=== PATIENT | male | born 1970 | race Hispanic/Latino ===

== ENCOUNTER → 2018-01-16 | Day surgery (SDC) | payer MEDICARE ==
[~2018-01-16] VITALS: Ht 170.2 cm; Wt 112.9 kg
[~2018-01-16] MED LIST: AMLODIPINE BESY10 MG PO; ASPIRIN325 MG PO; ATORVASTATIN CA80 MG PO; BENADRYL25 M1 PO; BISCOLAX10 MG RC; CLONIDINE HCL0.3 MG PO; CLONIDINE1 EAC1 TD; COLACE100 MG PO; COREG25 MG PO; DOXAZOSIN MESYLA8 MG PO; FENTANYL CITRATE/PF 100MCG/2 ML INJ ONE; GABAPENTIN300 MG PO; HUMALOG100 UNITS/; HYDRALAZINE HC100 MG PO; LACTULOSE20 GM/30 M PO; LANTUS 3ML100 UNITS/ SQ; LIDOCAINE HCL 2% LOCAL 20 ML VIAL ONE; LISINOPRIL40 MG PO; LORATADINE10 MG PO; MIDAZOLAM HCL 2 MG/2 ML VIAL ONE; NEPHRO-VITE RX1 EACH PO; OMEPRAZOLE40 MG PO; RENVELA800 MG PO; ROBAXIN500 MG PO; SEROQUEL50 MG PO; SODIUM CHLORIDE 0.9% 1000ML 1,000 ML ONE; SODIUM CHLORIDE 0.9% 500ML 500 ML ONE
[2018-01-16 08:15] VITALS: BP 155/78
--- OUTSIDE RECORDS SUMMARY | 2018-01-16 08:53 | XMS REPORT ---
Author Author [facility] Address Unknown Phone Unavailable Care Team Providers Care Alligator Shear Operator Name Role Phone KONRAD HUGHES Unavailable Unavailable Celena Campos Unavailable Unavailable JM CASTRO Unavailable Unavailable Wilman Proctor Unavailable Unavailable Problems This patient has no known problems. Allergies, Adverse Reactions, Alerts This patient has no known allergies or adverse reactions. Medications This patient has no known medications. Results Test Description Test Time Test Comments Text Results Atomic Results Result Comments NON TUNNELED CVC 2017-03-21 10:09:04 21 total fluoroscopic images are submitted for interpretation. BOX CAR CHECKER REQUEST FOR SERVICE 2017-03-21 10:09:04 21 total fluoroscopic images are submitted for interpretation. HEPATITIS B CORE ANTIBODY,TOTAL 2016-12-24 12:53:00 HEPATITIS B CORE AB TOTAL (test vwaz=[id number]) NON-REACTIVE NON-REACTIVE TEST PERFORMED AT:[facility] [address] [address] 160IRAJ GONZALEZ M.D. HEPATITIS B CORE IgM [id number] 12:53:00* Test Item Value Reference Range Comments HEPATITIS B CORE ANTIBODY (IGM) (test dhoa=[id number]) NON-REACTIVE NON- REACTIVE TEST PERFORMED AT:[facility] [address] [address]FIEYXNATHAN GONZALEZ M.D. HEPATITIS C [id number] 14:19:00* Test Item Value Reference Range Comments HCAB (test code=HCAB) REACTIVE NON-REACTIVE HEPATITIS B SURFACE [id number] 13:47:00* Test Item Value Reference Range Comments HBSAG (test code=HBSAG) NON-REACTIVE NON-REACTIVE HEPATITIS B SURFACE [id number] 13:37:00* Test Item Value Reference Range Comments HBSAB (test code=HBSAB) REACTIVE REACTIVE GLUCOMETER GLUCOSE- LAB USE [id number] 13:06:00* Test Item Value Reference Range Comments GLUCOMETER (test code=GMG) 195 mg/dL 70-100 Meter ID: [id number]: 4912 MARGARITO VARELA GLUCOMETER GLUCOSE- LAB USE [id number] 05:27:00* Test Item Value Reference Range Comments GLUCOMETER (test code=GMG) 109 mg/dL 70-100 DAILY MAINTENANCECLEANED METERMeter ID: [id number]: 5366 MICHELLE LIMNOS GLUCOMETER GLUCOSE- LAB USE [id number] 20:13:00* Test Item Value Reference Range Comments GLUCOMETER (test code=GMG) 116 mg/dL 70-100 DAILY MAINTENANCECLEANED METERMeter ID: [id number]: 5366 MICHELLE MARES GLUCOMETER GLUCOSE- LAB USE [id number] 15:41:00* Test Item Value Reference Range Comments GLUCOMETER (test code=GMG) 171 mg/dL 70-100 DAILY MAINTENANCECLEANED METERMeter ID: [id number]: 5193 KULDIP IBARREZ GLUCOMETER GLUCOSE- LAB USE [id number] 11:42:00* Test Item Value Reference Range Comments GLUCOMETER (test code=GMG) 202 mg/dL 70-100 DAILY MAINTENANCECLEANED METERMeter ID: [id number]: 5193 KULDIP IBARREZ GLUCOMETER GLUCOSE- LAB USE [id number] 06:08:00* Test Item Value Reference Range Comments GLUCOMETER (test code=GMG) 108 mg/dL 70-100 DAILY MAINTENANCECLEANED METERMeter ID: [id number]: 4736 SCOTT GAVIRIA GLUCOMETER GLUCOSE- LAB USE [id number] 19:49:00* Test Item Value Reference Range Comments GLUCOMETER (test code=GMG) 177 mg/dL 70-100 DAILY MAINTENANCECLEANED METERMeter ID: [id number]: 5366 MICHELLE MARES GLUCOMETER GLUCOSE- LAB USE [id number] 15:48:00* Test Item Value Reference Range Comments GLUCOMETER (test code=GMG) 179 mg/dL 70-100 DAILY MAINTENANCECLEANED METERMeter ID: [id number]: 5193 KULDIP IBARREZ GLUCOMETER GLUCOSE- LAB USE [id number] 11:53:00* Test Item Value Reference Range Comments GLUCOMETER (test code=GMG) 143 mg/dL 70-100 DAILY MAINTENANCECLEANED METERMeter ID: [id number]: 5193 KULDIP ESCOBEDO GLUCOMETER GLUCOSE- LAB USE [id number] 05:41:00* Test Item Value Reference Range Comments GLUCOMETER (test code=GMG) 119 mg/dL 70-100 Meter ID: [id number]: 4736 SCOTT GAVIRIA GLUCOMETER GLUCOSE- LAB USE [id number] 21:02:00* Test Item Value Reference Range Comments GLUCOMETER (test code=GMG) 122 mg/dL 70-100 Meter ID: [id number]: 4736 SCOTT GAVIRIA GLUCOMETER GLUCOSE- LAB USE [id number] 15:37:00* Test Item Value Reference Range Comments GLUCOMETER (test code=GMG) 178 mg/dL 70-100 DAILY MAINTENANCECLEANED METERMeter ID: [id number]: 5586 ARMANDO ROYALKW GLUCOMETER GLUCOSE- LAB USE [id number] 11:55:00* Test Item Value Reference Range Comments GLUCOMETER (test code=GMG) 174 mg/dL 70-100 DAILY MAINTENANCECLEANED METERMeter ID: [id number]: 5586 ARMANDO ROYALKW GLUCOMETER GLUCOSE- LAB USE [id number] 06:23:00* Test Item Value Reference Range Comments GLUCOMETER (test code=GMG) 143 mg/dL 70-100 CLEANED METERMeter ID: [id number]: 2417 CHELI [facility] METABOLIC [id number] 04:07:00* Test Item Value Reference Range Comments GLUCOSE (test code=06D) 143 mg/dL 75-100 SODIUM (test code=01A) 137 mmol/L 136-145 POTASSIUM (test code=01B) 4.3 mmol/L 3.6-5.1 CHLORIDE (test code=04A) 103 mmol/L 98-107 CO2 (test code=02A) 23 mmol/L 22-32 ANION GAP (test code=ANG) 15.3 mmol/L BUN (test code=05D) 44 mg/dL 7-18 CREATININE (test code=03E) 7.2 mg/dL 0.7-1.3 BUN/CREA R (test code=BCR) 6 12-20 CALCIUM (test code=09D) 7.9 mg/dL 8.3-9.5 BILI TOTAL (test code=11A) 0.2 mg/dL 0.2-1.0 PROTEIN (test code=07D) 7.4 g/dL 6.4-8.2 ALBUMIN (test code=08D) 2.3 g/dL 3.5-4.8 GLOBULIN (test code=GLB) 5.1 g/dL 1.5-3.8 ALB/GLOB (test code=AGRR) 0.5 1.0-2.6 ALK PHOS (test code=35A) 121 IU/L 42-121 AST (test code=30A) 20 IU/L <=42 ALT (test code=31A) 14 IU/L <=78 CBC (INCLUDES AUTOMATED DIFFERENTIAL)2016-12-20 03:54:00* Test Item Value Reference Range Comments WBC (test code=WBC) 6.1 10\\S\\3/uL 4.5-11.0 RBC (test code=RBC) 3.13 10\\S\\6/uL 4.20-5.60 HGB (test code=HBG) 9.1 g/dL 14.0-18.0 HCT (test code=HCT) 29.8 % 35.0-46.0 MCV (test code=MCV) 95.2 fL 80.0-94.0 MCH (test code=MCH) 29.1 pg 27.0-31.0 MCHC (test code=MCHC) 30.5 g/dL 32.0-36.0 RDW (test code=RDW) 14.6 % 11.5-14.5 PLT (test code=PLT) 201 10\\S\\3/uL 130-400 MPV (test code=MPV) 10.8 fL 9.4-12.4 NEUTROP # (test code=NE#) 4.2 10\\S\\3/uL 2.0-8.0 LYMPH # (test code=LY#) 1.1 10\\S\\3/uL 1.2-4.0 MONOCYTE # (test code=MO#) 0.5 10\\S\\3/uL 0.0-1.1 EOSINOPH # (test code=EO#) 0.2 10\\S\\3/uL 0.0-0.7 BASOPHIL # (test code=BA#) 0.0 10\\S\\3/uL 0.0-0.3 IG # (test code=IG#) 0.17 10\\S\\3/uL 0.00-0.06 NRBC # (test code=NRBC#) 0.02 10\\S\\3/uL 0.00-0.01 NEUTROPH % (test code=NE%) 67.5 % 35.0-73.0 LYMPH % (test code=LY%) 17.8 % 20.0-55.0 MONO % (test code=MO%) 8.1 % 2.5-10.0 EOSINOPH % (test code=EO%) 3.3 % 0.0-5.0 BASOPHIL % (test code=BA%) 0.5 % 0.0-2.0 IG % (test code=IG%) 2.8 % 0.0-0.8 NRBC% (test code=NRBC%) 0.3 % 0.0-0.2 MANDIFF (test code=MDIFF) NO NO RBC MORPH (test code=RBCMOR) NORMAL GLUCOMETER GLUCOSE- LAB USE [id number] 20:28:00* Test Item Value Reference Range Comments GLUCOMETER (test code=GMG) 137 mg/dL 70-100 CLEANED METERMeter ID: [id number]: 24[address] CHELI [address] [place] GLUCOMETER GLUCOSE- LAB USE [id number] 15:34:00* Test Item Value Reference Range Comments GLUCOMETER (test code=GMG) 131 mg/dL 70-100 Meter ID: [id number]: 5226 EDA HERNANDEZ GLUCOMETER GLUCOSE- LAB USE [id number] 11:35:00* Test Item Value Reference Range Comments GLUCOMETER (test code=GMG) 165 mg/dL 70-100 Meter ID: [id number]: 5226 EDA HERNANDEZ GLUCOMETER GLUCOSE- LAB USE [id number] 05:56:00* Test Item Value Reference Range Comments GLUCOMETER (test code=GMG) 145 mg/dL 70-100 Meter ID: [id number]: 4333 JASSON LONG GLUCOMETER GLUCOSE- LAB USE [id number] 20:11:00* Test Item Value Reference Range Comments GLUCOMETER (test code=GMG) 173 mg/dL 70-100 Meter ID: [id number]: 4333 JASSON LONG XR C-ARM>1HR W [id number] 15:57:33FluoroscopyLocation Code: [id number] HISTORY: For AV fistulaComments: Fluoroscopy was provided during AV fistula creation. Approximatelyfluoroscopy time was 3 minutes 32 seconds.IMPRESSION: Fluoroscopy services provided. Please see operative report for fulldetails.GLUCOMETER GLUCOSE- LAB USE [id number] 15:50:00* Test Item Value Reference Range Comments GLUCOMETER (test code=GMG) 116 mg/dL 70-100 Meter ID: [id number]: 5226 EDA HERNANDEZ GLUCOMETER GLUCOSE- LAB USE [id number] 09:42:00* Test Item Value Reference Range Comments GLUCOMETER (test code=GMG) 137 mg/dL 70-100 Meter ID: [id number]: 5331 SANIA ASHOFU GLUCOMETER GLUCOSE- LAB USE [id number] 09:42:00* Test Item Value Reference Range Comments GLUCOMETER (test code=GMG) 99 mg/dL 70-100 Meter ID: [id number]: 5331 SANIA ASHOFU GLUCOMETER GLUCOSE- LAB USE [id number] 09:42:00* Test Item Value Reference Range Comments GLUCOMETER (test code=GMG) 122 mg/dL 70-100 CLEANED METERDAILY MAINTENANCEMeter ID: [id number]: 5301 RANDY SWANNSTEPHANIUKWU CBC WITH MANUAL [id number] 06:09:00* Test Item Value Reference Range Comments WBC (test code=WBC) 8.8 10\\S\\3/uL 4.5-11.0 RBC (test code=RBC) 2.85 10\\S\\6/uL 4.20-5.60 HGB (test code=HBG) 8.4 g/dL 14.0-18.0 HCT (test code=HCT) 25.9 % 35.0-46.0 MCV (test code=MCV) 90.9 fL 80.0-94.0 MCH (test code=MCH) 29.5 pg 27.0-31.0 MCHC (test code=MCHC) 32.4 g/dL 32.0-36.0 RDW (test code=RDW) 14.9 % 11.5-14.5 PLT (test code=PLT) 195 10\\S\\3/uL 130-400 MPV (test code=MPV) 10.3 fL 9.4-12.4 NEUTROP # (test code=NE#) 6.6 10\\S\\3/uL 2.0-8.0 LYMPH # (test code=LY#) 1.2 10\\S\\3/uL 1.2-4.0 MONOCYTE # (test code=MO#) 0.7 10\\S\\3/uL 0.0-1.1 EOSINOPH # (test code=EO#) 0.2 10\\S\\3/uL 0.0-0.7 BASOPHIL # (test code=BA#) 0.0 10\\S\\3/uL 0.0-0.3 IG # (test code=IG#) 0.09 10\\S\\3/uL 0.00-0.06 NRBC # (test code=NRBC#) 0.00 10\\S\\3/uL 0.00-0.01 NEUTROPH % (test code=NE%) 75.2 % 35.0-73.0 LYMPH % (test code=LY%) 13.3 % 20.0-55.0 MONO % (test code=MO%) 8.3 % 2.5-10.0 EOSINOPH % (test code=EO%) 1.9 % 0.0-5.0 BASOPHIL % (test code=BA%) 0.3 % 0.0-2.0 IG % (test code=IG%) 1.0 % 0.0-0.8 NRBC% (test code=NRBC%) 0.0 % 0.0-0.2 MAN DIFF (test code=HMDIFF) MANUAL DIFFERENTIAL SEG (test code=SEG) 78 % 42-75 BAND (test code=BAND) 0 % 0-8 LYMPH (test code=LYMPH) 13 % 20-51 MONO (test code=MONO) 6 % 3-11 EOS (test code=EOS) 3 % <=10 BASO (test code=BASO) 0 % 0-2 RBC MORPH (test code=RBCMORN) NORMAL NORMAL PLT EST (test code=PLTEST) ADEQUATE ADEQUATE PLT MORPH (test code=PLTMOR) NORMAL (1.5-3 um) NORMAL BASIC METABOLIC [id number] 05:52:00* Test Item Value Reference Range Comments GLUCOSE (test code=06D) 106 mg/dL 75-100 SODIUM (test code=01A) 136 mmol/L 136-145 POTASSIUM (test code=01B) 4.7 mmol/L 3.6-5.1 CHLORIDE (test code=04A) 103 mmol/L 98-107 CO2 (test code=02A) 18 mmol/L 22-32 ANION GAP (test code=ANG) 19.7 mmol/L BUN (test code=05D) 89 mg/dL 7-18 CREATININE (test code=03E) 11.3 mg/dL 0.7-1.3 BUN/CREA R (test code=BCR) 8 12-20 CALCIUM (test code=09D) 7.6 mg/dL 8.3-9.5 PRO TIME AND [id number] 05:48:00* Test Item Value Reference Range Comments PT (test code=TT) 13.3 s 9.8-13.6 INR (test code=INR) 1.2 INRH (test code=INRH) SUGGESTED THERAPEUTIC RANGE FOR INR: 2.5 - 3.5 For Patients with Prosthetic Valves or Patients with recurrent Thromboembolic Events 2.0 - 3.0 For Most Other Applications PTT (test code=PTT) 39.4 s 20.2-38.0 PTTH (test code=PTTH) To monitor the effectiveness of heparin, we offer the Anti-Xa (Heparin Assay). It can be used for either unfractinated or LMW Heparin. Order Code is ANTI-XA U/S VENOUS FLOW DOPPLER ALEXIS-UPPER [id number] 19:23:27Venous Doppler ultrasound bilateral upper extremitiesIndication: Deep venous thrombosis.Comparison: None available.Location B2 Findings:Right upper extremity : Subclavian, axilla, brachial, basilic, cephalic, mediancubital, radial and ulnar veins are patent, demonstrating flow andcompressibility where applicable. Normal spectral analysis. Echogenic materialin the right jugular vein, with limited compressibility, consistent withthrombus.Left upper extremity: Subclavian, axillary, cephalic, median cubital, radialand ulnar veins are patent and compressible, with normal spectral analysis.Flow is present in the left brachial vein, with partial compressibility,consistent with partial thrombosis. Partial thrombosis of the left jugularvein, with limited compressibility.Left basilic vein measured available in diameter 0.33 cm and distance of 0.63cm.Impression:Partial thrombosis of both internal jugular veins and left brachial vein.GLUCOMETER GLUCOSE- LAB USE [id number] 13:09:00* Test Item Value Reference Range Comments GLUCOMETER (test code=GMG) 240 mg/dL 70-100 Meter ID: [id number]: 5686 JAN GASTELUM GLUCOMETER GLUCOSE- LAB USE [id number] 13:08:00* Test Item Value Reference Range Comments GLUCOMETER (test code=GMG) 90 mg/dL 70-100 Meter ID: [id number]: 5686 JAN GASTELUM GLUCOMETER GLUCOSE- LAB USE [id number] 13:02:00* Test Item Value Reference Range Comments GLUCOMETER (test code=GMG) 184 mg/dL 70-100 CLEANED METERDAILY MAINTENANCEMeter ID: [id number]: 5301 RANDY LAWRENCEWU [id number] 10:59:00* Test Item Value Reference Range Comments MAGNESIUM (test code=48A) 1.9 mg/dL 1.8-2.4 PHOSPHORUS (P04)2016-12-17 10:59:00* Test Item Value Reference Range Comments PHOSPHORUS (test code=43D) 8.1 mg/dL 2.7-4.6 BASIC METABOLIC [id number] 10:59:00* Test Item Value Reference Range Comments GLUCOSE (test code=06D) 87 mg/dL 75-100 SODIUM (test code=01A) 135 mmol/L 136-145 POTASSIUM (test code=01B) 4.9 mmol/L 3.6-5.1 CHLORIDE (test code=04A) 104 mmol/L 98-107 CO2 (test code=02A) 16 mmol/L 22-32 ANION GAP (test code=ANG) 19.9 mmol/L BUN (test code=05D) 83 mg/dL 7-18 CREATININE (test code=03E) 11.0 mg/dL 0.7-1.3 BUN/CREA R (test code=BCR) 8 12-20 CALCIUM (test code=09D) 7.0 mg/dL 8.3-9.5 GLUCOMETER GLUCOSE- LAB USE [id number] 15:17:00* Test Item Value Reference Range Comments GLUCOMETER (test code=GMG) 101 mg/dL 70-100 CLEANED METERDAILY MAINTENANCEMeter ID: [id number]: 5301 Sweet Cred EVULUKWU GLUCOMETER GLUCOSE- LAB USE [id number] 11:22:00* Test Item Value Reference Range Comments GLUCOMETER (test code=GMG) 188 mg/dL 70-100 CLEANED METERDAILY MAINTENANCEMeter ID: [id number]: 5301 RANDY EVULUKWU [address]--XGYC PATH LEVEL 1 (GROSS ONLY)2016-12-16 08:31:00 RUN DATE: 12/16/16 [facility]*Live* PAGE 1 RUN TIME: 0831 Specimen Inquiry PATIENT: JESSICA COMBS ACCT: [id number] LOC: 2ND U: [id number] AGE/SX: 46/M ROOM: 204 RE12/12/16REG DR: Celena Campos MD : 1970 BED: A DIS: 12/14/16 STATUS: DIS Florina TLOC: SPEC : [id number] RECD: 12/13/16 STATUS: DEJA ROUSSEAU NUM: [id number] MATTHEW: 12/13/16- DR: Vaughn Ambrose MD ENTERED: 12/13/16 SP TYPE: INPATIENT [facility] DR: ORDERED: 46512(2020) CODES: FOREIGN BODY. PROCEDURES: 88093(2020) (12/13/161339) TISSUES: FOREIGN BODY. - HEMOSPLIT CATHETER CLINICAL HISTORY Pre-op Diagnosis: Renal failure, non-functioning hemosplit catheter.Post-op Diagnosis: Not stated. DIAGNOSIS Specimen designated "hemosplit catheter ID only", removal of: - Catheter identified ( gross only) [facility] [id number] GROSS DESCRIPTION The case is received in one part , labeled with the patient's name "Jessica Combs" andaccession #[id number] accompanied by a requisition slip labeled with the patient's name andthe same accession number. The specimen is received fresh, labeled "hemosplit catheter ID only" and consists of adouble-lumen catheter measuring 40 cm in length. The specimen is for gross identificationonly. (ASW) MICROSCOPIC DESCRIPTION No sections. Signed (signature on file) Rhonda Vick MD 12/16/16 0831 END OF REPORT BASIC METABOLIC [id number] 07:11:00* Test Item Value Reference Range Comments GLUCOSE (test code=06D) 117 mg/dL 75-100 SODIUM (test code=01A) 138 mmol/L 136-145 POTASSIUM (test code=01B) 4.8 mmol/L 3.6-5.1 CHLORIDE (test code=04A) 104 mmol/L 98-107 CO2 (test code=02A) 18 mmol/L 22-32 ANION GAP (test code=ANG) 20.8 mmol/L BUN (test code=05D) 80 mg/dL 7-18 CREATININE (test code=03E) 11.2 mg/dL 0.7-1.3 BUN/CREA R (test code=BCR) 7 12-20 CALCIUM (test code=09D) 7.3 mg/dL 8.3-9.5 GLUCOMETER GLUCOSE- LAB USE [id number] 05:40:00* Test Item Value Reference Range Comments GLUCOMETER (test code=GMG) 131 mg/dL 70-100 CLEANED METERMeter ID: [id number]: [address] [place] GLUCOMETER GLUCOSE- LAB USE [id number] 20:31:00* Test Item Value Reference Range Comments GLUCOMETER (test code=GMG) 96 mg/dL 70-100 CLEANED METERMeter ID: [id number]: 2417 CHELI LASHAWN GLUCOMETER GLUCOSE- LAB USE [id number] 16:16:00* Test Item Value Reference Range Comments GLUCOMETER (test code=GMG) 100 mg/dL 70-100 Meter ID: [id number]: 4912 MARGARITO VARELA BASIC METABOLIC [id number] 13:58:00* Test Item Value Reference Range Comments GLUCOSE (test code=06D) 149 mg/dL 75-100 SODIUM (test code=01A) 136 mmol/L 136-145 POTASSIUM (test code=01B) 4.5 mmol/L 3.6-5.1 CHLORIDE (test code=04A) 104 mmol/L 98-107 CO2 (test code=02A) 20 mmol/L 22-32 ANION GAP (test code=ANG) 16.5 mmol/L BUN (test code=05D) 76 mg/dL 7-18 CREATININE (test code=03E) 11.1 mg/dL 0.7-1.3 BUN/CREA R (test code=BCR) 7 12-20 CALCIUM (test code=09D) 7.1 mg/dL 8.3-9.5 GLUCOMETER GLUCOSE- LAB USE [id number] 11:56:00* Test Item Value Reference Range Comments GLUCOMETER (test code=GMG) 194 mg/dL 70-100 Meter ID: [id number]: 4912 MARGARITO VARELA Glucose blood [id number] 08:10:00* Test Item Value Reference Range Comments Glucose blood fingerstick (test kksr=KSZ7845) 141 mg/dL 65-120 [place] [id number] 07:40:00>100,000 CFU/ML.^>100,000 CFU/ML.^LUrine [id number] 07:40:00* Test Item Value Reference Range Comments Urine culture (test senf=988-8) MIXED STANISLAV. Urine culture (test mase=484-92) Urine culture (test emmj=571-62) 2+ GRAM NEGATIVE RODS. Urine culture (test flhj=525-38) PROTEUS MIRABILIS Urine culture (test dxia=718-6) Proteus mirabilis Trimethoprim/sulfamethoxazole susceptibility test by minimum inhibitory concentration (test jvmy=208-3) Tetracycline susceptibility test by minimum inhibitory concentration (test code =496-0) Nitrofurantoin susceptibility test by minimum inhibitory concentration (test kfqc=168-0) Amoxicillin/clavulanate susceptibility test by minimum inhibitory concentration (test code=20-8) Gentamycin susceptibility test by minimum inhibitory concentration (test code= 267-5) Ampicillin susceptibility test by minimum inhibitory concentration (test code= 28-1) Cefazolin susceptibility test by minimum inhibitory concentration (test code=76 -0) Cephalothin susceptibility test by minimum inhibitory concentration (test code= 161-0) Cefoxitin susceptibility test by minimum inhibitory concentration (test code= 116-4) Cefotaxime susceptibility test by minimum inhibitory concentration (test code= 108-1) Cefuroxime susceptibility test by minimum inhibitory concentration (test code= 86104-4) Cefotetan susceptibility test by minimum inhibitory concentration (test code= 112-3) Levofloxacin susceptibility test by minimum inhibitory concentration (test code =05243-3) Ceftriaxone susceptibility test by minimum inhibitory concentration (test code= 141-2) Ampicillin/sulbactam susceptibility test by minimum inhibitory concentration ( test code=32-3) Aztreonam susceptibility test by minimum inhibitory concentration (test code=44 -8) Ceftazidime susceptibility test by minimum inhibitory concentration (test code= 133-9) Ticarcillin/clavulanate susceptibility test by minimum inhibitory concentration (test inbv=759-3) Tobramycin susceptibility test by minimum inhibitory concentration (test code= 508-2) Piperacillin/tazobactam susceptibility test by minimum inhibitory concentration (test ifsn=471-8) Cefepime susceptibility test by minimum inhibitory concentration (test code= 6644-9) Ciprofloxacin susceptibility test by minimum inhibitory concentration (test cxms=093-4) Meropenem susc BECKY (test lukm=7866-3) Amikacin susceptibility test by minimum inhibitory concentration (test code=12- 5) U/S [id number] 07:36:26NON-TUNNELED CENTRAL VENOUS CATHETER PLACEMENT USING ULTRASOUND ANDFLUOROSCOPIC GUIDANCE. LOCATION CODE: B2.CLINICAL HISTORY: End-stage renal disease with recent removal ofmalfunctioning right chest wall dialysis catheter at outside hospital.FLUOROSCOPY TIME: 0.38 minutes with a total of 575 frames.TECHNIQUE: The risks, benefits and alternatives were discussed and informedconsent was obtained. Prior to beginning the procedure, [place] Protocol wasused to confirm the patient's identity and planned procedure. Fluoroscopy timehas been recorded in the electronic medical record. Maximum sterile barriersincluding cap, mask, hand hygiene, sterile gloves, sterile gown, large steriledrape and cutaneous antisepsis were used. SITE: The skin over the left external jugular vein was sterilely prepped,draped and infiltrated with lidocaine.Prior to the procedure, the target vessel was evaluated by ultrasound. An imageof the patent vessel was recorded at dictated to PACS. After sterile prep, thisvessel was accessed using realtime ultrasound guidance. A guidewire andcatheter were then passed centrally using fluoroscopic guidance.After dilating the tract, a Trialysis catheter was inserted over the guidewire. The catheter was flushed and secured in place. A sterile dressing wasapplied. ESTIMATED BLOOD LOSS: less than 30 milliliters.DISCHARGED TO: Inpatient unit.CONDITION: Stable.FINDINGS:Ultrasound images demonstrate a patent left external jugular vein. The leftinternal jugular vein is occluded.Final fluoroscopic image demonstrates the catheter with its tip in the distalSVC.IMPRESSION: Successful non-tunneled Trialysis catheter placement via the left externaljugular vein. 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 After treatment is completed, removalcan be performed at bedside using standard hospital protocol.XR NON TUNNELED [id number] 07:36:26NON-TUNNELED CENTRAL VENOUS CATHETER PLACEMENT USING ULTRASOUND ANDFLUOROSCOPIC GUIDANCE. LOCATION CODE: B2.CLINICAL HISTORY: End-stage renal disease with recent removal ofmalfunctioning right chest wall dialysis catheter at outside hospital.FLUOROSCOPY TIME: 0.38 minutes with a total of 575 frames.TECHNIQUE: The risks, benefits and alternatives were discussed and informedconsent was obtained. Prior to beginning the procedure, [place] Protocol wasused to confirm the patient's identity and planned procedure. Fluoroscopy timehas been recorded in the electronic medical record. Maximum sterile barriersincluding cap, mask, hand hygiene, sterile gloves, sterile gown, large steriledrape and cutaneous antisepsis were used. SITE: The skin over the left external jugular vein was sterilely prepped,draped and infiltrated with lidocaine.Prior to the procedure, the target vessel was evaluated by ultrasound. An imageof the patent vessel was recorded at dictated to PACS. After sterile prep, thisvessel was accessed using realtime ultrasound guidance. A guidewire andcatheter were then passed centrally using fluoroscopic guidance.After dilating the tract, a Trialysis catheter was inserted over the guidewire. The catheter was flushed and secured in place. A sterile dressing wasapplied. ESTIMATED BLOOD LOSS: less than 30 milliliters.DISCHARGED TO: Inpatient unit.CONDITION: Stable.FINDINGS:Ultrasound images demonstrate a patent left external jugular vein. The leftinternal jugular vein is occluded.Final fluoroscopic image demonstrates the catheter with its tip in the distalSVC.IMPRESSION: Successful non-tunneled Trialysis catheter placement via the left externaljugular vein. 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 After treatment is completed, removalcan be performed at bedside using standard hospital protocol.GLUCOMETER GLUCOSE- LAB USE [id number] 05: 51:00* Test Item Value Reference Range Comments GLUCOMETER (test code=GMG) 198 mg/dL 70-100 CLEANED METERMeter ID: [id number]: [id number] [facility] Glucose blood [id number] 01:18:00* Test Item Value Reference Range Comments Glucose blood fingerstick (test lrjl=[id number]) 95 mg/dL 65-120 HEPATITIS B SURFACE [id number] 21:27:00* Test Item Value Reference Range Comments HBSAB (test code=HBSAB) REACTIVE REACTIVE GLUCOMETER GLUCOSE- LAB USE [id number] 20:46:00* Test Item Value Reference Range Comments GLUCOMETER (test code=GMG) 113 mg/dL 70-100 CLEANED METERMeter ID: [id number]: 2417 [facility] HEPATITIS B SURFACE IKJVVLD4723-29-24 19:53:00* Test Item Value Reference Range Comments HBSAG (test code=HBSAG) NON-REACTIVE NON-REACTIVE GLUCOMETER GLUCOSE- LAB USE VIYW8600-06-15 15:55:00* Test Item Value Reference Range Comments GLUCOMETER (test code=GMG) 113 mg/dL 70-100 Meter ID: [id number]: 5226 EDA HERNANDEZ GLUCOMETER GLUCOSE- LAB USE RNVD7186-30-39 11:26:00* Test Item Value Reference Range Comments GLUCOMETER (test code=GMG) 154 mg/dL 70-100 Meter ID: [id number]: 5226 EDA HERNANDEZ CBC WITH MANUAL INAN3164-78-08 10:10:00* Test Item Value Reference Range Comments WBC (test code=WBC) 13.4 10\\S\\3/uL 4.5-11.0 RBC (test code=RBC) 3.18 10\\S\\6/uL 4.20-5.60 HGB (test code=HBG) 9.4 g/dL 14.0-18.0 HCT (test code=HCT) 28.6 % 35.0-46.0 MCV (test code=MCV) 89.9 fL 80.0-94.0 MCH (test code=MCH) 29.6 pg 27.0-31.0 MCHC (test code=MCHC) 32.9 g/dL 32.0-36.0 RDW (test code=RDW) 14.9 % 11.5-14.5 PLT (test code=PLT) 166 10\\S\\3/uL 130-400 MPV (test code=MPV) 11.1 fL 9.4-12.4 NEUTROP # (test code=NE#) 11.2 10\\S\\3/uL 2.0-8.0 LYMPH # (test code=LY#) 1.0 10\\S\\3/uL 1.2-4.0 MONOCYTE # (test code=MO#) 1.1 10\\S\\3/uL 0.0-1.1 EOSINOPH # (test code=EO#) 0.1 10\\S\\3/uL 0.0-0.7 BASOPHIL # (test code=BA#) 0.0 10\\S\\3/uL 0.0-0.3 IG # (test code=IG#) 0.05 10\\S\\3/uL 0.00-0.06 NRBC # (test code=NRBC#) 0.00 10\\S\\3/uL 0.00-0.01 NEUTROPH % (test code=NE%) 83.9 % 35.0-73.0 LYMPH % (test code=LY%) 7.3 % 20.0-55.0 MONO % (test code=MO%) 7.9 % 2.5-10.0 EOSINOPH % (test code=EO%) 0.4 % 0.0-5.0 BASOPHIL % (test code=BA%) 0.1 % 0.0-2.0 IG % (test code=IG%) 0.4 % 0.0-0.8 NRBC% (test code=NRBC%) 0.0 % 0.0-0.2 MAN DIFF (test code=HMDIFF) MANUAL DIFFERENTIAL SEG (test code=SEG) 87 % 42-75 BAND (test code=BAND) 0 % 0-8 LYMPH (test code=LYMPH) 8 % 20-51 MONO (test code=MONO) 3 % 3-11 EOS (test code=EOS) 2 % <=10 BASO (test code=BASO) 0 % 0-2 RBC MORPH (test code=RBCMORN) ABNORMAL NORMAL PLT EST (test code=PLTEST) ADEQUATE ADEQUATE PLT MORPH (test code=PLTMOR) NORMAL (1.5-3 um) NORMAL ANISO (test code=ANISO) 1+ NONE HYPOCHROM (test code=HYPOC) 1+ NONE COMPREHENSIVE METABOLIC [id number] 10:04:00* Test Item Value Reference Range Comments GLUCOSE (test code=06D) 180 mg/dL 75-100 SODIUM (test code=01A) 136 mmol/L 136-145 POTASSIUM (test code=01B) 4.9 mmol/L 3.6-5.1 CHLORIDE (test code=04A) 105 mmol/L 98-107 CO2 (test code=02A) 19 mmol/L 22-32 ANION GAP (test code=ANG) 16.9 mmol/L BUN (test code=05D) 78 mg/dL 7-18 CREATININE (test code=03E) 11.6 mg/dL 0.7-1.3 BUN/CREA R (test code=BCR) 7 12-20 CALCIUM (test code=09D) 7.4 mg/dL 8.3-9.5 BILI TOTAL (test code=11A) 0.6 mg/dL 0.2-1.0 PROTEIN (test code=07D) 7.8 g/dL 6.4-8.2 ALBUMIN (test code=08D) 2.8 g/dL 3.5-4.8 GLOBULIN (test code=GLB) 5.0 g/dL 1.5-3.8 ALB/GLOB (test code=AGRR) 0.6 1.0-2.6 ALK PHOS (test code=35A) 120 IU/L 42-121 AST (test code=30A) 19 IU/L <=42 ALT (test code=31A) 19 IU/L <=78 PRO TIME AND [id number] 09:55:00* Test Item Value Reference Range Comments PT (test code=TT) 14.2 s 9.8-13.6 INR (test code=INR) 1.3 INRH (test code=INRH) SUGGESTED THERAPEUTIC RANGE FOR INR: 2.5 - 3.5 For Patients with Prosthetic Valves or Patients with recurrent Thromboembolic Events 2.0 - 3.0 For Most Other Applications PTT (test code=PTT) 33.3 s 20.2-38.0 PTTH (test code=PTTH) To monitor the effectiveness of heparin, we offer the Anti-Xa (Heparin Assay). It can be used for either unfractinated or LMW Heparin. Order Code is ANTI-XA GLUCOMETER GLUCOSE- LAB USE GSXT5303-82-29 05:45:00* Test Item Value Reference Range Comments GLUCOMETER (test code=GMG) 166 mg/dL 70-100 Meter ID: [id number]: 4333 JASSON LONG Glucose blood pdesldbsnad3639-11-38 01:49:00* Test Item Value Reference Range Comments Glucose blood fingerstick (test axka=ETG7957) 199 mg/dL 65-120 Glucose blood bljcnmyfizo5576-44-49 01:30:00* Test Item Value Reference Range Comments Glucose blood fingerstick (test tkch=MVR4547) 124 mg/dL 65-120 Glucose blood fxhyswlxdoa6408-08-07 20:29:00* Test Item Value Reference Range Comments Glucose blood fingerstick (test mkrl=VNP9426) 213 mg/dL 65-120 Glucose blood xnfwpuneewr5863-70-75 12:46:00* Test Item Value Reference Range Comments Glucose blood fingerstick (test vamj=ZTL7460) 154 mg/dL 65-120 Complete blood count (CBC) with automated white blood cell (WBC) gequwxvxdgzt6927-90-32 07:35:00* Test Item Value Reference Range Comments White blood cell count (test apot=MHM5609) 14.6 4.3-10.9 Blood erythrocytes count (number/volume) (test tpmm=47688-8) 3.50 M/ul 4.33- 5.43 Hemoglobin measurement (test haer=KZY4751) 10.0 g/dL 13.6-17.9 Blood hematocrit (volume fraction) (test oflh=92024-6) 31.8 % 39.6-49.0 MCV (test code=MCV) 90.8 fL 80-100 MCH (test vzht=31171-0) 28.7 pg 27.0-35.0 MCHC (test code=MCHC) 31.6 g/dL 32.0-36.0 Platelets (test code=PLT) 156 152-406 Red Cell Distribution Width (test code=RDW) 16.0 % 12.1-15.2 Blood platelet mean volume (test mqlo=76194-5) 9.4 fL 7.6-11.3 Primary Language Barbadian Primary Language EnglishComplete blood count, platelets with manual duudpxmbqsfo4017-96-37 07:35:00* Test Item Value Reference Range Comments Segmented Neutrophils (test code=SEG) 88 % 40-80 Band Neutrophils (test code=BANDS) 1 % 0-1 Lymphocyte count (test rcrp=75599-8) 9 % 15-42 Monocytes (test code=MN) 2 % 0-10 Blood morphology interpretation narrative (test wxxj=19930-4) NOT SEEN NOT SEEN Primary Language Barbadian Primary Language EnglishGlucose blood iroskxgqkvp2651- 02-03 07:24:00* Test Item Value Reference Range Comments Glucose blood fingerstick (test deod=YQF9340) 191 mg/dL 65-120 Basic Metabolic Rdliu5958-22-78 05:57:00* Test Item Value Reference Range Comments Sodium level (test rtbe=GPS7956) 137 meq/L 135-145 4.7 Chloride measurement (test bwus=AIY1696) 106 meq/L 101-111 Bicarbonate (test code=CO2) 17 meq/L 21-31 Glucose measurement (test msjp=AJX6521) 177 mg/dL 65-120 ADA Clinical Practice Recommendation: <100 mg/dl=Normal Fasting Glucose BUN Bld-mCnc (test xnwn=2481-4) 75 mg/dL 6-20 Creatinine measurement (test wvql=WWW3039) 10.83 mg/dL 0.61-1.24 Repeated, Pt history, Broadcast at 0557 by JED The creatinine method used has been calibrated to be traceable to Isotope dilution Mass Spectrometry (IDMS). For more information: www.nkdep.nih.gov Estimated glomerular filtration rate (GFR) determination (test huzj=31177-7) 5 mL =/>90 FOR CHRONIC KIDNEY DISEASE: GFR STAGE DESCRIPTION= />90 STAGE 1 NORMAL--OR-- MINIMAL KIDNEY DAMAGE WITH NORMAL GFR 60-89 STAGE 2 MILD DECREASE IN GFR 30-59 STAGE 3 MODERATE DECREASE IN GFR 15-29 STAGE 4 SEVERE DECREASE IN GFR <15 STAGE 5 KIDNEY FAILURE The Glomerular Filtration Rate (GFR) has been calculated using the IDMS-Traceable MDRD Study Equation. Calcium Level (test code=CA) 7.2 mg/dL 8.5-10.5 Primary Language Barbadian Primary Language EnglishJojo E2686-21-59 22:50:00* Test Item Value Reference Range Comments Troponin I (test code=TROP) 0.06 ng/mL <0.03 Primary Language Barbadian Physician Instructions Edit Troponin Times according to first ED TroponinBasic Metabolic Weeyl7328-97-81 21:33 :00* Test Item Value Reference Range Comments Sodium level (test wgvc=HTV4554) 139 meq/L 135-145 5.9Repeated & Called to JAN LUCIO RN on 12/12/16 at 2133 by ODALIS Was there 100% Readback? Y K AND CREA Chloride measurement (test hgqp=BXM4191) 110 meq/L 101-111 Bicarbonate (test code=CO2) 15 meq/L 21-31 Glucose measurement (test lofq=YXE4226) 96 mg/dL 65-120 ADA Clinical Practice Recommendation: <100 mg/dl=Normal Fasting Glucose BUN Bld-mCnc (test teqw=2905-0) 76 mg/dL 6-20 Creatinine measurement (test mcev=VYX5276) 10.58 mg/dL 0.61-1.24 The creatinine method used has been calibrated to be traceable to Isotope dilution Mass Spectrometry (IDMS). For more information: www.SwimTopiadep.nih.gov Estimated glomerular filtration rate (GFR) determination (test gjjl=91788-5) 5 mL =/>90 FOR CHRONIC KIDNEY DISEASE: GFR STAGE DESCRIPTION= />90 STAGE 1 NORMAL--OR-- MINIMAL KIDNEY DAMAGE WITH NORMAL GFR 60-89 STAGE 2 MILD DECREASE IN GFR 30-59 STAGE 3 MODERATE DECREASE IN GFR 15-29 STAGE 4 SEVERE DECREASE IN GFR <15 STAGE 5 KIDNEY FAILURE The Glomerular Filtration Rate (GFR) has been calculated using the IDMS-Traceable MDRD Study Equation. Calcium Level (test code=CA) 7.5 mg/dL 8.5-10.5 Primary Language Barbadian Primary Language EnglishGlucose blood hwcdgksripw8810- 02-02 21:08:00* Test Item Value Reference Range Comments Glucose blood fingerstick (test pykh=AFU1132) 102 mg/dL 65-120 Mfxqqqtoui8167-00-41 19:39:00* Test Item Value Reference Range Comments Urine color (test lxbo=9016-4) YELLOW Urine appearance determination (test nuao=3986-7) CLEAR Urine specific gravity measurement (test cpwk=5537-8) 1.015 1.005-1.030 Urine glucose detection (test igfo=3294-7) Negative NEG Urine bilirubin detection (test mjnj=6132-1) Negative NEG Urine Ketones (test code=UKET) NEGATIVE NEG Urine blood detection (test llnm=21041-5) TRACE NEG Urine pH (test vgwy=0392-1) 6.5 5.0-7.0 Urinalysis with microscopy (test clfv=99149-3) 3+ NEG Urine urobilinogen detection (test osdp=89853-6) 0.2 0.2-1.0 Urine nitrate measurement (test lpoi=44806-0) NEGATIVE NEG Urine Leukocyte Esterase (test code=UESTR) NEGATIVE NEG Primary Language Barbadian HOW IS URINE COLLECTED? Clean Catch UrineMicroscopic examination of hoohl9842-15-21 19:39:00* Test Item Value Reference Range Comments Urine WBC (test code=UWBC) 5-10 <5 Urine sediment erythrocyte count by microscopy (number/high power field) (test ndfi=34285-0) 5 NONE SEEN Bacteria detection in urine sediment by light microscopy (test yxdf=30868-5) < 20 NONE SEEN Sqamous Epithelial (test code=SQEP) 10-20 NONE SEEN Urinalysis with reflex to culture (test pcal=08349-5) REFLEXED Primary Language Barbadian HOW IS URINE COLLECTED? Clean Catch UrineTroponin I2017 -02-02 19:15:00* Test Item Value Reference Range Comments Troponin I (test code=TROP) 0.06 ng/mL <0.03 Primary Language Barbadian Physician Instructions Edit Troponin Times according to first ED TroponinGlucose blood zxnlyvmknew4731-32-13 18:31:00* Test Item Value Reference Range Comments Glucose blood fingerstick (test uixq=YSE3397) 92 mg/dL 65-120 Brain natriuretic peptide (BNP) xkbnpxrvrjl9379-05-31 11:52:00* Test Item Value Reference Range Comments Brain natriuretic peptide (BNP) measurement (test vaxe=62051-9) 187 pg/mL <= 100 CLOTTED Specimen, recollect request called to EUNICE on 12/12/16 at 1014 by SA Ignite Print label to LERProthrombin time (PT) with international normalized ratio (INR)2016-12-12 11:36:00* Test Item Value Reference Range Comments PT Prothrombin Time (test code=PROTIME) 13.0 s 9.5-12.5 Prothrombin time (PT) with international normalized ratio (INR) (test code= 67603-8) 1.15 Monitor pts using INR value (not prothrombin time) INR Coumadin Therapy: Low Range (prophylaxis) 2.0-3.0 High Range (high risk of clot formation) 2.5-3.5 Test Ordered to Rule Out VTE/DVT? N Specimen recollect requested, called to EUNICE on 12/12/16 at 1014 by SA Ignite Reason:SHORT DRAW Print label to LER Test Ordered to Rule Out VTE/DVT? N Specimen recollect requested, called to EUNICE on 12/12/16 at 1014 by SA Ignite Reason:SHORT DRAW Print label to LERPTT , Activated Partial Osvimm5114-89-25 11:36:00* Test Item Value Reference Range Comments PTT, Activated Partial Thromb (test code=PTT) 36.7 s 24.3-36.9 Test Ordered to Rule Out VTE/DVT? N Specimen recollect requested, called to EUNICE on 12/12/16 at 1014 by SA Ignite Reason:SHORT DRAW Print label to LER Test Ordered to Rule Out VTE/DVT? N Specimen recollect requested, called to EUNICE on 12/12/16 at 1014 by SA Ignite Reason:SHORT DRAW Print label to LERGlucose blood yeoykijvewd5981-58-91 11:26:00* Test Item Value Reference Range Comments Glucose blood fingerstick (test zmvj=OFF7518) 98 mg/dL 65-120 Complete blood count (CBC) with automated white blood cell (WBC) dhbokgaprueq3208-02-08 11:25:00* Test Item Value Reference Range Comments White blood cell count (test hsiv=NYO8029) 13.6 4.3-10.9 Blood erythrocytes count (number/volume) (test depz=92720-2) 3.68 M/ul 4.33- 5.43 Hemoglobin measurement (test otla=THN9232) 10.6 g/dL 13.6-17.9 Blood hematocrit (volume fraction) (test yfvk=08655-2) 33.6 % 39.6-49.0 MCV (test code=MCV) 91.4 fL 80-100 MCH (test hfta=39442-1) 28.8 pg 27.0-35.0 MCHC (test code=MCHC) 31.5 g/dL 32.0-36.0 Platelets (test code=PLT) 151 152-406 Red Cell Distribution Width (test code=RDW) 16.5 % 12.1-15.2 Blood platelet mean volume (test ipmv=35431-4) 9.4 fL 7.6-11.3 Neutrophils % (test code=MELONY%) 80.5 % 41.7-73.7 Lymphocytes/leuk NFr Bld (test dwco=77320-4) 9.4 % 15.3-44.8 Monocyte percentage (test twel=0805-4) 9.6 % 3.3-12.3 Eosinophil % (test ztiw=929-7) 0.3 % 0-4.4 Basophil % (test vdpl=73747-8) 0.2 % 0-1.3 Absolute neutrophil count (test bgzn=587-5) 10.9 2.3-7.0 Absolute lymphocyte count (test gxao=46168-5) 1.3 0.8-3.6 Absolute monocyte count (test olya=993-9) 1.3 0.2-0.8 Absolute Eosinophils (test code=EOA) 0.0 0-0.4 Absolute Basophils (test code=BASA) 0.0 0-0.1 CLOTTED Specimen, recollect request called to EUNICE on 12/12/16 at 1014 by [email or web address] Print label to LER CLOTTED Specimen, recollect request called to EUNICE on 12/12/16 at 1014 by PALMERMA Print label to LERBasic Metabolic Drcxg4335-19-40 10:41:00* Test Item Value Reference Range Comments Sodium level (test wymm=DCO7422) 136 meq/L 135-145 5.2 Chloride measurement (test mezz=YSG2945) 105 meq/L 101-111 Bicarbonate (test code=CO2) 20 meq/L 21-31 Glucose measurement (test ootc=SOF4895) 88 mg/dL 65-120 ADA Clinical Practice Recommendation: <100 mg/dl=Normal Fasting Glucose BUN Bld-mCnc (test tujt=1212-9) 68 mg/dL 6-20 Creatinine measurement (test sinm=JLG2062) 10.24 mg/dL 0.61-1.24 Repeated & Called to NAZARIO LOPES on 12/12/16 at 1039 by Halalati Was there 100% Readback? Y The creatinine method used has been calibrated to be traceable to Isotope dilution Mass Spectrometry (IDMS). For more information: www.nkdep.nih.gov Estimated glomerular filtration rate (GFR) determination (test xhvo=52438-2) 5 mL =/>90 FOR CHRONIC KIDNEY DISEASE: GFR STAGE DESCRIPTION= />90 STAGE 1 NORMAL--OR-- MINIMAL KIDNEY DAMAGE WITH NORMAL GFR 60-89 STAGE 2 MILD DECREASE IN GFR 30-59 STAGE 3 MODERATE DECREASE IN GFR 15-29 STAGE 4 SEVERE DECREASE IN GFR <15 STAGE 5 KIDNEY FAILURE The Glomerular Filtration Rate (GFR) has been calculated using the IDMS-Traceable MDRD Study Equation. Calcium Level (test code=CA) 7.0 mg/dL 8.5-10.5 Liver (Hepatic) Veufbpiu8118-35-48 10:41:00* Test Item Value Reference Range Comments Aspartate aminotransferase (AST) measurement (test qrhr=EVE7482) 20 [iU]/L 10 -42 ALT/SGPT (test code=SGPT) 19 [iU]/L 10-60 Alkaline Phosphatase (test code=ALK) 121 [iU]/L 42-121 Bilirubin total (test xtmj=LOO9470) 0.5 mg/dL 0.3-1.2 Bilirubin direct (test zadm=8510-1) 0.1 mg/dL 0-0.2 Serum total protein measurement (test olby=9638-6) 7.3 g/dL 6.0-8.3 Albumin measurement (test buwb=GLK2347) 3.5 g/dL 3.2-5.5 Globulin (test code=GLOB) 3.8 g/dL 2.3-3.5 Albumin/Globulin Ratio (test code=A/G) 0.9 1.1-1.8 Creatine Knqbezpqihtlz4768-20-22 10:41:00* Test Item Value Reference Range Comments Creatine Phosphokinase (test code=CPK) 273 [iU]/L 22-269 CKMB Creatine Kinase WO3293-33-85 10:41:00* Test Item Value Reference Range Comments CKMB Creatine Kinase MB (test code=CKMB) 3.0 ng/mL 0.3-4.0 Magnesium ngbnaunxnyd9383-87-25 10:41:00* Test Item Value Reference Range Comments Magnesium measurement (test agcv=17218-6) 1.7 mg/dL 1.8-2.5 Troponin (Emerg Dept Use Only)2016-12-12 10:26:00* Test Item Value Reference Range Comments Troponin (Emerg Dept Use Only) (test code=TROPED) 0.06 ng/mL <0.03 Comment Bed:8 Test Ordered to Rule Out VTE/DVT? NAerobic bacterial blood pqcannu5915-62-74 11:22:00Comment Bed:5 Only Aerobic Pediatric Blood Culture Bottle ReceivedNo growth in 5 days.^No growth in 5 days.^LBlood anaerobic kqlarmx5248-42-22 11:22:00Comment Bed:5 Only Aerobic Pediatric Blood Culture Bottle ReceivedNot Done^Not Done^L^NDSerum hepatitis B virus surface antigen iixukabbb7091-29-57 23:25:00* Test Item Value Reference Range Comments Serum hepatitis B virus surface antigen detection (test rmhw=6601-1) Nonreactive Nonreactive Confirmatory hepatitis B virus surface antigen assay (test lefj=87308-9) REPORT Not required according to the current package insert. Primary Language EnglishHepatitis B Core Ab, Mehsy7737-56-75 23:25:00* Test Item Value Reference Range Comments Hepatitis B Core Total Ab (test code=HEPBCOR1) Nonreactive Nonreactive Hepatitis B virus core IgM antibody assay (test roql=14382-2) Not indicated Primary Language EnglishHepatitis B Surface Byuqfepl4420-53-16 23:25:00* Test Item Value Reference Range Comments Hepatitis B Surface Antibody (test code=HEPBAB) Reactive Nonreactive This test is not indicated for determination of immunity post-vaccination. To determine immune status, please order Hepatitis B Surface Antibody, Quantitative. Effective March 21, 2014 this test is being performed using the [employer] Chemiluminesence method. Primary Language EnglishQuantitative hepatitis B virus surface antibody jvsgy5066-78-46 23:25:00* Test Item Value Reference Range Comments Quantitative hepatitis B virus surface antibody assay (test jsqp=51445-7) 21 [ iU]/L >=10 PATIENT HAS IMMUNITY TO HEPATITIS B VIRUS. For more information on this test, go to: http://education.7write.Free Flow Power/faq/DYR801 Primary Language EnglishGlucose blood wsjhjfmgzhe8588-82-24 11:56:00* Test Item Value Reference Range Comments Glucose blood fingerstick (test bnex=RHF7078) 172 mg/dL 65-120 Glucose blood xdusgibjdre3811-39-18 07:51:00* Test Item Value Reference Range Comments Glucose blood fingerstick (test qqev=INN9683) 102 mg/dL 65-120 Glucose blood cpntjluuajr8867-82-49 21:06:00* Test Item Value Reference Range Comments Glucose blood fingerstick (test nsjs=BAP7182) 127 mg/dL 65-120 Glucose blood fcsvpkalokq8805-91-00 16:31:00* Test Item Value Reference Range Comments Glucose blood fingerstick (test aebl=GVZ8588) 161 mg/dL 65-120 Glucose blood oowutrpilcm1853-17-96 11:33:00* Test Item Value Reference Range Comments Glucose blood fingerstick (test xwfz=IAN7195) 149 mg/dL 65-120 CHEST SINGLE (PORTABLE) [facility] [address] [address] Patient Name: JESSICA COMBS MR #: [id number] : 1970 Age/Sex: 47/M Req # : [id number] [facility] Physician: KONRAD HUGHES MD Ordered by: TRISTIN WESTON MD Report #: [id number] Location: MED/SURG Room/Bed: [facility] [place] _ Procedure: [id number] DX/CHEST SINGLE (PORTABLE) Exam Date: 06/20/17 Exam Time: 1510 REPORT STATUS: Signed PROCEDURE: CHEST SINGLE (PORTABLE) COMPARISON: Chest x-ray 02/23 INDICATIONS: CHEST PAIN FINDINGS: The cardiomediastinal silhouette is normal. Median sternotomy wires are intact and stable. No hilar lymphadenopathy. The pulmonary vascular markings are normal. The lungs are free of infiltrates. The costophrenic angles are sharp. The osseous structures are intact. A bone island or calcified granuloma over the left second rib is stable. CONCLUSION: No active disease. Stable chest. Dictated by: Jennifer Buckley M.D. on 06/20/2017 at 15:47 Electronically approved by: Jennifer Buckley M.D. on 06/20/2017 at 15:47 Dictated By: JENNIFER BUCKLEY MD 1547 Transcribed By: CLAYTON on 06/20/17 1547 COPY TO: TRISTIN WESTON MD
--- NOTE | 2018-01-19 13:18 | Diagnostic Imaging Report ---
Date and Time: 01/16/2018 Procedure: 1. Thoracic venogram 2. Right common femoral central venous catheter placement profile saw operator: Dr. Burks Pre-operative diagnosis: Appendicitis, sepsis, poor intravenous access Post-operative diagnosis: Appendicitis, sepsis, occluded right internal jugular vein, occluded left internal jugular vein, occluded superior vena cava, partially occluded right common femoral vein Conscious Sedation: None The patient's heart rate and pulse oximetry were continuously monitored by the interventional radiology nurse. Blood pressure was monitored at 5 minute intervals. Additional Medications: Lidocaine 1% for local anesthesia Fluoroscopy time: 4.6 minutes Dose-area Product: 4989 cGycm2. Contrast used: 40 cc Omnipaque 300 Estimated blood loss: Less than 10 cc Specimens: None Implants: 7 Ecuadorean, 20 cm triple-lumen central venous catheter DISCUSSION: Informed consent for the procedure was obtained from the patient and documented in the medical record. The patient was placed in the supine position on the angiographic table. 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 A patent right external jugular vein was identified and the right lower cervical region was then prepped and draped in the standard sterile fashion. 1% lidocaine was infiltrated into the skin and subcutaneous tissues for local anesthesia. Then under continuous sonographic guidance, a 21-gauge micropuncture needle was used to access the right external jugular vein. A permanent sonographic image was stored in the medical record. A 0.0 1 8-in. wire was then advanced centrally to the level of the clavicular head, at which point resistance to further advancement was encountered. The needle was removed and a 5 Ecuadorean micropuncture sheath was advanced over the wire. The wire was removed. Thoracic venography was performed. See findings below. The micropuncture sheath was then removed and hemostasis was achieved with manual compression. Attention was then turned to the right groin which was prepped and draped in the standard sterile fashion. Sonographic evaluation confirmed partial compressibility of the right common femoral vein. 1% lidocaine was infiltrated into the skin and subcutaneous tissues for local anesthesia. Then under continuous sonographic guidance, a 21-gauge micropuncture needle was used to access the right common femoral vein. A permanent sonographic image was stored in the medical record. A 0.0 1 8-in. wire was advanced centrally under fluoroscopic guidance. The needle was exchanged for a 5 Ecuadorean micropuncture sheath and the wire upsized to a 0.0 3 5-in. Glidewire advantage which was advanced centrally into the inferior vena cava. The micropuncture sheath was removed and the tract was dilated. Then a 7 Ecuadorean, 20 cm triple-lumen central venous catheter was advanced over the wire to full depth. The catheter tip was positioned in the peripheral aspect of the right common iliac vein. Each lumen was tested and showed adequate bidirectional flow. The catheter was then flushed with sterile saline, secured to the skin with monofilament nylon suture, and covered by a sterile dressing. The patient tolerated the procedure well without immediate complication. Findings: 1. 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 2. Chronically occluded left internal jugular vein, as assessed by sonography. 3. 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 4. Partially occluded right common femoral vein. 5. Short segment stenosis of the right external iliac vein is suspected based on difficulty in guidewire traversal of this segment. 6. Above findings are related to placement/exchange/removal of multiple prior large caliber hemodialysis catheters. IMPRESSION: 1. Successful thoracic venography. 2. Successful placement of a 7 Ecuadorean, 20 cm triple-lumen central venous catheter by a right common femoral approach. Signed by: Dr. Shahriar Burks M.D. on 01/19/2018 7:35 AM
== END | disposition home or self-care (01) ==
LOC: CATH LAB 08:50
PROVIDERS: ATTEND Radiology Diagnostic Radiology
DX: K37 Unspecified appendicitis (principal); A41.9 Sepsis, unspecified organism; I82.C13 Acute embolism and thrombosis of internal jugular vein, bilateral; I82.411 Acute embolism and thrombosis of right femoral vein; I82.210 Acute embolism and thrombosis of superior vena cava; I82.290 Acute embolism and thrombosis of other thoracic veins
CPT/HCPCS: 36005; 36556; 76937; 77001; C1751; C1769 ×3; C1887; J2001; J7030; J7040; J2250

== ENCOUNTER 2020-04-15 15:59 | Inpatient (IN) | payer MEDICARE, OTHER ==
[~2020-04-15] VITALS: Ht 170.2 cm; Wt 112.9 kg
[~2020-04-15 15:59] MED LIST changes: -FENTANYL CITRATE/PF 100MCG/2 ML INJ ONE; -LIDOCAINE HCL 2% LOCAL 20 ML VIAL ONE; -MIDAZOLAM HCL 2 MG/2 ML VIAL ONE; -SODIUM CHLORIDE 0.9% 1000ML 1,000 ML ONE; -SODIUM CHLORIDE 0.9% 500ML 500 ML ONE
--- OUTSIDE RECORDS SUMMARY | 2020-04-15 16:02 | XMS REPORT | Clinical Summary ---
Author Author Jay [facility] Organization [facility] Address Unknown Phone Unavailable Care Team Providers Care Surgical Product Sales Consultant Name Role Phone Asked, No Pcp PCP Unavailable Allergies Comments Active Allergy Reactions Severity Noted Date Hydromorphone 12/25/2018 Medications End Date Status Medication Sig Dispensed Refills Start Date Active traZODone (DESYREL) 100 Take 100 mg 0 MG tablet by mouth nightly. Active QUEtiapine (SEROquel) 50 Take 50 mg by 0 MG tablet mouth 2 (two) times a day. Active risperiDONE (RisperDAL) Take 0.25 mg 0 0.25 MG tablet by mouth 2 (two) times a day. Active OLANZapine (ZYPREXA) 2.5 Take 2.5 mg 0 MG tablet by mouth 2 (two) times a day. Active LORAZepam (ATIVAN) 0.5 MG Take 1 mg by 0 tablet mouth every 12 (twelve) hours. For anxiety Active LORAZepam (ATIVAN) 0.5 MG Take 0.5 mg 0 tablet by mouth as needed (30 minutes before Hemodialysis) . Active valproic acid (DEPAKENE) Take 500 mg 0 250 mg capsule by mouth every 8 (eight) hours. Active zolpidem (AMBIEN) 5 MG Take 5 mg by 0 tablet mouth nightly. Active NIFEdipine XL (PROCARDIA Take 90 mg by 0 XL) 90 MG 24 hr tablet mouth daily. Active carvedilol (COREG) 12.5 Take 12.5 mg 0 MG tablet by mouth every 12 (twelve) hours. Hold if SBP <110 or DBP <50 Active HYDROcodone-acetaminophen Take 1 tablet 0 (NORCO) 10-325 mg per by mouth tablet every 6 (six) hours as needed for moderate pain. Active ascorbic acid, vitamin C, Take 500 mg 0 (VITAMIN C) 500 MG tablet by mouth daily. Active multivitamin (THERAGRAN) Take 1 tablet 0 tablet by mouth daily. Active sevelamer (RENVELA) 800 Take 2,400 mg 0 mg tablet by mouth 3 (three) times a day with meals. Active calcium carbonate (TUMS) Chew 2 0 200 mg calcium (500 mg) tablets 3 chewable tablet (three) times a day. Give in between meals on a empty stomach Active glucagon,human Inject 1 mg 0 recombinant (GLUCAGON into the EMERGENCY KIT, HUMAN, shoulder, INJ) thigh, or buttocks daily as needed (Blood Sugar <60 and Patient unable to swallow.). Active folic acid/vit B complex Take 1 tablet 0 and C (NEPHRO-HARRISON ORAL) by mouth daily. Active aspirin (ECOTRIN) 81 MG Take 81 mg by 0 enteric coated tablet mouth daily. Active atorvastatin (LIPITOR) 10 Take 10 mg by 0 MG tablet mouth nightly. Active calcium acetate (PHOSLO) Take 1,334 mg 0 667 mg capsule by mouth 3 (three) times a day with meals. Active docusate sodium (COLACE) Take 100 mg 0 100 MG capsule by mouth daily. Active polyethylene glycol Take 17 g by 0 (MIRALAX) 17 gram packet mouth nightly. Active lactulose 10 gram/15 mL Take 20 g by 0 (15 mL) solution mouth nightly as needed (for constipation) . Active HYDROcodone-acetaminophen Take 1 tablet 0 (NORCO) 7.5-325 mg per by mouth tablet every 4 (four) hours as needed for moderate pain. Active Problems Problem Noted Date Vascular occlusion 12/25/2018 Essential hypertension 12/25/2018 Coronary artery disease involving unga coronary art teofilo 12/25/2018 ESRD (end stage renal disease) on dialysis 9 Type 2 diabetes mellitus 12/25/2018 Family History Medical History Relation Name Comments No Known Problems Brother No Known Problems Sister Relation Name Status Comments Brother Father Mother Sister Social History Date Tobacco Use Types Packs/Day Years Used Current Every Day Smoker Cigarettes 4 Smokeless Tobacco: Never Used Drinks/Week oz/Week Comments Alcohol Use No Alcohol Habits Answer Date Recorded How often do you have a drink containing alcohol? Never 12/25/2018 How many drinks containing alcohol do you have on No t asked a typical day when you are drinking? How often do you have six or more drinks on one Not asked occasion? Sex Assigned at Date Recorded Not on file Industry Job Start Date Occupation Not on file Not on file Not on file Travel End Travel History Travel Start No recent travel history available. Last Filed Vital Signs Not on file Plan of Treatment Health Maintenance Due Date Last Done Comments DIABETIC RETINAL EYE EXAM 1970 DIABETIC FOOT EXAM 1980 URINE MICROALBUMIN 1980 INFLUENZA VACCINE 06/10/2020 Implants Device Identifier Shelf Expiration Date Model / Serial / L ot Implanted Type Area Manufactur er 12/10/2019 [id number] / / [id number] Catheter Dialysis Glidepath Central Right: Groin [address] [id number] Symmetric Tip - Venous PERIPHERAL [id number] Catheters VASCULAR Implanted: Qty: 1 on 12/26/2018 by Tierra Méndez MD at [facility] Results Not on fileafter 04/15/2019 Insurance Type Payer Benefit Subscriber ID Effective Phone Address Plan / Dates Group Medicare MEDICARE MEDICARE xxxxxxxxxxx 2007- [place], PART A AND Present [place] B Medicaid MEDICAID MEDICAID xxxxxxxxx [id number] resent Advance Directives For more information, please contact: [phone] 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
--- OUTSIDE RECORDS SUMMARY | 2020-04-15 16:02 | XMS REPORT | Clinical Summary ---
Author Author CHERYL [facility] Organization [facility] Address Unknown Phone Unavailable Care Team Providers Care Cardiac Cath Rn Name Role Phone Comfort Rivas MD PCP Unavailable Allergies Comments Active Allergy Reactions Severity Noted Date Hydromorphone 06/14/2019 Morphine 06/10/2019 Medications End Date Status Medication Sig Dispensed Refills Start Date Active traZODone (DESYREL) 100 Take 100 mg 0 MG tablet by mouth nightly. Active QUEtiapine (SEROQUEL) 50 Take 50 mg by 0 MG tablet mouth 2 (two) times daily. Active LORazepam (ATIVAN) 0.5 MG Take 0.5 mg 0 tablet by mouth every 6 (six) hours as needed for Anxiety (give 30 minutes before dialysis). Active LORazepam (ATIVAN) 1 MG Take 1 mg by 0 tablet mouth 2 (two) times daily. Active VALPROIC ACID ORAL Take 500 mg 0 by mouth every 8 (eight) hours. Active zolpidem (AMBIEN) 5 MG Take 5 mg by 0 tablet mouth every night as needed for Insomnia. Active NIFEdipine (ADALAT CC) 90 Take 90 mg by 0 MG 24 hr tablet mouth daily. Active folic acid/vit B complex Take 1 tablet 0 and C (NEPHRO-HARRISON ORAL) by mouth daily. Active ascorbic acid, vitamin C, Take 500 mg 0 (VITAMIN C) 500 MG tablet by mouth daily. Active multivitamin per tablet Take 1 tablet 0 by mouth daily. Active calcium acetate (PHOSLO) Take 1,334 mg 0 667 mg capsule by mouth 3 (three) times daily with meals. Active sevelamer (RENVELA) 800 Take 2,400 mg 0 mg tablet by mouth 3 (three) times daily with meals. Active glucagon,human Inject as 0 recombinant (GLUCAGON directed. EMERGENCY KIT, HUMAN, INJ) Active atorvastatin (LIPITOR) 10 Take 10 mg by 0 MG tablet mouth daily. Active docusate sodium (COLACE) Take 100 mg 0 100 MG capsule by mouth 2 (two) times daily. Active polyethylene glycol Take 17 g by 0 (GLYCOLAX) 17 gram packet mouth daily. Active lactulose (CHRONULAC) 10 Take 20 g by 0 gram/15 mL (15 mL) mouth 3 solutionIndications: (three) times constipation daily. Active cloNIDine HCl (CATAPRES) Take 0.1 mg 0 0.1 MG tabletIndications: by mouth 2 hypertension, systolic (two) times >180 or DBP >110 daily. Active HYDROcodone-acetaminophen Take 1 tablet 0 (NORCO 10-325) 10-325 mg by mouth per tablet every 6 (six) hours as needed for Pain. Active carvedilol (COREG) 6.25 Take 2 60 tablet 0 MG tabletIndications: tablets (12.5 9 hold if systolic <110. mg total) by diastolic <60. mouth 2 (two) times daily with breakfast and dinner. 10/13/2019 Discontinued insulin aspart U-100 Inject 0 (NOVOLOG) 100 unit/mL subcutaneousl injectionIndications: per y 3 (three) sliding scale times daily before meals. 06/17/2019 Discontinued carvedilol (COREG) 6.25 Take 6.25 mg 0 MG tabletIndications: by mouth 2 hold if systolic <110. (two) times diastolic <60. daily with breakfast and dinner. 10/13/2019 Discontinued linaGLIPtin (TRADJENTA) 5 Take 2.5 mg 0 mg Tab by mouth daily. Active Problems Problem Noted Date Bilateral subclavian vein occlusion 07/06/2019 Morbid obesity with BMI of 50.0-59.9, adult 06/16/20 19 Acute pulmonary edema 06/16/2019 Acute respiratory failure with hypoxemia 06/16/2019 Hyperkalemia 06/16/2019 ESRD (end stage renal disease) on dialysis 9 Hypertensive emergency 06/15/2019 Encounters Care Team Description Date Type Specialty 10/13/2019 Hospital Pre-Admission Testi ng Encounter Jam Jones AA 09/21/2019 Anesthesia Event Juno Frazier MD VENOGRAM 07/06/2019 Surgery Juno Frazier MD 07/06/2019 Hospital Encounter 06/15/2019 Orders Only General Internal Me Juno Freeman MD 06/14/2019 Hospital Encounter Juno Frazier MD Kulkarni, Rica Blount MD ESRD (end stage renal disease) on dialys is (HCC); Acute respiratory failure with hypoxemia (HCC); Acute pulmonary edema (HCC); Hyperkalemia; Hypertensive emergency 06/14/2019 Hospital Cardiology - Encounter 06/18/2019 after 04/15/2019 Social History Date Tobacco Use Types Packs/Day Years Used Current Every Day Smoker 0.25 Smokeless Tobacco: Never Used Alcohol Use Drinks/Week oz/Week Comments No Alcohol Habits Answer Date Recorded How often do you have a drink containing alcohol? Never 06/14/2019 How many drinks containing alcohol do you [...] travel history available. Last Filed Vital Signs Time Taken Vital Sign Reading 07/06/2019 2:00 PM CDT Blood Pressure 150/70 07/06/2019 2:00 PM CDT Pulse 67 07/06/2019 7:58 AM CDT Temperature 36.6 C (97.8 F) 07/06/2019 2:00 PM CDT Respiratory Rate 18 07/06/2019 1:15 PM CDT Oxygen Saturation 97% 06/17/2019 10:50 PM CDT Inhaled Oxygen 21% Concentration 10/13/2019 2:11 PM TEACHER AIDE Weight 141.5 kg (312 lb) 06/15/2019 12:40 PM CDT Height 152.4 cm (5') 10/13/2019 2:11 PM TEACHER AIDE Body Mass Index 60.93 Plan of Treatment Not on file Procedures Comments Procedure Name Priority Date/Time Associated Diag nosis CARDIAC CATH REPORT - 07/07/2019 SCAN 12:41 PM CDT VENOGRAM 07/06/2019 Bilateral subclavia n vein 11:07 AM CDT occlusion (HCC) Case Notes 2CASE [id number] HEMOGLOBIN AND HEMATOCRIT STAT 07/06/2019 8:12 AM CDT POTASSIUM Routine 07/06/2019 8:05 AM CDT RHYTHM STRIP - SCAN 06/28/2019 2:50 PM CDT RHYTHM STRIP - SCAN 06/22/2019 9:11 AM CDT XR CHEST 1 VIEW Routine 06/18/2019 PORTABLE/BEDSIDE 7:45 AM CDT POCT-GLUCOSE METER Routine 06/18/2019 7:22 AM CDT POCT-GLUCOSE METER Routine 06/17/2019 9:50 PM CDT HEMODIALYSIS INPATIENT Routine 06/17/2019 9:40 PM CDT POCT-GLUCOSE METER Routine 06/17/2019 12:11 PM CDT POCT-GLUCOSE METER Routine 06/17/2019 7:46 AM CDT XR CHEST 1 VIEW Routine 06/17/2019 PORTABLE/BEDSIDE 5:33 AM CDT CBC W/PLT COUNT & AUTO Routine 06/17/2019 DIFFERENTIAL 4:02 AM CDT PHOSPHORUS Routine 06/17/2019 4:02 AM CDT MAGNESIUM Routine 06/17/2019 4:02 AM CDT BASIC METABOLIC PANEL (7) Routine 06/17/2019 4:02 AM CDT CBC W/PLT COUNT & AUTO Routine 06/17/2019 DIFFERENTIAL 4:02 AM CDT POCT-GLUCOSE METER Routine 06/16/2019 10:02 PM CDT POCT-GLUCOSE METER Routine 06/16/2019 6:10 PM CDT HEMOGLOBIN AND HEMATOCRIT Routine 06/16/2019 4:08 PM CDT HEMODIALYSIS INPATIENT Routine 06/16/2019 2:49 PM CDT POCT-GLUCOSE METER Routine 06/16/2019 11:35 AM CDT POTASSIUM Routine 06/16/2019 8:19 AM CDT POCT-GLUCOSE METER Routine 06/16/2019 7:50 AM CDT ECG 12-LEAD Routine 06/16/2019 5:03 AM CDT ECG 12-LEAD Routine 06/16/2019 5:02 AM CDT XR CHEST 1 VIEW Routine 06/16/2019 PORTABLE/BEDSIDE 4:14 AM CDT CBC W/PLT COUNT & AUTO Routine 06/16/2019 DIFFERENTIAL 3:30 AM CDT PHOSPHORUS Routine 06/16/2019 3:30 AM CDT MAGNESIUM Routine 06/16/2019 3:30 AM CDT BASIC METABOLIC PANEL (7) Routine 06/16/2019 3:30 AM CDT CBC W/PLT COUNT & AUTO Routine 06/16/2019 DIFFERENTIAL 3:30 AM CDT TROPONIN I STAT 06/16/2019 3:30 AM CDT POCT-GLUCOSE METER Routine 06/15/2019 9:57 PM CDT HEMODIALYSIS INPATIENT Routine 06/15/2019 6:57 PM CDT PHOSPHORUS STAT 06/15/2019 5:33 PM CDT MAGNESIUM STAT 06/15/2019 5:33 PM CDT BASIC METABOLIC PANEL (7) Routine 06/15/2019 5:33 PM CDT HEPATITIS B SURFACE Routine 06/15/2019 ANTIGEN 1:50 PM CDT TROPONIN I STAT 06/15/2019 1:50 PM CDT ECG 12-LEAD Routine 06/15/2019 12:17 PM CDT Procedure Note - Interface, External Ris In - 06/15/2019 12:22 PM CDT Ventricula r Rate 65 BPM Atrial Rate 65 BPM P-R Interval 270 ms QRS Duration 116 ms Q-T Interval 430 ms QTC Calculatio n(Bazett) 447 ms P [place] 32 degrees R [place] -45 degrees T [place] 110 degrees Sinus rhythm with 1st degree A-V block Left axis deviation Septal infarct , age undetermin ed T wave abnormalit y, consider lateral ischemia Abnormal ECG No previous ECGs available ECG 12-LEAD STAT 06/15/2019 12:17 PM CDT XR CHEST 1 VIEW Routine 06/15/2019 PORTABLE/BEDSIDE 11:27 AM CDT BASIC METABOLIC PANEL (7) STAT 06/15/2019 10:10 AM CDT CBC W/PLT COUNT & AUTO Routine 06/14/2019 DIFFERENTIAL 10:23 AM CDT CBC W/PLT COUNT & AUTO Routine 06/14/2019 DIFFERENTIAL 10:23 AM CDT ECG 12-LEAD Routine 06/14/2019 9:24 AM CDT after 04/15/2019 Results * CARDIAC CATH REPORT - SCAN (07/07/2019 12:41 PM CDT) Narrative Performed At This result has an attachment that is n ot available. * Hemoglobin and hematocrit (07/06/2019 8:12 AM CDT) Only the most recent of 2 results within the time period is included. Hemoglobin 8.5 (L) 13.7 - 17.5 GM/DL [facility] Hematocrit 27.2 (L) 40.1 - 51.0 % [facility] Specimen Blood Performing Organization Address [facility] Ph one Number [facility] [address] [place], [place] [address] [facility] * Potassium (07/06/2019 8:05 AM CDT) Only the most recent of 2 results within the time period is included. Potassium 5.6 (H) 3.5 - 5.1 meq/L [facility] Specimen Blood Performing Organization Address City/[facility]/Zipcode Ph one Number [facility] [address] [place], [place] [address] [facility] * RHYTHM STRIP - SCAN (06/28/2019 2:50 PM CDT) Only the most recent of 2 results within the time period is included. Narrative Performed At This result has an attachment that is n ot available. * XR chest 1 view portable / bedside (06/18/2019 7:45 AM CDT) Only the most recent of 4 results within the time period is included. Specimen Narrative Performed At FINAL REPORT [facility] RAD, CHEST, 1 VIEW, NON DEPT CLINICAL INDICATION: pulm edema COMPARISON: Radiograph 06/17/2019 TECHNIQUE: AP view of the chest FINDINGS: Interval improvement in pulmonary edema . Slightly increased lung volumes. No new focal consolidation, pl eural effusion, or pneumothorax. Cardiomegaly is unchanged . IMPRESSION: Improved pulmonary edema. No effusions. Signed: Quentin Hollingsworth MD Report Verified Date/Time: 09:02:19 Reading Location: [facility]iol[facility] Reading Room Procedure Note Interface, External Ris In - 06/18/2019 9:04 AM CDT FINAL REPORT RAD, CHEST, 1 VIEW, NON DEPT CLINICAL INDICATION: pulm edema COMPARISON: Radiograph 06/17/2019 TECHNIQUE: AP view of the chest FINDINGS: Interval improvement in pulmonary edema. Slightly increased lung volumes. No new focal consolidation, pleural effusion, or pneumothorax. Cardiomegaly is unchanged. IMPRESSION: Improved pulmonary edema. No effusions. Signed: Quentin Hollingsworth MD Report Verified Date/Time: 06/18/2019 09:02:19 Reading Location: [facility] Reading Room Performing Organization Address City/State/Zipcode Ph one Number GE RIS * POC-Glucose meter (06/18/2019 7:22 AM CDT) Only the most recent of 9 results within the time period is included. POC-Glucose Meter 106Comment: TESTED AT [facility] 70 - 110 mg/dL [facility] [address] [facility] [address] [facility] Specimen Blood Performing Organization Address City/State/Zipcode Ph one Number [facility] [address] [place] [address] [facility] * HEMODIALYSIS INPATIENT (06/17/2019 9:40 PM CDT) Narrative Performed At Mary Morelos RN 06/17/2019 9:41 PM Completed hd x 4 hrs via right femoral tunneled catheter. Tolerated hd well with net UF of 4000 m l today. Report given to MIKI Morgan. Post HD Vitals: Temp: 98.1 F (36.7 C) Temp Source: Oral Heart Rate: 72 Heart Rate Source: Monitor/Pulse Ox Resp: 17 BP: 137/67 Lab Results Component Value Date GLUCOSE 98 06/17/2019 CALCIUM 9.2 06/17/2019 NA 138 06/17/2019 K 4.3 06/17/2019 CO2 26 06/17/2019 CL 100 06/17/2019 BUN 35 (H) 06/17/2019 CREATININE 7.24 (H) 06/17/2019 MG 2.4 06/17/2019 PHOS 4.9 (H) 06/17/2019 Lab Results Component Value Date WBC 4.9 06/17/2019 HGB 7.9 (L) 06/17/2019 HCT 25.2 (L) 06/17/2019 MCV 98.4 (H) 06/17/2019 PLT 130 (L) 06/17/2019 Lab Results Component Value Date HEPBSAG Nonreactive 06/15/2019 * CBC with platelet count + automated diff (06/17/2019 4:02 AM CDT) Only the most recent of 3 results within the time period is included. WBC 4.9 3.5 - 10.5 K/L [facility] RBC 2.56 (L) 4.63 - 6.08 M/L [facility] Hemoglobin 7.9 (L) 13.7 - 17.5 GM/DL [facility] Hematocrit 25.2 (L) 40.1 - 51.0 % [facility] MCV 98.4 (H) 79.0 - 92.2 fL [facility] MCH 30.9 25.7 - 32.2 pg [facility] MCHC 31.3 (L) 32.3 - 36.5 GM/DL [facility] RDW 17.7 (H) 11.6 - 14.4 % [facility] Platelets 130 (L) 150 - 450 K/CU MM [facility] MPV 11.3 9.4 - 12.4 fL [facility] nRBC 0 0 - 0 /100 WBC [facility] % Neutros 70 % [facility] % Lymphs 16 % [facility] % Monos 11 % [facility] % Eos 2 % [facility] % Baso 0 % [facility] # Neutros 3.39 1.78 - 5.38 K/L [facility] # Lymphs 0.77 (L) 1.32 - 3.57 K/L [facility] # Monos 0.55 0.30 - 0.82 K/L [facility] # Eos 0.10 0.04 - 0.54 K/L [facility] # Baso 0.01 0.01 - 0.08 K/L [facility] Immature 1 0 - 1 % [facility] Granulocytes-Relative [facility] Specimen Blood Performing Organization Address City/State/Zipcode Ph one Number [facility] [address] [place], [place] [address] [facility] * Phosphorus (06/17/2019 4:02 AM CDT) Only the most recent of 3 results within the time period is included. Phosphorus 4.9 (H) 2.3 - 4.7 mg/dL [facility] Specimen Blood Performing Organization Address [facility] one Number [address] [facility] * Magnesium (06/17/2019 4:02 AM CDT) Only the most recent of 3 results within the time period is included. Magnesium 2.4 1.6 - 2.6 mg/dL [facility] Specimen Blood Performing Organization Address [facility] one Number [place] [address] [facility] * Basic Metabolic Panel (06/17/2019 4:02 AM CDT) Only the most recent of 4 results within the time period is included. Sodium 138 136 - 145 meq/L [facility] Potassium 4.3 3.5 - 5.1 meq/L [facility] Chloride 100 98 - 107 meq/L [facility] CO2 26 22 - 29 meq/L [facility] BUN 35 (H) 7 - 21 mg/dL [facility] Creatinine 7.24 (H) 0.57 - 1.25 mg/dL [facility] Glucose 98 70 - 105 mg/dL [facility] Calcium 9.2 8.4 - 10.2 mg/dL [facility] EGFR 8Comment: ESTIMATED GFR IS NOT mL/min/1.73 sq m [facility] ACCURATE CREATININE [facility] CLEARANCE IN PREDICTING GLOMERULAR FILTRATION RATE. ESTIMATED GFR IS NOT APPLICABLE FOR DIALYSIS PATIENTS. Specimen Blood Performing Organization Address City/[facility] one Number [place] [address] [facility] * ECG 12 lead (06/16/2019 5:03 AM CDT) Only the most recent of 4 results within the time period is included. Specimen Narrative Performed At Ventricular Rate 59 BPM GE MUSE Atrial Rate 59 BPM P-R Interval 208 ms QRS Duration 132 ms Q-T Interval 490 ms QTC Calculation(Bazett) 485 ms P [place] 44 degrees R [place] -40 degrees T [place] 153 degrees Sinus bradycardia Left axis deviation Non-specific intra-ventricular conducti on block Poor R wave progression Cannot rule out Anterior infarct (cited on or before 15-JUN-2019) T wave abnormality, consider lateral is chemia Prolonged QT Abnormal ECG When compared with ECG of 16-JUN-2019 0 5:02, No significant changes Confirmed by Dillan GUDINO, ROBERTO ([id number]) on 06/27/2019 11:41:40 AM Procedure Note Interface, External Ris In - 06/27/2019 11:41 AM CDT Ventricular Rate 59 BPM Atrial Rate 59 BPM P-R Interval 208 ms QRS Duration 132 ms Q-T Interval 490 ms QTC Calculation(Bazett) 485 ms P [place] 44 degrees R [place] -40 degrees T [place] 153 degrees Sinus bradycardia Left axis deviation Non-specific intra-ventricular conduction block Poor R wave progression Cannot rule out Anterior infarct (cited on or before 15-JUN-2019) T wave abnormality, consider lateral ischemia Prolonged QT Abnormal ECG When compared with ECG of 16-JUN-2019 05:02, No significant changes Confirmed by Dillan GUDINO, ROBERTO ([id number]) on 06/27/2019 11:41:40 AM Performing Organization Address City/State/Zipcode Ph one Number GE MUSE * Troponin I (06/16/2019 3:30 AM CDT) Only the most recent of 2 results within the time period is included. Troponin I 0.05 (H) 0.00 - 0.03 ng/mL [facility] Specimen Blood Narrative Performed At Troponin I (TnI) levels must be interpreted in the co ntext of the presenting [facility] symptoms and the clinical findings. Elevated TnI leve ls indicate myocardial [facility] damage, but are not specific for ischem ic heart disease. Elevated TnI levels are seen in patients with other cardiac con ditions (including myocarditis and congestive heart failure), and slight T nI elevations occur in patients with other conditions, including sepsis, la al failure, acidosis, acute neurological disease, and persistent tachyarrhythmia . Performing Organization Address City/State/Zipcode Ph one Number [place] [phone] [place], [place] [address] [facility] * HEMODIALYSIS INPATIENT (06/15/2019 6:57 PM CDT) Narrative Performed At Mary Garcia RN 06/15/2019 6:58 PM Completed 4 hours of HD with net fluid removal of 4.3 liters. Patient was seen by Dr. De Santiago during tr eatment.Report given to Primary RN, Rayne. Lab Results Component Value Date WBC 7.4 06/14/2019 HGB 8.7 (L) 06/14/2019 HCT 27.7 (L) 06/14/2019 MCV 97.5 (H) 06/14/2019 PLT 161 06/14/2019 Lab Results Component Value Date GLUCOSE 116 (H) 06/15/2019 CALCIUM 9.5 06/15/2019 NA 136 06/15/2019 K 4.1 06/15/2019 CO2 30 (H) 06/15/2019 CL 97 (L) 06/15/2019 BUN 35 (H) 06/15/2019 CREATININE 5.80 (H) 06/15/2019 Results for JESSICA BARGER ( 275) as of 06/15/2019 18:58 Ref. Range 06/15/2019 13:50 Hepatitis B Surface Ag Latest Ref Range : NonreactiveNonreactive * Hepatitis B surface antigen (06/15/2019 1:50 PM CDT) HBsAg Screen Nonreactive Nonreactive [facility] Specimen Blood Narrative Performed At For chronic HD patients, draw HBsAg with each admissi on then every 30 days. [facility] Performing Organization Address City/State/Zipcode Ph one Number [place] [phone] [place], [place] [address] [facility] after 04/15/2019 Insurance Payer Benefit Subscriber ID Type Phone Address Plan / Group MEDICARE MEDICARE A xxxxxxxxxxx Medicare B MEDICAID - MEDICAID MGD MEDICAID xxxxxxxxx Medica id [employer] Non-Contra cted Advance Directives For more information, please contact: [facility] [address] [place] [address] Date Inactivated Comments Code Status Date Activated 07/06/2019 5:15 PM Full Code 07/06/2019 7:47 AM This code status was determined by: Patient 06/18/2019 12:21 PM Full Code 06/15/2019 12:02 PM This code status was determined by: Patient 06/15/2019 12:02 PM Full Code 06/15/2019 7:36 AM This code status was determined by: Patient
--- OUTSIDE RECORDS SUMMARY | 2020-04-15 16:03 | XMS REPORT | Continuity of Care Document ---
Author Author [facility] t Organization [facility] Address [address] [place] [address] Phone Unavailable Care Team Providers Care Senior Back End Java Developer Name Role Phone Asked, Pcp No PCP Unavailable Robert CLINTON, Aron Polk Attphys Juan Francisco CHYRON OPERATOR, Marva Atkinson Attphys Karin MONTGOMERY, Marcelina Fraire Attphys MARCELINA FRAZIERphys Unavailable Betty MONTGOMERY, Jose Alejandro Strauss Attphys Manuela PORTILLO Attphys Unavailable KONRAD HUGHES Attphys Unavailable Celena Campos Attphys Unavailable MATTHEWDR JM Dias Attphys Unavailable Stanley Proctor Attphys Unavailable MARCELINA FRAZIERUEL Admphys Unavailable KONRAD HUGHES Admphys Unavailable DivinskyCelena Admphys Unavailable MATTHEW, DR ONEAL Admphys Unavailable Stanley Proctor Wilman Admphys Unavailable Payers Payer Name Policy Type Policy Number Effective Date Expiration Date [facility] MEDICAREMEDICARE A BxxxxxxxxxxxMedicare xxxxxxxxxxx [facility] MEDICAID - MEDICAID [place]GD [place]EL[place] [id number] Medicaid Non-Contracted xxxxxxxxx [facility] Problems Condition Name Condition Details Condition Category Status Onset Date Resolution Date Last Treatment Date Treating Clinician Comments Source Bilateral subclavian vein occlusion Bilateral subclavian vein oc clusion Disease Active 2019-07-06 00:00:00 [facility] Morbid obesity with BMI of 50.0-59.9, adult Morbid obe sity with BMI of 50.0- 59.9, adult Disease Active 2019-06-16 00:00:00 [facility] Acute pulmonary edema Acute pulmonary edema Disease Active 201 07-18-07 00:00:00 [facility] Acute respiratory failure with hypoxemia Acute respira tory failure with hypoxemia Disease Active 2019-06-16 00:00:00 [facility] Hyperkalemia Hyperkalemia Disease Active 2019-06-16 00:00:00 [facility] ESRD (end stage renal disease) on dialysis ESRD (end s tage renal disease) on dialysis Disease Active 2019-06-15 00:00:00 [facility] Hypertensive emergency Hypertensive emergency Disease Active 2019-06-15 00:00:00 [facility] Vascular occlusion Vascular occlusion Disease Active 2018-12-25 00:00:0 0 Jay Natarajan Essential hypertension Essential hypertension Disease Active 2018-12-25 00:00:[address] [facility] [address] Coronary artery disease involving [place] coronary nelson ry Coronary artery disease involving [place] coronary artery Disease Active 2018-12-25 00:00:00 Jay Natarajan ESRD (end stage renal disease) on dialysis ESRD (end s tage renal disease) on dialysis Disease Active 2018-12-25 00:00:00 Su Natarajan Type 2 diabetes mellitus Type 2 diabetes mellitus Disease Acti ve 2018-12-25 00:00:00 Jay borden Allergies, Adverse Reactions, Alerts Allergy Name Allergy Type Status Severity Reaction(s) Onset Date Inacti ve Date Treating Clinician Comments Source Hydromorphone Propensity to adverse reactions Active 28-06-05 00:00:00 [facility] Morphine Propensity to adverse reactions Active 2019-06-10 00:00:00 [facility] Hydromorphone Propensity to adverse reactions to drug Active 2018-12-25 00:00:00 Jay cantor morphine DA Active MO 2018-12-17 00:00:00 [facility] hydromorphone DA Active U 2018-12-17 00:00:00 [facility] morphine DA Active MO 2018-09-23 00:00:00 [facility] hydromorphone DA Active U 2018-09-23 00:00:00 [facility] morphine DA Active MO 2018-08-13 00:00:00 [facility] hydromorphone DA Active U 2018-08-13 00:00:00 [facility] morphine DA Active MO 2018-08-12 00:00:00 [facility] hydromorphone DA Active U 2018-08-12 00:00:00 [facility] hydromorphone DA Active U 2018-01-21 00:00:00 [facility] morphine DA Active MO 2018-01-01 00:00:00 [facility] hydromorphone DA Active [place] 2017-10-13 00:00:00 [facility] Family History Family Member Diagnosis Comments Start Date Stop Date Source Natural brother No Known Problems Gerard Natarajan Natural sister No Known Problems Su Natarajan Social History Social Habit Start Date Stop Date Quantity Comments Source History of tobacco use Cigarette Smoker [facility] History SDOH Alcohol Std Drinks [facility] History SDOH Alcohol Binge [facility] Sex Assigned At [facility] Cigarettes smoked current (pack per day) - Reported 00:00:00 2019-10-13 00:00:00 [facility] History SDOH Alcohol Frequency 2019-06-14 00:00:00 2019-06-14 00:00:0 0 1 [facility] Alcohol intake 2018-12-29 00:00:00 2018-12-29 00:00:00 Current non-drinker of alcohol (finding) [facility] Smoking Status Start Date Stop Date Source Current every day smoker 2019-10-13 00:00:00 [facility] Medications Ordered Medication Name Filled Medication Name Start Date Stop Da te Current Medication? Ordering Clinician Indication Dosage Frequency Signature (SIG) Comments Components Source linaGLIPtin (TRADJENTA) 5 mg Tab 2019-10-13 14:20:09 2019-10 16:16:00 No 2.5mg QD Take 2.5 mg by mouth daily. [facility] insulin aspart U-100 (NOVOLOG) 100 unit/mL injection 2019-10-13 14:05:34 2019-10-13 00:00:00 No Injec t subcutaneously 3 (three) times daily before meals. [facility] carvedilol (COREG) 6.25 MG tablet 2019-06-17 12:14:03 2018 00:00:00 No 6.25mg Take 6.25 mg by mouth 2 (two ) times daily with breakfast and dinner. [facility] carvedilol (COREG) 6.25 MG tablet 2019-06-17 00:00:00 Yes 12.5mg Take 2 tablets (12.5 mg total) by mouth 2 (two) times daily with breakfast and dinner. [facility] polyethylene glycol (GLYCOLAX) 17 gram packet 2019-06-14 09:39:1 4 Yes 17g QD Take 17 g by mouth daily. [facility] lactulose (CHRONULAC) 10 gram/15 mL (15 mL) solution 2 09:39:14 Yes constipation 20g Q.[id number] Take 20 g by mouth 3 (three) times daily. [facility] cloNIDine HCl (CATAPRES) 0.1 MG tablet 2019-06-14 09:39:14 Yes hypertension .1mg Q.5D Take 0.1 mg by mouth 2 (two) times daily. [facility] HYDROcodone-acetaminophen (NORCO 10-325) 10-325 mg per table t 2019-06-14 09:39:14 Yes 1{tbl} Take 1 tab let by mouth every 6 (six) hours as needed for Pain. [facility] multivitamin per tablet 2019-06-14 09:39:13 Yes 1{tbl} QD Take 1 tablet by mouth daily. [facility] calcium acetate (PHOSLO) 667 mg capsule 2019-06-14 09:39:13 Yes 1334mg Take 1,334 mg by mouth 3 (three) times daily with meals. [facility] sevelamer (RENVELA) 800 mg tablet 2019-06-14 09:39:13 Yes 2400mg Take 2,400 mg by mouth 3 (three) times daily with meals. [facility] glucagon,human recombinant (GLUCAGON EMERGENCY KIT, HUMAN, I [place]) 2019-06-14 09:39:13 Yes Inject as directed. [facility] atorvastatin (LIPITOR) 10 MG tablet 2019-06-14 09:39:13 Yes 10mg QD Take 10 mg by mouth daily. [facility] docusate sodium (COLACE) 100 MG capsule 2019-06-14 09:39:13 Yes 100mg Q.5D Take 100 mg by mouth 2 (two) times daily. [facility] VALPROIC ACID ORAL 2019-06-14 09:39:12 Yes 500mg Take 500 mg by mouth every 8 (eight) hours. [facility] zolpidem (AMBIEN) 5 MG tablet 2019-06-14 09:39:12 Yes 5mg Take 5 mg by mouth every night as needed for Insomnia. [facility] NIFEdipine (ADALAT CC) 90 MG 24 hr tablet 2019-06-14 09:39:12 Yes 90mg QD Take 90 mg by mouth daily. [facility] folic acid/vit B complex and C (NEPHRO-HARRISON ORAL) 2019-06-14 09:39:12 Yes 1{tbl} QD Take 1 tablet by mouth daily. [facility] ascorbic acid, vitamin C, (VITAMIN C) 500 MG tablet 06-14 09:39:12 Yes 500mg QD Take 500 mg by mouth daily. [facility] traZODone (DESYREL) 100 MG tablet 2019-06-14 09:39:11 Yes 100mg QD Take 100 mg by mouth nightly. [facility] QUEtiapine (SEROQUEL) 50 MG tablet 2019-06-14 09:39:11 Yes 50mg Q.5D Take 50 mg by mouth 2 (two) times daily. [facility] LORazepam (ATIVAN) 0.5 MG tablet 2019-06-14 09:39:11 Yes .5mg Take 0.5 mg by mouth every 6 (six) hours as needed for Anxiety (give 30 minutes before dialysis). [facility] LORazepam (ATIVAN) 1 MG tablet 2019-06-14 09:39:11 Yes 1mg Q.5D Take 1 mg by mouth 2 (two) times daily. [facility] traZODone (DESYREL) 100 MG tablet 2018-12-31 20:23:25 Yes 100mg QD Take 100 mg by mouth nightly. Jay borden QUEtiapine (SEROquel) 50 MG tablet 2018-12-31 20:23:25 Yes 50mg Q.5D Take 50 mg by mouth 2 (two) times a day. Jay Natarajan risperiDONE (RisperDAL) 0.25 MG tablet 2018-12-31 20:23:25 Yes .25mg Q.5D Take 0.25 mg by mouth 2 (two) times a day. Jay Natarajan OLANZapine (ZYPREXA) 2.5 MG tablet 2018-12-31 20:23:25 Yes 2.5mg Q.5D Take 2.5 mg by mouth 2 (two) times a day. Jay Natarajan LORAZepam (ATIVAN) 0.5 MG tablet 2018-12-31 20:23:25 Yes 1mg Q12H Take 1 mg by mouth every 12 (twelve) hours. For anxiety Jay Natarajan LORAZepam (ATIVAN) 0.5 MG tablet 2018-12-31 20:23:25 Yes .5mg Take 0.5 mg by mouth as needed (30 minutes before Hemodialysis). Jay Natarajan valproic acid (DEPAKENE) 250 mg capsule 2018-12-31 20:23:25 Yes 500mg Q8H Take 500 mg by mouth every 8 (eight) hours. Jay Natarajan zolpidem (AMBIEN) 5 MG tablet 2018-12-31 20:23:25 Yes 5mg QD Take 5 mg by mouth nightly. Jay Natarajan NIFEdipine XL (PROCARDIA XL) 90 MG 24 hr tablet 2018-12-31 20:23 :25 Yes 90mg QD Take 90 mg by mouth daily. H hiwot Natarajan carvedilol (COREG) 12.5 MG tablet 2018-12-31 20:23:25 Yes 12.5mg Q12H Take 12.5 mg by mouth every 12 (twelve) hours. Hold if SBP <110 or DBP <50 Jay Natarajan HYDROcodone-acetaminophen (NORCO) 10-325 mg per tablet 2018-12-31 20:23:25 Yes 1{tbl} Q6H Take 1 tablet b y mouth every 6 (six) hours as needed for moderate pain. Jay Natarajan ascorbic acid, vitamin C, (VITAMIN C) 500 MG tablet 12-31 20:23:25 Yes 500mg QD Take 500 mg by mouth daily. Jay Natarajan multivitamin (THERAGRAN) tablet 2018-12-31 20:23:25 Yes 1{tbl} QD Take 1 tablet by mouth daily. Jay Natarajan sevelamer (RENVELA) 800 mg tablet 2018-12-31 20:23:25 Ye s 2400mg Q.[id number] Take 2,400 mg by mouth 3 (three) times a day with meal s. Jay Natarajan calcium carbonate (TUMS) 200 mg calcium (500 mg) chewable ta blet 2018-12-31 20:23:25 Yes 2{tbl} Q.[id number] 3D Chew 2 tablets 3 (three) times a day. Give in between meals on a empty stomach Jay Natarajan glucagon,human recombinant (GLUCAGON EMERGENCY KIT, HUMAN, I [place]) 2018-12-31 20:23:25 Yes 1mg Q24H Inject 1 m g into the shoulder, thigh, or buttocks daily as needed (Blood Sugar <60 and Patient unable to swallow.). Jay Natarajan folic acid/vit B complex and C (NEPHRO-HARRISON ORAL) 2018-12-31 20:23:25 Yes 1{tbl} QD Take 1 tablet by mouth daily. Jay Natarajan aspirin (ECOTRIN) 81 MG enteric coated tablet 2018-12-31 20:23:2 5 Yes 81mg QD Take 81 mg by mouth daily. Kaylah Natarajan atorvastatin (LIPITOR) 10 MG tablet 2018-12-31 20:23:25 Yes 10mg QD Take 10 mg by mouth nightly. Jay cantor calcium acetate (PHOSLO) 667 mg capsule 2018-12-31 20:23:25 Yes 1334mg Q.[id number] Take 1,334 mg by mouth 3 (three) times a day with meal s. Jay Natarajan docusate sodium (COLACE) 100 MG capsule 2018-12-31 20:23:25 Yes 100mg QD Take 100 mg by mouth daily. Dangelo Natarajan polyethylene glycol (MIRALAX) 17 gram packet 2018-12-31 20:23:25 Yes 17g QD Take 17 g by mouth nightly. Jay Natarajan lactulose 10 gram/15 mL (15 mL) solution 2018-12-31 20:23:25 Yes 20g QD Take 20 g by mouth nightly as needed (for constipation). Jay Natarajan HYDROcodone-acetaminophen (NORCO) 7.5-325 mg per tablet 2018-12-31 20:23:25 Yes 1{tbl} Q4H Take 1 tablet b y mouth every 4 (four) hours as needed for moderate pain. Jay Natarajan Vital Signs Vital Name Observation Time Observation Value Comments Source Body weight Measured 2019-10-13 14:11:00 141.522 kg [facility] BMI 2019-10-13 14:11:00 60.93 kg/m2 [facility] Systolic blood pressure 2019-07-06 14:00:00 150 mm[Hg] [facility] Diastolic blood pressure 2019-07-06 14:00:00 70 mm[Hg] [facility] Heart rate 2019-07-06 14:00:00 67 /min [facility] Respiratory rate 2019-07-06 14:00:00 18 /min [facility] Oxygen saturation in Arterial blood by Pulse oximetry 07-06 13:15:00 97 /min [facility] Pricilae r Body temperature 2019-07-06 07:58:00 36.56 Miladis [facility] Body height 2019-06-15 12:40:00 152.4 cm [facility] Procedures Procedure Date / Time Performed Performing Clinician [facility] e CARDIAC CATH REPORT - SCAN 2019-07-07 12:41:03 Provider, Default Scanning [facility] VENOGRAM 2019-07-06 11:07:00 Juno Frazier [facility] HEMOGLOBIN AND HEMATOCRIT 2019-07-06 08:12:00 Zuri Gallegos [facility] POTASSIUM 2019-07-06 08:05:00 Michelle Keys [facility] RHYTHM STRIP - SCAN 2019-06-28 14:50:16 Provider, Default [facility] RHYTHM STRIP - SCAN 2019-06-22 09:11:45 Provider, Default [facility] XR CHEST 1 VIEW PORTABLE/BEDSIDE 2019-06-18 07:45:00 Trace Aleman [facility] POCT-GLUCOSE METER 2019-06-18 07:22:00 Betty [facility] POCT-GLUCOSE METER 2019-06-17 21:50:00 Betty [facility] HEMODIALYSIS INPATIENT 2019-06-17 21:40:22 Tom De Santiago [facility] POCT-GLUCOSE METER 2019-06-17 12:11:00 Betty [facility] POCT-GLUCOSE METER 2019-06-17 07:46:00 Betty [facility] XR CHEST 1 VIEW PORTABLE/BEDSIDE 2019-06-17 05:33:00 Trace Aleman [facility] BASIC METABOLIC PANEL (7) 2019-06-17 04:02:00 Hope Aleman [facility] MAGNESIUM 2019-06-17 04:02:00 Ash [facility] PHOSPHORUS 2019-06-17 04:02:00 Ash [facility] CBC W/PLT COUNT & AUTO DIFFERENTIAL 2019-06-17 04:02:00 Ash [facility] POCT-GLUCOSE METER 2019-06-16 22:02:00 [facility] POCT-GLUCOSE METER 2019-06-16 18:10:00 [facility] HEMOGLOBIN AND HEMATOCRIT 2019-06-16 16:08:00 Alistair Bae [facility] HEMODIALYSIS INPATIENT 2019-06-16 14:49:11 Tom De Santiago [facility] POCT-GLUCOSE METER 2019-06-16 11:35:00 Karin Juno [facility] POTASSIUM 2019-06-16 08:19:[address] [facility] POCT-GLUCOSE METER 2019-06-16 07:50:00 Karin [facility] ECG 12-LEAD 2019-06-16 05:03:13 Unknown, Hl7 Doctor [facility] ECG 12-LEAD 2019-06-16 05:02:53 [place] [facility] XR CHEST 1 VIEW PORTABLE/BEDSIDE 2019-06-16 04:14:00 Ash [facility] TROPONIN I 2019-06-16 03:30:00 Ash [facility] BASIC METABOLIC PANEL (7) 2019-06-16 03:30:00 Hope Aleman [facility] MAGNESIUM 2019-06-16 03:30:00 [facility] 2019-06-16 03:30:00 Ash [facility] CBC W/PLT COUNT & AUTO DIFFERENTIAL 2019-06-16 03:30:00 Trace Alemanethi [facility] POCT-GLUCOSE METER 2019-06-15 21:57:00 Juno Frazier [facility] HEMODIALYSIS INPATIENT 2019-06-15 18:57:10 Tom De Santiago [facility] BASIC METABOLIC PANEL (7) 2019-06-15 17:33:00 Hope Aleman [facility] MAGNESIUM 2019-06-15 17:33:00 Hope Aleman [facility] PHOSPHORUS 2019-06-15 17:33:00 Ash [facility] TROPONIN I 2019-06-15 13:50:00 Ash [facility] HEPATITIS B SURFACE ANTIGEN 2019-06-15 13:50:00 Tom De Santiago Be rt [facility] ECG 12-LEAD 2019-06-15 12:17:51 Unknown, Hl7 Doctor [facility] XR CHEST 1 VIEW PORTABLE/BEDSIDE 2019-06-15 11:27:00 Manas Gill [facility] BASIC METABOLIC PANEL (7) 2019-06-15 10:10:00 Juno Frazier [facility] CBC W/PLT COUNT & AUTO DIFFERENTIAL 2019-06-14 10:23:00 Juno Marvin [facility] ECG 12-LEAD 2019-06-14 09:24:18 [facility] Planned Activity Planned Date Details Comments Source Future Scheduled Test 2020-06-10 00:00:00 INFLUENZA VACCINE [code = INFLUENZA VACCINE] [facility] Future Scheduled Test 1980 00:00:00 DIABETIC FOOT EXAM [code = DIABETIC FOOT EXAM] [facility] Future Scheduled Test 1980 00:00:00 URINE MICROALBUMIN [code = URINE MICROALBUMIN] [facility] Future Scheduled Test 1970 00:00:00 DIABETIC RETINAL E YE EXAM [code = DIABETIC RETINAL EYE EXAM] Jay Natarajan Encounters Start Date/Time End Date/Time Encounter Type Admission Type Attendi ng Clinicians Care Facility Care Department Encounter ID Source 2019-08-26 12:47:51 2019-08-26 15:34:53 Office Visit Demetrio Harper ams [facility] [id number] Results Test Description Test Time Test Comments Results Result Comments Source GLUBED 2019-12-29 16:51:00 Test Item GLUBED (test code = GLUBED) 166 mg/dL 74-106 H Performed by certified rounding machine operator at [facility] COMPREHENSIVE METABOLIC [id number] 06:21:00* Test Item Value Reference Range Interpretation Comments SODIUM (test code = NA) 146 mmol/L 136-145 H POTASSIUM (test code = K) 5.1 mmol/L 3.5-5.1 N CHLORIDE (test code = CL) 109.0 mmol/L 98-107 H CARBON DIOXIDE (test code = CO2) 23.0 mmol/L 21-32 N ANION GAP (test code = GAP) 19.1 10-20 N GLUCOSE (test code = GLU) 150 mg/dL 74-106 H BLOOD UREA NITROGEN (test code = BUN) 64 mg/dL 7-18 H GLOMERULAR FILTRATION RATE (test code = GFR) 5 mL/min >=60 Estimated GFR by using Modified MDRD formula.Chronic kidney disease is defined as either kidney damageor GFR <60 mL/min/1.73 m2 for >3 months. CREATININE (test code = CREAT) 11.50 mg/dL 0.7-1.3 H BUN/CREATININE RATIO (test code = BUN/CREA) 5.6 10-20 L TOTAL PROTEIN (test code = PROT) 7.5 gram/dL 6.4-8.2 N ALBUMIN (test code = ALB) 3.1 g/dL 3.4-5.0 L GLOBULIN (test code = GLOB) 4.4 gram/dL 2.7-4.2 H ALBUMIN/GLOBULIN RATIO (test code = A/G) 0.7 0.75-1.50 L CALCIUM (test code = CA) 8.8 mg/dL 8.5-10.1 N BILIRUBIN TOTAL (test code = BILT) 0.30 mg/dL 0.0-1.0 N SGOT/AST (test code = AST) 72 IUnit/L 15-37 H SGPT/ALT (test code = ALT) 118 IUnit/L 12-78 H ALKALINE PHOSPHATASE TOTAL (test code = ALKP) 80 IUnit/L 45-117 N Note change in reference range due to change in reagent. [id number] 06:20:00* Test Item Value Reference Range Interpretation Comments GLUBED (test code = GLUBED) 136 mg/dL 74-106 H Performed by certified rounding machine operator at [facility] COMPREHENSIVE METABOLIC [id number] 06:10:00* Test Item Value Reference Range Interpretation Comments SODIUM (test code = NA) 146 mmol/L 136-145 H POTASSIUM (test code = K) 5.1 mmol/L 3.5-5.1 N CHLORIDE (test code = CL) 109.0 mmol/L 98-107 H CARBON DIOXIDE (test code = CO2) mmol/L 21-32 ANION GAP (test code = GAP) 10-20 GLUCOSE (test code = GLU) mg/dL 74-106 BLOOD UREA NITROGEN (test code = BUN) mg/dL 7-18 GLOMERULAR FILTRATION RATE (test code = GFR) mL/min >=60 CREATININE (test code = CREAT) mg/dL 0.7-1.3 BUN/CREATININE RATIO (test code = BUN/CREA) 10-20 TOTAL PROTEIN (test code = PROT) gram/dL 6.4-8.2 ALBUMIN (test code = ALB) g/dL 3.4-5.0 GLOBULIN (test code = GLOB) gram/dL 2.7-4.2 ALBUMIN/GLOBULIN RATIO (test code = A/G) 0.75-1.50 CALCIUM (test code = CA) mg/dL 8.5-10.1 BILIRUBIN TOTAL (test code = BILT) mg/dL 0.0-1.0 SGOT/AST (test code = AST) IUnit/L 15-37 SGPT/ALT (test code = ALT) IUnit/L 12-78 ALKALINE PHOSPHATASE TOTAL (test code = ALKP) IUnit/L 45-117 CBC W/AUTO [id number] 06:08:00* Test Item Value Reference Range Interpretation Comments WHITE BLOOD CELL (test code = WBC) 5.6 K/mm3 4.5-12.5 N RED BLOOD CELL (test code = RBC) 2.76 mill/mm3 4.0-5.8 L HEMOGLOBIN (test code = HGB) 7.6 gram/dL 13.0-17.5 L HEMATOCRIT (test code = HCT) 24.8 % 42.0-52.0 L MEAN CELL VOLUME (test code = MCV) 89.9 fL 80-98 N MEAN CELL HGB (test code = MCH) 27.5 picogram 27.0-33.0 N MEAN CELL HGB CONCETRATION (test code = MCHC) 30.6 gram/dL 33.0-36. 0 L RED CELL DISTRIBUTION WIDTH (test code = RDW) 16.3 % 11.6-16. 2 H RED CELL DISTRIBUTION WIDTH SD (test code = RDW-SD) 53.7 fL 37 .0-51.0 H PLATELET COUNT (test code = PLT) 127 K/mm3 150-450 L MEAN PLATELET VOLUME (test code = MPV) 11.0 fL 6.7-11.0 N NEUTROPHIL % (test code = NT%) 72.1 % 39.0-69.0 H IMMATURE GRANULOCYTE % (test code = IG%) 1.3 % 0.0-5.0 N LYMPHOCYTE % (test code = LY%) 10.1 % 25.0-55.0 L MONOCYTE % (test code = MO%) 12.4 % 0.0-10.0 H EOSINOPHIL % (test code = EO%) 3.6 % 0.0-5.0 N BASOPHIL % (test code = BA%) 0.5 % 0.0-1.0 N NUCLEATED RBC % (test code = NRBC%) 0.0 % 0-0 N NEUTROPHIL # (test code = NT#) 4.00 K/mm3 1.8-7.7 N IMMATURE GRANULOCYTE # (test code = IG#) 0.07 x10 3/uL 0-0.03 H LYMPHOCYTE # (test code = LY#) 0.56 K/mm3 1.0-5.0 L MONOCYTE # (test code = MO#) 0.69 K/mm3 0-0.8 N EOSINOPHIL # (test code = EO#) 0.20 K/mm3 0.0-0.5 N BASOPHIL # (test code = BA#) 0.03 K/mm3 0.0-0.2 N NUCLEATED RBC # (test code = NRBC#) 0.00 K/mm3 0.0-0.1 N MANUAL DIFF REQUIRED (test code = MDIFF) NO [id number] 22:36:00* Test Item Value Reference Range Interpretation Comments GLUBED (test code = GLUBED) 101 mg/dL 74-106 N Performed by certified rounding machine operator at [facility] - US EXTREM NON VASC [id number] 21:31:00 Name: AMOR COMBS [facility] : 1970 Age/S: 49 / M [address] Unit #: [id number] Loc: [place] [address] Phys: Beronica Colón NP Acct: [id number] Dis Date: Status: ADM IN PHONE #: [phone] Exam Date: 12/28/2019 185 FAX #: [phone] Reason: left upper arm swelling r/o abscess EXAMS: CPT CODE: [id number] EXTREM NON VASC COMP 02348 HISTORY: Left upper and abscess. COMPARISON: CT scan from previous day. Location: [facility]. Survey of the left upper arm at the site of swelling demonstrating diffuse subcutaneous edema. No drainable abscess or fluid collection is noted. IMPRESSION: No drainable fluid or abscess collection. Subcutaneous edema. at 2130 Reported and signed by: Boyd Fregoso M.D. CC: Luther Vasquez MD; Beronica Colón NP Technologist: Dino Dow Trnscb Date/Time: 12/28/2019 (2130) [email or web address] Orig Print D/T: S: 12/28/2019 (2133) Probe: PAGE 1 Signed Report [id number] 18:04:00* Test Item Value Reference Range Interpretation Comments GLUBED (test code = GLUBED) 156 mg/dL 74-106 H Performed by certified rounding machine operator at [facility] [id number] 13:50:00* Test Item Value Reference Range Interpretation Comments GLUBED (test code = GLUBED) 139 mg/dL 74-106 H Performed by certified rounding machine operator at [facility] BASIC METABOLIC [id number] 10:27:00* Test Item Value Reference Range Interpretation Comments SODIUM (test code = NA) 138 mmol/L 136-145 RESU LT VERIFIED BY REPEAT ANALYSIS POTASSIUM (test code = K) 5.8 mmol/L 3.5-5.1 H CHLORIDE (test code = CL) 98.0 mmol/L 98-107 N CARBON DIOXIDE (test code = CO2) 25.0 mmol/L 21-32 N ANION GAP (test code = GAP) 20.8 10-20 H GLUCOSE (test code = GLU) 90 mg/dL 74-106 N BLOOD UREA NITROGEN (test code = BUN) 91 mg/dL 7-18 H GLOMERULAR FILTRATION RATE (test code = GFR) 4 mL/min >=60 Estimated GFR by using Modified MDRD formula.Chronic kidney disease is defined as either kidney damageor GFR <60 mL/min/1.73 m2 for >3 months. CREATININE (test code = CREAT) 14.00 mg/dL 0.7-1.3 H BUN/CREATININE RATIO (test code = BUN/CREA) 6.5 10-20 L CALCIUM (test code = CA) 8.4 mg/dL 8.5-10.1 L CBC W/AUTO [id number] 10:02:00* Test Item Value Reference Range Interpretation Comments WHITE BLOOD CELL (test code = WBC) 5.6 K/mm3 4.5-12.5 N RED BLOOD CELL (test code = RBC) 2.73 mill/mm3 4.0-5.8 L HEMOGLOBIN (test code = HGB) 7.5 gram/dL 13.0-17.5 L HEMATOCRIT (test code = HCT) 24.8 % 42.0-52.0 L MEAN CELL VOLUME (test code = MCV) 90.8 fL 80-98 N MEAN CELL HGB (test code = MCH) 27.5 picogram 27.0-33.0 N MEAN CELL HGB CONCETRATION (test code = MCHC) 30.2 gram/dL 33.0-36. 0 L RED CELL DISTRIBUTION WIDTH (test code = RDW) 17.2 % 11.6-16. 2 H RED CELL DISTRIBUTION WIDTH SD (test code = RDW-SD) 56.9 fL 37 .0-51.0 H PLATELET COUNT (test code = PLT) 133 K/mm3 150-450 L MEAN PLATELET VOLUME (test code = MPV) 11.3 fL 6.7-11.0 H NEUTROPHIL % (test code = NT%) 73.6 % 39.0-69.0 H IMMATURE GRANULOCYTE % (test code = IG%) 1.1 % 0.0-5.0 N LYMPHOCYTE % (test code = LY%) 8.7 % 25.0-55.0 L MONOCYTE % (test code = MO%) 13.5 % 0.0-10.0 H EOSINOPHIL % (test code = EO%) 2.7 % 0.0-5.0 N BASOPHIL % (test code = BA%) 0.4 % 0.0-1.0 N NUCLEATED RBC % (test code = NRBC%) 0.0 % 0-0 N NEUTROPHIL # (test code = NT#) 4.13 K/mm3 1.8-7.7 N IMMATURE GRANULOCYTE # (test code = IG#) 0.06 x10 3/uL 0-0.03 H LYMPHOCYTE # (test code = LY#) 0.49 K/mm3 1.0-5.0 L MONOCYTE # (test code = MO#) 0.76 K/mm3 0-0.8 N EOSINOPHIL # (test code = EO#) 0.15 K/mm3 0.0-0.5 N BASOPHIL # (test code = BA#) 0.02 K/mm3 0.0-0.2 N NUCLEATED RBC # (test code = NRBC#) 0.00 K/mm3 0.0-0.1 N MANUAL DIFF REQUIRED (test code = MDIFF) NO [id number] 08:45:00* Test Item Value Reference Range Interpretation Comments GLUBED (test code = GLUBED) 107 mg/dL 74-106 H Performed by certified rounding machine operator at [facility] [id number] 21:32:00* Test Item Value Reference Range Interpretation Comments GLUBED (test code = GLUBED) 89 mg/dL 74-106 N Performed by certified rounding machine operator at [facility] - CT UP EXTREM W/O CONT [id number] 21:19:00 Name: AMOR COMBS [facility] : 1970 Age/S: 49 / M [address] [facility] Unit #: [id number] Loc: PEDRO [place] [address] Phys: Beronica Colón NP Acct: [id number] Dis Date: Status: ADM IN PHONE #: [phone] Exam Date: 12/27/2019 2100 FAX #: [phone] Reason: edema and pain to r/o abscess EXAMS: CPT CODE: [id number] [place] EXTREM W/[place] [address] HISTORY: Edema and pain. Evaluate for abscess. COMPARISON: None available. Location: TH CT left shoulder without contrast: Automated exposure control. Severely narrowed shoulder and AC joints. The subacromial space is preserved. The glenoid is shallow. Inferior marginal osteophyte from the glenoid. The coracoid is unremarkable. No joint fluid is noted. No drainable fluid collection is noted on this noncontrast exam. No pathologic axillary adenopathy. Visualized lung is clear. Calcified granuloma in the left upper lobe. Dependent changes. No acute f racture or dislocation. No erosive or destructive changes are noted. Cor relate with MRI scan as that is much more sensitive. IMPRESSION: No drainable fluid collection on this noncontrast study to llamas ggest abscess. The musculature appears grossly normal. Severely narrow ed glenohumeral and AC joints suggestive of advanced osteoarthritis. at 2118 Reported and signed by: Boyd Fregoso M.D. CC: Luther Vasquez MD; Beronica Colón NP Technologist:Consuelo Evans cia RT(R); ANDREA Umaña CTDI: DLP: Trnscb Date/Time: 12/27/2019 (2118 ) [email or web address] Orig Print D/T: S: 12/27/2019 (2121) PAG E 1 Signed Report B-TYPE NATRIURETIC [id number] 13:13:00* Test Item Value Reference Range Interpretation Comments B-TYPE NATRIURETIC PEPTIDE (test code = BNP) 2512.91 pgram/mL 0-100 H BASIC METABOLIC [id number] 12:50:00* Test Item Value Reference Range Interpretation Comments SODIUM (test code = NA) 132 mmol/L 136-145 L POTASSIUM (test code = K) 8.3 mmol/L 3.5-5.1 Results called to June, by [email or web address] 12/27/19 1208Critical results verified and read back by Nurse? Arun SAHU RECOLLECTED, k WAS STILL HIGHRESULT WAS RAN A TOTAL OF FOUR TIMES CHLORIDE (test code = CL) 99.0 mmol/L 98-107 N CARBON DIOXIDE (test code = CO2) 20.0 mmol/L 21-32 L Previously reported result: 20.0 mmol/LEdited by: [email or web address] on 12/27/19:50842712/27/19 1245: CO2 previously reported as: 20.0 L mmol/L ANION GAP (test code = GAP) 21.3 10-20 H GLUCOSE (test code = GLU) 101 mg/dL 74-106 N BLOOD UREA NITROGEN (test code = BUN) 129 mg/dL 7-18 H GLOMERULAR FILTRATION RATE (test code = GFR) 3 mL/min >=60 Estimated GFR by using Modified MDRD formula.Chronic kidney disease is defined as either kidney damageor GFR <60 mL/min/1.73 m2 for >3 months. CREATININE (test code = CREAT) 18.50 mg/dL 0.7-1.3 H BUN/CREATININE RATIO (test code = BUN/CREA) 7.0 10-20 L CALCIUM (test code = CA) 9.0 mg/dL 8.5-10.1 N [id number] 12:50:00* Test Item Value Reference Range Interpretation Comments TROPONIN-I (test code = TROPI) 0.037 ng/mL 0-0.045 N AG HEPAT B [id number] 12:18:00* Test Item Value Reference Range Interpretation Comments AG HEPAT B SURF (test code = HBSAG) Nonreactive Index Nonreactive BASIC METABOLIC [id number] 12:08:00* Test Item Value Reference Range Interpretation Comments SODIUM (test code = NA) 132 mmol/L 136-145 L POTASSIUM (test code = K) 8.3 mmol/L 3.5-5.1 HH Re sults called to by [email or web address] 12/27/19 1208Critical results verified and read back by Nurse? CHLORIDE (test code = CL) 99.0 mmol/L 98-107 N CARBON DIOXIDE (test code = CO2) mmol/L 21-32 ANION GAP (test code = GAP) 10-20 GLUCOSE (test code = GLU) mg/dL 74-106 BLOOD UREA NITROGEN (test code = BUN) mg/dL 7-18 GLOMERULAR FILTRATION RATE (test code = GFR) mL/min >=60 CREATININE (test code = CREAT) mg/dL 0.7-1.3 BUN/CREATININE RATIO (test code = BUN/CREA) 10-20 CALCIUM (test code = CA) mg/dL 8.5-10.1 [id number] 12:08:00* Test Item Value Reference Range Interpretation Comments TROPONIN-I (test code = TROPI) ng/mL 0-0.045 BASIC METABOLIC [id number] 12:08:00* Test Item Value Reference Range Interpretation Comments SODIUM (test code = NA) 132 mmol/L 136-145 L POTASSIUM (test code = K) 8.3 mmol/L 3.5-5.1 Re sults called to by V.LAB.[facility] 12/27/19 1208Critical results verified and read back by Nurse? CHLORIDE (test code = CL) 99.0 mmol/L 98-107 N CARBON DIOXIDE (test code = CO2) 20.0 mmol/L 21-32 L ANION GAP (test code = GAP) 10-20 GLUCOSE (test code = GLU) 101 mg/dL 74-106 N BLOOD UREA NITROGEN (test code = BUN) 129 mg/dL 7-18 H GLOMERULAR FILTRATION RATE (test code = GFR) 3 mL/min >=60 Estimated GFR by using Modified MDRD formula.Chronic kidney disease is defined as either kidney damageor GFR <60 mL/min/1.73 m2 for >3 months. CREATININE (test code = CREAT) 18.50 mg/dL 0.7-1.3 H BUN/CREATININE RATIO (test code = BUN/CREA) 7.0 10-20 L CALCIUM (test code = CA) 9.0 mg/dL 8.5-10.1 N [id number] 12:08:00* Test Item Value Reference Range Interpretation Comments TROPONIN-I (test code = TROPI) 0.037 ng/mL 0-0.045 N CBC W/O [id number] 11:50:00* Test Item Value Reference Range Interpretation Comments WHITE BLOOD CELL (test code = WBC) 7.8 K/mm3 4.5-12.5 N RED BLOOD CELL (test code = RBC) 2.84 mill/mm3 4.0-5.8 L HEMOGLOBIN (test code = HGB) 7.8 gram/dL 13.0-17.5 L HEMATOCRIT (test code = HCT) 25.5 % 42.0-52.0 L MEAN CELL VOLUME (test code = MCV) 89.8 fL 80-98 N MEAN CELL HGB (test code = MCH) 27.5 picogram 27.0-33.0 N MEAN CELL HGB CONCETRATION (test code = MCHC) 30.6 gram/dL 33.0-36. 0 L RED CELL DISTRIBUTION WIDTH (test code = RDW) 17.3 % 11.6-16. 2 H PLATELET COUNT (test code = PLT) 141 K/mm3 150-450 L MEAN PLATELET VOLUME (test code = MPV) 11.0 fL 6.7-11.0 N ARTERIAL BLOOD [id number] 10:03:00* Test Item Value Reference Range Interpretation Comments ARTERIAL BLOOD GAS PH (test code = PHA) 7.30 7.35-7.45 L ARTERIAL BLOOD GAS PCO2 (test code = PCO2A) 36.0 mm Hg 35-45 N ARTERIAL BLOOD GAS PO2 (test code = PO2A) 41.3 mmHg 80-100 LL Results called to and read back by 10: - 12/27/2019; by RICHIE BICARBONATE TOTAL HCO3 (test code = HCO3) 17.5 mmol/L 23.0-27.0 L BASE EXCESS (test code = DIEGO) -8.1 mmol/L -3.0-5.0 LL Results called to and read back by 10:12/27/2019; by RICHIE ABG O2 SATURATION (test code = SATA) 63.1 % 90.0-98.0 LL ABG TYPE (test code = TYPEA) Arterial FIO2 (test code = FIO2A) 45.0 ABG VENT MODE (test code = MODEA) BiPAP ABG VENT RESP RATE (test code = RRA) 16.0 per min ABG PEEP (test code = PEEPA) 5.0 cmH2O ABG SITE (test code = SITEA) Lt RADIAL ARTERY MODIFIED ALLENS (test code = MODALL) Yes CHECK PERFORMED HEMATOCRIT (test code = HCT/ABG) 27 % 42-52 L TOTAL HGB (test code = THB) 9.2 gram/dL 13.0-17.5 L HGB O2 SAT (test code = HBOSAT) 62.1 % 94.00-98.00 LL CARBOXYHEMOGLOBIN (test code = HOHGBT) 1.3 %totalHg 0.5-1.5 N METHEMOGLOBIN (test code = METHGB) 0.3 % 0.0-1.50 N O2 CONTENT (test code = O2CT) 8.1 % vol 18.0-22.0 LL - XR CHEST 1 [id number] 09:05:00 FAX: Dann Davies [phone] [place]: St: REG Name: AMOR LOPES [facility] : [birth year] Age/S: 49/M [address] [facility] Unit #: [id number] Loc: PEDRO [place] [address] Phys: Dann Dahl MD Acct: [id number] Dis Date: Status: REG ER PHONE #: [phone] Exam Date: 12/27/2019 0854 FAX #: [phone] Reason: Shortness of Breath EXAMS: CPT CODE: [id number] XR CHEST 1 V 14273 REASON FOR EXAM: Shortness of Breath Exam Order Date: 12/27/2019 8:35 AM Ordering M.D.: Dann Dahl MD PROCEDURE: - XR CHEST 1 V COMPARISON: Chest x-ray May 26, 2019 FINDINGS: Patient body habitus limits penetration of x-rays which diminishes the sensitivity of this exam for detecting subtle pathologies. There ar e opacities in the bilateral lung bases which may represent atelectasis an d/or consolidation. Small layering pleural effusions cannot be excluded. Post surgical changes of CABG are present. Cardiac mediastinal silhouette appears to be widened. Degenerative changes are present in the spine. The visualized upper abdomen is within normal doyle its. IMPRESSION: Bibasilar opacities as describe d above may represent subsegmental atelectasis and/or consolidation. Sma ll pleural effusions cannot be excluded. Please note that patient's body habitus causes underpenetration of x-rays which may exacerbate the find ings. Location: [facility] [place] at 0905 Reported and signed by: Torrey Coulter MD CC: Dann Dahl MD echnologist: RT ROSA ISELA(R) Trnscrd Date /Time/By: 12/27/2019 (904) : By: [email or web address] Orig Print D/T: S: 020 (908) PAGE 1 Signed Report POC [id number] 11:09:43* Test Item Value Reference Range Interpretation Comments Glucose POC (test code = Glucose POC) 137 mg/dL 70-115 H If you consider your patient critically ill, the Gabe-Accu Check Infrom II meter should not be used for Glucose determination. Draw a venous Glucose and send to the main Lab for analysis. POC [id number] 07:49:41* Test Item Value Reference Range Interpretation Comments Glucose POC (test code = Glucose POC) 155 mg/dL 70-115 H If you consider your patient critically ill, the Gabe-Accu Check Infrom II meter should not be used for Glucose determination. Draw a venous Glucose and send to the main Lab for analysis. Magnesium [id number] 07:15:45* Test Item Value Reference Range Interpretation Comments Magnesium Level (test code = Magnesium Level) 2.3 mg/dL 1.7-2.5 Phosphorus [id number] 07:15:45* Test Item Value Reference Range Interpretation Comments Phosphorus Level (test code = Phosphorus Level) 6.80 mg/dL 2.70-4 .50 H Comprehensive Metabolic [id number] 07:15:44* Test Item Value Reference Range Interpretation Comments Sodium Level (test code = Sodium Level) 139.0 mmol/L 135.0-145.0 Potassium Level (test code = Potassium Level) 4.5 mmol/L 3.5-5.1 Chloride Level (test code = Chloride Level) 97 mmol/L 98-105 L CO2 (test code = CO2) 25 mmol/L 22-29 Anion Gap (test code = Anion Gap) 17 mmol/L 7-16 H BUN (test code = BUN) 50.70 mg/dL 6.00-20.00 H Creatinine Level (test code = Creatinine Level) 11.20 mg/dL 0.70-1 .20 H BUN/Creat Ratio (test code = BUN/Creat Ratio) 5 N Glucose Level (test code = Glucose Level) 100 mg/dL 70-115 Calcium Level (test code = Calcium Level) 8.6 mg/dL 8.3-10.5 Alk Phos (test code = Alk Phos) 69 U/L 40-129 Bilirubin Total (test code = Bilirubin Total) 0.3 mg/dL 0.1-0.9 Albumin Level (test code = Albumin Level) 3.9 g/dL 3.5-5.2 Protein Total (test code = Protein Total) 7.0 g/dL 6.4-8.3 ALT (test code = ALT) 17 U/L 1-41 AST (test code = AST) 26 U/L 1-40 Globulin (test code = Globulin) 3.1 g/dL 2.9-3.1 A/G Ratio (test code = A/G Ratio) 1.3 ratio N Comprehensive Metabolic [id number] 07:15:44* Test Item Value Reference Range Interpretation Comments Sodium Level (test code = Sodium Level) 139.0 mmol/L 135.0-145.0 Potassium Level (test code = Potassium Level) 4.5 mmol/L 3.5-5.1 Chloride Level (test code = Chloride Level) 97 mmol/L 98-105 L CO2 (test code = CO2) 25 mmol/L 22-29 Anion Gap (test code = Anion Gap) 17 mmol/L 7-16 H BUN (test code = BUN) 50.70 mg/dL 6.00-20.00 H Creatinine Level (test code = Creatinine Level) 11.20 mg/dL 0.70-1 .20 H BUN/Creat Ratio (test code = BUN/Creat Ratio) 5 N Glucose Level (test code = Glucose Level) 100 mg/dL 70-115 Calcium Level (test code = Calcium Level) 8.6 mg/dL 8.3-10.5 Alk Phos (test code = Alk Phos) 69 U/L 40-129 Bilirubin Total (test code = Bilirubin Total) 0.3 mg/dL 0.1-0.9 Albumin Level (test code = Albumin Level) 3.9 g/dL 3.5-5.2 Protein Total (test code = Protein Total) 7.0 g/dL 6.4-8.3 ALT (test code = ALT) 17 U/L 1-41 AST (test code = AST) 26 U/L 1-40 Globulin (test code = Globulin) 3.1 g/dL 2.9-3.1 A/G Ratio (test code = A/G Ratio) 1.3 ratio N eGFR AA (test code = eGFR AA) 6 mL/min/1.73 m2 N eGFR (estimated Glomerular Filtration Rate) is an estimated value, calculated from the patient's serum creatinine using the MDRD equation. It is NOT the patient's actual GFR. The eGFR provides a more clinically useful measure of kidney disease than serum creatinine alone.This calculation takes sex and race into account, if the information is provided. If the race is not provided, and the patient is -Tristanian, multiply by 1.212. If sex is not provided, and the patient is female, multiply by 0.742. Results for patients <18 years of age have not been validated by the MDRD study and should be interpreted with caution. eGFR Result Interpretation:eGFR > or = 60 is in the Normal RangeeGFR < 60 may mean kidney diseaseeGFR < 15 may mean kidney failure Ranges recommended by the National Kidney Foundation, http://nkdep.nih.gov eGFR Non-AA (test code = eGFR Non-AA) 4.89 mL/min/1.73 m2 N eGFR (estimated Glomerular Filtration Rate) is an estimated value, calculated from the patient's serum creatinine using the MDRD equation. It is NOT the patient's actual GFR. The eGFR provides a more clinically useful measure of kidney disease than serum creatinine alone.This calculation takes sex and race into account, if the information is provided. If the race is not provided, and the patient is -Tristanian, multiply by 1.212. If sex is not provided, and the patient is female, multiply by 0.742. Results for patients <18 years of age have not been validated by the MDRD study and should be interpreted with caution. eGFR Result Interpretation:eGFR > or = 60 is in the Normal RangeeGFR < 60 may mean kidney diseaseeGFR < 15 may mean kidney failure Ranges recommended by the National Kidney Foundation, http://nkdep.nih.gov Comprehensive Metabolic [id number] 07:15:44* Test Item Value Reference Range Interpretation Comments Sodium Level (test code = Sodium Level) 139.0 mmol/L 135.0-145.0 Potassium Level (test code = Potassium Level) 4.5 mmol/L 3.5-5.1 Chloride Level (test code = Chloride Level) 97 mmol/L 98-105 L CO2 (test code = CO2) 25 mmol/L 22-29 Anion Gap (test code = Anion Gap) 17 mmol/L 7-16 H BUN (test code = BUN) 50.70 mg/dL 6.00-20.00 H Creatinine Level (test code = Creatinine Level) 11.20 mg/dL 0.70-1 .20 H BUN/Creat Ratio (test code = BUN/Creat Ratio) 5 N Glucose Level (test code = Glucose Level) 100 mg/dL 70-115 Calcium Level (test code = Calcium Level) 8.6 mg/dL 8.3-10.5 Alk Phos (test code = Alk Phos) 69 U/L 40-129 Bilirubin Total (test code = Bilirubin Total) 0.3 mg/dL 0.1-0.9 Albumin Level (test code = Albumin Level) 3.9 g/dL 3.5-5.2 Protein Total (test code = Protein Total) 7.0 g/dL 6.4-8.3 ALT (test code = ALT) 17 U/L 1-41 AST (test code = AST) 26 U/L 1-40 Globulin (test code = Globulin) 3.1 g/dL 2.9-3.1 A/G Ratio (test code = A/G Ratio) 1.3 ratio N eGFR AA (test code = eGFR AA) 6 mL/min/1.73 m2 N eGFR (estimated Glomerular Filtration Rate) is an estimated value, calculated from the patient's serum creatinine using the MDRD equation. It is NOT the patient's actual GFR. The eGFR provides a more clinically useful measure of kidney disease than serum creatinine alone.This calculation takes sex and race into account, if the information is provided. If the race is not provided, and the patient is -Tristanian, multiply by 1.212. If sex is not provided, and the patient is female, multiply by 0.742. Results for patients <18 years of age have not been validated by the MDRD study and should be interpreted with caution. eGFR Result Interpretation:eGFR > or = 60 is in the Normal RangeeGFR < 60 may mean kidney diseaseeGFR < 15 may mean kidney failure Ranges recommended by the National Kidney Foundation, http://nkdep.nih.gov eGFR Non-AA (test code = eGFR Non-AA) 4.89 mL/min/1.73 m2 N eGFR (estimated Glomerular Filtration Rate) is an estimated value, calculated from the patient's serum creatinine using the MDRD equation. It is NOT the patient's actual GFR. The eGFR provides a more clinically useful measure of kidney disease than serum creatinine alone.This calculation takes sex and race into account, if the information is provided. If the race is not provided, and the patient is -Tristanian, multiply by 1.212. If sex is not provided, and the patient is female, multiply by 0.742. Results for patients <18 years of age have not been validated by the MDRD study and should be interpreted with caution. eGFR Result Interpretation:eGFR > or = 60 is in the Normal RangeeGFR < 60 may mean kidney diseaseeGFR < 15 may mean kidney failure Ranges recommended by the National Kidney Foundation, http://nkdep.nih.gov POC [id number] 20:30:07* Test Item Value Reference Range Interpretation Comments Glucose POC (test code = Glucose POC) 119 mg/dL 70-115 H If you consider your patient critically ill, the Gabe-Accu Check Infrom II meter should not be used for Glucose determination. Draw a venous Glucose and send to the main Lab for analysis. POC [id number] 16:12:08* Test Item Value Reference Range Interpretation Comments Glucose POC (test code = Glucose POC) 115 mg/dL 70-115 If you consider your patient critically ill, the Gabe-Accu Check Infrom II meter should not be used for Glucose determination. Draw a venous Glucose and send to the main Lab for analysis. IR Venous [id number] 16:00:23Patient: AMOR COMBS Date/Time12/06/2019 15:20 CSTReason for ExamESRDReportPROCEDURE: Fluoroscopic guided conversion of a temporary hemodialysis catheter to a tunneled hemodialysis catheterINDICATION: End-stage renal diseaseOPERATOR: Landon Mejia M.D.SEDATION: Under physician supervision, intravenous Versed and fentanyl were administered for moderate sedation. Pulse oximetry, heart rate, and blood pressure were continuously monitored by a dedicated IR trained nurse. The physician spent 30 minutes of continuous wyfo-cp-firx sedation time with the patient.FLUOROSCOPY TIME: 1.9 minutes; Air Kerma: 191 mGyCOMPLICATIONS: NonePROCEDURE:The risks, benefits, and alternatives to the procedure and sedation were explained. Informed written consent was obtained. The patient was placed supine on the fluoroscopy table. The left groin and existing hemodialysis catheter were prepped and draped in the usual sterile fashion using all elements of maximum barrier sterile technique. 1% lidocaine was used for local anesthesia.A 0.035 wire was advanced through the hemodialysis catheter into the inferior vena cava. The temporary hemodialysis catheter was removed over the wire. A 15 Romanian peel-away sheath was placed. Next, the skin was anesthetized caudal and lateral to the venotomy site. A small dermatotomy was made. A new 50 cm tip to cuff Glidepath catheter was tunneled to the venotomy. The catheter was then advanced through the peel-away sheath. The sheath was removed. A catheter tip was positioned in the inferior vena cava. Note that the catheter is short of the inferior cavoatrial junction; however, this is the longest available catheter. The catheter ports aspirated and flush ed well. The ports were packed with heparin per protocol.The catheter was secur ed to the skin using 2-0 Prolene. The venotomy was closed with 3-0 Vicryl. A s terile dressing was applied.IMPRESSION:Successful fluoroscopic placement of a tu nneled hemodialysis catheter via the left common femoral vein.Location: R16 Final Dictated by: MD Mejia Adam FDictated DT/TM: 12/06/2019 3:56 p mSigned by: MD Mejia Adam FSigned (Electronic Signature): 12/06/2019 4:00 pmIR CVC [id number] 14:07:54Patient: AMOR COMBS Date/Time12/04/2019 10:32 CSTReason for ExamR femoral TDC malfunctionReportTEMPORARY DIALYSIS CATHETER PLACEMENT UNDER ULTRASOUND & FLUORO GUIDANCECLINICAL INDICATION: Right femoral tunneled dialysis catheter malfunction, end-stage renal disease, need for emergent hemodialysis.PHYSICIANS: Dr. Varela: Left common femoral veinCONTRAST: NoneCOMPLICATIONS: NoneFLUOROSCOPY TIME: 0.2 minutes; DAP: 8 Gy- qw0BONVDOFIR:Informed written consent was obtained after explaining the risks and benefits of the procedure. With patient in the supine position, the patient's left groin was prepped and draped in the usual sterile fashion using all elements of maximum barrier sterile technique. The skin and subcutaneous tissues overlying the common femoral vein were infiltrated with 1% Lidocaine without epinephrine. Under ultrasound guidance, the left common femoral vein was successfully cannulated with a micropuncture needle and a 0.018 wire was advanced through the needle into the vein. Patency of the vein and needle entrance in the vein were documented with ultrasound and recorded. The needle was exchanged for a 4 Romanian coaxial dilator. The inner dilator and the wire were removed and a 0.035 wire was advanced into the IVC. The soft tissues were dilated. The catheter was advanced over the wire and positioned centrally using fluoroscopy. The catheter was secured in place with the tip in the left external iliac vein. The catheter secured to skin with 2-0 Prolene suture. The catheter ports were flushed, heparinized, and a sterile dressing was applied. The p atient tolerated the procedure well and remained in stable condition throughout the stay in the angiography suite.FINDINGS:1. Patent left common femoral vein by ultrasound. Needle entry into the vein was documented.IMPRESSION:Successful krista cement of a temporary nontunneled hemodialysis catheter via the left common femo ral vein as described above.LOCATION: R16 Final Dictated by: Jocelyn carranza MD, Adam FDictated DT/TM: 12/06/2019 2:03 pmSigned by: MD Mejia Adam FSi gned (Electronic Signature): 12/06/2019 2:07 pmPOC [id number] 11:43:39* Test Item Value Reference Range Interpretation Comments Glucose POC (test code = Glucose POC) 129 mg/dL 70-115 H Notify RN or MDIf you consider your patient critically ill, the Gabe-Accu Check Infrom II meter should not be used for Glucose determination. Draw a venous Glucose and send to the main Lab for analysis. POC [id number] 19:59:05* Test Item Value Reference Range Interpretation Comments Glucose POC (test code = Glucose POC) 147 mg/dL 70-115 H If you consider your patient critically ill, the Gabe-Accu Check Infrom II meter should not be used for Glucose determination. Draw a venous Glucose and send to the main Lab for analysis. POC [id number] 16:12:04* Test Item Value Reference Range Interpretation Comments Glucose POC (test code = Glucose POC) 140 mg/dL 70-115 H If you consider your patient critically ill, the Gabe-Accu Check Infrom II meter should not be used for Glucose determination. Draw a venous Glucose and send to the main Lab for analysis. POC [id number] 11:28:06* Test Item Value Reference Range Interpretation Comments Glucose POC (test code = Glucose POC) 127 mg/dL 70-115 H If you consider your patient critically ill, the Gabe-Accu Check Infrom II meter should not be used for Glucose determination. Draw a venous Glucose and send to the main Lab for analysis. Basic Metabolic [id number] 05:57:30* Test Item Value Reference Range Interpretation Comments Sodium Level (test code = Sodium Level) 139.0 mmol/L 135.0-145.0 Potassium Level (test code = Potassium Level) 4.7 mmol/L 3.5-5.1 Chloride Level (test code = Chloride Level) 96 mmol/L 98-105 L CO2 (test code = CO2) 23 mmol/L 22-29 Anion Gap (test code = Anion Gap) 20 mmol/L 7-16 H BUN (test code = BUN) 66.20 mg/dL 6.00-20.00 H Creatinine Level (test code = Creatinine Level) 12.50 mg/dL 0.70-1 .20 H BUN/Creat Ratio (test code = BUN/Creat Ratio) 5 N Glucose Level (test code = Glucose Level) 99 mg/dL 70-115 Calcium Level (test code = Calcium Level) 8.8 mg/dL 8.3-10.5 Basic Metabolic [id number] 05:57:30* Test Item Value Reference Range Interpretation Comments Sodium Level (test code = Sodium Level) 139.0 mmol/L 135.0-145.0 Potassium Level (test code = Potassium Level) 4.7 mmol/L 3.5-5.1 Chloride Level (test code = Chloride Level) 96 mmol/L 98-105 L CO2 (test code = CO2) 23 mmol/L 22-29 Anion Gap (test code = Anion Gap) 20 mmol/L 7-16 H BUN (test code = BUN) 66.20 mg/dL 6.00-20.00 H Creatinine Level (test code = Creatinine Level) 12.50 mg/dL 0.70-1 .20 H BUN/Creat Ratio (test code = BUN/Creat Ratio) 5 N Glucose Level (test code = Glucose Level) 99 mg/dL 70-115 Calcium Level (test code = Calcium Level) 8.8 mg/dL 8.3-10.5 eGFR AA (test code = eGFR AA) 5 mL/min/1.73 m2 N eGFR (estimated Glomerular Filtration Rate) is an estimated value, calculated from the patient's serum creatinine using the MDRD equation. It is NOT the patient's actual GFR. The eGFR provides a more clinically useful measure of kidney disease than serum creatinine alone.This calculation takes sex and race into account, if the information is provided. If the race is not provided, and the patient is -[place]rist[place], multiply by 1.212. If sex is not provided, and the patient is female, multiply by 0.742. Results for patients <18 years of age have not been validated by the MDRD study and should be interpreted with caution. eGFR Result Interpretation:eGFR > or = 60 is in the Normal RangeeGFR < 60 may mean kidney diseaseeGFR < 15 may mean kidney failure Ranges recommended by the National Kidney Foundation, http://nkdep.nih.gov Basic Metabolic [id number] 05:57:30* Test Item Value Reference Range Interpretation Comments Sodium Level (test code = Sodium Level) 139.0 mmol/L 135.0-145.0 Potassium Level (test code = Potassium Level) 4.7 mmol/L 3.5-5.1 Chloride Level (test code = Chloride Level) 96 mmol/L 98-105 L CO2 (test code = CO2) 23 mmol/L 22-29 Anion Gap (test code = Anion Gap) 20 mmol/L 7-16 H BUN (test code = BUN) 66.20 mg/dL 6.00-20.00 H Creatinine Level (test code = Creatinine Level) 12.50 mg/dL 0.70-1 .20 H BUN/Creat Ratio (test code = BUN/Creat Ratio) 5 N Glucose Level (test code = Glucose Level) 99 mg/dL 70-115 Calcium Level (test code = Calcium Level) 8.8 mg/dL 8.3-10.5 eGFR AA (test code = eGFR AA) 5 mL/min/1.73 m2 N eGFR (estimated Glomerular Filtration Rate) is an estimated value, calculated from the patient's serum creatinine using the MDRD equation. It is NOT the patient's actual GFR. The eGFR provides a more clinically useful measure of kidney disease than serum creatinine alone.This calculation takes sex and race into account, if the information is provided. If the race is not provided, and the patient is -Trist[place], multiply by 1.212. If sex is not provided, and the patient is female, multiply by 0.742. Results for patients <18 years of age have not been validated by the MDRD study and should be interpreted with caution. eGFR Result Interpretation:eGFR > or = 60 is in the Normal RangeeGFR < 60 may mean kidney diseaseeGFR < 15 may mean kidney failure Ranges recommended by the National Kidney Foundation, http://nkdep.nih.gov eGFR Non-AA (test code = eGFR Non-AA) 4.31 mL/min/1.73 m2 N eGFR (estimated Glomerular Filtration Rate) is an estimated value, calculated from the patient's serum creatinine using the MDRD equation. It is NOT the patient's actual GFR. The eGFR provides a more clinically useful measure of kidney disease than serum creatinine alone.This calculation takes sex and race into account, if the information is provided. If the race is not provided, and the patient is -[place]rist[place], multiply by 1.212. If sex is not provided, and the patient is female, multiply by 0.742. Results for patients <18 years of age have not been validated by the MDRD study and should be interpreted with caution. eGFR Result Interpretation:eGFR > or = 60 is in the Normal RangeeGFR < 60 may mean kidney diseaseeGFR < 15 may mean kidney failure Ranges recommended by the National Kidney Foundation, http://nkdep.nih.gov POC [id number] 19:54:05* Test Item Value Reference Range Interpretation Comments Glucose POC (test code = Glucose POC) 151 mg/dL 70-115 H If you consider your patient critically ill, the Gabe-Accu Check Infrom II meter should not be used for Glucose determination. Draw a venous Glucose and send to the main Lab for analysis. POC [id number] 16:43:08* Test Item Value Reference Range Interpretation Comments Glucose POC (test code = Glucose POC) 130 mg/dL 70-115 H If you consider your patient critically ill, the Gabe-Accu Check Infrom II meter should not be used for Glucose determination. Draw a venous Glucose and send to the main Lab for analysis. Hemoglobin [id number] 12:08:58* Test Item Value Reference Range Interpretation Comments Hemoglobin A1c (test code = Hemoglobin A1c) <4.2 % 4.8-5.9 L Non Diabetic 4.8- 5.9%Diabetic <7.0% Troponin [id number] 11:36:34* Test Item Value Reference Range Interpretation Comments Troponin-T (test code = Troponin-T) 114.800 ng/L 0.000-22.000 Critical results called to Madison Chinchilla at 12/04/2019 11:35:42 EEG TECHNICIAN by shy. Read back and verified? yesThe CV of the assay at 99th percentile for both male and female patient population is < 10%. A rise and fall in ALISHA with at least one value above the 99th percentile with clinical evidence of myocardial ischemia would support a diagnosis of AMI. A delta of at least 20% is recommended to assess acute changes in results above the 99th percentile in serial measurements. Stable ALISHA levels (<20%) delta above the 99th percentile URL would support a diagnosis of chronic myocardial injury. Comprehensive Metabolic [id number] 11:18:16* Test Item Value Reference Range Interpretation Comments Sodium Level (test code = Sodium Level) 134.0 mmol/L 135.0-145.0 L Potassium Level (test code = Potassium Level) 6.7 mmol/L 3.5-5.1 Critical results called to Isis Cabral at 12/04/2019 11:17:41 EEG TECHNICIAN by amilcarQuackiliana. Read back and verified? yes Chloride Level (test code = Chloride Level) 93 mmol/L 98-105 L CO2 (test code = CO2) 19 mmol/L 22-29 L Anion Gap (test code = Anion Gap) 22 mmol/L 7-16 H BUN (test code = BUN) 108.50 mg/dL 6.00-20.00 H Creatinine Level (test code = Creatinine Level) 17.40 mg/dL 0.70-1 .20 H BUN/Creat Ratio (test code = BUN/Creat Ratio) 6 N Glucose Level (test code = Glucose Level) 86 mg/dL 70-115 Calcium Level (test code = Calcium Level) 9.3 mg/dL 8.3-10.5 Alk Phos (test code = Alk Phos) 66 U/L 40-129 Bilirubin Total (test code = Bilirubin Total) 0.5 mg/dL 0.1-0.9 Albumin Level (test code = Albumin Level) 4.7 g/dL 3.5-5.2 Protein Total (test code = Protein Total) 8.0 g/dL 6.4-8.3 ALT (test code = ALT) 14 U/L 1-41 AST (test code = AST) 26 U/L 1-40 Globulin (test code = Globulin) 3.3 g/dL 2.9-3.1 H A/G Ratio (test code = A/G Ratio) 1.4 ratio N Comprehensive Metabolic [id number] 11:18:16* Test Item Value Reference Range Interpretation Comments Sodium Level (test code = Sodium Level) 134.0 mmol/L 135.0-145.0 L Potassium Level (test code = Potassium Level) 6.7 mmol/L 3.5-5.1 Critical results called to Isis Cabral at 12/04/2019 11:17:41 EEG TECHNICIAN by shy. Read back and verified? yes Chloride Level (test code = Chloride Level) 93 mmol/L 98-105 L CO2 (test code = CO2) 19 mmol/L 22-29 L Anion Gap (test code = Anion Gap) 22 mmol/L 7-16 H BUN (test code = BUN) 108.50 mg/dL 6.00-20.00 H Creatinine Level (test code = Creatinine Level) 17.40 mg/dL 0.70-1 .20 H BUN/Creat Ratio (test code = BUN/Creat Ratio) 6 N Glucose Level (test code = Glucose Level) 86 mg/dL 70-115 Calcium Level (test code = Calcium Level) 9.3 mg/dL 8.3-10.5 Alk Phos (test code = Alk Phos) 66 U/L 40-129 Bilirubin Total (test code = Bilirubin Total) 0.5 mg/dL 0.1-0.9 Albumin Level (test code = Albumin Level) 4.7 g/dL 3.5-5.2 Protein Total (test code = Protein Total) 8.0 g/dL 6.4-8.3 ALT (test code = ALT) 14 U/L 1-41 AST (test code = AST) 26 U/L 1-40 Globulin (test code = Globulin) 3.3 g/dL 2.9-3.1 H A/G Ratio (test code = A/G Ratio) 1.4 ratio N eGFR AA (test code = eGFR AA) 4 mL/min/1.73 m2 N eGFR (estimated Glomerular Filtration Rate) is an estimated value, calculated from the patient's serum creatinine using the MDRD equation. It is NOT the patient's actual GFR. The eGFR provides a more clinically useful measure of kidney disease than serum creatinine alone.This calculation takes sex and race into account, if the information is provided. If the race is not provided, and the patient is -[place]rist[place], multiply by 1.212. If sex is not provided, and the patient is female, multiply by 0.742. Results for patients <18 years of age have not been validated by the MDRD study and should be interpreted with caution. eGFR Result Interpretation:eGFR > or = 60 is in the Normal RangeeGFR < 60 may mean kidney diseaseeGFR < 15 may mean kidney failure Ranges recommended by the National Kidney Foundation, http://nkdep.nih.gov Comprehensive Metabolic [id number] 11:18:16* Test Item Value Reference Range Interpretation Comments Sodium Level (test code = Sodium Level) 134.0 mmol/L 135.0-145.0 L Potassium Level (test code = Potassium Level) 6.7 mmol/L 3.5-5.1 Critical results called to Isis Cabral at 12/04/2019 11:17:41 EEG TECHNICIAN by shy. Read back and verified? yes Chloride Level (test code = Chloride Level) 93 mmol/L 98-105 L CO2 (test code = CO2) 19 mmol/L 22-29 L Anion Gap (test code = Anion Gap) 22 mmol/L 7-16 H BUN (test code = BUN) 108.50 mg/dL 6.00-20.00 H Creatinine Level (test code = Creatinine Level) 17.40 mg/dL 0.70-1 .20 H BUN/Creat Ratio (test code = BUN/Creat Ratio) 6 N Glucose Level (test code = Glucose Level) 86 mg/dL 70-115 Calcium Level (test code = Calcium Level) 9.3 mg/dL 8.3-10.5 Alk Phos (test code = Alk Phos) 66 U/L 40-129 Bilirubin Total (test code = Bilirubin Total) 0.5 mg/dL 0.1-0.9 Albumin Level (test code = Albumin Level) 4.7 g/dL 3.5-5.2 Protein Total (test code = Protein Total) 8.0 g/dL 6.4-8.3 ALT (test code = ALT) 14 U/L 1-41 AST (test code = AST) 26 U/L 1-40 Globulin (test code = Globulin) 3.3 g/dL 2.9-3.1 H A/G Ratio (test code = A/G Ratio) 1.4 ratio N eGFR AA (test code = eGFR AA) 4 mL/min/1.73 m2 N eGFR (estimated Glomerular Filtration Rate) is an estimated value, calculated from the patient's serum creatinine using the MDRD equation. It is NOT the patient's actual GFR. The eGFR provides a more clinically useful measure of kidney disease than serum creatinine alone.This calculation takes sex and race into account, if the information is provided. If the race is not provided, and the patient is -[place]rist[place], multiply by 1.212. If sex is not provided, and the patient is female, multiply by 0.742. Results for patients <18 years of age have not been validated by the MDRD study and should be interpreted with caution. eGFR Result Interpretation:eGFR > or = 60 is in the Normal RangeeGFR < 60 may mean kidney diseaseeGFR < 15 may mean kidney failure Ranges recommended by the National Kidney Foundation, http://nkdep.nih.gov eGFR Non-AA (test code = eGFR Non-AA) 2.94 mL/min/1.73 m2 N eGFR (estimated Glomerular Filtration Rate) is an estimated value, calculated from the patient's serum creatinine using the MDRD equation. It is NOT the patient's actual GFR. The eGFR provides a more clinically useful measure of kidney disease than serum creatinine alone.This calculation takes sex and race into account, if the information is provided. If the race is not provided, and the patient is -[place]rist[place], multiply by 1.212. If sex is not provided, and the patient is female, multiply by 0.742. Results for patients <18 years of age have not been validated by the MDRD study and should be interpreted with caution. eGFR Result Interpretation:eGFR > or = 60 is in the Normal RangeeGFR < 60 may mean kidney diseaseeGFR < 15 may mean kidney failure Ranges recommended by the National Kidney Foundation, http://nkdep.nih.gov IG [id number] 11:02:11* Test Item Value Reference Range Interpretation Comments IG (test code = IG) 1.0 % 0.0-5.0 IG Abs (test code = IG Abs) 0 x10 N Complete Blood Count with [id number] 11:02:10* Test Item Value Reference Range Interpretation Comments WBC (test code = WBC) 8.3 x10 4.4-10.5 RBC (test code = RBC) 3.16 x10 4.10-5.70 L Hgb (test code = Hgb) 9.1 g/dL 13.4-17.4 L Hct (test code = Hct) 28.9 % 38.7-52.0 L MCV (test code = MCV) 91.50 fL 80.00-100.00 MCHC (test code = MCHC) 31.50 g/dL 32.00-37.50 L RDW CV (test code = RDW CV) 17.5 % 11.5-14.5 H MCH (test code = MCH) 28.8 pg 27.0-32.5 Platelets (test code = Platelets) 174.0 x10 140.0-440.0 MPV (test code = MPV) 10.9 fL N Slide Review (test code = Slide Review) Auto Auto Result created by [email or web address] nRBC (test code = nRBC) 0 N NRBC Abs (test code = NRBC Abs) 0.00 x10 N Pos Diff XN (test code = Pos Diff XN) A N IPF (test code = IPF) 0 % N Automated [id number] 11:02:10* Test Item Value Reference Range Interpretation Comments Neutro Auto (test code = Neutro Auto) 81.7 % 36.0-70.0 H Lymph Auto (test code = Lymph Auto) 7.6 % 12.0-44.0 L [place] Auto (test code = [place] Auto) 8.0 % 0.0-11.0 Eos, Auto (test code = Eos, Auto) 1.5 % 0.0-7.0 Basophil Auto (test code = Basophil Auto) 0.2 % 0.0-2.0 Neutro Absolute (test code = Neutro Absolute) 6.8 x10 1.6-7.4 Lymph Absolute (test code = Lymph Absolute) .63 x10 .50-4.60 [place] Absolute (test code = [place] Absolute) .66 x10 .00-1.20 Eos Absolute (test code = Eos Absolute) 0.12 x10 0.00-0.74 Baso Absolute (test code = Baso Absolute) 0.02 x10 0.00-0.21 Basic Metabolic [id number] 05:54:00* Test Item Value Reference Range Interpretation Comments Sodium Level (test code = Sodium Level) 133.0 mmol/L 135.0-145.0 L Potassium Level (test code = Potassium Level) 5.9 mmol/L 3.5-5.1 H Chloride Level (test code = Chloride Level) 92 mmol/L 98-105 L CO2 (test code = CO2) 18 mmol/L 22-29 L Anion Gap (test code = Anion Gap) 23 mmol/L 7-16 H BUN (test code = BUN) 106.20 mg/dL 6.00-20.00 H Creatinine Level (test code = Creatinine Level) 16.80 mg/dL 0.70-1 .20 H BUN/Creat Ratio (test code = BUN/Creat Ratio) 6 N Glucose Level (test code = Glucose Level) 135 mg/dL 70-115 H Calcium Level (test code = Calcium Level) 9.0 mg/dL 8.3-10.5 Basic Metabolic [id number] 05:54:00* Test Item Value Reference Range Interpretation Comments Sodium Level (test code = Sodium Level) 133.0 mmol/L 135.0-145.0 L Potassium Level (test code = Potassium Level) 5.9 mmol/L 3.5-5.1 H Chloride Level (test code = Chloride Level) 92 mmol/L 98-105 L CO2 (test code = CO2) 18 mmol/L 22-29 L Anion Gap (test code = Anion Gap) 23 mmol/L 7-16 H BUN (test code = BUN) 106.20 mg/dL 6.00-20.00 H Creatinine Level (test code = Creatinine Level) 16.80 mg/dL 0.70-1 .20 H BUN/Creat Ratio (test code = BUN/Creat Ratio) 6 N Glucose Level (test code = Glucose Level) 135 mg/dL 70-115 H Calcium Level (test code = Calcium Level) 9.0 mg/dL 8.3-10.5 eGFR AA (test code = eGFR AA) 4 mL/min/1.73 m2 N eGFR (estimated Glomerular Filtration Rate) is an estimated value, calculated from the patient's serum creatinine using the MDRD equation. It is NOT the patient's actual GFR. The eGFR provides a more clinically useful measure of kidney disease than serum creatinine alone.This calculation takes sex and race into account, if the information is provided. If the race is not provided, and the patient is -[place], multiply by 1.212. If sex is not provided, and the patient is female, multiply by 0.742. Results for patients <18 years of age have not been validated by the MDRD study and should be interpreted with caution. eGFR Result Interpretation:eGFR > or = 60 is in the Normal RangeeGFR < 60 may mean kidney diseaseeGFR < 15 may mean kidney failure Ranges recommended by the National Kidney Foundation, http://nkdep.nih.gov eGFR Non-AA (test code = eGFR Non-AA) 3.06 mL/min/1.73 m2 N eGFR (estimated Glomerular Filtration Rate) is an estimated value, calculated from the patient's serum creatinine using the MDRD equation. It is NOT the patient's actual GFR. The eGFR provides a more clinically useful measure of kidney disease than serum creatinine alone.This calculation takes sex and race into account, if the information is provided. If the race is not provided, and the patient is -[place]rist[place], multiply by 1.212. If sex is not provided, and the patient is female, multiply by 0.742. Results for patients <18 years of age have not been validated by the MDRD study and should be interpreted with caution. eGFR Result Interpretation:eGFR > or = 60 is in the Normal RangeeGFR < 60 may mean kidney diseaseeGFR < 15 may mean kidney failure Ranges recommended by the National Kidney Foundation, http://nkdep.nih.gov Basic Metabolic [id number] 05:54:00* Test Item Value Reference Range Interpretation Comments Sodium Level (test code = Sodium Level) 133.0 mmol/L 135.0-145.0 L Potassium Level (test code = Potassium Level) 5.9 mmol/L 3.5-5.1 H Chloride Level (test code = Chloride Level) 92 mmol/L 98-105 L CO2 (test code = CO2) 18 mmol/L 22-29 L Anion Gap (test code = Anion Gap) 23 mmol/L 7-16 H BUN (test code = BUN) 106.20 mg/dL 6.00-20.00 H Creatinine Level (test code = Creatinine Level) 16.80 mg/dL 0.70-1 .20 H BUN/Creat Ratio (test code = BUN/Creat Ratio) 6 N Glucose Level (test code = Glucose Level) 135 mg/dL 70-115 H Calcium Level (test code = Calcium Level) 9.0 mg/dL 8.3-10.5 eGFR AA (test code = eGFR AA) 4 mL/min/1.73 m2 N eGFR (estimated Glomerular Filtration Rate) is an estimated value, calculated from the patient's serum creatinine using the MDRD equation. It is NOT the patient's actual GFR. The eGFR provides a more clinically useful measure of kidney disease than serum creatinine alone.This calculation takes sex and race into account, if the information is provided. If the race is not provided, and the patient is -[place], multiply by 1.212. If sex is not provided, and the patient is female, multiply by 0.742. Results for patients <18 years of age have not been validated by the MDRD study and should be interpreted with caution. eGFR Result Interpretation:eGFR > or = 60 is in the Normal RangeeGFR < 60 may mean kidney diseaseeGFR < 15 may mean kidney failure Ranges recommended by the National Kidney Foundation, http://nkdep.nih.gov eGFR Non-AA (test code = eGFR Non-AA) 3.06 mL/min/1.73 m2 N eGFR (estimated Glomerular Filtration Rate) is an estimated value, calculated from the patient's serum creatinine using the MDRD equation. It is NOT the patient's actual GFR. The eGFR provides a more clinically useful measure of kidney disease than serum creatinine alone.This calculation takes sex and race into account, if the information is provided. If the race is not provided, and the patient is -[place]rist[place], multiply by 1.212. If sex is not provided, and the patient is female, multiply by 0.742. Results for patients <18 years of age have not been validated by the MDRD study and should be interpreted with caution. eGFR Result Interpretation:eGFR > or = 60 is in the Normal RangeeGFR < 60 may mean kidney diseaseeGFR < 15 may mean kidney failure Ranges recommended by the National Kidney Foundation, http://nkdep.nih.gov Basic Metabolic [id number] 02:15:23* Test Item Value Reference Range Interpretation Comments Sodium Level (test code = Sodium Level) 133.0 mmol/L 135.0-145.0 L Potassium Level (test code = Potassium Level) 7.6 mmol/L 3.5-5.1 Verified by repeat analysis.Critical results called to manuela yap at 12/04/2019 02:15:17 EEG TECHNICIAN by og. Read back and verified? yes Chloride Level (test code = Chloride Level) 92 mmol/L 98-105 L CO2 (test code = CO2) 17 mmol/L 22-29 L Anion Gap (test code = Anion Gap) 24 mmol/L 7-16 H BUN (test code = BUN) 111.10 mg/dL 6.00-20.00 H Creatinine Level (test code = Creatinine Level) 16.80 mg/dL 0.70-1 .20 H BUN/Creat Ratio (test code = BUN/Creat Ratio) 7 N Glucose Level (test code = Glucose Level) 105 mg/dL 70-115 Calcium Level (test code = Calcium Level) 9.3 mg/dL 8.3-10.5 Basic Metabolic [id number] 02:15:23* Test Item Value Reference Range Interpretation Comments Sodium Level (test code = Sodium Level) 133.0 mmol/L 135.0-145.0 L Potassium Level (test code = Potassium Level) 7.6 mmol/L 3.5-5.1 Verified by repeat analysis.Critical results called to manuela yap at 12/04/2019 02:15:17 EEG TECHNICIAN by og. Read back and verified? yes Chloride Level (test code = Chloride Level) 92 mmol/L 98-105 L CO2 (test code = CO2) 17 mmol/L 22-29 L Anion Gap (test code = Anion Gap) 24 mmol/L 7-16 H BUN (test code = BUN) 111.10 mg/dL 6.00-20.00 H Creatinine Level (test code = Creatinine Level) 16.80 mg/dL 0.70-1 .20 H BUN/Creat Ratio (test code = BUN/Creat Ratio) 7 N Glucose Level (test code = Glucose Level) 105 mg/dL 70-115 Calcium Level (test code = Calcium Level) 9.3 mg/dL 8.3-10.5 eGFR AA (test code = eGFR AA) 4 mL/min/1.73 m2 N eGFR (estimated Glomerular Filtration Rate) is an estimated value, calculated from the patient's serum creatinine using the MDRD equation. It is NOT the patient's actual GFR. The eGFR provides a more clinically useful measure of kidney disease than serum creatinine alone.This calculation takes sex and race into account, if the information is provided. If the race is not provided, and the patient is -[place], multiply by 1.212. If sex is not provided, and the patient is female, multiply by 0.742. Results for patients <18 years of age have not been validated by the MDRD study and should be interpreted with caution. eGFR Result Interpretation:eGFR > or = 60 is in the Normal RangeeGFR < 60 may mean kidney diseaseeGFR < 15 may mean kidney failure Ranges recommended by the National Kidney Foundation, http://nkdep.nih.gov eGFR Non-AA (test code = eGFR Non-AA) 3.06 mL/min/1.73 m2 N eGFR (estimated Glomerular Filtration Rate) is an estimated value, calculated from the patient's serum creatinine using the MDRD equation. It is NOT the patient's actual GFR. The eGFR provides a more clinically useful measure of kidney disease than serum creatinine alone.This calculation takes sex and race into account, if the information is provided. If the race is not provided, and the patient is -[place]rist[place], multiply by 1.212. If sex is not provided, and the patient is female, multiply by 0.742. Results for patients <18 years of age have not been validated by the MDRD study and should be interpreted with caution. eGFR Result Interpretation:eGFR > or = 60 is in the Normal RangeeGFR < 60 may mean kidney diseaseeGFR < 15 may mean kidney failure Ranges recommended by the National Kidney Foundation, http://nkdep.nih.gov Basic Metabolic [id number] 02:15:23* Test Item Value Reference Range Interpretation Comments Sodium Level (test code = Sodium Level) 133.0 mmol/L 135.0-145.0 L Potassium Level (test code = Potassium Level) 7.6 mmol/L 3.5-5.1 Verified by repeat analysis.Critical results called to manuela yap at 12/04/2019 02:15:17 EEG TECHNICIAN by og. Read back and verified? yes Chloride Level (test code = Chloride Level) 92 mmol/L 98-105 L CO2 (test code = CO2) 17 mmol/L 22-29 L Anion Gap (test code = Anion Gap) 24 mmol/L 7-16 H BUN (test code = BUN) 111.10 mg/dL 6.00-20.00 H Creatinine Level (test code = Creatinine Level) 16.80 mg/dL 0.70-1 .20 H BUN/Creat Ratio (test code = BUN/Creat Ratio) 7 N Glucose Level (test code = Glucose Level) 105 mg/dL 70-115 Calcium Level (test code = Calcium Level) 9.3 mg/dL 8.3-10.5 eGFR AA (test code = eGFR AA) 4 mL/min/1.73 m2 N eGFR (estimated Glomerular Filtration Rate) is an estimated value, calculated from the patient's serum creatinine using the MDRD equation. It is NOT the patient's actual GFR. The eGFR provides a more clinically useful measure of kidney disease than serum creatinine alone.This calculation takes sex and race into account, if the information is provided. If the race is not provided, and the patient is -[place]rist[place], multiply by 1.212. If sex is not provided, and the patient is female, multiply by 0.742. Results for patients <18 years of age have not been validated by the MDRD study and should be interpreted with caution. eGFR Result Interpretation:eGFR > or = 60 is in the Normal RangeeGFR < 60 may mean kidney diseaseeGFR < 15 may mean kidney failure Ranges recommended by the National Kidney Foundation, http://nkdep.nih.gov eGFR Non-AA (test code = eGFR Non-AA) 3.06 mL/min/1.73 m2 N eGFR (estimated Glomerular Filtration Rate) is an estimated value, calculated from the patient's serum creatinine using the MDRD equation. It is NOT the patient's actual GFR. The eGFR provides a more clinically useful measure of kidney disease than serum creatinine alone.This calculation takes sex and race into account, if the information is provided. If the race is not provided, and the patient is -Trist[place], multiply by 1.212. If sex is not provided, and the patient is female, multiply by 0.742. Results for patients <18 years of age have not been validated by the MDRD study and should be interpreted with caution. eGFR Result Interpretation:eGFR > or = 60 is in the Normal RangeeGFR < 60 may mean kidney diseaseeGFR < 15 may mean kidney failure Ranges recommended by the National Kidney Foundation, http://nkdep.nih.gov Troponin [id number] 02:13:24* Test Item Value Reference Range Interpretation Comments Troponin-T (test code = Troponin-T) 117.700 ng/L 0.000-22.000 Critical results called to manuela yap at 12/04/2019 02:13:19 EEG TECHNICIAN by og. Read back and verified? yesThe CV of the assay at 99th percentile for both male and female patient population is < 10%. A rise and fall in ALISHA with at least one value above the 99th percentile with clinical evidence of myocardial ischemia would support a diagnosis of AMI. A delta of at least 20% is recommended to assess acute changes in results above the 99th percentile in serial measurements. Stable ALISHA levels (<20%) delta above the 99th percentile URL would support a diagnosis of chronic myocardial injury. POC [id number] 23:28:28* Test Item Value Reference Range Interpretation Comments Glucose POC (test code = Glucose POC) 100 mg/dL 70-115 If you consider your patient critically ill, the Gabe-Accu Check Infrom II meter should not be used for Glucose determination. Draw a venous Glucose and send to the main Lab for analysis. POC [id number] 22:15:20* Test Item Value Reference Range Interpretation Comments pH Art (test code = pH Art) 7.34 7.35-7.45 L pH Temp Eunice Art (test code = pH Temp Eunice Art) 7.34 N pCO2 Art (test code = pCO2 Art) 34 mmHg 35-45 L pCO2 Temp Eunice Art (test code = pCO2 Temp Eunice Art) 34 mmHg N pO2 Art (test code = pO2 Art) 68 mmHg 80-100 L pO2 Temp Eunice Art (test code = pO2 Temp Eunice Art) 68 mmHg N ctHb Art (test code = ctHb Art) 8.9 g/dL 12.2-17.4 L O2 Sat Art (test code = O2 Sat Art) 92.8 % 80.0-100.0 FO2Hb Art (test code = FO2Hb Art) 88.9 % 0.0-100.0 FCOHb Art (test code = FCOHb Art) 3.2 % 0.0-20.0 FMetHb Art (test code = FMetHb Art) 1.0 % 0.0-20.0 HCO3 Art (test code = HCO3 Art) 18.6 mmol/L 22.0-26.0 L Hct Art (test code = Hct Art) 27 % 34-52 L Na Art (test code = Na Art) 134 mmol/L 135-145 L K Art (test code = K Art) 6.6 mmol/L 3.5-4.5 L iCa Art (test code = iCa Art) 1.12 mmol/L 1.00-1.50 Cl Art (test code = Cl Art) 99 mmol/L 95-105 Glu Art (test code = Glu Art) 93 mg/dL 75-115 Base Excess Arterial (test code = Base Excess Arterial) -6.5 N FiO2 Art (test code = FiO2 Art) 32 % N Lactate Art (test code = Lactate Art) 0.3 mmol/L 0.5-2.2 L Draw Site (test code = Draw Site) Brachial. R N Liter Flow (test code = Liter Flow) 3.0 N Hepatitis B Surface [id number] 20:27:00* Test Item Value Reference Range Interpretation Comments Hep Bs Ag (test code = Hep Bs Ag) Nonreactive Non Reactive [id number] 18:15:05* Test Item Value Reference Range Interpretation Comments RBC Morph (test code = RBC Morph) As Indicated Normal A Anisocyte (test code = Anisocyte) None None Hypochromia (test code = Hypochromia) 1+ None Seen Microcyte (test code = Microcyte) 1+ None Seen Macrocyte (test code = Macrocyte) None Seen None Seen Poik (test code = Poik) None Seen None Seen Polychrom (test code = Polychrom) None Seen None Seen Acanthocyte (test code = Acanthocyte) None Seen None Seen Baso Stippling RBC (test code = Baso Stippling RBC) None Seen No ne Seen Plt Estimation (test code = Plt Estimation) Decreased Normal A Complete Blood Count with [id number] 18:15:05* Test Item Value Reference Range Interpretation Comments WBC (test code = WBC) 7.2 x10 4.4-10.5 RBC (test code = RBC) 3.02 x10 4.10-5.70 L Hgb (test code = Hgb) 8.7 g/dL 13.4-17.4 L MCV (test code = MCV) 92.70 fL 80.00-100.00 Hct (test code = Hct) 28.0 % 38.7-52.0 L MCHC (test code = MCHC) 31.10 g/dL 32.00-37.50 L RDW CV (test code = RDW CV) 18.0 % 11.5-14.5 H MCH (test code = MCH) 28.8 pg 27.0-32.5 Platelets (test code = Platelets) 142.0 x10 140.0-440.0 MPV (test code = MPV) 10.9 fL N Slide Review (test code = Slide Review) Smear Auto A Result created by [email or web address]_REV_AUTO [email or web address]_RFLX GL_SJM_XN_RFLX nRBC (test code = nRBC) 0 N NRBC Abs (test code = NRBC Abs) 0.00 x10 N Pos Count XN (test code = Pos Count XN) A N IPF (test code = IPF) 3 % N Comprehensive Metabolic [id number] 18:10:40* Test Item Value Reference Range Interpretation Comments Sodium Level (test code = Sodium Level) 132.0 mmol/L 135.0-145.0 L Potassium Level (test code = Potassium Level) 7.2 mmol/L 3.5-5.1 Critical results called to Gisselle Wright at 12/03/2019 18:10:11 EEG TECHNICIAN by shy. Read back and verified? yesdialysis patient Chloride Level (test code = Chloride Level) 92 mmol/L 98-105 L CO2 (test code = CO2) 17 mmol/L 22-29 L Anion Gap (test code = Anion Gap) 23 mmol/L 7-16 H BUN (test code = BUN) 105.90 mg/dL 6.00-20.00 H Creatinine Level (test code = Creatinine Level) 16.50 mg/dL 0.70-1 .20 H BUN/Creat Ratio (test code = BUN/Creat Ratio) 6 N Glucose Level (test code = Glucose Level) 96 mg/dL 70-115 Calcium Level (test code = Calcium Level) 9.1 mg/dL 8.3-10.5 Alk Phos (test code = Alk Phos) 63 U/L 40-129 Bilirubin Total (test code = Bilirubin Total) 0.4 mg/dL 0.1-0.9 Albumin Level (test code = Albumin Level) 4.5 g/dL 3.5-5.2 Protein Total (test code = Protein Total) 7.9 g/dL 6.4-8.3 ALT (test code = ALT) 13 U/L 1-41 AST (test code = AST) 18 U/L 1-40 Globulin (test code = Globulin) 3.4 g/dL 2.9-3.1 H A/G Ratio (test code = A/G Ratio) 1.3 ratio N Comprehensive Metabolic [id number] 18:10:40* Test Item Value Reference Range Interpretation Comments Sodium Level (test code = Sodium Level) 132.0 mmol/L 135.0-145.0 L Potassium Level (test code = Potassium Level) 7.2 mmol/L 3.5-5.1 Critical results called to Gisselle Wright at 12/03/2019 18:10:11 EEG TECHNICIAN by shy. Read back and verified? yesdialysis patient Chloride Level (test code = Chloride Level) 92 mmol/L 98-105 L CO2 (test code = CO2) 17 mmol/L 22-29 L Anion Gap (test code = Anion Gap) 23 mmol/L 7-16 H BUN (test code = BUN) 105.90 mg/dL 6.00-20.00 H Creatinine Level (test code = Creatinine Level) 16.50 mg/dL 0.70-1 .20 H BUN/Creat Ratio (test code = BUN/Creat Ratio) 6 N Glucose Level (test code = Glucose Level) 96 mg/dL 70-115 Calcium Level (test code = Calcium Level) 9.1 mg/dL 8.3-10.5 Alk Phos (test code = Alk Phos) 63 U/L 40-129 Bilirubin Total (test code = Bilirubin Total) 0.4 mg/dL 0.1-0.9 Albumin Level (test code = Albumin Level) 4.5 g/dL 3.5-5.2 Protein Total (test code = Protein Total) 7.9 g/dL 6.4-8.3 ALT (test code = ALT) 13 U/L 1-41 AST (test code = AST) 18 U/L 1-40 Globulin (test code = Globulin) 3.4 g/dL 2.9-3.1 H A/G Ratio (test code = A/G Ratio) 1.3 ratio N eGFR AA (test code = eGFR AA) 4 mL/min/1.73 m2 N eGFR (estimated Glomerular Filtration Rate) is an estimated value, calculated from the patient's serum creatinine using the MDRD equation. It is NOT the patient's actual GFR. The eGFR provides a more clinically useful measure of kidney disease than serum creatinine alone.This calculation takes sex and race into account, if the information is provided. If the race is not provided, and the patient is -[place]rist[place], multiply by 1.212. If sex is not provided, and the patient is female, multiply by 0.742. Results for patients <18 years of age have not been validated by the MDRD study and should be interpreted with caution. eGFR Result Interpretation:eGFR > or = 60 is in the Normal RangeeGFR < 60 may mean kidney diseaseeGFR < 15 may mean kidney failure Ranges recommended by the National Kidney Foundation, http://nkdep.nih.gov Comprehensive Metabolic [id number] 18:10:40* Test Item Value Reference Range Interpretation Comments Sodium Level (test code = Sodium Level) 132.0 mmol/L 135.0-145.0 L Potassium Level (test code = Potassium Level) 7.2 mmol/L 3.5-5.1 Critical results called to Gisselle Wright at 12/03/2019 18:10:11 EEG TECHNICIAN by shy. Read back and verified? yesdialysis patient Chloride Level (test code = Chloride Level) 92 mmol/L 98-105 L CO2 (test code = CO2) 17 mmol/L 22-29 L Anion Gap (test code = Anion Gap) 23 mmol/L 7-16 H BUN (test code = BUN) 105.90 mg/dL 6.00-20.00 H Creatinine Level (test code = Creatinine Level) 16.50 mg/dL 0.70-1 .20 H BUN/Creat Ratio (test code = BUN/Creat Ratio) 6 N Glucose Level (test code = Glucose Level) 96 mg/dL 70-115 Calcium Level (test code = Calcium Level) 9.1 mg/dL 8.3-10.5 Alk Phos (test code = Alk Phos) 63 U/L 40-129 Bilirubin Total (test code = Bilirubin Total) 0.4 mg/dL 0.1-0.9 Albumin Level (test code = Albumin Level) 4.5 g/dL 3.5-5.2 Protein Total (test code = Protein Total) 7.9 g/dL 6.4-8.3 ALT (test code = ALT) 13 U/L 1-41 AST (test code = AST) 18 U/L 1-40 Globulin (test code = Globulin) 3.4 g/dL 2.9-3.1 H A/G Ratio (test code = A/G Ratio) 1.3 ratio N eGFR AA (test code = eGFR AA) 4 mL/min/1.73 m2 N eGFR (estimated Glomerular Filtration Rate) is an estimated value, calculated from the patient's serum creatinine using the MDRD equation. It is NOT the patient's actual GFR. The eGFR provides a more clinically useful measure of kidney disease than serum creatinine alone.This calculation takes sex and race into account, if the information is provided. If the race is not provided, and the patient is -Trist[place], multiply by 1.212. If sex is not provided, and the patient is female, multiply by 0.742. Results for patients <18 years of age have not been validated by the MDRD study and should be interpreted with caution. eGFR Result Interpretation:eGFR > or = 60 is in the Normal RangeeGFR < 60 may mean kidney diseaseeGFR < 15 may mean kidney failure Ranges recommended by the National Kidney Foundation, http://nkdep.nih.gov eGFR Non-AA (test code = eGFR Non-AA) 3.13 mL/min/1.73 m2 N eGFR (estimated Glomerular Filtration Rate) is an estimated value, calculated from the patient's serum creatinine using the MDRD equation. It is NOT the patient's actual GFR. The eGFR provides a more clinically useful measure of kidney disease than serum creatinine alone.This calculation takes sex and race into account, if the information is provided. If the race is not provided, and the patient is -Trist[place], multiply by 1.212. If sex is not provided, and the patient is female, multiply by 0.742. Results for patients <18 years of age have not been validated by the MDRD study and should be interpreted with caution. eGFR Result Interpretation:eGFR > or = 60 is in the Normal RangeeGFR < 60 may mean kidney diseaseeGFR < 15 may mean kidney failure Ranges recommended by the National Kidney Foundation, http://nkdep.nih.gov Troponin [id number] 18:03:10* Test Item Value Reference Range Interpretation Comments Troponin-T (test code = Troponin-T) 109.000 ng/L 0.000-22.000 Critical results called to Gisselle Wright at 12/03/2019 18:02:59 EEG TECHNICIAN by shy. Read back and verified? yesThe CV of the assay at 99th percentile for both male and female patient population is < 10%. A rise and fall in ALISHA with at least one value above the 99th percentile with clinical evidence of myocardial ischemia would support a diagnosis of AMI. A delta of at least 20% is recommended to assess acute changes in results above the 99th percentile in serial measurements. Stable ALISHA levels (<20%) delta above the 99th percentile URL would support a diagnosis of chronic myocardial injury. IG [id number] 17:41:50* Test Item Value Reference Range Interpretation Comments IG (test code = IG) 1.4 % 0.0-5.0 IG Abs (test code = IG Abs) 0 x10 N Automated [id number] 17:41:49* Test Item Value Reference Range Interpretation Comments Neutro Auto (test code = Neutro Auto) 74.3 % 36.0-70.0 H Lymph Auto (test code = Lymph Auto) 12.1 % 12.0-44.0 [place] Auto (test code = [place] Auto) 8.5 % 0.0-11.0 Eos, Auto (test code = Eos, Auto) 3.3 % 0.0-7.0 Basophil Auto (test code = Basophil Auto) 0.4 % 0.0-2.0 Neutro Absolute (test code = Neutro Absolute) 5.3 x10 1.6-7.4 Lymph Absolute (test code = Lymph Absolute) .87 x10 .50-4.60 [place] Absolute (test code = [place] Absolute) .61 x10 .00-1.20 Eos Absolute (test code = Eos Absolute) 0.24 x10 0.00-0.74 Baso Absolute (test code = Baso Absolute) 0.03 x10 0.00-0.21 XR Chest 1 View [id number] 17:38:28Patient: AMOR COMBS Date/Time12/03/2019 16:59 CSTReason for ExamShortness of breathReportEXAM: Chest x-ray, 1 viewDictation location: [id number]: Shortness of breathCOMPARISON: Chest x-ray on 09/14/2019 and 05/04/2018DISCUSSION: Suboptimal inspiration is noted. Prior median sternotomy is seen. There is a questionable small right pleural effusion. The cardiac silhouette is at the upper limits of normal in size given the technique, with mild central vascular fullness. No acute bony abnormalities are identified. A calcified left upper lobe granuloma is unchanged.IMPRESSION:Suboptimal inspiration. Prior median sternotomy. Upper limits of normal cardiac silhouette size and mild central vascular fullness are noted. There is a questionable small right pleural effusion. Final Dictated by: MD Leger Brian PDictated DT/TM: 12/03/2019 5:36 pmSigned by: MD Leger Brian PSigned (Electronic Signature): 12/03/2019 5:38 pmXR Abdomen KUB 1 [id number] 17:33:43Patient: AMOR COMBS Date/Time12/03/2019 16:59 CSTReason for ExamR femoral edgar cath location;Line placementReportEXAM: KUBDictation location: [id number]: Line placement, right femoral Edgar catheter locationCOMPARISON: NoneDISCUSSION:Frontal images of the abdomen are submitted; this does not include a significant portion of the mid abdomen. A right common femoral venous catheter is in place, with tip over the right external iliac vein. No gross evidence of intra-abdominal free air or bowel obstruction is seen. No acute bony abnormalities are identified in the fwjre-lg-cvrc. Atherosclerotic arterial calcifications are noted.IMPRESSION: The right common femoral venous catheter tip overlies the right external iliac vein. Final Dictated by: MD Leger Brian PDictated DT/TM: 12/03/2019 5:32 pmSigned by: MD Leger Brian PSigned (Electronic Signature): 12/03/2019 5:33 pmIR Venous Access 2019-09-21 10:38:07Patient: AMOR COMBS Date/Time09/14/2019 17:00 CSTReason for Examneeds dialysisReportPROCEDURE: Fluoroscopic guided exchange of a tunneled hemodialysis catheterINDICATION: Nonfunctional hemodialysis catheterOPERATOR: Landon Mejia M.D.SEDATION: Under physician supervision, intravenous Versed and fentanyl were administered for moderate sedation. Pulse oximetry, heart rate, and blood pressure were continuously monitored by a dedicated IR trained nurse. The physician spent 20 minutes of continuous jmww-fu-fdoc sedation time with the patient.FLUOROSCOPY TIME: 0.7 minutes; Air Kerma: 193 mGyCOMPLICATIONS: NonePROCEDURE:The risks, benefits, and alternatives to the procedure and sedation were explained. Informed written consent was obtained. The patient was placed supine on the fluoroscopy table. The right groin and existing catheter were prepped and draped in the usual sterile fashion using all elements of maximum barrier sterile technique. 1% lidocaine was used for local anesthesia.Using blunt dissection, the catheter cuff was freed from the surro unding soft tissues. The catheter was then removed over a 0.035 Glidewire. Ove r the wire, a new 50 cm tip to cuff Glidepath catheter was placed. The tip was positioned near the inferior cavoatrial junction. Both ports aspirated and flush ed well. The catheter was packed with heparin per protocol.The catheter was sec ured to the skin using 2-0 Prolene. A sterile dressing was applied.IMPRESSION:S uccessful fluoroscopic guided exchange of a tunneled hemodialysis catheter. The catheter is ready for use.Location: R16 Final Dictated by: MD Mejia Adam FDictated DT/TM: 09/21/2019 10:35 amSigned by: MD Mejia Adam FSi gned (Electronic Signature): 09/21/2019 10:38 amBlood [id number] 15:01:02No growth at 5 days.Blood [id number] 15:01:02No growth at 5 days. Blood [id number] 15:01:02No growth at 5 days.POC [id number] 11:07:42* Test Item Value Reference Range Interpretation Comments Glucose POC (test code = Glucose POC) 129 mg/dL 70-115 H If you consider your patient critically ill, the Gabe-Accu Check Infrom II meter should not be used for Glucose determination. Draw a venous Glucose and send to the main Lab for analysis. POC [id number] 09:51:45* Test Item Value Reference Range Interpretation Comments Glucose POC (test code = Glucose POC) 121 mg/dL 70-115 H If you consider your patient critically ill, the Gabe-Accu Check Infrom II meter should not be used for Glucose determination. Draw a venous Glucose and send to the main Lab for analysis. Complete Blood Count without [id number] 06:22:59* Test Item Value Reference Range Interpretation Comments WBC (test code = WBC) 7.2 x10 4.4-10.5 RBC (test code = RBC) 2.98 x10 4.10-5.70 L Hgb (test code = Hgb) 8.7 g/dL 13.4-17.4 L Hct (test code = Hct) 27.6 % 38.7-52.0 L MCV (test code = MCV) 92.60 fL 80.00-100.00 MCH (test code = MCH) 29.2 pg 27.0-32.5 MCHC (test code = MCHC) 31.50 g/dL 32.00-37.50 L RDW CV (test code = RDW CV) 15.9 % 11.5-14.5 H Platelets (test code = Platelets) 188.0 x10 140.0-440.0 MPV (test code = MPV) 10.5 fL N nRBC (test code = nRBC) 0 N NRBC Abs (test code = NRBC Abs) 0.00 x10 N IPF (test code = IPF) 0 % N POC [id number] 19:33:12* Test Item Value Reference Range Interpretation Comments Glucose POC (test code = Glucose POC) 128 mg/dL 70-115 H Notify RN or MDIf you consider your patient critically ill, the Gabe-Accu Check Infrom II meter should not be used for Glucose determination. Draw a venous Glucose and send to the main Lab for analysis. POC [id number] 15:53:40* Test Item Value Reference Range Interpretation Comments Glucose POC (test code = Glucose POC) 115 mg/dL 70-115 If you consider your patient critically ill, the Gabe-Accu Check Infrom II meter should not be used for Glucose determination. Draw a venous Glucose and send to the main Lab for analysis. POC [id number] 11:56:40* Test Item Value Reference Range Interpretation Comments Glucose POC (test code = Glucose POC) 106 mg/dL 70-115 If you consider your patient critically ill, the Gabe-Accu Check Infrom II meter should not be used for Glucose determination. Draw a venous Glucose and send to the main Lab for analysis. Urine [id number] 08:55:57* Test Item Value Reference Range Interpretation Comments ORGANISM (test code = ORGANISM) Enterococcus group D Ampicillin (test code = Amp) S Ciprofloxacin (test code = Cipro) S Gentamicin synergy (test code = Gent-Syn) S Levofloxacin (test code = Levo) S Linezolid (test code = Linez) S Nitrofurantoin (test code = Nitro) S Penicillin (test code = Pen) S Streptomycin synergy (test code = Strep-Syn) S Tetracycline (test code = Tetra) R Vancomycin (test code = Vanc) S Final Report (test code = Final Report) 20,000 cfu/ml Enterococcus group D <10,000 cfu/mL Lactose fermenting Gram Negative Bacilli Hemoglobin [id number] 06:38:38* Test Item Value Reference Range Interpretation Comments Hemoglobin A1c (test code = Hemoglobin A1c) 5.0 % 4.8-5.9 Non Diabetic 4.8- 5.9%Diabetic <7.0% POC [id number] 06:31:11* Test Item Value Reference Range Interpretation Comments Glucose POC (test code = Glucose POC) 108 mg/dL 70-115 If you consider your patient critically ill, the Gabe-Accu Check Infrom II meter should not be used for Glucose determination. Draw a venous Glucose and send to the main Lab for analysis. Basic Metabolic [id number] 04:49:01* Test Item Value Reference Range Interpretation Comments Sodium Level (test code = Sodium Level) 140.0 mmol/L 135.0-145.0 Potassium Level (test code = Potassium Level) 5.8 mmol/L 3.5-5.1 H Chloride Level (test code = Chloride Level) 98 mmol/L 98-105 CO2 (test code = CO2) 28 mmol/L 22-29 Anion Gap (test code = Anion Gap) 14 mmol/L 7-16 BUN (test code = BUN) 44.50 mg/dL 6.00-20.00 H Creatinine Level (test code = Creatinine Level) 10.10 mg/dL 0.70-1 .20 H [facility] BUN/Creat Ratio (test code = BUN/Creat Ratio) 4 N Glucose Level (test code = Glucose Level) 85 mg/dL 70-115 Calcium Level (test code = Calcium Level) 8.6 mg/dL 8.3-10.5 Magnesium [id number] 04:49:01* Test Item Value Reference Range Interpretation Comments Magnesium Level (test code = Magnesium Level) 2.3 mg/dL 1.7-2.5 Basic Metabolic [id number] 04:49:01* Test Item Value Reference Range Interpretation Comments Sodium Level (test code = Sodium Level) 140.0 mmol/L 135.0-145.0 Potassium Level (test code = Potassium Level) 5.8 mmol/L 3.5-5.1 H Chloride Level (test code = Chloride Level) 98 mmol/L 98-105 CO2 (test code = CO2) 28 mmol/L 22-29 Anion Gap (test code = Anion Gap) 14 mmol/L 7-16 BUN (test code = BUN) 44.50 mg/dL 6.00-20.00 H Creatinine Level (test code = Creatinine Level) 10.10 mg/dL 0.70-1 .[address] [facility] BUN/Creat Ratio (test code = BUN/Creat Ratio) 4 N Glucose Level (test code = Glucose Level) 85 mg/dL 70-115 Calcium Level (test code = Calcium Level) 8.6 mg/dL 8.3-10.5 eGFR AA (test code = eGFR AA) 7 mL/min/1.73 m2 N eGFR (estimated Glomerular Filtration Rate) is an estimated value, calculated from the patient's serum creatinine using the MDRD equation. It is NOT the patient's actual GFR. The eGFR provides a more clinically useful measure of kidney disease than serum creatinine alone.This calculation takes sex and race into account, if the information is provided. If the race is not provided, and the patient is -[place], multiply by 1.212. If sex is not provided, and the patient is female, multiply by 0.742. Results for patients <18 years of age have not been validated by the MDRD study and should be interpreted with caution. eGFR Result Interpretation:eGFR > or = 60 is in the Normal RangeeGFR < 60 may mean kidney diseaseeGFR < 15 may mean kidney failure Ranges recommended by the National Kidney Foundation, http://nkdep.nih.gov Basic Metabolic [id number] 04:49:01* Test Item Value Reference Range Interpretation Comments Sodium Level (test code = Sodium Level) 140.0 mmol/L 135.0-145.0 Potassium Level (test code = Potassium Level) 5.8 mmol/L 3.5-5.1 H Chloride Level (test code = Chloride Level) 98 mmol/L 98-105 CO2 (test code = CO2) 28 mmol/L 22-29 Anion Gap (test code = Anion Gap) 14 mmol/L 7-16 BUN (test code = BUN) 44.50 mg/dL 6.00-20.00 H Creatinine Level (test code = Creatinine Level) 10.10 mg/dL 0.70-1 .20 H [facility] BUN/Creat Ratio (test code = BUN/Creat Ratio) 4 N Glucose Level (test code = Glucose Level) 85 mg/dL 70-115 Calcium Level (test code = Calcium Level) 8.6 mg/dL 8.3-10.5 eGFR AA (test code = eGFR AA) 7 mL/min/1.73 m2 N eGFR (estimated Glomerular Filtration Rate) is an estimated value, calculated from the patient's serum creatinine using the MDRD equation. It is NOT the patient's actual GFR. The eGFR provides a more clinically useful measure of kidney disease than serum creatinine alone.This calculation takes sex and race into account, if the information is provided. If the race is not provided, and the patient is -[place]rist[place], multiply by 1.212. If sex is not provided, and the patient is female, multiply by 0.742. Results for patients <18 years of age have not been validated by the MDRD study and should be interpreted with caution. eGFR Result Interpretation:eGFR > or = 60 is in the Normal RangeeGFR < 60 may mean kidney diseaseeGFR < 15 may mean kidney failure Ranges recommended by the National Kidney Foundation, http://nkdep.nih.gov eGFR Non-AA (test code = eGFR Non-AA) 5.51 mL/min/1.73 m2 N eGFR (estimated Glomerular Filtration Rate) is an estimated value, calculated from the patient's serum creatinine using the MDRD equation. It is NOT the patient's actual GFR. The eGFR provides a more clinically useful measure of kidney disease than serum creatinine alone.This calculation takes sex and race into account, if the information is provided. If the race is not provided, and the patient is -[place]rist[place], multiply by 1.212. If sex is not provided, and the patient is female, multiply by 0.742. Results for patients <18 years of age have not been validated by the MDRD study and should be interpreted with caution. eGFR Result Interpretation:eGFR > or = 60 is in the Normal RangeeGFR < 60 may mean kidney diseaseeGFR < 15 may mean kidney failure Ranges recommended by the National Kidney Foundation, http://nkdep.nih.gov POC [id number] 04:25:46* Test Item Value Reference Range Interpretation Comments Glucose POC (test code = Glucose POC) 82 mg/dL 70-115 If you consider your patient critically ill, the Gabe-Accu Check Infrom II meter should not be used for Glucose determination. Draw a venous Glucose and send to the main Lab for analysis. Complete Blood Count without [id number] 03:50:30* Test Item Value Reference Range Interpretation Comments WBC (test code = WBC) 5.9 x10 4.4-10.5 RBC (test code = RBC) 2.75 x10 4.10-5.70 L Hgb (test code = Hgb) 8.1 g/dL 13.4-17.4 L Hct (test code = Hct) 25.7 % 38.7-52.0 L MCV (test code = MCV) 93.50 fL 80.00-100.00 MCH (test code = MCH) 29.5 pg 27.0-32.5 MCHC (test code = MCHC) 31.50 g/dL 32.00-37.50 L RDW CV (test code = RDW CV) 16.1 % 11.5-14.5 H Platelets (test code = Platelets) 164.0 x10 140.0-440.0 MPV (test code = MPV) 10.8 fL N nRBC (test code = nRBC) 0 N NRBC Abs (test code = NRBC Abs) 0.00 x10 N IPF (test code = IPF) 0 % N POC [id number] 20:15:12* Test Item Value Reference Range Interpretation Comments Glucose POC (test code = Glucose POC) 200 mg/dL 70-115 H If you consider your patient critically ill, the Gabe-Accu Check Infrom II meter should not be used for Glucose determination. Draw a venous Glucose and send to the main Lab for analysis. POC [id number] 16:37:10* Test Item Value Reference Range Interpretation Comments Glucose POC (test code = Glucose POC) 131 mg/dL 70-115 H If you consider your patient critically ill, the Gabe-Accu Check Infrom II meter should not be used for Glucose determination. Draw a venous Glucose and send to the main Lab for analysis. Urinalysis [id number] 14:59:53* Test Item Value Reference Range Interpretation Comments UA WBC (test code = UA WBC) 0-5 0-5 UA RBC (test code = UA RBC) 0-5 0-5 UA Bacteria (test code = UA Bacteria) None Seen UA Squam Epithelial (test code = UA Squam Epithelial) 30-50 A UA Trans Epithelial (test code = UA Trans Epithelial) >10 A UA Renal Epi (test code = UA Renal Epi) 1-4 A Urinalysis with Microscopic if [id number] 14:23:54* Test Item Value Reference Range Interpretation Comments UA Color (test code = UA Color) YELLO Yellow UA Appear (test code = UA Appear) CLEAR Clear UA pH (test code = UA pH) 8 N UA Spec Grav (test code = UA Spec Grav) 1.010 1.001-1.035 UA Glucose (test code = UA Glucose) 100 mg/dL Negative A UA Ketones (test code = UA Ketones) NEG Negative UA Blood (test code = UA Blood) NEG Negative UA Protein (test code = UA Protein) 150 mg/dL Negative A UA Bili (test code = UA Bili) NEG Negative UA Urobilinogen (test code = UA Urobilinogen) 0.2 mg/dL N UA Nitrite (test code = UA Nitrite) NEG Negative UA Leuk Est (test code = UA Leuk Est) NEG Negative UA Micro Ind? (test code = UA Micro Ind?) Indicated Not Indicate d A Result created by rule [email or web address]_IND Complete Blood Count with [id number] 14:03:40* Test Item Value Reference Range Interpretation Comments WBC (test code = WBC) 6.5 x10 4.4-10.5 RBC (test code = RBC) 2.81 x10 4.10-5.70 L Hgb (test code = Hgb) 8.3 g/dL 13.4-17.4 L Result s called to and read back by: miesharn at 09/15/2019 14:03:25 CSTtransfusionfs Hct (test code = Hct) 26.1 % 38.7-52.0 L MCV (test code = MCV) 92.90 fL 80.00-100.00 MCHC (test code = MCHC) 31.80 g/dL 32.00-37.50 L MCH (test code = MCH) 29.5 pg 27.0-32.5 RDW CV (test code = RDW CV) 16.2 % 11.5-14.5 H Platelets (test code = Platelets) 178.0 x10 140.0-440.0 MPV (test code = MPV) 10.8 fL N Slide Review (test code = Slide Review) Auto Auto Result created by GL_SJM_SLIDE_REV_AUTO [email or web address]_RFLX nRBC (test code = nRBC) 0 N NRBC Abs (test code = NRBC Abs) 0.00 x10 N Pos Diff XN (test code = Pos Diff XN) A N IPF (test code = IPF) 0 % N Automated [id number] 14:03:40* Test Item Value Reference Range Interpretation Comments Neutro Auto (test code = Neutro Auto) 76.8 % 36.0-70.0 H Lymph Auto (test code = Lymph Auto) 9.2 % 12.0-44.0 L [place] Auto (test code = [place] Auto) 8.8 % 0.0-11.0 Eos, Auto (test code = Eos, Auto) 2.6 % 0.0-7.0 Basophil Auto (test code = Basophil Auto) 0.3 % 0.0-2.0 Neutro Absolute (test code = Neutro Absolute) 5.0 x10 1.6-7.4 Lymph Absolute (test code = Lymph Absolute) .60 x10 .50-4.60 [place] Absolute (test code = [place] Absolute) .57 x10 .00-1.20 Eos Absolute (test code = Eos Absolute) 0.17 x10 0.00-0.74 Baso Absolute (test code = Baso Absolute) 0.02 x10 0.00-0.21 IG [id number] 14:03:40* Test Item Value Reference Range Interpretation Comments IG (test code = IG) 2.3 % 0.0-5.0 IG Abs (test code = IG Abs) 0 x10 N POC [id number] 11:47:15* Test Item Value Reference Range Interpretation Comments Glucose POC (test code = Glucose POC) 174 mg/dL 70-115 H If you consider your patient critically ill, the Gabe-Accu Check Infrom II meter should not be used for Glucose determination. Draw a venous Glucose and send to the main Lab for analysis. ABORKaiser [facility] CenterWnkapo7085-03-26 09:03:45* Test Item Value Reference Range Interpretation Comments Methodology (test code = Methodology) Test-Tube(TT) Anti-A (test code = Anti-A) 0 Anti-B (test code = Anti-B) 0 Anti-AB (test code = Anti-AB) NT Anti-D (test code = Anti-D) 4+ ABORh Retype (test code = ABORh Retype) O POS Red Blood Cells [id number] 08:02:35* Test Item Value Reference Range Interpretation Comments # of Units (test code = # of Units) 2 N RBC Trn Reason (test code = RBC Trn Reason) Hgb <7, symptomatic N RBC Product Ready (test code = RBC Product Ready) RBC Ready 09/15/2019 8:02 ALFONSYANotified RN Carolynn / 2 [id number] 07:58:18* Test Item Value Reference Range Interpretation Comments Methodology (test code = Methodology) Test-Tube(TT) Anti-A (test code = Anti-A) 0 Anti-B (test code = Anti-B) 0 Anti-AB (test code = Anti-AB) NT Anti-D (test code = Anti-D) 4+ ABORh Retype (test code = ABORh Retype) O POS [id number] 07:30:38* Test Item Value Reference Range Interpretation Comments Previous History (test code = Previous History) No Prev History BBID (test code = BBID) [id number] Methodology (test code = Methodology) Test-Tube(TT) Anti-A (test code = Anti-A) 0 Anti-B (test code = Anti-B) 0 Anti-D (test code = Anti-D) 4+ DCon (test code = DCon) NT A1 (test code = A1) 4+ B cells (test code = B cells) 4+ ABORh (test code = ABORh) O POS 3C ABSC [id number] 07:30:38* Test Item Value Reference Range Interpretation Comments SC1 IS (test code = SC1 IS) NT SC2 IS (test code = SC2 IS) NT SC3 IS (test code = SC3 IS) NT SC1 37 (test code = SC1 37) 0 SC2 37 (test code = SC2 37) 0 SC3 37 (test code = SC3 37) 0 SC1 AHG (test code = SC1 AHG) 0 SC2 AHG (test code = SC2 AHG) 0 SC3 AHG (test code = SC3 AHG) 0 SC1 CC (test code = SC1 CC) 2+ SC2 CC (test code = SC2 CC) 2+ SC3 CC (test code = SC3 CC) 2+ Antibody Screen (3C) (test code = Antibody Screen (3C)) Negative AB SC POC [id number] 07:29:09* Test Item Value Reference Range Interpretation Comments Glucose POC (test code = Glucose POC) 107 mg/dL 70-115 If you consider your patient critically ill, the Gabe-Accu Check Infrom II meter should not be used for Glucose determination. Draw a venous Glucose and send to the main Lab for analysis. [id number] 06:03:05* Test Item Value Reference Range Interpretation Comments RBC Morph (test code = RBC Morph) As Indicated Normal A Anisocyte (test code = Anisocyte) 1+ None Rouleaux (test code = Rouleaux) 1+ None Seen A Plt Estimation (test code = Plt Estimation) Normal Normal Complete Blood Count with [id number] 06:01:03* Test Item Value Reference Range Interpretation Comments WBC (test code = WBC) 5.5 x10 4.4-10.5 RBC (test code = RBC) 2.30 x10 4.10-5.70 L Hgb (test code = Hgb) 6.6 g/dL 13.4-17.4 Critic al results called to Hillary Mccabe RN at 09/15/2019 06:00:37 EEG TECHNICIAN by DD. Read back and verified? Yes MCV (test code = MCV) 95.20 fL 80.00-100.00 Hct (test code = Hct) 21.9 % 38.7-52.0 L MCHC (test code = MCHC) 30.10 g/dL 32.00-37.50 L RDW CV (test code = RDW CV) 16.3 % 11.5-14.5 H MCH (test code = MCH) 28.7 pg 27.0-32.5 Platelets (test code = Platelets) 167.0 x10 140.0-440.0 MPV (test code = MPV) 10.4 fL N Slide Review (test code = Slide Review) Smear Auto A Result created by GL_SJM_SLIDE_REV_AUTO GL_SJM_XN_RFLX GL_SJM_XN_RFLX nRBC (test code = nRBC) 0 N NRBC Abs (test code = NRBC Abs) 0.00 x10 N Pos Count XN (test code = Pos Count XN) A N Pos Morph XN (test code = Pos Morph XN) A N IPF (test code = IPF) 0 % N Automated [id number] 06:01:03* Test Item Value Reference Range Interpretation Comments Neutro Auto (test code = Neutro Auto) 72.5 % 36.0-70.0 H Lymph Auto (test code = Lymph Auto) 13.0 % 12.0-44.0 [place] Auto (test code = [place] Auto) 9.1 % 0.0-11.0 Eos, Auto (test code = Eos, Auto) 2.7 % 0.0-7.0 Basophil Auto (test code = Basophil Auto) 0.5 % 0.0-2.0 Neutro Absolute (test code = Neutro Absolute) 4.0 x10 1.6-7.4 Lymph Absolute (test code = Lymph Absolute) .71 x10 .50-4.60 [place] Absolute (test code = [place] Absolute) .50 x10 .00-1.20 Eos Absolute (test code = Eos Absolute) 0.15 x10 0.00-0.74 Baso Absolute (test code = Baso Absolute) 0.03 x10 0.00-0.21 IG [id number] 06:01:03* Test Item Value Reference Range Interpretation Comments IG (test code = IG) 2.2 % 0.0-5.0 IG Abs (test code = IG Abs) 0 x10 N Basic Metabolic [id number] 05:23:32* Test Item Value Reference Range Interpretation Comments Sodium Level (test code = Sodium Level) 140.0 mmol/L 135.0-145.0 Potassium Level (test code = Potassium Level) 5.8 mmol/L 3.5-5.1 H Chloride Level (test code = Chloride Level) 99 mmol/L 98-105 CO2 (test code = CO2) 26 mmol/L 22-29 Anion Gap (test code = Anion Gap) 15 mmol/L 7-16 BUN (test code = BUN) 58.90 mg/dL 6.00-20.00 H Creatinine Level (test code = Creatinine Level) 13.10 mg/dL 0.70-1 .20 H delta checkedon dialysisper t dadani BUN/Creat Ratio (test code = BUN/Creat Ratio) 4 N Glucose Level (test code = Glucose Level) 143 mg/dL 70-115 H Calcium Level (test code = Calcium Level) 8.3 mg/dL 8.3-10.5 eGFR AA (test code = eGFR AA) 5 mL/min/1.73 m2 N eGFR (estimated Glomerular Filtration Rate) is an estimated value, calculated from the patient's serum creatinine using the MDRD equation. It is NOT the patient's actual GFR. The eGFR provides a more clinically useful measure of kidney disease than serum creatinine alone.This calculation takes sex and race into account, if the information is provided. If the race is not provided, and the patient is -[place], multiply by 1.212. If sex is not provided, and the patient is female, multiply by 0.742. Results for patients <18 years of age have not been validated by the MDRD study and should be interpreted with caution. eGFR Result Interpretation:eGFR > or = 60 is in the Normal RangeeGFR < 60 may mean kidney diseaseeGFR < 15 may mean kidney failure Ranges recommended by the National Kidney Foundation, http://nkdep.nih.gov Basic Metabolic [id number] 05:23:32* Test Item Value Reference Range Interpretation Comments Sodium Level (test code = Sodium Level) 140.0 mmol/L 135.0-145.0 Potassium Level (test code = Potassium Level) 5.8 mmol/L 3.5-5.1 H Chloride Level (test code = Chloride Level) 99 mmol/L 98-105 CO2 (test code = CO2) 26 mmol/L 22-29 Anion Gap (test code = Anion Gap) 15 mmol/L 7-16 BUN (test code = BUN) 58.90 mg/dL 6.00-20.00 H Creatinine Level (test code = Creatinine Level) 13.10 mg/dL 0.70-1 .20 H delta checkedon dialysisper t dadani BUN/Creat Ratio (test code = BUN/Creat Ratio) 4 N Glucose Level (test code = Glucose Level) 143 mg/dL 70-115 H Calcium Level (test code = Calcium Level) 8.3 mg/dL 8.3-10.5 eGFR AA (test code = eGFR AA) 5 mL/min/1.73 m2 N eGFR (estimated Glomerular Filtration Rate) is an estimated value, calculated from the patient's serum creatinine using the MDRD equation. It is NOT the patient's actual GFR. The eGFR provides a more clinically useful measure of kidney disease than serum creatinine alone.This calculation takes sex and race into account, if the information is provided. If the race is not provided, and the patient is -[place], multiply by 1.212. If sex is not provided, and the patient is female, multiply by 0.742. Results for patients <18 years of age have not been validated by the MDRD study and should be interpreted with caution. eGFR Result Interpretation:eGFR > or = 60 is in the Normal RangeeGFR < 60 may mean kidney diseaseeGFR < 15 may mean kidney failure Ranges recommended by the National Kidney Foundation, http://nkdep.nih.gov Magnesium [id number] 05:23:32* Test Item Value Reference Range Interpretation Comments Magnesium Level (test code = Magnesium Level) 2.5 mg/dL 1.7-2.5 Basic Metabolic [id number] 05:23:32* Test Item Value Reference Range Interpretation Comments Sodium Level (test code = Sodium Level) 140.0 mmol/L 135.0-145.0 Potassium Level (test code = Potassium Level) 5.8 mmol/L 3.5-5.1 H Chloride Level (test code = Chloride Level) 99 mmol/L 98-105 CO2 (test code = CO2) 26 mmol/L 22-29 Anion Gap (test code = Anion Gap) 15 mmol/L 7-16 BUN (test code = BUN) 58.90 mg/dL 6.00-20.00 H Creatinine Level (test code = Creatinine Level) 13.10 mg/dL 0.70-1 .20 H delta checkedon dialysisper t dadani BUN/Creat Ratio (test code = BUN/Creat Ratio) 4 N Glucose Level (test code = Glucose Level) 143 mg/dL 70-115 H Calcium Level (test code = Calcium Level) 8.3 mg/dL 8.3-10.5 eGFR AA (test code = eGFR AA) 5 mL/min/1.73 m2 N eGFR (estimated Glomerular Filtration Rate) is an estimated value, calculated from the patient's serum creatinine using the MDRD equation. It is NOT the patient's actual GFR. The eGFR provides a more clinically useful measure of kidney disease than serum creatinine alone.This calculation takes sex and race into account, if the information is provided. If the race is not provided, and the patient is -[place]rist[place], multiply by 1.212. If sex is not provided, and the patient is female, multiply by 0.742. Results for patients <18 years of age have not been validated by the MDRD study and should be interpreted with caution. eGFR Result Interpretation:eGFR > or = 60 is in the Normal RangeeGFR < 60 may mean kidney diseaseeGFR < 15 may mean kidney failure Ranges recommended by the National Kidney Foundation, http://nkdep.nih.gov eGFR Non-AA (test code = eGFR Non-AA) 4.08 mL/min/1.73 m2 N eGFR (estimated Glomerular Filtration Rate) is an estimated value, calculated from the patient's serum creatinine using the MDRD equation. It is NOT the patient's actual GFR. The eGFR provides a more clinically useful measure of kidney disease than serum creatinine alone.This calculation takes sex and race into account, if the information is provided. If the race is not provided, and the patient is -[place]rist[place], multiply by 1.212. If sex is not provided, and the patient is female, multiply by 0.742. Results for patients <18 years of age have not been validated by the MDRD study and should be interpreted with caution. eGFR Result Interpretation:eGFR > or = 60 is in the Normal RangeeGFR < 60 may mean kidney diseaseeGFR < 15 may mean kidney failure Ranges recommended by the National Kidney Foundation, http://nkdep.nih.gov Phosphorus [id number] 05:23:32* Test Item Value Reference Range Interpretation Comments Phosphorus Level (test code = Phosphorus Level) 7.40 mg/dL 2.70-4 .50 H Basic Metabolic [id number] 21:51:31* Test Item Value Reference Range Interpretation Comments Sodium Level (test code = Sodium Level) 142.0 mmol/L 135.0-145.0 Potassium Level (test code = Potassium Level) 5.2 mmol/L 3.5-5.1 H Chloride Level (test code = Chloride Level) 100 mmol/L 98-105 CO2 (test code = CO2) 24 mmol/L 22-29 Anion Gap (test code = Anion Gap) 18 mmol/L 7-16 H BUN (test code = BUN) 53.40 mg/dL 6.00-20.00 H Creatinine Level (test code = Creatinine Level) 10.30 mg/dL 0.70-1 .20 H dialysis patient BUN/Creat Ratio (test code = BUN/Creat Ratio) 5 N Glucose Level (test code = Glucose Level) 87 mg/dL 70-115 Calcium Level (test code = Calcium Level) 8.8 mg/dL 8.3-10.5 Magnesium [id number] 21:51:31* Test Item Value Reference Range Interpretation Comments Magnesium Level (test code = Magnesium Level) 2.3 mg/dL 1.7-2.5 Basic Metabolic [id number] 21:51:31* Test Item Value Reference Range Interpretation Comments Sodium Level (test code = Sodium Level) 142.0 mmol/L 135.0-145.0 Potassium Level (test code = Potassium Level) 5.2 mmol/L 3.5-5.1 H Chloride Level (test code = Chloride Level) 100 mmol/L 98-105 CO2 (test code = CO2) 24 mmol/L 22-29 Anion Gap (test code = Anion Gap) 18 mmol/L 7-16 H BUN (test code = BUN) 53.40 mg/dL 6.00-20.00 H Creatinine Level (test code = Creatinine Level) 10.30 mg/dL 0.70-1 .20 H dialysis patient BUN/Creat Ratio (test code = BUN/Creat Ratio) 5 N Glucose Level (test code = Glucose Level) 87 mg/dL 70-115 Calcium Level (test code = Calcium Level) 8.8 mg/dL 8.3-10.5 eGFR AA (test code = eGFR AA) 7 mL/min/1.73 m2 N eGFR (estimated Glomerular Filtration Rate) is an estimated value, calculated from the patient's serum creatinine using the MDRD equation. It is NOT the patient's actual GFR. The eGFR provides a more clinically useful measure of kidney disease than serum creatinine alone.This calculation takes sex and race into account, if the information is provided. If the race is not provided, and the patient is -[place]rist[place], multiply by 1.212. If sex is not provided, and the patient is female, multiply by 0.742. Results for patients <18 years of age have not been validated by the MDRD study and should be interpreted with caution. eGFR Result Interpretation:eGFR > or = 60 is in the Normal RangeeGFR < 60 may mean kidney diseaseeGFR < 15 may mean kidney failure Ranges recommended by the National Kidney Foundation, http://nkdep.nih.gov Phosphorus [id number] 21:51:31* Test Item Value Reference Range Interpretation Comments Phosphorus Level (test code = Phosphorus Level) 5.60 mg/dL 2.70-4 .50 H Basic Metabolic [id number] 21:51:31* Test Item Value Reference Range Interpretation Comments Sodium Level (test code = Sodium Level) 142.0 mmol/L 135.0-145.0 Potassium Level (test code = Potassium Level) 5.2 mmol/L 3.5-5.1 H Chloride Level (test code = Chloride Level) 100 mmol/L 98-105 CO2 (test code = CO2) 24 mmol/L 22-29 Anion Gap (test code = Anion Gap) 18 mmol/L 7-16 H BUN (test code = BUN) 53.40 mg/dL 6.00-20.00 H Creatinine Level (test code = Creatinine Level) 10.30 mg/dL 0.70-1 .20 H dialysis patient BUN/Creat Ratio (test code = BUN/Creat Ratio) 5 N Glucose Level (test code = Glucose Level) 87 mg/dL 70-115 Calcium Level (test code = Calcium Level) 8.8 mg/dL 8.3-10.5 eGFR AA (test code = eGFR AA) 7 mL/min/1.73 m2 N eGFR (estimated Glomerular Filtration Rate) is an estimated value, calculated from the patient's serum creatinine using the MDRD equation. It is NOT the patient's actual GFR. The eGFR provides a more clinically useful measure of kidney disease than serum creatinine alone.This calculation takes sex and race into account, if the information is provided. If the race is not provided, and the patient is -[place]rist[place], multiply by 1.212. If sex is not provided, and the patient is female, multiply by 0.742. Results for patients <18 years of age have not been validated by the MDRD study and should be interpreted with caution. eGFR Result Interpretation:eGFR > or = 60 is in the Normal RangeeGFR < 60 may mean kidney diseaseeGFR < 15 may mean kidney failure Ranges recommended by the National Kidney Foundation, http://nkdep.nih.gov eGFR Non-AA (test code = eGFR Non-AA) 5.38 mL/min/1.73 m2 N eGFR (estimated Glomerular Filtration Rate) is an estimated value, calculated from the patient's serum creatinine using the MDRD equation. It is NOT the patient's actual GFR. The eGFR provides a more clinically useful measure of kidney disease than serum creatinine alone.This calculation takes sex and race into account, if the information is provided. If the race is not provided, and the patient is -[place], multiply by 1.212. If sex is not provided, and the patient is female, multiply by 0.742. Results for patients <18 years of age have not been validated by the MDRD study and should be interpreted with caution. eGFR Result Interpretation:eGFR > or = 60 is in the Normal RangeeGFR < 60 may mean kidney diseaseeGFR < 15 may mean kidney failure Ranges recommended by the National Kidney Foundation, http://nkdep.nih.gov Complete Blood Count with [id number] 21:09:11* Test Item Value Reference Range Interpretation Comments WBC (test code = WBC) 8.9 x10 4.4-10.5 RBC (test code = RBC) 2.43 x10 4.10-5.70 L Hgb (test code = Hgb) 7.0 g/dL 13.4-17.4 L MCV (test code = MCV) 92.20 fL 80.00-100.00 Hct (test code = Hct) 22.4 % 38.7-52.0 L MCHC (test code = MCHC) 31.30 g/dL 32.00-37.50 L RDW CV (test code = RDW CV) 16.2 % 11.5-14.5 H MCH (test code = MCH) 28.8 pg 27.0-32.5 Platelets (test code = Platelets) 193.0 x10 140.0-440.0 MPV (test code = MPV) 10.4 fL N Slide Review (test code = Slide Review) Auto Auto Result created by GL_SJM_SLIDE_REV_AUTO GL_[email or web address]_RFLX nRBC (test code = nRBC) 0 N NRBC Abs (test code = NRBC Abs) 0.00 x10 N Pos Diff XN (test code = Pos Diff XN) A N IPF (test code = IPF) 0 % N Automated [id number] 21:09:11* Test Item Value Reference Range Interpretation Comments Neutro Auto (test code = Neutro Auto) 81.7 % 36.0-70.0 H Lymph Auto (test code = Lymph Auto) 7.0 % 12.0-44.0 L [place] Auto (test code = [place] Auto) 5.7 % 0.0-11.0 Eos, Auto (test code = Eos, Auto) 1.7 % 0.0-7.0 Basophil Auto (test code = Basophil Auto) 0.3 % 0.0-2.0 Neutro Absolute (test code = Neutro Absolute) 7.2 x10 1.6-7.4 Lymph Absolute (test code = Lymph Absolute) .62 x10 .50-4.60 [place] Absolute (test code = [place] Absolute) .51 x10 .00-1.20 Eos Absolute (test code = Eos Absolute) 0.15 x10 0.00-0.74 Baso Absolute (test code = Baso Absolute) 0.03 x10 0.00-0.21 IG [id number] 21:09:11* Test Item Value Reference Range Interpretation Comments IG (test code = IG) 3.6 % 0.0-5.0 IG Abs (test code = IG Abs) 0 x10 N Hepatitis B Surface [id number] 20:03:02* Test Item Value Reference Range Interpretation Comments Hep Bs Ag (test code = Hep Bs Ag) Nonreactive Non Reactive Blood [id number] 18:02:32No growth at 5 days.Pro B Natriuretic Peptide 2019-09-14 15:58:12260337:2 inst dilutionComprehensive Metabolic [id number] 15:39:59* Test Item Value Reference Range Interpretation Comments Sodium Level (test code = Sodium Level) 135.0 mmol/L 135.0-145.0 Potassium Level (test code = Potassium Level) 7.0 mmol/L 3.5-5.1 Critical results called to Dr. Barreto at 09/14/2019 15:39:51 EEG TECHNICIAN by shy. Read back and verified? yes Chloride Level (test code = Chloride Level) 94 mmol/L 98-105 L CO2 (test code = CO2) 21 mmol/L 22-29 L Anion Gap (test code = Anion Gap) 20 mmol/L 7-16 H BUN (test code = BUN) 80.10 mg/dL 6.00-20.00 H Creatinine Level (test code = Creatinine Level) 16.00 mg/dL 0.70-1 .20 H BUN/Creat Ratio (test code = BUN/Creat Ratio) 5 N Glucose Level (test code = Glucose Level) 90 mg/dL 70-115 Calcium Level (test code = Calcium Level) 8.9 mg/dL 8.3-10.5 Alk Phos (test code = Alk Phos) 70 U/L 40-129 Bilirubin Total (test code = Bilirubin Total) 0.3 mg/dL 0.1-0.9 Albumin Level (test code = Albumin Level) 4.1 g/dL 3.5-5.2 Protein Total (test code = Protein Total) 7.8 g/dL 6.4-8.3 ALT (test code = ALT) <5 U/L 1-41 AST (test code = AST) 13 U/L 1-40 Globulin (test code = Globulin) 3.7 g/dL 2.9-3.1 H A/G Ratio (test code = A/G Ratio) 1.1 ratio N eGFR AA (test code = eGFR AA) 4 mL/min/1.73 m2 N eGFR (estimated Glomerular Filtration Rate) is an estimated value, calculated from the patient's serum creatinine using the MDRD equation. It is NOT the patient's actual GFR. The eGFR provides a more clinically useful measure of kidney disease than serum creatinine alone.This calculation takes sex and race into account, if the information is provided. If the race is not provided, and the patient is -Trist[place], multiply by 1.212. If sex is not provided, and the patient is female, multiply by 0.742. Results for patients <18 years of age have not been validated by the MDRD study and should be interpreted with caution. eGFR Result Interpretation:eGFR > or = 60 is in the Normal RangeeGFR < 60 may mean kidney diseaseeGFR < 15 may mean kidney failure Ranges recommended by the National Kidney Foundation, http://nkdep.nih.gov Creatine [id number] 15:39:59* Test Item Value Reference Range Interpretation Comments CK (test code = CK) 123 U/L 39-308 Comprehensive Metabolic [id number] 15:39:59* Test Item Value Reference Range Interpretation Comments Sodium Level (test code = Sodium Level) 135.0 mmol/L 135.0-145.0 Potassium Level (test code = Potassium Level) 7.0 mmol/L 3.5-5.1 Critical results called to Dr. Barreto at 09/14/2019 15:39:51 EEG TECHNICIAN by shy. Read back and verified? yes Chloride Level (test code = Chloride Level) 94 mmol/L 98-105 L CO2 (test code = CO2) 21 mmol/L 22-29 L Anion Gap (test code = Anion Gap) 20 mmol/L 7-16 H BUN (test code = BUN) 80.10 mg/dL 6.00-20.00 H Creatinine Level (test code = Creatinine Level) 16.00 mg/dL 0.70-1 .20 H BUN/Creat Ratio (test code = BUN/Creat Ratio) 5 N Glucose Level (test code = Glucose Level) 90 mg/dL 70-115 Calcium Level (test code = Calcium Level) 8.9 mg/dL 8.3-10.5 Alk Phos (test code = Alk Phos) 70 U/L 40-129 Bilirubin Total (test code = Bilirubin Total) 0.3 mg/dL 0.1-0.9 Albumin Level (test code = Albumin Level) 4.1 g/dL 3.5-5.2 Protein Total (test code = Protein Total) 7.8 g/dL 6.4-8.3 ALT (test code = ALT) <5 U/L 1-41 AST (test code = AST) 13 U/L 1-40 Globulin (test code = Globulin) 3.7 g/dL 2.9-3.1 H A/G Ratio (test code = A/G Ratio) 1.1 ratio N eGFR AA (test code = eGFR AA) 4 mL/min/1.73 m2 N eGFR (estimated Glomerular Filtration Rate) is an estimated value, calculated from the patient's serum creatinine using the MDRD equation. It is NOT the patient's actual GFR. The eGFR provides a more clinically useful measure of kidney disease than serum creatinine alone.This calculation takes sex and race into account, if the information is provided. If the race is not provided, and the patient is -Trist[place], multiply by 1.212. If sex is not provided, and the patient is female, multiply by 0.742. Results for patients <18 years of age have not been validated by the MDRD study and should be interpreted with caution. eGFR Result Interpretation:eGFR > or = 60 is in the Normal RangeeGFR < 60 may mean kidney diseaseeGFR < 15 may mean kidney failure Ranges recommended by the National Kidney Foundation, http://nkdep.nih.gov eGFR Non-AA (test code = eGFR Non-AA) 3.24 mL/min/1.73 m2 N eGFR (estimated Glomerular Filtration Rate) is an estimated value, calculated from the patient's serum creatinine using the MDRD equation. It is NOT the patient's actual GFR. The eGFR provides a more clinically useful measure of kidney disease than serum creatinine alone.This calculation takes sex and race into account, if the information is provided. If the race is not provided, and the patient is -Trist[place], multiply by 1.212. If sex is not provided, and the patient is female, multiply by 0.742. Results for patients <18 years of age have not been validated by the MDRD study and should be interpreted with caution. eGFR Result Interpretation:eGFR > or = 60 is in the Normal RangeeGFR < 60 may mean kidney diseaseeGFR < 15 may mean kidney failure Ranges recommended by the National Kidney Foundation, http://nkdep.nih.gov Troponin [id number] 15:39:59* Test Item Value Reference Range Interpretation Comments Troponin-T (test code = Troponin-T) 157.800 ng/L 0.000-22.000 Critical results called to Dr. Barreto at 09/14/2019 15:39:51 EEG TECHNICIAN by shy. Read back and verified? yesThe CV of the assay at 99th percentile for both male and female patient population is < 10%. A rise and fall in ALISHA with at least one value above the 99th percentile with clinical evidence of myocardial ischemia would support a diagnosis of AMI. A delta of at least 20% is recommended to assess a cute changes in results above the 99th percentile in serial measurements. Stable ALISHA levels (<20%) delta above the 99th percentile URL would support a diagnosis of chronic myocardial injury. Comprehensive Metabolic [id number] 15:39:59* Test Item Value Reference Range Interpretation Comments Sodium Level (test code = Sodium Level) 135.0 mmol/L 135.0-145.0 Potassium Level (test code = Potassium Level) 7.0 mmol/L 3.5-5.1 Critical results called to Dr. Barreto at 09/14/2019 15:39:51 EEG TECHNICIAN by shy. Read back and verified? yes Chloride Level (test code = Chloride Level) 94 mmol/L 98-105 L CO2 (test code = CO2) 21 mmol/L 22-29 L Anion Gap (test code = Anion Gap) 20 mmol/L 7-16 H BUN (test code = BUN) 80.10 mg/dL 6.00-20.00 H Creatinine Level (test code = Creatinine Level) 16.00 mg/dL 0.70-1 .20 H BUN/Creat Ratio (test code = BUN/Creat Ratio) 5 N Glucose Level (test code = Glucose Level) 90 mg/dL 70-115 Calcium Level (test code = Calcium Level) 8.9 mg/dL 8.3-10.5 Alk Phos (test code = Alk Phos) 70 U/L 40-129 Bilirubin Total (test code = Bilirubin Total) 0.3 mg/dL 0.1-0.9 Albumin Level (test code = Albumin Level) 4.1 g/dL 3.5-5.2 Protein Total (test code = Protein Total) 7.8 g/dL 6.4-8.3 ALT (test code = ALT) <5 U/L 1-41 AST (test code = AST) 13 U/L 1-40 Globulin (test code = Globulin) 3.7 g/dL 2.9-3.1 H A/G Ratio (test code = A/G Ratio) 1.1 ratio N eGFR AA (test code = eGFR AA) 4 mL/min/1.73 m2 N eGFR (estimated Glomerular Filtration Rate) is an estimated value, calculated from the patient's serum creatinine using the MDRD equation. It is NOT the patient's actual GFR. The eGFR provides a more clinically useful measure of kidney disease than serum creatinine alone.This calculation takes sex and race into account, if the information is provided. If the race is not provided, and the patient is -Trist[place], multiply by 1.212. If sex is not provided, and the patient is female, multiply by 0.742. Results for patients <18 years of age have not been validated by the MDRD study and should be interpreted with caution. eGFR Result Interpretation:eGFR > or = 60 is in the Normal RangeeGFR < 60 may mean kidney diseaseeGFR < 15 may mean kidney failure Ranges recommended by the National Kidney Foundation, http://nkdep.nih.gov eGFR Non-AA (test code = eGFR Non-AA) 3.24 mL/min/1.73 m2 N eGFR (estimated Glomerular Filtration Rate) is an estimated value, calculated from the patient's serum creatinine using the MDRD equation. It is NOT the patient's actual GFR. The eGFR provides a more clinically useful measure of kidney disease than serum creatinine alone.This calculation takes sex and race into account, if the information is provided. If the race is not provided, and the patient is -Tristanian, multiply by 1.212. If sex is not provided, and the patient is female, multiply by 0.742. Results for patients <18 years of age have not been validated by the MDRD study and should be interpreted with caution. eGFR Result Interpretation:eGFR > or = 60 is in the Normal RangeeGFR < 60 may mean kidney diseaseeGFR < 15 may mean kidney failure Ranges recommended by the National Kidney Foundation, http://nkdep.nih.gov Partial Thromboplastin [id number] 14:49:13* Test Item Value Reference Range Interpretation Comments Partial Thromboplastin Time (test code = Partial Throm boplastin Time) 42.60 seconds 24.39-37.25 H Prothrombin Time and [id number] 14:49:05* Test Item Value Reference Range Interpretation Comments Prothrombin Time (test code = Prothrombin Time) 13.4 seconds 9.8-13 .4 INR (test code = INR) 1.2 ratio 0.6-1.2 IG [id number] 14:37:50* Test Item Value Reference Range Interpretation Comments IG (test code = IG) 4.3 % 0.0-5.0 IG Abs (test code = IG Abs) 0 x10 N Complete Blood Count with [id number] 14:37:49* Test Item Value Reference Range Interpretation Comments WBC (test code = WBC) 6.5 x10 4.4-10.5 RBC (test code = RBC) 2.42 x10 4.10-5.70 L Hgb (test code = Hgb) 7.0 g/dL 13.4-17.4 L MCV (test code = MCV) 95.00 fL 80.00-100.00 Hct (test code = Hct) 23.0 % 38.7-52.0 L MCHC (test code = MCHC) 30.40 g/dL 32.00-37.50 L MCH (test code = MCH) 28.9 pg 27.0-32.5 RDW CV (test code = RDW CV) 16.4 % 11.5-14.5 H Platelets (test code = Platelets) 176.0 x10 140.0-440.0 MPV (test code = MPV) 10.5 fL N Slide Review (test code = Slide Review) Auto Auto Result created by [email or web address] nRBC (test code = nRBC) 0 N NRBC Abs (test code = NRBC Abs) 0.00 x10 N IPF (test code = IPF) 0 % N Automated [id number] 14:37:49* Test Item Value Reference Range Interpretation Comments Neutro Auto (test code = Neutro Auto) 67.7 % 36.0-70.0 Lymph Auto (test code = Lymph Auto) 15.8 % 12.0-44.0 [place] Auto (test code = [place] Auto) 8.7 % 0.0-11.0 Eos, Auto (test code = Eos, Auto) 2.9 % 0.0-7.0 Basophil Auto (test code = Basophil Auto) 0.6 % 0.0-2.0 Neutro Absolute (test code = Neutro Absolute) 4.4 x10 1.6-7.4 Lymph Absolute (test code = Lymph Absolute) 1.03 x10 .50-4.60 [place] Absolute (test code = [place] Absolute) .57 x10 .00-1.20 Eos Absolute (test code = Eos Absolute) 0.19 x10 0.00-0.74 Baso Absolute (test code = Baso Absolute) 0.04 x10 0.00-0.21 XR Chest 1 View [id number] 14:28:27Patient: AMOR COMBS Date/Time09/14/2019 14:01 CSTReason for ExamCHF (Congestive Heart Failure), [id number]: XR Chest 1 View FrontalHISTORY: CHF (Congestive Heart Failure), knownCOMPARISON: 05/04/2018FINDINGS:Median sternotomy wires are again noted.Confluent bilateral airspace opacities. No pleural effusion or pneumothorax. Mild enlargement of the cardiac silhouette. No acute osseous abnormalities.IMPRESSION:Moderate congestive heart failure with bilateral pulmonary edema. Final Dictated by: MD Juma, Chelsea DT/TM: 09/14/2019 2:23 pmSigned by: MD Juma, Dayana (Electronic Signature): 09/14/2019 2:28 pmHemoglobin and [id number] 08:31:00* Test Item Value Reference Range Interpretation Comments Hemoglobin (test code = 786-4) 8.5 13.7- 17.5 GM/DL L Hematocrit (test code = 4544-3) 27.2 % 40.1-51 L Lab Interpretation (test code = 79753-4) Abnormal [facility] CenterHEMOGLOB[facility] AND [id number] 08:31:00* Test Item Value Reference Range Interpretation Comments HEMOGLOBIN (BEAKER) (test code = 410) 8.5 GM/DL 13.7-17.5 L HEMATOCRIT (BEAKER) (test code = 411) 27.2 % 40.1-51.0 L [id number] 08:27:00* Test Item Value Reference Range Interpretation Comments Potassium (test code = 2823-3) 5.6 meq/L 3.5-5.1 H Lab Interpretation (test code = 49636-5) Abnormal [facility] CenterPOT[facility]SIUM2019-08-27 08:27:00* Test Item Value Reference Range Interpretation Comments POTASSIUM (BEAKER) (test code = 379) 5.6 meq/L 3.5-5.1 H ECG 12 [id number] 11:41:42Interface, External Ris In - 06/27/2019 11:41 AM CDTVentricular Rate 59 BPMAtrial Rate 59 BPMP-R Interval 208 msQRS Duration 132 msQ-T Interval 490 msQTC Calculation(Bazett) 485 msP Paden 44 degreesR Paden -40 degreesT Paden 153 degreesSinus bradycardiaLeft axis deviationNon-specific intra- ventricular conduction blockPoor R wave progression Cannot rule out Anterior infarct (cited on or before 15-JUN-2019)T wave abnormality, consider lateral ischemiaProlonged QTAbnormal ECGWhen compared with ECG of 16-JUN-2019 05:02,No significant changesConfirmed by Dillan GUDINO BASANT ([id number]) on 06/27/2019 11:41:40 [facility] [id number] 09:02:00 Reason for exam:->pulm edemaShould this be performed at the bedside?->YesFINAL REPORT RAD, CHEST, 1 VIEW, NON DEPT CLINICAL INDICATION: pulm edema COMPARISON: Radiograph 06/17/2019 TECHNIQUE: AP view of the chest FINDINGS: Interval improvement in pulmonary edema. Slightly increased lung volu mes. No new focal consolidation, pleural effusion, or pneumothorax. Cardiomegaly is unchanged. IMPRESSION:Improved pulmonary edema. No effusions. Signed: Bebe Rodgers Verified Date/Time: 06/18/2019 09:02:19 Reading Location: [facility] Radiology Reading Room chest 1 view portable / [id number] 09:02:00Interface, External Ris In - 06/18/2019 9:04 AM CDTFINAL REPORT RAD, CHEST, 1 VIEW, NON DEPT CLINICAL INDICATION: pulm edema COMPARISON: Radiograph 06/17/2019 TECHNIQUE: AP view of the chest FINDINGS: Interval improvement in pulmonary edema. Slightly increased lung volumes. No new focal consolidation, pleural effusion, or pneumothorax. Cardiomegaly is unchanged. IMPRESSION:Improved pulmonary edema. No effusions. Signed: Bebe Hollingsworth Verified Date/Time: 06/18/2019 09:02:19 Reading Location: [facility] Radiology Reading Room [facility] CenterPOC-Glucose [id number] 07:43:00* Test Item Value Reference Range Interpretation Comments POC-Glucose Meter (test code = 1538) 106 mg/dL 70-110 TESTED AT [facility] [address] [address] Lab Interpretation (test code = 17086-3) Normal [facility] CenterPO[facility]GLUCOSE [id number] 07:43:00* Test Item Value Reference Range Interpretation Comments POC-GLUCOSE METER (BEAKER) (test code = 1538) 106 mg/dL 70-110 TESTED AT [facility] [address] [address] POCT-GLUCOSE [id number] 21:55:00* Test Item Value Reference Range Interpretation Comments POC-GLUCOSE METER (BEAKER) (test code = 1538) 193 mg/dL 70-110 H TESTED AT [place] [id number] [facility] [address] HEMODIALYSIS [id number] 21:40:22Mary Morelos RN 06/17/2019 9:41 PM Completed hd x 4 hrs via right femoral tunneled catheter.Tolerated hd well with net UF of 4000 ml today.Report given to MIKI Morgan. Post HD Vitals:Temp: 98.1 F (36.7 C)Temp Source: OralHeart Rate: 72Heart Rate Source: Monitor/Pulse OxResp: 17BP: 137/67 Lab Results Component Value Date GLUCOSE [...] Results Component Value Date HEPBSAG Nonreactive 06/15/2019 [facility]PO[facility] [id number] 12:15:00* Test Item Value Reference Range Interpretation Comments POC-GLUCOSE METER (BEAKER) (test code = 1538) 168 mg/dL 70-110 H TESTED AT [place] [id number] [facility] [address] RAD, CHEST, 1 VIEW, NON [id number] 11:55:00Reason for exam:->pulm edemaShould this be performed at the bedside?->YesFINAL REPORT RAD, CHEST, 1 VIEW, NON DEPT CLINICAL INDICATION: pulm edema COMPARISON: Radiograph 06/16/2019 TECHNIQUE: AP view of the chest FINDINGS: Persistent pulmonary edema with slight increased opacification of the lung apices and decreased opacification of the bases, which may reflect redistr ibution of small pleural effusions. No new focal consolidation or pneumothorax. Cardiomegaly is unchanged. IMPRESSION:Persistent pulmonary edema with possible redistribution of small pleural effusions. Signed: Bebe Hollingsworthi rajesh Date/Time: 06/17/2019 11:55:09 Reading Location: [facility] Room -GLUCOSE [id number] 07:52:00* Test Item Value Reference Range Interpretation Comments POC-GLUCOSE METER (BEAKER) (test code = 1538) 99 mg/dL 70-110 TESTED AT [facility] [address] [address] Basic Metabolic [id number] 06:17:00* Test Item Value Reference Range Interpretation Comments Sodium (test code = 2951-2) 138 meq/L 136-145 Potassium (test code = 2823-3) 4.3 meq/L 3.5-5.1 Chloride (test code = 2075-0) 100 meq/L 98-107 CO2 (test code = 8-9) 26 meq/L 22-29 BUN (test code = 3094-0) 35 mg/dL 7-21 H Creatinine (test code = 2160-0) 7.24 mg/dL 0.57-1.25 H Glucose (test code = 2345-7) 98 mg/dL 70-105 Calcium (test code = 19063-0) 9.2 mg/dL 8.4-10.2 EGFR (test code = 41569-8) 8 mL/min/1.73 sq m ESTIMATED GFR IS NOT ACCURATE CREATININE CLEARANCE IN PREDICTING GLOMERULAR FILTRATION RATE. ESTIMATED GFR IS NOT APPLICABLE FOR DIALYSIS PATIENTS. Lab Interpretation (test code = 85484-6) Abnormal [facility] METABOLIC [id number] 06:17:00* Test Item Value Reference Range Interpretation Comments SODIUM (BEAKER) (test code = 381) 138 meq/L 136-145 POTASSIUM (BEAKER) (test code = 379) 4.3 meq/L 3.5-5.1 CHLORIDE (BEAKER) (test code = 382) 100 meq/L 98-107 CO2 (BEAKER) (test code = 355) 26 meq/L 22-29 BLOOD UREA NITROGEN (BEAKER) (test code = 354) 35 mg/dL 7-21 H CREATININE (BEAKER) (test code = 358) 7.24 mg/dL 0.57-1.25 H GLUCOSE RANDOM (BEAKER) (test code = 652) 98 mg/dL 70-105 CALCIUM (BEAKER) (test code = 697) 9.2 mg/dL 8.4-10.2 EGFR (BEAKER) (test code = 1092) 8 mL/min/1.73 sq m ESTIMATED GFR IS NOT ACCURATE CREATININE CLEARANCE IN PREDICTING GLOMERULAR FILTRATION RATE. ESTIMATED GFR IS NOT APPLICABLE FOR DIALYSIS PATIENTS. [id number] 06:07:00* Test Item Value Reference Range Interpretation Comments Magnesium (test code = 18321-7) 2.4 mg/dL 1.6-2.6 Lab Interpretation (test code = 80511-2) Normal [facility] CenterPhosphorus2019-08-[facility] 06:07:00* Test Item Value Reference Range Interpretation Comments Phosphorus (test code = 2777-1) 4.9 mg/dL 2.3-4.7 H Lab Interpretation (test code = 63654-6) Abnormal [facility] CenterPHOSPHORUS2019-08-08 06:07:00* Test Item Value Reference Range Interpretation Comments PHOSPHORUS (BEAKER) (test code = 604) 4.9 mg/dL 2.3-4.7 H [id number] 06:07:00* Test Item Value Reference Range Interpretation Comments MAGNESIUM (BEAKER) (test code = 627) 2.4 mg/dL 1.6-2.6 CBC with platelet count + automated [id number] 04:36:00* Test Item Value Reference Range Interpretation Comments WBC (test code = 6690-2) 4.9 3.5- 10.5 K/L RBC (test code = 789-8) 2.56 4.63- 6.08 M/L L MCHC (test code = 786-4) 31.3 32.3- 36.5 GM/DL L Hematocrit (test code = 4544-3) 25.2 % 40.1-51 L MCV (test code = 787-2) 98.4 fL 79-92.2 H MCH (test code = 785-6) 30.9 pg 25.7-32.2 RDW (test code = 788-0) 17.7 % 11.6-14.4 H Platelets (test code = 777-3) 130 150- 450 K/CU MM L MPV (test code = 55325-3) 11.3 fL 9.4-12.4 nRBC (test code = 413) 0 0- 0 /100 WBC % Neutros (test code = 429) 70 % % Lymphs (test code = 430) 16 % % Monos (test code = 431) 11 % % Eos (test code = 432) 2 % % Baso (test code = 437) 0 % # Neutros (test code = 670) 3.39 1.78- 5.38 K/L # Lymphs (test code = 414) 0.77 1.32- 3.57 K/L L # Monos (test code = 415) 0.55 0.30- 0.82 K/L # Eos (test code = 416) 0.10 0.04- 0.54 K/L # Baso (test code = 417) 0.01 0.01- 0.08 K/L Immature Granulocytes-Relative (test code = 2801) 1 % 0-1 Lab Interpretation (test code = 77976-5) Abnormal [facility] W/PLT COUNT & AUTO [id number] 04:36:00* Test Item Value Reference Range Interpretation Comments WHITE BLOOD CELL COUNT (BEAKER) (test code = 775) 4.9 K/ L 3.5- 10.5 RED BLOOD CELL COUNT (BEAKER) (test code = 761) 2.56 M/ L 4.63-6 .08 L HEMOGLOBIN (BEAKER) (test code = 410) 7.9 GM/DL 13.7-17.5 L HEMATOCRIT (BEAKER) (test code = 411) 25.2 % 40.1-51.0 L MEAN CORPUSCULAR VOLUME (BEAKER) (test code = 753) 98.4 fL 79. 0-92.2 H MEAN CORPUSCULAR HEMOGLOBIN (BEAKER) (test code = 751) 30.9 pg 25.7-32.2 MEAN CORPUSCULAR HEMOGLOBIN CONC (BEAKER) (test code = 752) 31.3 GM/DL 32.3-36.5 L RED CELL DISTRIBUTION WIDTH (BEAKER) (test code = 412) 17.7 % 11.6-14.4 H PLATELET COUNT (BEAKER) (test code = 756) 130 K/CU MM 150-450 L MEAN PLATELET VOLUME (BEAKER) (test code = 754) 11.3 fL 9.4-12 .4 NUCLEATED RED BLOOD CELLS (BEAKER) (test code = 413) 0 /100 WBC 0 -0 NEUTROPHILS RELATIVE PERCENT (BEAKER) (test code = 429) 70 % LYMPHOCYTES RELATIVE PERCENT (BEAKER) (test code = 430) 16 % MONOCYTES RELATIVE PERCENT (BEAKER) (test code = 431) 11 % EOSINOPHILS RELATIVE PERCENT (BEAKER) (test code = 432) 2 % BASOPHILS RELATIVE PERCENT (BEAKER) (test code = 437) 0 % NEUTROPHILS ABSOLUTE COUNT (BEAKER) (test code = 670) 3.39 K/ L 1.78-5.38 LYMPHOCYTES ABSOLUTE COUNT (BEAKER) (test code = 414) 0.77 K/ L 1.32-3.57 L MONOCYTES ABSOLUTE COUNT (BEAKER) (test code = 415) 0.55 K/ L 0. 30-0.82 EOSINOPHILS ABSOLUTE COUNT (BEAKER) (test code = 416) 0.10 K/ L 0.04-0.54 BASOPHILS ABSOLUTE COUNT (BEAKER) (test code = 417) 0.01 K/ L 0. 01-0.08 IMMATURE GRANULOCYTES-RELATIVE PERCENT (BEAKER) (test code = 2801) 1 % 0-1 POCT-GLUCOSE [id number] 22:04:00* Test Item Value Reference Range Interpretation Comments POC-GLUCOSE METER (BEAKER) (test code = 1538) 210 mg/dL 70-110 H TESTED AT [address] [address] POCT-GLUCOSE [id number] 18:37:00* Test Item Value Reference Range Interpretation Comments POC-GLUCOSE METER (BEAKER) (test code = 1538) 161 mg/dL 70-110 H TESTED AT [address] [address] HEMOGLOBIN AND [id number] 16:15:00* Test Item Value Reference Range Interpretation Comments HEMOGLOBIN (BEAKER) (test code = 410) 8.0 GM/DL 13.7-17.5 L HEMATOCRIT (BEAKER) (test code = 411) 24.9 % 40.1-51.0 L POCT-GLUCOSE [id number] 12:14:00* Test Item Value Reference Range Interpretation Comments POC-GLUCOSE METER (BEAKER) (test code = 1538) 207 mg/dL 70-110 H TESTED AT [address] [address] [id number] 09:03:00* Test Item Value Reference Range Interpretation Comments POTASSIUM (BEAKER) (test code = 379) 6.7 meq/L 3.5-5.1 HH Specimen slightly hemolyzed POCT-GLUCOSE [id number] 07:59:00* Test Item Value Reference Range Interpretation Comments POC-GLUCOSE METER (BEAKER) (test code = 1538) 138 mg/dL 70-110 H TESTED AT [address] [address] RAD, CHEST, 1 VIEW, NON [id number] 07:17:00Reason for exam:->pulm edemaShould this be performed at the bedside?->YesFINAL REPORT RAD, CHEST, 1 VIEW, NON DEPT CLINICAL INDICATION: pulm edema COMPARISON: Radiograph 06/15/2019 TECHNIQUE: AP view of the chest FINDINGS: Sternotomy wires unchanged. Persistently low lung volumes with slightly improved aeration at the bases. No new focal consolidation, pleural effusion, or pneumothorax. Cardiomediastinal silhouette, heidi, and pulmonary vasculature are unchanged. IMPRESSION:No significant interval change. Signed: Bebe Hollingsworth Verified Date/Time: 06/16/2019 07:17:05 Reading Location: [facility] Radiology Reading Room Troponin [id number] 04:17:00* Test Item Value Reference Range Interpretation Comments Troponin I (test code = 45415-3) 0.05 ng/mL 0-0.03 H ELVIS (test code = ELVIS) Troponin I (TnI) levels must be interpreted in the context of the presenting symptoms and the clinical findings. Elevated TnI levels indicate myocardial damage, but are not specific for ischemic heart disease. Elevated TnI levels are seen in patients with other cardiac conditions (including myocarditis and congestive heart failure), and slight TnI elevations occur in patients with other conditions, including sepsis, renal failure, acidosis, acute neurological disease, and persistent tachyarrhythmia. Lab Interpretation (test code = 87613-6) [id number]* Test Item Value Reference Range Interpretation Comments TROPONIN I (BEAKER) (test code = 397) 0.05 ng/mL 0.00-0.03 H Troponin I (TnI) levels must be interpreted in the context of the presenting sym ptoms and the clinical findings. Elevated TnI levels indicate myocardial damage, but are not specific for ischemic heart disease. Elevated TnI levels are seen in patients with other cardiac conditions (including myocarditis and congestive h eart failure), and slight TnI elevations occur in patients with other conditions , including sepsis, renal failure, acidosis, acute neurological disease, and per sistent tachyarrhythmia.BASIC METABOLIC [id number] 04:13:00* Test Item Value Reference Range Interpretation Comments SODIUM (BEAKER) (test code = 381) 134 meq/L 136-145 L POTASSIUM (BEAKER) (test code = 379) 5.6 meq/L 3.5-5.1 H CHLORIDE (BEAKER) (test code = 382) 98 meq/L 98-107 CO2 (BEAKER) (test code = 355) 25 meq/L 22-29 BLOOD UREA NITROGEN (BEAKER) (test code = 354) 55 mg/dL 7-21 H CREATININE (BEAKER) (test code = 358) 9.59 mg/dL 0.57-1.25 H GLUCOSE RANDOM (BEAKER) (test code = 652) 99 mg/dL 70-105 CALCIUM (BEAKER) (test code = 697) 9.1 mg/dL 8.4-10.2 EGFR (BEAKER) (test code = 1092) 6 mL/min/1.73 sq m ESTIMATED GFR IS NOT ACCURATE CREATININE CLEARANCE IN PREDICTING GLOMERULAR FILTRATION RATE. ESTIMATED GFR IS NOT APPLICABLE FOR DIALYSIS PATIENTS. [id number] 04:10:00* Test Item Value Reference Range Interpretation Comments PHOSPHORUS (BEAKER) (test code = 604) 5.1 mg/dL 2.3-4.7 H [id number] 04:10:00* Test Item Value Reference Range Interpretation Comments MAGNESIUM (BEAKER) (test code = 627) 2.6 mg/dL 1.6-2.6 CBC W/PLT COUNT & AUTO [id number] 04:01:00* Test Item Value Reference Range Interpretation Comments WHITE BLOOD CELL COUNT (BEAKER) (test code = 775) 4.5 K/ L 3.5- 10.5 RED BLOOD CELL COUNT (BEAKER) (test code = 761) 2.47 M/ L 4.63-6 .08 L HEMOGLOBIN (BEAKER) (test code = 410) 7.6 GM/DL 13.7-17.5 L HEMATOCRIT (BEAKER) (test code = 411) 23.9 % 40.1-51.0 L MEAN CORPUSCULAR VOLUME (BEAKER) (test code = 753) 96.8 fL 79. 0-92.2 H MEAN CORPUSCULAR HEMOGLOBIN (BEAKER) (test code = 751) 30.8 pg 25.7-32.2 MEAN CORPUSCULAR HEMOGLOBIN CONC (BEAKER) (test code = 752) 31.8 GM/DL 32.3-36.5 L RED CELL DISTRIBUTION WIDTH (BEAKER) (test code = 412) 17.9 % 11.6-14.4 H PLATELET COUNT (BEAKER) (test code = 756) 128 K/CU MM 150-450 L MEAN PLATELET VOLUME (BEAKER) (test code = 754) 10.5 fL 9.4-12 .4 NUCLEATED RED BLOOD CELLS (BEAKER) (test code = 413) 0 /100 WBC 0 -0 NEUTROPHILS RELATIVE PERCENT (BEAKER) (test code = 429) 70 % LYMPHOCYTES RELATIVE PERCENT (BEAKER) (test code = 430) 15 % MONOCYTES RELATIVE PERCENT (BEAKER) (test code = 431) 11 % EOSINOPHILS RELATIVE PERCENT (BEAKER) (test code = 432) 3 % BASOPHILS RELATIVE PERCENT (BEAKER) (test code = 437) 0 % NEUTROPHILS ABSOLUTE COUNT (BEAKER) (test code = 670) 3.11 K/ L 1.78-5.38 LYMPHOCYTES ABSOLUTE COUNT (BEAKER) (test code = 414) 0.65 K/ L 1.32-3.57 L MONOCYTES ABSOLUTE COUNT (BEAKER) (test code = 415) 0.50 K/ L 0. 30-0.82 EOSINOPHILS ABSOLUTE COUNT (BEAKER) (test code = 416) 0.11 K/ L 0.04-0.54 BASOPHILS ABSOLUTE COUNT (BEAKER) (test code = 417) 0.01 K/ L 0. 01-0.08 IMMATURE GRANULOCYTES-RELATIVE PERCENT (BEAKER) (test code = 2801) 2 % 0-1 H POCT-GLUCOSE [id number] 21:59:00* Test Item Value Reference Range Interpretation Comments POC-GLUCOSE METER (BEAKER) (test code = 1538) 217 mg/dL 70-110 H TESTED AT [facility] [address] [place] [id number] HEMODIALYSIS [id number] 18:57:10Mary Garcia RN 06/15/2019 6:58 PMCompleted 4 hours of HD with net fluid removal of 4.3 liters. Patient was seen by Dr. De Santiago during treatment. Report given to Primary RNRayne. Lab Results Component Value Date WBC 7.4 06/14/2019 HGB 8.7 (L) 06/14/2019 HCT 27.7 (L) 06/14/2019 MCV 97.5 (H) 06/14/2019 PLT 161 06/14/2019 Lab Results Component Value Date GLUCOSE 116 (H) 06/15/2019 CALCIUM 9.5 06/15/2019 NA 136 06/15/2019 K 4.1 06/15/2019 CO2 30 (H) 06/15/2019 CL 97 (L) 06/15/2019 BUN 35 (H) 06/15/2019 CREATININE 5.80 (H) 06/15/2019 Results for LAURYN AMOR ( ) as of 06/15/2019 18:58 Ref. Range 06/15/2019 13:50 Hepatitis B Surface Ag Latest Ref Range: Nonreactive Nonreactive [facility] METABOLIC [id number] 18:35:00* Test Item Value Reference Range Interpretation Comments SODIUM (BEAKER) (test code = 381) 136 meq/L 136-145 POTASSIUM (BEAKER) (test code = 379) 4.1 meq/L 3.5-5.1 CHLORIDE (BEAKER) (test code = 382) 97 meq/L 98-107 L CO2 (BEAKER) (test code = 355) 30 meq/L 22-29 H BLOOD UREA NITROGEN (BEAKER) (test code = 354) 35 mg/dL 7-21 H CREATININE (BEAKER) (test code = 358) 5.80 mg/dL 0.57-1.25 H GLUCOSE RANDOM (BEAKER) (test code = 652) 116 mg/dL 70-105 H CALCIUM (BEAKER) (test code = 697) 9.5 mg/dL 8.4-10.2 EGFR (BEAKER) (test code = 1092) 10 mL/min/1.73 sq m ESTIMATED GFR IS NOT ACCURATE CREATININE CLEARANCE IN PREDICTING GLOMERULAR FILTRATION RATE. ESTIMATED GFR IS NOT APPLICABLE FOR DIALYSIS PATIENTS. [id number] 18:18:00* Test Item Value Reference Range Interpretation Comments PHOSPHORUS (BEAKER) (test code = 604) 2.3 mg/dL 2.3-4.7 [id number] 18:18:00* Test Item Value Reference Range Interpretation Comments MAGNESIUM (BEAKER) (test code = 627) 2.2 mg/dL 1.6-2.6 Hepatitis B surface [id number] 14:37:00* Test Item Value Reference Range Interpretation Comments HBsAg Screen (test code = 5195-3) Nonreactive Nonreactive ELVIS (test code = ELVIS) For chronic HD patients, oscar w HBsAg with each admission then every 30 days. Lab Interpretation (test code = 58506-8) [facility] [id number] 14:37:00* Test Item Value Reference Range Interpretation Comments HEPATITIS B SURFACE ANTIGEN (2) (BEAKER) (test code = 2585) Nonreactive Nonreactive For chronic HD patients, draw HBsAg with each admission then every 30 days. TROPONIN [id number] 14:26:00* Test Item Value Reference Range Interpretation Comments TROPONIN I (BEAKER) (test code = 397) 0.03 ng/mL 0.00-0.03 Troponin I (TnI) levels must be interpreted in the context of the presenting sym ptoms and the clinical findings. Elevated TnI levels indicate myocardial damage, but are not specific for ischemic heart disease. Elevated TnI levels are seen in patients with other cardiac conditions (including myocarditis and congestive h eart failure), and slight TnI elevations occur in patients with other conditions , including sepsis, renal failure, acidosis, acute neurological disease, and per sistent tachyarrhythmia.RAD, CHEST, 1 VIEW, NON [id number] 13:56:00Reason for exam:->sobShould this be performed at the bedside?->YesFINAL REPORT TECHNIQUE: Frontal chest radiograph dated 06/15/2019. CLINICAL HISTORY: SOB COMPARISON STUDY: None IMPRESSION:Their prominent interstitial lung markings bilaterally compatible with interstitial edema. Hazy airspace opacity seen in the perihilar region are most compatible with alveolar edema. No pleural effusion or pneumothorax. Mild cardiomegaly is suspected. Midline sternotomy wires are well aligned. Signed: Kirill Garcia MDReport Verified Date/Time: 06/15/2019 13:56:44 Reading Location: [facility] Reading Room C METABOLIC [id number] 11:04:00* Test Item Value Reference Range Interpretation Comments SODIUM (BEAKER) (test code = 381) 132 meq/L 136-145 L POTASSIUM (BEAKER) (test code = 379) 7.3 meq/L 3.5-5.1 HH CHLORIDE (BEAKER) (test code = 382) 96 meq/L 98-107 L CO2 (BEAKER) (test code = 355) 24 meq/L 22-29 BLOOD UREA NITROGEN (BEAKER) (test code = 354) 77 mg/dL 7-21 H CREATININE (BEAKER) (test code = 358) 12.52 mg/dL 0.57-1.25 H GLUCOSE RANDOM (BEAKER) (test code = 652) 90 mg/dL 70-105 CALCIUM (BEAKER) (test code = 697) 9.5 mg/dL 8.4-10.2 EGFR (BEAKER) (test code = 1092) 4 mL/min/1.73 sq m ESTIMATED GFR IS NOT ACCURATE CREATININE CLEARANCE IN PREDICTING GLOMERULAR FILTRATION RATE. ESTIMATED GFR IS NOT APPLICABLE FOR DIALYSIS PATIENTS. CBC W/PLT COUNT & AUTO [id number] 10:31:00* Test Item Value Reference Range Interpretation Comments WHITE BLOOD CELL COUNT (BEAKER) (test code = 775) 7.4 K/ L 3.5- 10.5 RED BLOOD CELL COUNT (BEAKER) (test code = 761) 2.84 M/ L 4.63-6 .08 L HEMOGLOBIN (BEAKER) (test code = 410) 8.7 GM/DL 13.7-17.5 L HEMATOCRIT (BEAKER) (test code = 411) 27.7 % 40.1-51.0 L MEAN CORPUSCULAR VOLUME (BEAKER) (test code = 753) 97.5 fL 79. 0-92.2 H MEAN CORPUSCULAR HEMOGLOBIN (BEAKER) (test code = 751) 30.6 pg 25.7-32.2 MEAN CORPUSCULAR HEMOGLOBIN CONC (BEAKER) (test code = 752) 31.4 GM/DL 32.3-36.5 L RED CELL DISTRIBUTION WIDTH (BEAKER) (test code = 412) 18.1 % 11.6-14.4 H PLATELET COUNT (BEAKER) (test code = 756) 161 K/CU MM 150-450 MEAN PLATELET VOLUME (BEAKER) (test code = 754) 10.7 fL 9.4-12 .4 NUCLEATED RED BLOOD CELLS (BEAKER) (test code = 413) 0 /100 WBC 0 -0 NEUTROPHILS RELATIVE PERCENT (BEAKER) (test code = 429) 72 % LYMPHOCYTES RELATIVE PERCENT (BEAKER) (test code = 430) 14 % MONOCYTES RELATIVE PERCENT (BEAKER) (test code = 431) 8 % EOSINOPHILS RELATIVE PERCENT (BEAKER) (test code = 432) 3 % BASOPHILS RELATIVE PERCENT (BEAKER) (test code = 437) 0 % NEUTROPHILS ABSOLUTE COUNT (BEAKER) (test code = 670) 5.37 K/ L 1.78-5.38 LYMPHOCYTES ABSOLUTE COUNT (BEAKER) (test code = 414) 1.05 K/ L 1.32-3.57 L MONOCYTES ABSOLUTE COUNT (BEAKER) (test code = 415) 0.57 K/ L 0. 30-0.82 EOSINOPHILS ABSOLUTE COUNT (BEAKER) (test code = 416) 0.21 K/ L 0.04-0.54 BASOPHILS ABSOLUTE COUNT (BEAKER) (test code = 417) 0.02 K/ L 0. 01-0.08 IMMATURE GRANULOCYTES-RELATIVE PERCENT (BEAKER) (test code = 2801) 3 % 0-1 H [id number] 22:52:00* Test Item Value Reference Range Interpretation Comments GLUBED (test code = GLUBED) 110 mg/dL 74-106 H Performed by certified rounding machine operator at [facility] [id number] 19:54:00* Test Item Value Reference Range Interpretation Comments POTASSIUM (test code = K) 4.6 mmol/L 3.5-5.1 N HARDSTICK V.ALTAGRACIA.DB2 05/27/19 [id number] 17:54:00* Test Item Value Reference Range Interpretation Comments GLUBED (test code = GLUBED) 96 mg/dL 74-106 N Performed by certified rounding machine operator at [facility] AG HEPAT B [id number] 12:30:00* Test Item Value Reference Range Interpretation Comments AG HEPAT B SURF (test code = HBSAG) Nonreactive Index Nonreactive BASIC METABOLIC [id number] 10:31:00* Test Item Value Reference Range Interpretation Comments SODIUM (test code = NA) 138 mmol/L 136-145 N POTASSIUM (test code = K) 6.6 mmol/L 3.5-5.1 Sri vincent called to GRACIELA [id number] V.LAB.OA 05/27/19 1031Critical results verified and read back by Nurse? Y CHLORIDE (test code = CL) 102.0 mmol/L 98-107 N CARBON DIOXIDE (test code = CO2) 27.0 mmol/L 21-32 N ANION GAP (test code = GAP) 15.6 10-20 N GLUCOSE (test code = GLU) 104 mg/dL 74-106 N BLOOD UREA NITROGEN (test code = BUN) 64 mg/dL 7-18 H GLOMERULAR FILTRATION RATE (test code = GFR) 5 mL/min >=60 Estimated GFR by using Modified MDRD formula.Chronic kidney disease is defined as either kidney damageor GFR <60 mL/min/1.73 m2 for >3 months. CREATININE (test code = CREAT) 10.80 mg/dL 0.7-1.3 H BUN/CREATININE RATIO (test code = BUN/CREA) 5.9 10-20 L CALCIUM (test code = CA) 8.6 mg/dL 8.5-10.1 N [id number] 10:28:00* Test Item Value Reference Range Interpretation Comments TROPONIN-I (test code = TROPI) 0.020 ng/mL 0-0.045 N COMMENTS TO AUTOMOTIVE MANAGER: COLLECT 3 HOURS AFTER PREVIOUS SAMPLEBASIC METABOLIC [id number] 10:23:00* Test Item Value Reference Range Interpretation Comments SODIUM (test code = NA) mmol/L 136-145 POTASSIUM (test code = K) mmol/L 3.5-5.1 CHLORIDE (test code = CL) mmol/L 98-107 CARBON DIOXIDE (test code = CO2) 27.0 mmol/L 21-32 N ANION GAP (test code = GAP) 10-20 GLUCOSE (test code = GLU) 104 mg/dL 74-106 N BLOOD UREA NITROGEN (test code = BUN) 64 mg/dL 7-18 H GLOMERULAR FILTRATION RATE (test code = GFR) 5 mL/min >=60 Estimated GFR by using Modified MDRD formula.Chronic kidney disease is defined as either kidney damageor GFR <60 mL/min/1.73 m2 for >3 months. CREATININE (test code = CREAT) 10.80 mg/dL 0.7-1.3 H BUN/CREATININE RATIO (test code = BUN/CREA) 5.9 10-20 L CALCIUM (test code = CA) 8.6 mg/dL 8.5-10.1 N CBC W/AUTO [id number] 10:07:00* Test Item Value Reference Range Interpretation Comments WHITE BLOOD CELL (test code = WBC) 6.3 K/mm3 4.5-12.5 N RED BLOOD CELL (test code = RBC) 2.58 mill/mm3 4.0-5.8 L HEMOGLOBIN (test code = HGB) 7.8 gram/dL 13.0-17.5 L HEMATOCRIT (test code = HCT) 25.0 % 42.0-52.0 L MEAN CELL VOLUME (test code = MCV) 96.9 fL 80-98 N MEAN CELL HGB (test code = MCH) 30.2 picogram 27.0-33.0 N MEAN CELL HGB CONCETRATION (test code = MCHC) 31.2 gram/dL 33.0-36. 0 L RED CELL DISTRIBUTION WIDTH (test code = RDW) 16.1 % 11.6-16. 2 N RED CELL DISTRIBUTION WIDTH SD (test code = RDW-SD) 56.0 fL 37 .0-51.0 H PLATELET COUNT (test code = PLT) 117 K/mm3 150-450 L MEAN PLATELET VOLUME (test code = MPV) 10.8 fL 6.7-11.0 N NEUTROPHIL % (test code = NT%) 73.8 % 39.0-69.0 H IMMATURE GRANULOCYTE % (test code = IG%) 1.0 % 0.0-5.0 N LYMPHOCYTE % (test code = LY%) 14.1 % 25.0-55.0 L MONOCYTE % (test code = MO%) 8.4 % 0.0-10.0 N EOSINOPHIL % (test code = EO%) 2.5 % 0.0-5.0 N BASOPHIL % (test code = BA%) 0.2 % 0.0-1.0 N NUCLEATED RBC % (test code = NRBC%) 0.0 % 0-0 N NEUTROPHIL # (test code = NT#) 4.65 K/mm3 1.8-7.7 N IMMATURE GRANULOCYTE # (test code = IG#) 0.06 x10 3/uL 0-0.03 H LYMPHOCYTE # (test code = LY#) 0.89 K/mm3 1.0-5.0 L MONOCYTE # (test code = MO#) 0.53 K/mm3 0-0.8 N EOSINOPHIL # (test code = EO#) 0.16 K/mm3 0.0-0.5 N BASOPHIL # (test code = BA#) 0.01 K/mm3 0.0-0.2 N NUCLEATED RBC # (test code = NRBC#) 0.00 K/mm3 0.0-0.1 N MANUAL DIFF REQUIRED (test code = MDIFF) NO [id number] 08:52:00* Test Item Value Reference Range Interpretation Comments TROPONIN-I (test code = TROPI) 0.023 ng/mL 0-0.045 N COMMENTS TO AUTOMOTIVE MANAGER: COLLECT 3 HOURS AFTER PREVIOUS [id number] 07:31:00* Test Item Value Reference Range Interpretation Comments GLUBED (test code = GLUBED) 82 mg/dL 74-106 N Performed by certified rounding machine operator at [facility] B-TYPE NATRIURETIC [id number] 00:13:00* Test Item Value Reference Range Interpretation Comments B-TYPE NATRIURETIC PEPTIDE (test code = BNP) 2196.98 pgram/mL 0-100 H BASIC METABOLIC [id number] 00:09:00* Test Item Value Reference Range Interpretation Comments SODIUM (test code = NA) 138 mmol/L 136-145 N POTASSIUM (test code = K) 5.8 mmol/L 3.5-5.1 H CHLORIDE (test code = CL) 102.0 mmol/L 98-107 N CARBON DIOXIDE (test code = CO2) 25.0 mmol/L 21-32 N ANION GAP (test code = GAP) 16.8 10-20 N GLUCOSE (test code = GLU) 106 mg/dL 74-106 N BLOOD UREA NITROGEN (test code = BUN) 57 mg/dL 7-18 H GLOMERULAR FILTRATION RATE (test code = GFR) 5 mL/min >=60 Estimated GFR by using Modified MDRD formula.Chronic kidney disease is defined as either kidney damageor GFR <60 mL/min/1.73 m2 for >3 months. CREATININE (test code = CREAT) 10.40 mg/dL 0.7-1.3 H BUN/CREATININE RATIO (test code = BUN/CREA) 5.5 10-20 L CALCIUM (test code = CA) 9.3 mg/dL 8.5-10.1 N [id number] 00:09:00* Test Item Value Reference Range Interpretation Comments CKMB (test code = CKMBT) 1.9 ng/mL 0-6.0 N [id number] 00:09:00* Test Item Value Reference Range Interpretation Comments TROPONIN-I (test code = TROPI) 0.016 ng/mL 0-0.045 N CBC W/AUTO [id number] 23:59:00* Test Item Value Reference Range Interpretation Comments WHITE BLOOD CELL (test code = WBC) 8.7 K/mm3 4.5-12.5 N RED BLOOD CELL (test code = RBC) 2.95 mill/mm3 4.0-5.8 L HEMOGLOBIN (test code = HGB) 8.8 gram/dL 13.0-17.5 L HEMATOCRIT (test code = HCT) 27.3 % 42.0-52.0 L MEAN CELL VOLUME (test code = MCV) 92.5 fL 80-98 N MEAN CELL HGB (test code = MCH) 29.8 picogram 27.0-33.0 N MEAN CELL HGB CONCETRATION (test code = MCHC) 32.2 gram/dL 33.0-36. 0 L RED CELL DISTRIBUTION WIDTH (test code = RDW) 16.2 % 11.6-16. 2 N RED CELL DISTRIBUTION WIDTH SD (test code = RDW-SD) 54.4 fL 37 .0-51.0 H PLATELET COUNT (test code = PLT) 122 K/mm3 150-450 L MEAN PLATELET VOLUME (test code = MPV) 11.0 fL 6.7-11.0 N NEUTROPHIL % (test code = NT%) 78.4 % 39.0-69.0 H IMMATURE GRANULOCYTE % (test code = IG%) 0.7 % 0.0-5.0 N LYMPHOCYTE % (test code = LY%) 11.0 % 25.0-55.0 L MONOCYTE % (test code = MO%) 7.6 % 0.0-10.0 N EOSINOPHIL % (test code = EO%) 2.0 % 0.0-5.0 N BASOPHIL % (test code = BA%) 0.3 % 0.0-1.0 N NUCLEATED RBC % (test code = NRBC%) 0.0 % 0-0 N NEUTROPHIL # (test code = NT#) 6.81 K/mm3 1.8-7.7 N IMMATURE GRANULOCYTE # (test code = IG#) 0.06 x10 3/uL 0-0.03 H LYMPHOCYTE # (test code = LY#) 0.96 K/mm3 1.0-5.0 L MONOCYTE # (test code = MO#) 0.66 K/mm3 0-0.8 N EOSINOPHIL # (test code = EO#) 0.17 K/mm3 0.0-0.5 N BASOPHIL # (test code = BA#) 0.03 K/mm3 0.0-0.2 N NUCLEATED RBC # (test code = NRBC#) 0.00 K/mm3 0.0-0.1 N MANUAL DIFF REQUIRED (test code = MDIFF) NO, ONLY SCAN NEEDED DIFFERENTIAL [id number] 23:59:00* Test Item Value Reference Range Interpretation Comments STAIN ACCEPTABILITY (test code = STN ACCEPTABLE) STAIN ACCEPTABLE ANISOCYTOSIS (test code = ANISO) 1+ MICROCYTOSIS (test code = MICR) 1+ PLATELET ESTIMATE (test code = PLTEST) DECREASED PLATELET MORPHOLOGY (test code = PLTMORPH) NORMAL BASIC METABOLIC [id number] 23:50:00* Test Item Value Reference Range Interpretation Comments SODIUM (test code = NA) 138 mmol/L 136-145 N POTASSIUM (test code = K) 5.8 mmol/L 3.5-5.1 H CHLORIDE (test code = CL) 102.0 mmol/L 98-107 N CARBON DIOXIDE (test code = CO2) mmol/L 21-32 ANION GAP (test code = GAP) 10-20 GLUCOSE (test code = GLU) mg/dL 74-106 BLOOD UREA NITROGEN (test code = BUN) mg/dL 7-18 GLOMERULAR FILTRATION RATE (test code = GFR) mL/min >=60 CREATININE (test code = CREAT) mg/dL 0.7-1.3 BUN/CREATININE RATIO (test code = BUN/CREA) 10-20 CALCIUM (test code = CA) mg/dL 8.5-10.1 [id number] 23:50:00* Test Item Value Reference Range Interpretation Comments CKMB (test code = CKMBT) ng/mL 0-6.0 [id number] 23:50:00* Test Item Value Reference Range Interpretation Comments TROPONIN-I (test code = TROPI) ng/mL 0-0.045 CBC W/AUTO [id number] 23:37:00* Test Item Value Reference Range Interpretation Comments WHITE BLOOD CELL (test code = WBC) 8.7 K/mm3 4.5-12.5 N RED BLOOD CELL (test code = RBC) 2.95 mill/mm3 4.0-5.8 L HEMOGLOBIN (test code = HGB) 8.8 gram/dL 13.0-17.5 L HEMATOCRIT (test code = HCT) 27.3 % 42.0-52.0 L MEAN CELL VOLUME (test code = MCV) 92.5 fL 80-98 N MEAN CELL HGB (test code = MCH) 29.8 picogram 27.0-33.0 N MEAN CELL HGB CONCETRATION (test code = MCHC) 32.2 gram/dL 33.0-36. 0 L RED CELL DISTRIBUTION WIDTH (test code = RDW) 16.2 % 11.6-16. 2 N RED CELL DISTRIBUTION WIDTH SD (test code = RDW-SD) 54.4 fL 37 .0-51.0 H PLATELET COUNT (test code = PLT) 122 K/mm3 150-450 L MEAN PLATELET VOLUME (test code = MPV) 11.0 fL 6.7-11.0 N NEUTROPHIL % (test code = NT%) 78.4 % 39.0-69.0 H IMMATURE GRANULOCYTE % (test code = IG%) 0.7 % 0.0-5.0 N LYMPHOCYTE % (test code = LY%) 11.0 % 25.0-55.0 L MONOCYTE % (test code = MO%) 7.6 % 0.0-10.0 N EOSINOPHIL % (test code = EO%) 2.0 % 0.0-5.0 N BASOPHIL % (test code = BA%) 0.3 % 0.0-1.0 N NUCLEATED RBC % (test code = NRBC%) 0.0 % 0-0 N NEUTROPHIL # (test code = NT#) 6.81 K/mm3 1.8-7.7 N IMMATURE GRANULOCYTE # (test code = IG#) 0.06 x10 3/uL 0-0.03 H LYMPHOCYTE # (test code = LY#) 0.96 K/mm3 1.0-5.0 L MONOCYTE # (test code = MO#) 0.66 K/mm3 0-0.8 N EOSINOPHIL # (test code = EO#) 0.17 K/mm3 0.0-0.5 N BASOPHIL # (test code = BA#) 0.03 K/mm3 0.0-0.2 N NUCLEATED RBC # (test code = NRBC#) 0.00 K/mm3 0.0-0.1 N MANUAL DIFF REQUIRED (test code = MDIFF) NO, ONLY SCAN NEEDED DIFFERENTIAL [id number] 23:37:00* Test Item Value Reference Range Interpretation Comments STAIN ACCEPTABILITY (test code = STN ACCEPTABLE) CABOT RINGS (test code = CAB) MORPHOLOGY COMMENT (test code = MOC) PLATELET ESTIMATE (test code = PLTEST) PLATELET MORPHOLOGY (test code = PLTMORPH) CBC W/AUTO [id number] 23:37:00* Test Item Value Reference Range Interpretation Comments WHITE BLOOD CELL (test code = WBC) 8.7 K/mm3 4.5-12.5 N RED BLOOD CELL (test code = RBC) 2.95 mill/mm3 4.0-5.8 L HEMOGLOBIN (test code = HGB) 8.8 gram/dL 13.0-17.5 L HEMATOCRIT (test code = HCT) 27.3 % 42.0-52.0 L MEAN CELL VOLUME (test code = MCV) 92.5 fL 80-98 N MEAN CELL HGB (test code = MCH) 29.8 picogram 27.0-33.0 N MEAN CELL HGB CONCETRATION (test code = MCHC) 32.2 gram/dL 33.0-36. 0 L RED CELL DISTRIBUTION WIDTH (test code = RDW) 16.2 % 11.6-16. 2 N RED CELL DISTRIBUTION WIDTH SD (test code = RDW-SD) 54.4 fL 37 .0-51.0 H PLATELET COUNT (test code = PLT) 122 K/mm3 150-450 L MEAN PLATELET VOLUME (test code = MPV) 11.0 fL 6.7-11.0 N NEUTROPHIL % (test code = NT%) 78.4 % 39.0-69.0 H IMMATURE GRANULOCYTE % (test code = IG%) 0.7 % 0.0-5.0 N LYMPHOCYTE % (test code = LY%) 11.0 % 25.0-55.0 L MONOCYTE % (test code = MO%) 7.6 % 0.0-10.0 N EOSINOPHIL % (test code = EO%) 2.0 % 0.0-5.0 N BASOPHIL % (test code = BA%) 0.3 % 0.0-1.0 N NUCLEATED RBC % (test code = NRBC%) 0.0 % 0-0 N NEUTROPHIL # (test code = NT#) 6.81 K/mm3 1.8-7.7 N IMMATURE GRANULOCYTE # (test code = IG#) 0.06 x10 3/uL 0-0.03 H LYMPHOCYTE # (test code = LY#) 0.96 K/mm3 1.0-5.0 L MONOCYTE # (test code = MO#) 0.66 K/mm3 0-0.8 N EOSINOPHIL # (test code = EO#) 0.17 K/mm3 0.0-0.5 N BASOPHIL # (test code = BA#) 0.03 K/mm3 0.0-0.2 N NUCLEATED RBC # (test code = NRBC#) 0.00 K/mm3 0.0-0.1 N MANUAL DIFF REQUIRED (test code = MDIFF) NO, ONLY SCAN NEEDED DIFFERENTIAL [id number] 23:37:00* Test Item Value Reference Range Interpretation Comments STAIN ACCEPTABILITY (test code = STN ACCEPTABLE) CABOT RINGS (test code = CAB) MORPHOLOGY COMMENT (test code = MOC) PLATELET ESTIMATE (test code = PLTEST) PLATELET MORPHOLOGY (test code = PLTMORPH) CBC W/AUTO [id number] 23:37:00* Test Item Value Reference Range Interpretation Comments WHITE BLOOD CELL (test code = WBC) 8.7 K/mm3 4.5-12.5 N RED BLOOD CELL (test code = RBC) 2.95 mill/mm3 4.0-5.8 L HEMOGLOBIN (test code = HGB) 8.8 gram/dL 13.0-17.5 L HEMATOCRIT (test code = HCT) 27.3 % 42.0-52.0 L MEAN CELL VOLUME (test code = MCV) 92.5 fL 80-98 N MEAN CELL HGB (test code = MCH) 29.8 picogram 27.0-33.0 N MEAN CELL HGB CONCETRATION (test code = MCHC) 32.2 gram/dL 33.0-36. 0 L RED CELL DISTRIBUTION WIDTH (test code = RDW) 16.2 % 11.6-16. 2 N RED CELL DISTRIBUTION WIDTH SD (test code = RDW-SD) 54.4 fL 37 .0-51.0 H PLATELET COUNT (test code = PLT) 122 K/mm3 150-450 L MEAN PLATELET VOLUME (test code = MPV) 11.0 fL 6.7-11.0 N NEUTROPHIL % (test code = NT%) 78.4 % 39.0-69.0 H IMMATURE GRANULOCYTE % (test code = IG%) 0.7 % 0.0-5.0 N LYMPHOCYTE % (test code = LY%) 11.0 % 25.0-55.0 L MONOCYTE % (test code = MO%) 7.6 % 0.0-10.0 N EOSINOPHIL % (test code = EO%) 2.0 % 0.0-5.0 N BASOPHIL % (test code = BA%) 0.3 % 0.0-1.0 N NUCLEATED RBC % (test code = NRBC%) 0.0 % 0-0 N NEUTROPHIL # (test code = NT#) 6.81 K/mm3 1.8-7.7 N IMMATURE GRANULOCYTE # (test code = IG#) 0.06 x10 3/uL 0-0.03 H LYMPHOCYTE # (test code = LY#) 0.96 K/mm3 1.0-5.0 L MONOCYTE # (test code = MO#) 0.66 K/mm3 0-0.8 N EOSINOPHIL # (test code = EO#) 0.17 K/mm3 0.0-0.5 N BASOPHIL # (test code = BA#) 0.03 K/mm3 0.0-0.2 N NUCLEATED RBC # (test code = NRBC#) 0.00 K/mm3 0.0-0.1 N MANUAL DIFF REQUIRED (test code = MDIFF) NO, ONLY SCAN NEEDED DIFFERENTIAL [id number] 23:37:00* Test Item Value Reference Range Interpretation Comments STAIN ACCEPTABILITY (test code = STN ACCEPTABLE) MORPHOLOGY COMMENT (test code = MOC) PLATELET ESTIMATE (test code = PLTEST) PLATELET MORPHOLOGY (test code = PLTMORPH) CBC W/AUTO [id number] 23:37:00* Test Item Value Reference Range Interpretation Comments WHITE BLOOD CELL (test code = WBC) 8.7 K/mm3 4.5-12.5 N RED BLOOD CELL (test code = RBC) 2.95 mill/mm3 4.0-5.8 L HEMOGLOBIN (test code = HGB) 8.8 gram/dL 13.0-17.5 L HEMATOCRIT (test code = HCT) 27.3 % 42.0-52.0 L MEAN CELL VOLUME (test code = MCV) 92.5 fL 80-98 N MEAN CELL HGB (test code = MCH) 29.8 picogram 27.0-33.0 N MEAN CELL HGB CONCETRATION (test code = MCHC) 32.2 gram/dL 33.0-36. 0 L RED CELL DISTRIBUTION WIDTH (test code = RDW) 16.2 % 11.6-16. 2 N RED CELL DISTRIBUTION WIDTH SD (test code = RDW-SD) 54.4 fL 37 .0-51.0 H PLATELET COUNT (test code = PLT) 122 K/mm3 150-450 L MEAN PLATELET VOLUME (test code = MPV) 11.0 fL 6.7-11.0 N NEUTROPHIL % (test code = NT%) 78.4 % 39.0-69.0 H IMMATURE GRANULOCYTE % (test code = IG%) 0.7 % 0.0-5.0 N LYMPHOCYTE % (test code = LY%) 11.0 % 25.0-55.0 L MONOCYTE % (test code = MO%) 7.6 % 0.0-10.0 N EOSINOPHIL % (test code = EO%) 2.0 % 0.0-5.0 N BASOPHIL % (test code = BA%) 0.3 % 0.0-1.0 N NUCLEATED RBC % (test code = NRBC%) 0.0 % 0-0 N NEUTROPHIL # (test code = NT#) 6.81 K/mm3 1.8-7.7 N IMMATURE GRANULOCYTE # (test code = IG#) 0.06 x10 3/uL 0-0.03 H LYMPHOCYTE # (test code = LY#) 0.96 K/mm3 1.0-5.0 L MONOCYTE # (test code = MO#) 0.66 K/mm3 0-0.8 N EOSINOPHIL # (test code = EO#) 0.17 K/mm3 0.0-0.5 N BASOPHIL # (test code = BA#) 0.03 K/mm3 0.0-0.2 N NUCLEATED RBC # (test code = NRBC#) 0.00 K/mm3 0.0-0.1 N MANUAL DIFF REQUIRED (test code = MDIFF) NO, ONLY SCAN NEEDED DIFFERENTIAL [id number] 23:37:00* Test Item Value Reference Range Interpretation Comments STAIN ACCEPTABILITY (test code = STN ACCEPTABLE) CABOT RINGS (test code = CAB) MORPHOLOGY COMMENT (test code = MOC) PLATELET ESTIMATE (test code = PLTEST) PLATELET MORPHOLOGY (test code = PLTMORPH) - XR CHEST 1 [id number] 23:03:00 FAX: Marlys Moran [phone] [place]: B St: REG Name: AMOR LOPES [facility] : [birth year] Age/S: 48/M [address] [facility] Unit #: [id number] Loc: [place] [address] Phys: Marlys Malik MD Acct: [id number] Dis Date: Status: REG ER PHONE #: [phone] Exam Date: 05/26/20192232 FAX #: [phone] Reason: sob EXAMS: CPT CODE: [id number] XR CHEST 1 V 00064 REASON FOR EXAM: sob Exam Order Date: 05/26/2019 10:02 PM Ordering M.D.: Marlys Malik MD PROCEDURE: - XR CHEST 1 V COMPARISON: AP chest x-ray 01/14/2019 FINDINGS: Lung volumes are dimi nished. There are prominent reticulations throughout both lungs as well as indistinctness of the hilar vessels. The cardiac mediastinal silh ouette appears widened however this may be due to low lung volumes. Postsurgical changes of the sternotomy are present. There are also degenerative changes in the spine. IMPRESSION: Cardiomegaly with findings of pulmonary edema may represent CHF. Superi mposed infection cannot be excluded. Low lung volumes. Elect ronically Signed by Torrey Coulter MD on 05/26/2019 at 2303 Reported and signed by: Torrey Coulter MD CC: Marlys Malik MD Technologist: STEPHEN BRAUN; Luke Hester RT(R Trnscrd Date/Time/By: 05/26/2019 (2211) : By: [email or web address] Orig Print D/T: S: 05/26/2019 (1485) PAGE 1 Signed Report CBC W/O DIFF 2019-02-16 23:28:00* Test Item Value Reference Range Interpretation Comments WHITE BLOOD CELL (test code = WBC) 5.6 K/mm3 4.5-12.5 N RED BLOOD CELL (test code = RBC) 2.60 mill/mm3 4.0-5.8 L HEMOGLOBIN (test code = HGB) 7.6 gram/dL 13.0-17.5 L HEMATOCRIT (test code = HCT) 25.8 % 42.0-52.0 L MEAN CELL VOLUME (test code = MCV) 99.2 fL 80-98 H MEAN CELL HGB (test code = MCH) 29.2 picogram 27.0-33.0 N MEAN CELL HGB CONCETRATION (test code = MCHC) 29.5 gram/dL 33.0-36. 0 L RED CELL DISTRIBUTION WIDTH (test code = RDW) 16.0 % 11.6-16. 2 N PLATELET COUNT (test code = PLT) 212 K/mm3 150-450 N MEAN PLATELET VOLUME (test code = MPV) 10.4 fL 6.7-11.0 N PROTHROMBIN [id number] 23:22:00* Test Item Value Reference Range Interpretation Comments PROTHROMBIN TIME PATIENT (test code = PTP) 11.7 seconds 9.0-14.0 N INTERNATIONAL NORMAL RATIO (test code = INR) 1.0 0.8-1.2 N The therapeutic range for oral anticoagulant therapy formost indications is an international normalized ratio (INR)of between 2.0 and 3.0. The recommended therapeutic INRrange for various clinical situations is listed below: Clinical Situation INR range Pulmonary e mbolism treatment (2.0-3.0)Venous thrombosis treatmentVenous thrombosis prophylaxis (high risk surgery)Prevention of systemic embolism from: Acute myocardial infarction Valvular heart disease Atrial fibrillation Mechanical prosthetic heart valves (2.5-3.5) IS PATIENT ON ANTICOAGULANTS? NTHROMBOPLASTIN TIME [id number] 23:22:00* Test Item Value Reference Range Interpretation Comments THROMBOPLASTIN TIME PARTIAL (test code = PTT) 40.9 seconds 25.0-36. 5 H IS PATIENT ON ANTICOAGULANTS? NBASIC METABOLIC [id number] 23:09:00* Test Item Value Reference Range Interpretation Comments SODIUM (test code = NA) 137 mmol/L 136-145 N POTASSIUM (test code = K) 4.3 mmol/L 3.5-5.1 N CHLORIDE (test code = CL) 99.0 mmol/L 98-107 N CARBON DIOXIDE (test code = CO2) 28.0 mmol/L 21-32 N ANION GAP (test code = GAP) 14.3 10-20 N GLUCOSE (test code = GLU) 135 mg/dL 74-106 H BLOOD UREA NITROGEN (test code = BUN) 45 mg/dL 7-18 H GLOMERULAR FILTRATION RATE (test code = GFR) 7 mL/min >=60 Estimated GFR by using Modified MDRD formula.Chronic kidney disease is defined as either kidney damageor GFR <60 mL/min/1.73 m2 for >3 months. CREATININE (test code = CREAT) 8.70 mg/dL 0.7-1.3 H BUN/CREATININE RATIO (test code = BUN/CREA) 5.2 10-20 L CALCIUM (test code = CA) 8.9 mg/dL 8.5-10.1 N BASIC METABOLIC [id number] 23:05:00* Test Item Value Reference Range Interpretation Comments SODIUM (test code = NA) 137 mmol/L 136-145 N POTASSIUM (test code = K) 4.3 mmol/L 3.5-5.1 N CHLORIDE (test code = CL) 99.0 mmol/L 98-107 N CARBON DIOXIDE (test code = CO2) mmol/L 21-32 ANION GAP (test code = GAP) 10-20 GLUCOSE (test code = GLU) mg/dL 74-106 BLOOD UREA NITROGEN (test code = BUN) mg/dL 7-18 GLOMERULAR FILTRATION RATE (test code = GFR) mL/min >=60 CREATININE (test code = CREAT) mg/dL 0.7-1.3 BUN/CREATININE RATIO (test code = BUN/CREA) 10-20 CALCIUM (test code = CA) mg/dL 8.5-10.1 [id number] 07:27:00* Test Item Value Reference Range Interpretation Comments GLUBED (test code = GLUBED) 177 mg/dL 74-106 H Performed by certified rounding machine operator at [facility] [id number] 07:26:00* Test Item Value Reference Range Interpretation Comments GLUBED (test code = GLUBED) 148 mg/dL 74-106 H Performed by certified rounding machine operator at [facility] - XR KNEE 1 OR 2 V [id number] 12:05:00 FAX: Jason Leos MD [phone] [place]: O St: REG FAX: Arun Comfort Rivas [phone] Name: AMOR COMBS [facility] : 1970 Age/S: 48/M [address] [facility] Unit #: [id number] Loc: [place] [address] Phys: Jason Gabriel MD Acct: [id number] Dis Date: Status: REG RCR PHONE #: [phone] Exam Date: 12/22/2018 1133 FAX #: [phone] Reason: FX EXAMS: CPT CODE: [id number] XR KNEE 1 OR 2 V RT 00894 HISTORY: Fracture. COMPARISON: December 14, 2018. AP and lateral view of the right femur: BKA noted. C omminuted traumatic fracture of the distal femoral metaphysis/diaphysis wi th extension into the proximal portions of the condyles without extension into the intercondylar region. Small fracture fragments are angulated bot h posteriorly and anteriorly. Small suprapatellar joint fluid. Osteopeni a. IMPRESSION: Acute traumatic fracture of the distal femoral metaphysis/diaphysis and this condyles without intercond ylar extension. Small fracture fragments angulated both anteriorly and posteriorly. Knee joint is narrowed. BKA noted. Electronic ally Signed by Dillan Fregoso on 12/22/2018 at 1205 R eported and signed by: Boyd Fregoso M.D. CC: Dana Gabriel MD; Comfort Rivas MD Technologist: TALON JENKINS RT (R) Trnscrd Date/Time/By: 12/22/2018 (1456) : By: Fredis [email or web address] Orig Print D/T: S: 12/23/2018 (1023) GINA GREER 1 Signed Report GLUBED 2018-12-20 21:03:00* Test Item Value Reference Range Interpretation Comments GLUBED (test code = GLUBED) 172 mg/dL 74-106 H Performed by certified rounding machine operator at [facility] [id number] 16:59:00* Test Item Value Reference Range Interpretation Comments GLUBED (test code = GLUBED) 120 mg/dL 74-106 H Performed by certified rounding machine operator at [facility] [id number] 12:08:00* Test Item Value Reference Range Interpretation Comments GLUBED (test code = GLUBED) 156 mg/dL 74-106 H Performed by certified rounding machine operator at [facility] [id number] 08:20:00* Test Item Value Reference Range Interpretation Comments GLUBED (test code = GLUBED) 118 mg/dL 74-106 H Performed by certified rounding machine operator at [facility] [id number] 11:59:00* Test Item Value Reference Range Interpretation Comments GLUBED (test code = GLUBED) 139 mg/dL 74-106 H Performed by certified rounding machine operator at [facility] [id number] 08:33:00* Test Item Value Reference Range Interpretation Comments GLUBED (test code = GLUBED) 115 mg/dL 74-106 H Performed by certified rounding machine operator at [facility] BASIC METABOLIC [id number] 05:58:00* Test Item Value Reference Range Interpretation Comments SODIUM (test code = NA) 134 mmol/L 136-145 L POTASSIUM (test code = K) 3.9 mmol/L 3.5-5.1 N CHLORIDE (test code = CL) 97.0 mmol/L 98-107 L CARBON DIOXIDE (test code = CO2) 24.0 mmol/L 21-32 N ANION GAP (test code = GAP) 16.9 10-20 N GLUCOSE (test code = GLU) 137 mg/dL 74-106 H BLOOD UREA NITROGEN (test code = BUN) 40 mg/dL 7-18 H RESULT VERIFIED BY REPEAT ANALYSIS GLOMERULAR FILTRATION RATE (test code = GFR) 7 mL/min >=60 Estimated GFR by using Modified MDRD formula.Chronic kidney disease is defined as either kidney damageor GFR <60 mL/min/1.73 m2 for >3 months. CREATININE (test code = CREAT) 8.30 mg/dL 0.7-1.3 H BUN/CREATININE RATIO (test code = BUN/CREA) 4.8 10-20 L CALCIUM (test code = CA) 8.4 mg/dL 8.5-10.1 L FE W/TOTAL IRON BINDING CAP.2018-12-19 05:58:00* Test Item Value Reference Range Interpretation Comments SERUM IRON (test code = IRON) 50 ug/dL 50-175 N TOTAL IRON BINDING CAPACITY (test code = TIBC) 291 mcg/dL 250-450 N IRON SATURATION (test code = FESAT) 17.18 % 13-45 N [id number] 05:58:00* Test Item Value Reference Range Interpretation Comments FERRITIN (test code = SHOLA) 846 ng/mL 8-388 H BASIC METABOLIC [id number] 05:29:00* Test Item Value Reference Range Interpretation Comments SODIUM (test code = NA) 134 mmol/L 136-145 L POTASSIUM (test code = K) 3.9 mmol/L 3.5-5.1 N CHLORIDE (test code = CL) 97.0 mmol/L 98-107 L CARBON DIOXIDE (test code = CO2) mmol/L 21-32 ANION GAP (test code = GAP) 10-20 GLUCOSE (test code = GLU) mg/dL 74-106 BLOOD UREA NITROGEN (test code = BUN) mg/dL 7-18 GLOMERULAR FILTRATION RATE (test code = GFR) mL/min >=60 CREATININE (test code = CREAT) mg/dL 0.7-1.3 BUN/CREATININE RATIO (test code = BUN/CREA) 10-20 CALCIUM (test code = CA) mg/dL 8.5-10.1 FE W/TOTAL IRON BINDING CAP.2018-12-19 05:29:00* Test Item Value Reference Range Interpretation Comments SERUM IRON (test code = IRON) ug/dL 50-175 TOTAL IRON BINDING CAPACITY (test code = TIBC) mcg/dL 250-450 IRON SATURATION (test code = FESAT) % 13-45 [id number] 05:29:00* Test Item Value Reference Range Interpretation Comments FERRITIN (test code = SHOLA) ng/mL 8-388 CBC W/AUTO [id number] 05:05:00* Test Item Value Reference Range Interpretation Comments WHITE BLOOD CELL (test code = WBC) 5.8 K/mm3 4.5-12.5 N RED BLOOD CELL (test code = RBC) 2.50 mill/mm3 4.0-5.8 L HEMOGLOBIN (test code = HGB) 7.6 gram/dL 13.0-17.5 L HEMATOCRIT (test code = HCT) 24.6 % 42.0-52.0 L MEAN CELL VOLUME (test code = MCV) 98.4 fL 80-98 H MEAN CELL HGB (test code = MCH) 30.4 picogram 27.0-33.0 N MEAN CELL HGB CONCETRATION (test code = MCHC) 30.9 gram/dL 33.0-36. 0 L RED CELL DISTRIBUTION WIDTH (test code = RDW) 17.1 % 11.6-16. 2 H RED CELL DISTRIBUTION WIDTH SD (test code = RDW-SD) 60.8 fL 37 .0-51.0 H PLATELET COUNT (test code = PLT) 154 K/mm3 150-450 N MEAN PLATELET VOLUME (test code = MPV) 10.7 fL 6.7-11.0 N NEUTROPHIL % (test code = NT%) 65.4 % 39.0-69.0 N IMMATURE GRANULOCYTE % (test code = IG%) 5.0 % 0.0-5.0 N LYMPHOCYTE % (test code = LY%) 13.4 % 25.0-55.0 L MONOCYTE % (test code = MO%) 13.6 % 0.0-10.0 H EOSINOPHIL % (test code = EO%) 2.3 % 0.0-5.0 N BASOPHIL % (test code = BA%) 0.3 % 0.0-1.0 N NUCLEATED RBC % (test code = NRBC%) 0.7 % 0-0 H NEUTROPHIL # (test code = NT#) 3.76 K/mm3 1.8-7.7 N IMMATURE GRANULOCYTE # (test code = IG#) 0.29 x10 3/uL 0-0.03 H LYMPHOCYTE # (test code = LY#) 0.77 K/mm3 1.0-5.0 L MONOCYTE # (test code = MO#) 0.78 K/mm3 0-0.8 N EOSINOPHIL # (test code = EO#) 0.13 K/mm3 0.0-0.5 N BASOPHIL # (test code = BA#) 0.02 K/mm3 0.0-0.2 N NUCLEATED RBC # (test code = NRBC#) 0.04 K/mm3 0.0-0.1 N [id number] 12:43:00* Test Item Value Reference Range Interpretation Comments GLUBED (test code = GLUBED) 119 mg/dL 74-106 H Performed by certified rounding machine operator at [facility] BASIC METABOLIC [id number] 11:01:00* Test Item Value Reference Range Interpretation Comments SODIUM (test code = NA) 133 mmol/L 136-145 L POTASSIUM (test code = K) 4.5 mmol/L 3.5-5.1 N CHLORIDE (test code = CL) 95.0 mmol/L 98-107 L CARBON DIOXIDE (test code = CO2) 25.0 mmol/L 21-32 N ANION GAP (test code = GAP) 17.5 10-20 N GLUCOSE (test code = GLU) 141 mg/dL 74-106 H BLOOD UREA NITROGEN (test code = BUN) 53 mg/dL 7-18 H GLOMERULAR FILTRATION RATE (test code = GFR) 5 mL/min >=60 Estimated GFR by using Modified MDRD formula.Chronic kidney disease is defined as either kidney damageor GFR <60 mL/min/1.73 m2 for >3 months. CREATININE (test code = CREAT) 10.50 mg/dL 0.7-1.3 H BUN/CREATININE RATIO (test code = BUN/CREA) 5.0 10-20 L CALCIUM (test code = CA) 8.3 mg/dL 8.5-10.1 L BASIC METABOLIC [id number] 10:28:00* Test Item Value Reference Range Interpretation Comments SODIUM (test code = NA) 133 mmol/L 136-145 L POTASSIUM (test code = K) 4.5 mmol/L 3.5-5.1 N CHLORIDE (test code = CL) 95.0 mmol/L 98-107 L CARBON DIOXIDE (test code = CO2) mmol/L 21-32 ANION GAP (test code = GAP) 10-20 GLUCOSE (test code = GLU) mg/dL 74-106 BLOOD UREA NITROGEN (test code = BUN) mg/dL 7-18 GLOMERULAR FILTRATION RATE (test code = GFR) mL/min >=60 CREATININE (test code = CREAT) mg/dL 0.7-1.3 BUN/CREATININE RATIO (test code = BUN/CREA) 10-20 CALCIUM (test code = CA) mg/dL 8.5-10.1 CBC W/AUTO [id number] 09:47:00* Test Item Value Reference Range Interpretation Comments WHITE BLOOD CELL (test code = WBC) 6.4 K/mm3 4.5-12.5 N RED BLOOD CELL (test code = RBC) 2.36 mill/mm3 4.0-5.8 L HEMOGLOBIN (test code = HGB) 7.2 gram/dL 13.0-17.5 L HEMATOCRIT (test code = HCT) 22.7 % 42.0-52.0 L MEAN CELL VOLUME (test code = MCV) 96.2 fL 80-98 N MEAN CELL HGB (test code = MCH) 30.5 picogram 27.0-33.0 N MEAN CELL HGB CONCETRATION (test code = MCHC) 31.7 gram/dL 33.0-36. 0 L RED CELL DISTRIBUTION WIDTH (test code = RDW) 17.0 % 11.6-16. 2 H RED CELL DISTRIBUTION WIDTH SD (test code = RDW-SD) 58.8 fL 37 .0-51.0 H PLATELET COUNT (test code = PLT) 128 K/mm3 150-450 L MEAN PLATELET VOLUME (test code = MPV) 10.5 fL 6.7-11.0 N NEUTROPHIL % (test code = NT%) 67.7 % 39.0-69.0 N IMMATURE GRANULOCYTE % (test code = IG%) 4.4 % 0.0-5.0 N LYMPHOCYTE % (test code = LY%) 11.8 % 25.0-55.0 L MONOCYTE % (test code = MO%) 13.9 % 0.0-10.0 H EOSINOPHIL % (test code = EO%) 2.0 % 0.0-5.0 N BASOPHIL % (test code = BA%) 0.2 % 0.0-1.0 N NUCLEATED RBC % (test code = NRBC%) 0.6 % 0-0 H NEUTROPHIL # (test code = NT#) 4.35 K/mm3 1.8-7.7 N IMMATURE GRANULOCYTE # (test code = IG#) 0.28 x10 3/uL 0-0.03 H LYMPHOCYTE # (test code = LY#) 0.76 K/mm3 1.0-5.0 L MONOCYTE # (test code = MO#) 0.89 K/mm3 0-0.8 H EOSINOPHIL # (test code = EO#) 0.13 K/mm3 0.0-0.5 N BASOPHIL # (test code = BA#) 0.01 K/mm3 0.0-0.2 N NUCLEATED RBC # (test code = NRBC#) 0.04 K/mm3 0.0-0.1 N [id number] 07:45:00* Test Item Value Reference Range Interpretation Comments GLUBED (test code = GLUBED) 120 mg/dL 74-106 H Performed by certified rounding machine operator at [facility] B-TYPE NATRIURETIC [id number] 22:58:00* Test Item Value Reference Range Interpretation Comments B-TYPE NATRIURETIC PEPTIDE (test code = BNP) 218.73 pgram/mL 0-100 H BASIC METABOLIC [id number] 22:42:00* Test Item Value Reference Range Interpretation Comments SODIUM (test code = NA) 133 mmol/L 136-145 L POTASSIUM (test code = K) 4.6 mmol/L 3.5-5.1 N CHLORIDE (test code = CL) 93.0 mmol/L 98-107 L CARBON DIOXIDE (test code = CO2) 29.0 mmol/L 21-32 N ANION GAP (test code = GAP) 15.6 10-20 N GLUCOSE (test code = GLU) 141 mg/dL 74-106 H BLOOD UREA NITROGEN (test code = BUN) 47 mg/dL 7-18 H GLOMERULAR FILTRATION RATE (test code = GFR) 6 mL/min >=60 Estimated GFR by using Modified MDRD formula.Chronic kidney disease is defined as either kidney damageor GFR <60 mL/min/1.73 m2 for >3 months. CREATININE (test code = CREAT) 9.50 mg/dL 0.7-1.3 H BUN/CREATININE RATIO (test code = BUN/CREA) 5.0 10-20 L CALCIUM (test code = CA) 8.4 mg/dL 8.5-10.1 L [id number] 22:42:00* Test Item Value Reference Range Interpretation Comments TROPONIN-I (test code = TROPI) 0.030 ng/mL 0-0.045 N BASIC METABOLIC [id number] 22:29:00* Test Item Value Reference Range Interpretation Comments SODIUM (test code = NA) 133 mmol/L 136-145 L POTASSIUM (test code = K) 4.6 mmol/L 3.5-5.1 N CHLORIDE (test code = CL) 93.0 mmol/L 98-107 L CARBON DIOXIDE (test code = CO2) mmol/L 21-32 ANION GAP (test code = GAP) 10-20 GLUCOSE (test code = GLU) mg/dL 74-106 BLOOD UREA NITROGEN (test code = BUN) mg/dL 7-18 GLOMERULAR FILTRATION RATE (test code = GFR) mL/min >=60 CREATININE (test code = CREAT) mg/dL 0.7-1.3 BUN/CREATININE RATIO (test code = BUN/CREA) 10-20 CALCIUM (test code = CA) mg/dL 8.5-10.1 [id number] 22:29:00* Test Item Value Reference Range Interpretation Comments TROPONIN-I (test code = TROPI) ng/mL 0-0.045 CBC W/O [id number] 22:18:00* Test Item Value Reference Range Interpretation Comments WHITE BLOOD CELL (test code = WBC) 6.1 K/mm3 4.5-12.5 N RED BLOOD CELL (test code = RBC) 1.82 mill/mm3 4.0-5.8 L HEMOGLOBIN (test code = HGB) 5.6 gram/dL 13.0-17.5 L HEMATOCRIT (test code = HCT) 18.1 % 42.0-52.0 Results called to [id number] by SHANTAL 12/17/18 2218Critical results verified and read back by Nurse? Y MEAN CELL VOLUME (test code = MCV) 99.5 fL 80-98 H MEAN CELL HGB (test code = MCH) 30.8 picogram 27.0-33.0 N MEAN CELL HGB CONCETRATION (test code = MCHC) 30.9 gram/dL 33.0-36. 0 L RED CELL DISTRIBUTION WIDTH (test code = RDW) 15.8 % 11.6-16. 2 N PLATELET COUNT (test code = PLT) 124 K/mm3 150-450 L MEAN PLATELET VOLUME (test code = MPV) 11.0 fL 6.7-11.0 N - XR CHEST 1 [id number] 21:13:00 FAX: Arnulfo Richardson [place]: St: REG Name: AMOR LOPES [facility] : [birth year] Age/S: 48/M [address] [facility] Unit #: [id number] Loc: [place] [address] Phys: Arnulfo Richardson MD Acct: [id number] Dis Date: Status: REG ER PHONE #: [phone] Exam Date: 12/17/20182104 FAX #: [phone] Reason: shortness of breath EXAMS: CPT CODE: [id number] XR CHEST 1 V 74436 REASON FOR EXAM: shortness of breath EXAM ORDER DATE: 12/17/2018 8:25 PM Ordering Dillan: Arnulfo Richardson MD PROCEDURE: - XR CHEST 1 V COMPARISON: FINDINGS: Portable AP frontal view of the chest obtained at 9:00 PM shows clear lungs. There is no evidence of consolidat ion. There is no evidence of effusion. The heart size is minimally enlarge d. Pulmonary vasculatures are unremarkable. IMPRESSION: N o active disease. Electronically Signed by Dillan Ba on 9 at 2113 Reported and signed by: Don Ba M.D. CC: Arnulfo Richardson MD Techno logist: YANCI CORTES RT(R) Trnscrd Date/Time /By: 12/17/2018 (2112) : By: SeleneVTL Orig Print D/T: S: 12/17/2018 ( 2115) PAGE 1 Signed Report AG HEPAT B [id number] 08:45:00* Test Item Value Reference Range Interpretation Comments AG HEPAT B SURF (test code = HBSAG) Nonreactive Index Nonreactive CBC W/AUTO [id number] 08:40:00* Test Item Value Reference Range Interpretation Comments WHITE BLOOD CELL (test code = WBC) 6.7 K/mm3 4.5-12.5 N RED BLOOD CELL (test code = RBC) 2.31 mill/mm3 4.0-5.8 L HEMOGLOBIN (test code = HGB) 7.3 gram/dL 13.0-17.5 L HEMATOCRIT (test code = HCT) 23.2 % 42.0-52.0 L MEAN CELL VOLUME (test code = MCV) 100.4 fL 80-98 H MEAN CELL HGB (test code = MCH) 31.6 picogram 27.0-33.0 N MEAN CELL HGB CONCETRATION (test code = MCHC) 31.5 gram/dL 33.0-36. 0 L RED CELL DISTRIBUTION WIDTH (test code = RDW) 15.9 % 11.6-16. 2 N RED CELL DISTRIBUTION WIDTH SD (test code = RDW-SD) 56.2 fL 37 .0-51.0 H PLATELET COUNT (test code = PLT) 110 K/mm3 150-450 L MEAN PLATELET VOLUME (test code = MPV) 11.0 fL 6.7-11.0 N NEUTROPHIL % (test code = NT%) 66.1 % 39.0-69.0 N IMMATURE GRANULOCYTE % (test code = IG%) 3.6 % 0.0-5.0 N LYMPHOCYTE % (test code = LY%) 14.7 % 25.0-55.0 L MONOCYTE % (test code = MO%) 12.8 % 0.0-10.0 H EOSINOPHIL % (test code = EO%) 2.4 % 0.0-5.0 N BASOPHIL % (test code = BA%) 0.4 % 0.0-1.0 N NUCLEATED RBC % (test code = NRBC%) 0.0 % 0-0 N NEUTROPHIL # (test code = NT#) 4.46 K/mm3 1.8-7.7 N IMMATURE GRANULOCYTE # (test code = IG#) 0.24 x10 3/uL 0-0.03 H LYMPHOCYTE # (test code = LY#) 0.99 K/mm3 1.0-5.0 L MONOCYTE # (test code = MO#) 0.86 K/mm3 0-0.8 H EOSINOPHIL # (test code = EO#) 0.16 K/mm3 0.0-0.5 N BASOPHIL # (test code = BA#) 0.03 K/mm3 0.0-0.2 N NUCLEATED RBC # (test code = NRBC#) 0.00 K/mm3 0.0-0.1 N MANUAL DIFF REQUIRED (test code = MDIFF) NO BASIC METABOLIC [id number] 05:01:00* Test Item Value Reference Range Interpretation Comments SODIUM (test code = NA) 133 mmol/L 136-145 L POTASSIUM (test code = K) 6.5 mmol/L 3.5-5.1 [facility] called to [id number] by [email or web address] 12/15/18 0411Critical results verified and read back by Nurse? Y CHLORIDE (test code = CL) 98.0 mmol/L 98-107 N CARBON DIOXIDE (test code = CO2) 22.0 mmol/L 21-32 N Previously reported result: 22.0 mmol/LEdited by: [email or web address] on 12/15/18:[id number] 0501: CO2 previously reported as: 22.0 mmol/L ANION GAP (test code = GAP) 19.5 10-20 N GLUCOSE (test code = GLU) 97 mg/dL 74-106 N BLOOD UREA NITROGEN (test code = BUN) 85 mg/dL 7-18 H GLOMERULAR FILTRATION RATE (test code = GFR) 3 mL/min >=60 Estimated GFR by using Modified MDRD formula.Chronic kidney disease is defined as either kidney damageor GFR <60 mL/min/1.73 m2 for >3 months. CREATININE (test code = CREAT) 15.10 mg/dL 0.7-1.3 H BUN/CREATININE RATIO (test code = BUN/CREA) 5.6 10-20 L CALCIUM (test code = CA) 8.8 mg/dL 8.5-10.1 N BASIC METABOLIC [id number] 04:14:00* Test Item Value Reference Range Interpretation Comments SODIUM (test code = NA) 133 mmol/L 136-145 L POTASSIUM (test code = K) 6.5 mmol/L 3.5-5.1 Re sults called to [id number] by [email or web address] 12/15/18 0411Critical results verified and read back by Nurse? Y CHLORIDE (test code = CL) 98.0 mmol/L 98-107 N CARBON DIOXIDE (test code = CO2) mmol/L 21-32 ANION GAP (test code = GAP) 10-20 GLUCOSE (test code = GLU) mg/dL 74-106 BLOOD UREA NITROGEN (test code = BUN) mg/dL 7-18 GLOMERULAR FILTRATION RATE (test code = GFR) mL/min >=60 CREATININE (test code = CREAT) mg/dL 0.7-1.3 BUN/CREATININE RATIO (test code = BUN/CREA) 10-20 CALCIUM (test code = CA) mg/dL 8.5-10.1 BASIC METABOLIC [id number] 04:14:00* Test Item Value Reference Range Interpretation Comments SODIUM (test code = NA) 133 mmol/L 136-145 L POTASSIUM (test code = K) 6.5 mmol/L 3.5-5.1 Re sults called to [id number] by [employer] 12/15/18 0411Critical results verified and read back by Nurse? Y CHLORIDE (test code = CL) 98.0 mmol/L 98-107 N CARBON DIOXIDE (test code = CO2) 22.0 mmol/L 21-32 N ANION GAP (test code = GAP) 10-20 GLUCOSE (test code = GLU) 97 mg/dL 74-106 N BLOOD UREA NITROGEN (test code = BUN) 85 mg/dL 7-18 H GLOMERULAR FILTRATION RATE (test code = GFR) 3 mL/min >=60 Estimated GFR by using Modified MDRD formula.Chronic kidney disease is defined as either kidney damageor GFR <60 mL/min/1.73 m2 for >3 months. CREATININE (test code = CREAT) 15.10 mg/dL 0.7-1.3 H BUN/CREATININE RATIO (test code = BUN/CREA) 5.6 10-20 L CALCIUM (test code = CA) 8.8 mg/dL 8.5-10.1 N CHEMISTRY 8 [id number] 23:19:00* Test Item Value Reference Range Interpretation Comments ISTAT-SODIUM (test code = NAP) mmol/L 135-148 ISTAT-POTASSIUM (test code = KP) mmol/L 3.5-5.5 ISTAT-CHLORIDE (test code = CLP) mmol/L 101-109 ISTAT CARBON DIOXIDE (test code = ISTAT-CO2) mmol/L 21-32 N ISTAT CALCIUM IONIZED (test code = ISTAT-DEEPTI) mg/dL 1.12-1.3 2 ISTAT-ANION GAP (test code = GAPP) MEQ/L 10-20 ISTAT-GLUCOSE (test code = GLUP) mg/dL 74-106 N ISTAT-BUN (test code = BUNP) mg/dL 3-21 H BEDSIDE CREATININE (test code = CREATBED) mg/dL 0.7-1.3 HH GLOMERULAR FILTRATION RATE POC (test code = GFRBED) 6 >6 0 LL CHEMISTRY 8 [id number] 23:19:00* Test Item Value Reference Range Interpretation Comments ISTAT-SODIUM (test code = NAP) 132 mmol/L 135-148 L ISTAT-POTASSIUM (test code = KP) 6.1 mmol/L 3.5-5.5 H ISTAT-CHLORIDE (test code = CLP) 101 mmol/L 101-109 N ISTAT CARBON DIOXIDE (test code = ISTAT-CO2) 23.0 mmol/L 21-32 N ISTAT CALCIUM IONIZED (test code = ISTAT-DEEPTI) 1.07 mg/dL 1.12-1.3 2 L ISTAT-ANION GAP (test code = GAPP) 15.0 MEQ/L 10-20 N ISTAT-GLUCOSE (test code = GLUP) 99 mg/dL 74-106 N ISTAT-BUN (test code = BUNP) 65 mg/dL 3-21 H BEDSIDE CREATININE (test code = CREATBED) > 10.0 mg/dL 0.7-1.3 HH GLOMERULAR FILTRATION RATE POC (test code = GFRBED) 6 >6 0 LL - XR KNEE 3 V [id number] 18:09:00 FAX: Marlys Moran [phone] [place]: B St: REG Name: AMOR LOPES [facility] : [birth year] Age/S: 48/M [address] [facility] Unit #: [id number] Loc: [place] [address] Phys: Marlys Malik MD Acct: [id number] Dis Date: Status: REG ER PHONE #: [phone] Exam Date: 12/14/2018 1755 FAX #: [phone] Reason: fall, swelling to stump EXAMS: CPT CODE: [id number] XR KNEE 3 V RT 52634 REASON FOR EXAM: fall, swelling to stump EXAM ORDER DATE: 12/14/2018 5:08 PM Ordering Dillan: Marlys Malik MD PROCEDURE: - XR KNEE 3 V RT FINDINGS: 3 views of the right knee were obtained. A comminuted fracture seen within the distal right femur. 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 CC: Marlys Malik MD Technologist: LIDIA HILL RT(R) Trnscrd Date/Time/By: 12/14/2018 (180) : By: LoL Orig Print D/T: S: 12/14/2018 (1812) PAGE 1 Signed Report - XR HAND 3 + V [id number] 18:08:00 FAX: Marlys Moran [phone] [place]: St: REG Name: AMOR LOPES [facility] : [birth year] Age/S: 48/M [address] [facility] Unit #: [id number] Loc: [place] [address] Phys: Marlys Malik MD Acct: [id number] Dis Date: Status: REG ER PHONE #: [phone] Exam Date: 12/14/2018 6026 FAX #: [phone] Reason: fall, swelling to thumb EXAMS: CPT CODE: [id number] XR HAND 3 + V RT 93435 REASON FOR EXAM: fall, swelling to thumb EXAM ORDER DATE: 12/14/2018 5:08 PM Ordering Manuela.Jaron.: Marlys Malik MD PROCEDURE: - XR HAND 3 + V RT FINDINGS: 3 views of the right hand were obtained. The osseous structures are unremarkable in size and shape. The joint spac es are maintained. No evidence of fracture. The phalanges are intact. Th e carpal and metacarpal bones are unremarkable. There is normal ali gnment of the radiocarpal joint space. 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 CC: Marlys Malik MD Technologist: LIDIA HILL RT(R) Trnscrd Date/Time/By: 12/14/2018 (1807) : By: SeleneVTL Orig Print D/T: S: 12/14/2018 (1810) PAGE 1 Signed Report US Upper Ext Venous Duplex Right 2018-05-07 12:30:36Patient: AMOR COMBS Date/Time05/07/2018 12:06 CDTReason for Examr/o blood clot;Extremity EdemaReportEXAMINATION: US Upper Ext Venous Duplex Right.LOCATION: R16.HISTORY: Right upper extremity edema, clinical concern for thrombus, ESRD, history of multiple catheter placement.COMPARISON: Chest x-ray 05/04/2018.FINDINGS:Sonographic evaluation of the right upper extremity was performed utilizing galarza scale, pulsed Doppler and color flow imaging. Examination is limited due to patient body habitus, as well as overlying bandage over subclavian vein.The internal jugular vein is diminutive in caliber and demonstrates linear echogenic material within it, color flow is noted within internal jugular vein. The partially visualized subclavian vein demonstrates normal flow. The axillary and brachial veins also demonstrate normal flow as well as compressibility, and appear distended, presumably related to central stenosis noted on outside venogram.Superficial veins of the upper extremity were also evaluated. The basilic and cephalic veins demonstrate normal co mpressibility and flow. Visualized radial and ulnar veins appear patent.IMPRESSI ON:Limited study.Linear echogenic material within diminutive right internal jugu lar vein, felt to represent scarring from previous intervention versus thrombus. Other findings as above. Final Dictated by: MD Castillo Ankitkumar ND ictated DT/TM: 05/07/2018 12:25 pmSigned by: MD Castillo Ankitkumar NSigned (Elec tronic Signature): 05/07/2018 12:30 pmIR CVC [id number] 17:19:05Patient: AMOR COMBS Date/Time05/06/2018 12:30 CDTReason for ExamOther (please specify)ReportEXAMIN ATION: TUNNELED CENTRAL VENOUS CATHETER PLACEMENT USING ULTRASOUND AND FLUOROSCO PIC GUIDANCE.VENOGRAM.LOCATION: R16.HISTORY: ESRD, status post multiple dialysis catheter placement, request is made for tunneled dialysis catheter. Outside juliet ging demonstrates occlusion of bilateral chest/neck vessels.COMPARISON: Multiple venograms and IR procedures performed at an outside institution were reviewed.S EDATION: General anesthesia was provided by anesthesia team, please see their no agustina for further details.RADIATION DOSE: 322 mGy.TECHNIQUE: The risks, benefits a nd alternatives were discussed and informed consent was obtained from patient's daughter. Prior to beginning the procedure, [place] Protocol was used to confi rm the patient's identity and planned procedure. Prior to the procedure, the gi tral veins were evaluated by ultrasound, an image recorded and saved in PACS.[facility] sterile barriers including cap, mask, hand hygiene, sterile gloves, sterile gown, large sterile drape and cutaneous antisepsis were used.The skin over the right common femoral vein was sterilely prepped, draped and infiltrated with 1% lidocaine. The vein was accessed with a 21 gauge needle using realtime ultrasoun d guidance. A guidewire and catheter were then passed centrally using fluoroscop ic guidance. Subsequently, venogram was performed which demonstrated patent exte rnal and common iliac vein, as well as IVC, however portions of the IVC demonstr ated mild narrowing and minimal tortuosity. The intravascular length from the ac cess site to the right atrium was then assessed.After infiltrating the skin in t he lateral groin region with 1% lidocaine, a short transverse incision was made and the 55 cm Glidepath dialysis catheter was tunneled to the internal jugular a ccess site and inserted through a peel-away sheath. The catheter was flushed wit h 100U/ml heparin.The incision in the groin was closed using 3-0 Vicryl. A steri le dressing was applied.ESTIMATED BLOOD LOSS: Less than 30 milliliters.DISCHARGE D TO: Recovery and then to inpatient unit.CONDITION: Fair.FINDINGS: Ultrasound i mage shows a patent right common femoral vein. The final fluoroscopic image demo nstrates the catheter with its tip in the intrahepatic IVC.IMPRESSION: Successfu l tunneled catheter placement via right groin.PLAN: The catheter is ready for im mediate use. When treatment is completed, removal can be scheduled by calling R.Exam Date/Time05/06/2018 12:30 CDTReportProcedure findings were discussed with ordering physician MD Sylvia. Final Dictated by: MD Castillo Ankitk umar NDictated DT/TM: 05/06/2018 5:09 pmSigned by: MD Castillo Ankitkumar NSigned (Electronic Signature): 05/06/2018 5:19 pmXR Chest 1 View [id number] 14:25:02Patient: AMOR COMBS Date/Time05/04/2018 14:05 CDTReason for ExamLine placementReportCHEST 1 VIEWCLINICAL INFORMATION: Line placementCOMPARISON: April 29, 2018FINDINGS:Since the comparison study, a right subclavian vein approach hemodialysis catheter has been placed. The catheter tip terminates in the right brachiocephalic vein. No pneumothorax or pleural effusion is seen. The cardiac silhouette is mildly enlarged. Median sternotomy wires are present.IMPRESSION:Status post placement of a right subclavian vein approach hemodialysis catheter.LOCATION: R16 Final Dictated by: MD Mejia Adam FDictated DT/TM: 05/04/2018 2:24 pmSigned by: MD Mejia Adam FSigned (Electronic Signature): 05/04/2018 2:25 pmXR Fluoroscopy in Imaging per Hour 2018-05-04 13:44:28Patient: AMOR COMBS Date/Time05/04/2018 13:18 CDTReason for Examcath placementReportFLUOROSCOPYCLINICAL HISTORY: cath placementComments: Intraoperative fluoroscopy services were provided. A radiologist was not present for the procedure. Selected images demonstrate catheter placement via the right subclavian vein.Total fluoroscopy time: 0.1 minutes. Image count: 1IMPRESSION:Fluoroscopy services provided. Please see separate operative report for detailed findings.Location: R16 Final Dictated by: MD Mejia Adam FDictated DT/TM: 05/04/2018 1:44 pmSigned by: MD Mejia Adam FSigned (Electronic Signature): 05/04/2018 1:44 pmXR Chest 1 View [id number] 19:13:17Patient: AMOR COMBS Date/Time04/29/2018 18:51 CDTReason for ExamCHF (Congestive Heart Failure), knownReportXR Chest 1 View FrontalLOCATION: [id number]: None.INDICATION: CHF (Congestive Heart Failure), knownDISCUSSION:A single portable chest radiograph was submitted for interpretation.Median sternotomy changes are noted.The lungs are well-inflated.No definite focal consolidation or pneumothorax is seen.A questionable small calcific density over the left upper lung may be a granuloma.The cardiac silhouette is prominent.Osseous structures are otherwise intact.IMPRESSION:Prominent cardiac silhouette. Otherwise, no acute cardiopulmonary abnormalities. 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 COMPARISON: None available. 3 views of t he right hip: Hip joint is preserved. Trabecular pattern is franchesca l. Mineralization is normal. Acetabulum is unremarkable. Soft tissues a re within normal limits. The pelvic ring appears intact on a single view. Additional views would be of value. IMPRESSION: No acute fracture or dislocation. Hip joint is preserved. No AVN. at 0904 Reported and signed by: Boyd Fregoso M.D. CC: Berkley Marin MD; Markus Calix MD; Jazmin Ballesteros NP Technologist: Roderick Olvera [facility] Date/Time/By: 04/2017 (0904) : By: [email or web address] Orig Print D/T: S: 10/15/2017 (0974) PAGE 1 Signed Report - XR L-SPINE 2/3 [id number] 09:03:00 FAX: Berkley Ortega MD [phone] [place]: St: [facility] FAX: Markus Brothers [phone] FAX: Jazmin Ortiz --------- Name: AMOR COMBS [facility] : 1970 Age/S: 47/M [address] [facility] it #: [id number] Loc: [facility] [place] [address] Phys: Jazmin Ortiz NP Acct: [id number] Dis Date: Status: [facility] PH ONE #: [phone] Exam Date: 10/15/2017 0840 FAX #: [phone] Reason: pain post fall EXAMS: CPT CODE: [id number] XR L-SPINE 2/3 VIEWS 59953 HISTORY: Pain after fall. COMPARISON: None available. L-spine seri es, 3 views and sacral coccygeal spine series, 3 views: No acute f racture or dislocation. Large bridging anterior marginal osteophytes. Narrowed disc space at L3-L4 level. Sclerosis and loss of height of T12 and L1 vertebral body with irregular endplates which could suggest discitis and/or osteomyelitis. Levoscoliosis. SI joints are pr eserved. No sclerosis is noted. No fracture of the sacrum or the coccyx. Vascular calcifications are noted. IMPRESSION: Sclerosis and loss of height of T12 and L1 vertebral body with irregular endplates which could suggest discitis and/or osteomyelitis. Correlate with MRI scan with contrast for further evaluation and charact erization. SI joints are preserved. No sclerosis. at 0903 Reported and signed by: Boyd Fregoso M.D. CC: Lissette Marin MD; Markus Calix MD; Jazmin Ortiz NP Technologist: Roderick Allen Trndcrd Date/Time/By: 10/15/2017 (902) : By: [email or web address] Orig Print D/T: S: 10/15/2017 (905) PAGE 1 Signed Report - XR SACRUM/COCCYX 2 + [id number] 09:03:00 FAX: Berkley Ortega MD [phone] [place]: St: [facility] FAX: Markus Brothers [phone] FAX: Jazmin Ortiz [phone] Name: AMOR COMBS [facility] : 1970 Age/S: 47/M [address] [facility] Unit #: [id number] Loc: [facility] [place] [address] Phys: Jazmin Ortiz NP Acct: [id number] Dis Date: Status: [facility] PH ONE #: [phone] Exam Date: 10/15/2017839 FAX #: [phone] Reason: pain post fall EXAMS: CPT CODE: [id number] XR SACRUM/COCCYX 2 + V 46747 HISTORY: Pain after fall. COMPARISON: None available. L-spine seri es, 3 views and sacral coccygeal spine series, 3 views: No acute f racture or dislocation. Large bridging anterior marginal osteophytes. Narrowed disc space at L3-L4 level. Sclerosis and loss of height of T12 and L1 vertebral body with irregular endplates which could suggest discitis and/or osteomyelitis. Levoscoliosis. SI joints are pr eserved. No sclerosis is noted. No fracture of the sacrum or the coccyx. Vascular calcifications are noted. IMPRESSION: Sclerosis and loss of height of T12 and L1 vertebral body with irregular endplates which could suggest discitis and/or osteomyelitis. Correlate with MRI scan with contrast for further evaluation and charact erization. SI joints are preserved. No sclerosis. at 0903 Reported and signed by: Boyd Fregoso M.D. CC: Lissette Marin MD; Markus Calix MD; Jazmin Ortiz NP Technologist: Roderick Allendcrd Date/Time/By: 10/15/2017 (902) : By: [email or web address] Orig Print D/T: S: 10/15/2017 (0906) PAGE 1 Signed Report - XR CHEST 1 [id number] 23:05:00 FAX: Chad Bowling NP [phone] [place]: St: [facility]BIE Name: AMOR LOPES [facility] : [birth year] Age/S: 47/M [address] [facility] Unit #: [id number] Loc: [place] [address] Phys: Chad Romero NP Acct: [id number] Dis Date: Status: UNK PHONE #: [phone] Exam Date: 10/13/20172242 FAX #: [phone] Reason: CHEST PAIN EXAMS: CPT CODE: [id number] XR CHEST 1 V 59228 AP VIEWS OF THE CHEST LOCATION: C3 CLINICAL HISTORY: Chest pain. COMPARISON: No previous exam available. FINDINGS: Th e cardiomediastinal shadow is within normal limits. Old poststernotomy ch anges are noted. The lungs are clear. No pleural fluids. Degenerative [place] changes are noted. No acute bony abnormality is found. IMPRESSION: No radiographic evidence of acute cardiopulmonary disease pr ocess. at 2305 Reported and signed by: Antonette Bonds MD CC: Chad Romero NP Technologist: St adri Brunson Trndcrd Date/Time/By: 10/13 (0218) : By: Sun Orig Print D/T: S: 10/13/2017 (4463) PAGE 1 Signed Report NON TUNNELED [id number] 10:09:0421 total fluoroscopic images are submitted for interpretation.WHITESMITH REQUEST FOR [id number] 10:09:0421 total fluoroscopic images are submitted for interpretation.HEPATITIS B CORE ANTIBODY,[id number] 12:53:00* Test Item Value Reference Range Interpretation Comments HEPATITIS B CORE AB TOTAL (test code = [id number]) NON-REACTIVE NON-R EACTIVE TEST PERFORMED AT:[facility] [place] [id number] 1602NATHAN GONZALEZ M.D. HEPATITIS B CORE IgM [id number] 12:53:00* Test Item Value Reference Range Interpretation Comments HEPATITIS B CORE ANTIBODY (IGM) (test code = [id number]) NON-R EACTIVE NON-REACTIVE TEST PERFORMED AT:[facility] [address] [id number] GONZALEZ M.D. HEPATITIS C [id number] 14:19:00* Test Item Value Reference Range Interpretation Comments HCAB (test code = HCAB) REACTIVE NON-REACTIVE A HEPATITIS B SURFACE [id number] 13:47:00* Test Item Value Reference Range Interpretation Comments HBSAG (test code = HBSAG) NON-REACTIVE NON-REACTIVE HEPATITIS B SURFACE [id number] 13:37:00* Test Item Value Reference Range Interpretation Comments HBSAB (test code = HBSAB) REACTIVE REACTIVE GLUCOMETER GLUCOSE- LAB USE [id number] 13:06:00* Test Item Value Reference Range Interpretation Comments GLUCOMETER (test code = GMG) 195 mg/dL 70-100 H Meter ID: [id number]: 4912 MARGARITO VARELA GLUCOMETER GLUCOSE- LAB USE [id number] 05:27:00* Test Item Value Reference Range Interpretation Comments GLUCOMETER (test code = GMG) 109 mg/dL 70-100 H DAILY MAINTENANCECLEANED METERMeter ID: [id number]: 5366 MICHELLE MARES GLUCOMETER GLUCOSE- LAB USE [id number] 20:13:00* Test Item Value Reference Range Interpretation Comments GLUCOMETER (test code = GMG) 116 mg/dL 70-100 H DAILY MAINTENANCECLEANED METERMeter ID: [id number]: 5366 MICHELLE MARES GLUCOMETER GLUCOSE- LAB USE [id number] 15:41:00* Test Item Value Reference Range Interpretation Comments GLUCOMETER (test code = GMG) 171 mg/dL 70-100 H DAILY MAINTENANCECLEANED METERMeter ID: [id number]: 5193 KULDIP IBARREZ GLUCOMETER GLUCOSE- LAB USE [id number] 11:42:00* Test Item Value Reference Range Interpretation Comments GLUCOMETER (test code = GMG) 202 mg/dL 70-100 H DAILY MAINTENANCECLEANED METERMeter ID: [id number]: 5193 KULDIP IBARREZ GLUCOMETER GLUCOSE- LAB USE [id number] 06:08:00* Test Item Value Reference Range Interpretation Comments GLUCOMETER (test code = GMG) 108 mg/dL 70-100 H DAILY MAINTENANCECLEANED METERMeter ID: [id number]: 4736 SCOTT GAVIRIA GLUCOMETER GLUCOSE- LAB USE [id number] 19:49:00* Test Item Value Reference Range Interpretation Comments GLUCOMETER (test code = GMG) 177 mg/dL 70-100 H DAILY MAINTENANCECLEANED METERMeter ID: [id number]: 5366 MICHELLE MARES GLUCOMETER GLUCOSE- LAB USE [id number] 15:48:00* Test Item Value Reference Range Interpretation Comments GLUCOMETER (test code = GMG) 179 mg/dL 70-100 H DAILY MAINTENANCECLEANED METERMeter ID: [id number]: 5193 KULDIP VICTOR HUGORREZ GLUCOMETER GLUCOSE- LAB USE [id number] 11:53:00* Test Item Value Reference Range Interpretation Comments GLUCOMETER (test code = GMG) 143 mg/dL 70-100 H DAILY MAINTENANCECLEANED METERMeter ID: [id number]: 5193 KULDIP IBARREZ GLUCOMETER GLUCOSE- LAB USE [id number] 05:41:00* Test Item Value Reference Range Interpretation Comments GLUCOMETER (test code = GMG) 119 mg/dL 70-100 H Meter ID: [id number]: 4736 SCOTT GAVIRIA GLUCOMETER GLUCOSE- LAB USE [id number] 21:02:00* Test Item Value Reference Range Interpretation Comments GLUCOMETER (test code = GMG) 122 mg/dL 70-100 H Meter ID: [id number]: 4736 SCOTT GAVIRIA GLUCOMETER GLUCOSE- LAB USE [id number] 15:37:00* Test Item Value Reference Range Interpretation Comments GLUCOMETER (test code = GMG) 178 mg/dL 70-100 H DAILY MAINTENANCECLEANED METERMeter ID: [id number]: 5586 ARMANDO LELEKW GLUCOMETER GLUCOSE- LAB USE [id number] 11:55:00* Test Item Value Reference Range Interpretation Comments GLUCOMETER (test code = GMG) 174 mg/dL 70-100 H DAILY MAINTENANCECLEANED METERMeter ID: [id number]: 5586 ARMANDO CHUKW GLUCOMETER GLUCOSE- LAB USE [id number] 06:23:00* Test Item Value Reference Range Interpretation Comments GLUCOMETER (test code = GMG) 143 mg/dL 70-100 H CLEANED METERMeter ID: [id number]: 2417 CHELI HARDIN [facility] METABOLIC [id number] 04:07:00* Test Item Value Reference Range Interpretation Comments GLUCOSE (test code = 06D) 143 mg/dL 75-100 H SODIUM (test code = 01A) 137 mmol/L 136-145 POTASSIUM (test code = 01B) 4.3 mmol/L 3.6-5.1 CHLORIDE (test code = 04A) 103 mmol/L 98-107 CO2 (test code = 02A) 23 mmol/L 22-32 ANION GAP (test code = ANG) 15.3 mmol/L BUN (test code = 05D) 44 mg/dL 7-18 H CREATININE (test code = 03E) 7.2 mg/dL 0.7-1.3 H BUN/CREA R (test code = BCR) 6 12-20 L CALCIUM (test code = 09D) 7.9 mg/dL 8.3-9.5 L BILI TOTAL (test code = 11A) 0.2 mg/dL 0.2-1.0 PROTEIN (test code = 07D) 7.4 g/dL 6.4-8.2 ALBUMIN (test code = 08D) 2.3 g/dL 3.5-4.8 L GLOBULIN (test code = GLB) 5.1 g/dL 1.5-3.8 H ALB/GLOB (test code = AGRR) 0.5 1.0-2.6 L ALK PHOS (test code = 35A) 121 IU/L 42-121 AST (test code = 30A) 20 IU/L <=42 ALT (test code = 31A) 14 IU/L <=78 CBC (INCLUDES AUTOMATED DIFFERENTIAL)2016-12-20 03:54:00* Test Item Value Reference Range Interpretation Comments WBC (test code = WBC) 6.1 10\\S\\3/uL 4.5-11.0 RBC (test code = RBC) 3.13 10\\S\\6/uL 4.20-5.60 L HGB (test code = HBG) 9.1 g/dL 14.0-18.0 L HCT (test code = HCT) 29.8 % 35.0-46.0 L MCV (test code = MCV) 95.2 fL 80.0-94.0 H MCH (test code = MCH) 29.1 pg 27.0-31.0 MCHC (test code = MCHC) 30.5 g/dL 32.0-36.0 L RDW (test code = RDW) 14.6 % 11.5-14.5 H PLT (test code = PLT) 201 10\\S\\3/uL 130-400 MPV (test code = MPV) 10.8 fL 9.4-12.4 NEUTROP # (test code = NE#) 4.2 10\\S\\3/uL 2.0-8.0 LYMPH # (test code = LY#) 1.1 10\\S\\3/uL 1.2-4.0 L MONOCYTE # (test code = MO#) 0.5 10\\S\\3/uL 0.0-1.1 EOSINOPH # (test code = EO#) 0.2 10\\S\\3/uL 0.0-0.7 BASOPHIL # (test code = BA#) 0.0 10\\S\\3/uL 0.0-0.3 IG # (test code = IG#) 0.17 10\\S\\3/uL 0.00-0.06 H NRBC # (test code = NRBC#) 0.02 10\\S\\3/uL 0.00-0.01 H NEUTROPH % (test code = NE%) 67.5 % 35.0-73.0 LYMPH % (test code = LY%) 17.8 % 20.0-55.0 L MONO % (test code = MO%) 8.1 % 2.5-10.0 EOSINOPH % (test code = EO%) 3.3 % 0.0-5.0 BASOPHIL % (test code = BA%) 0.5 % 0.0-2.0 IG % (test code = IG%) 2.8 % 0.0-0.8 H NRBC% (test code = NRBC%) 0.3 % 0.0-0.2 H MANDIFF (test code = MDIFF) NO NO RBC MORPH (test code = RBCMOR) NORMAL GLUCOMETER GLUCOSE- LAB USE [id number] 20:28:00* Test Item Value Reference Range Interpretation Comments GLUCOMETER (test code = GMG) 137 mg/dL 70-100 H CLEANED METERMeter ID: [id number]: 2417 CHELI LASHAWN GLUCOMETER GLUCOSE- LAB USE [id number] 15:34:00* Test Item Value Reference Range Interpretation Comments GLUCOMETER (test code = GMG) 131 mg/dL 70-100 H Meter ID: [id number]: 5226 EDA HERNANDEZ GLUCOMETER GLUCOSE- LAB USE [id number] 11:35:00* Test Item Value Reference Range Interpretation Comments GLUCOMETER (test code = GMG) 165 mg/dL 70-100 H Meter ID: [id number]: 5226 EDA HERNANDEZ GLUCOMETER GLUCOSE- LAB USE [id number] 05:56:00* Test Item Value Reference Range Interpretation Comments GLUCOMETER (test code = GMG) 145 mg/dL 70-100 H Meter ID: [id number]: 4333 JASSON LONG GLUCOMETER GLUCOSE- LAB USE [id number] 20:11:00* Test Item Value Reference Range Interpretation Comments GLUCOMETER (test code = GMG) 173 mg/dL 70-100 H Meter ID: [id number]: 4333 JASSON LONG XR C-ARM>1HR W [id number] 15:57:33FluoroscopyLocation Code: [id number] HISTORY: For AV fistulaComments: Fluoroscopy was provided during AV fistula creation. Approximatelyfluoroscopy time was 3 minutes 32 seconds.IMPRESSION: Fluoroscopy services provided. Please see operative report for fulldetails. GLUCOMETER GLUCOSE- LAB USE [id number] 15:50:00* Test Item Value Reference Range Interpretation Comments GLUCOMETER (test code = GMG) 116 mg/dL 70-100 H Meter ID: [id number]: 5226 EDA HERNANDEZ GLUCOMETER GLUCOSE- LAB USE [id number] 09:42:00* Test Item Value Reference Range Interpretation Comments GLUCOMETER (test code = GMG) 137 mg/dL 70-100 H Meter ID: [id number]: 5331 SANIA ASHOFU GLUCOMETER GLUCOSE- LAB USE [id number] 09:42:00* Test Item Value Reference Range Interpretation Comments GLUCOMETER (test code = GMG) 99 mg/dL 70-100 Meter ID: [id number]: 5331 SANIA ASHOFU GLUCOMETER GLUCOSE- LAB USE [id number] 09:42:00* Test Item Value Reference Range Interpretation Comments GLUCOMETER (test code = GMG) 122 mg/dL 70-100 H CLEANED METERDAILY MAINTENANCEMeter ID: [id number]: 5301 RANDY BANSAL CBC WITH MANUAL [id number] 06:09:00* Test Item Value Reference Range Interpretation Comments WBC (test code = WBC) 8.8 10\\S\\3/uL 4.5-11.0 RBC (test code = RBC) 2.85 10\\S\\6/uL 4.20-5.60 L HGB (test code = HBG) 8.4 g/dL 14.0-18.0 L HCT (test code = HCT) 25.9 % 35.0-46.0 L MCV (test code = MCV) 90.9 fL 80.0-94.0 MCH (test code = MCH) 29.5 pg 27.0-31.0 MCHC (test code = MCHC) 32.4 g/dL 32.0-36.0 RDW (test code = RDW) 14.9 % 11.5-14.5 H PLT (test code = PLT) 195 10\\S\\3/uL 130-400 MPV (test code = MPV) 10.3 fL 9.4-12.4 NEUTROP # (test code = NE#) 6.6 10\\S\\3/uL 2.0-8.0 LYMPH # (test code = LY#) 1.2 10\\S\\3/uL 1.2-4.0 MONOCYTE # (test code = MO#) 0.7 10\\S\\3/uL 0.0-1.1 EOSINOPH # (test code = EO#) 0.2 10\\S\\3/uL 0.0-0.7 BASOPHIL # (test code = BA#) 0.0 10\\S\\3/uL 0.0-0.3 IG # (test code = IG#) 0.09 10\\S\\3/uL 0.00-0.06 H NRBC # (test code = NRBC#) 0.00 10\\S\\3/uL 0.00-0.01 NEUTROPH % (test code = NE%) 75.2 % 35.0-73.0 H LYMPH % (test code = LY%) 13.3 % 20.0-55.0 L MONO % (test code = MO%) 8.3 % 2.5-10.0 EOSINOPH % (test code = EO%) 1.9 % 0.0-5.0 BASOPHIL % (test code = BA%) 0.3 % 0.0-2.0 IG % (test code = IG%) 1.0 % 0.0-0.8 H NRBC% (test code = NRBC%) 0.0 % 0.0-0.2 MAN DIFF (test code = HMDIFF) MANUAL DIFFERENTIAL SEG (test code = SEG) 78 % 42-75 H BAND (test code = BAND) 0 % 0-8 LYMPH (test code = LYMPH) 13 % 20-51 L MONO (test code = MONO) 6 % 3-11 EOS (test code = EOS) 3 % <=10 BASO (test code = BASO) 0 % 0-2 RBC MORPH (test code = RBCMORN) NORMAL NORMAL PLT EST (test code = PLTEST) ADEQUATE ADEQUATE PLT MORPH (test code = PLTMOR) NORMAL (1.5-3 um) NORMAL BASIC METABOLIC [id number] 05:52:00* Test Item Value Reference Range Interpretation Comments GLUCOSE (test code = 06D) 106 mg/dL 75-100 H SODIUM (test code = 01A) 136 mmol/L 136-145 POTASSIUM (test code = 01B) 4.7 mmol/L 3.6-5.1 CHLORIDE (test code = 04A) 103 mmol/L 98-107 CO2 (test code = 02A) 18 mmol/L 22-32 L ANION GAP (test code = ANG) 19.7 mmol/L BUN (test code = 05D) 89 mg/dL 7-18 H CREATININE (test code = 03E) 11.3 mg/dL 0.7-1.3 H BUN/CREA R (test code = BCR) 8 12-20 L CALCIUM (test code = 09D) 7.6 mg/dL 8.3-9.5 L PRO TIME AND [id number] 05:48:00* Test Item Value Reference Range Interpretation Comments PT (test code = TT) 13.3 s 9.8-13.6 INR (test code = INR) 1.2 INRH (test code = INRH) SUGGESTED THERAPEU TIC RANGE FOR INR: 2.5 - 3.5 For Patients with Prosthetic Valves or Patients with recurrent Thromboembolic Events 2.0 - 3.0 For Most Other Applications PTT (test code = PTT) 39.4 s 20.2-38.0 H PTTH (test code = PTTH) To monitor the effectiv eness of heparin, we offer the Anti-Xa (Heparin Assay). It can be used for either unfractinated or LMW Heparin. Order Code is ANTI-XA U/S VENOUS FLOW DOPPLER [facility]2017-02-07 19:23:27Venous Doppler ultrasound bilateral upper extremitiesIndication: Deep venous thr ombosis.Comparison: None available.Location B2 Findings:Right upper extremity: S ubclavian, axilla, brachial, basilic, cephalic, mediancubital, radial and ulnar veins are patent, demonstrating flow andcompressibility where applicable. Normal spectral analysis. Echogenic materialin the right jugular vein, with limited co mpressibility, consistent withthrombus.Left upper extremity: Subclavian, axillar y, cephalic, median cubital, radialand ulnar veins are patent and compressible, with normal spectral analysis.Flow is present in the left brachial vein, with pa rtial compressibility,consistent with partial thrombosis. 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.GLUCOMETER GLUCOSE- LAB USE [id number] 13:09:00* Test Item Value Reference Range Interpretation Comments GLUCOMETER (test code = GMG) 240 mg/dL 70-100 H Meter ID: [id number]: 5686 JANWebaloS GLUCOMETER GLUCOSE- LAB USE [id number] 13:08:00* Test Item Value Reference Range Interpretation Comments GLUCOMETER (test code = GMG) 90 mg/dL 70-100 Meter ID: [id number]: 5686 JAN GASTELUM GLUCOMETER GLUCOSE- LAB USE [id number] 13:02:00* Test Item Value Reference Range Interpretation Comments GLUCOMETER (test code = GMG) 184 mg/dL 70-100 H CLEANED METERDAILY MAINTENANCEMeter ID: [id number]: 5301 RANDY EVULUKWU [id number] 10:59:00* Test Item Value Reference Range Interpretation Comments MAGNESIUM (test code = 48A) 1.9 mg/dL 1.8-2.4 PHOSPHORUS (P04)2016-12-17 10:59:00* Test Item Value Reference Range Interpretation Comments PHOSPHORUS (test code = 43D) 8.1 mg/dL 2.7-4.6 H BASIC METABOLIC [id number] 10:59:00* Test Item Value Reference Range Interpretation Comments GLUCOSE (test code = 06D) 87 mg/dL 75-100 SODIUM (test code = 01A) 135 mmol/L 136-145 L POTASSIUM (test code = 01B) 4.9 mmol/L 3.6-5.1 CHLORIDE (test code = 04A) 104 mmol/L 98-107 CO2 (test code = 02A) 16 mmol/L 22-32 L ANION GAP (test code = ANG) 19.9 mmol/L BUN (test code = 05D) 83 mg/dL 7-18 H CREATININE (test code = 03E) 11.0 mg/dL 0.7-1.3 H BUN/CREA R (test code = BCR) 8 12-20 L CALCIUM (test code = 09D) 7.0 mg/dL 8.3-9.5 L GLUCOMETER GLUCOSE- LAB USE [id number] 15:17:00* Test Item Value Reference Range Interpretation Comments GLUCOMETER (test code = GMG) 101 mg/dL 70-100 H CLEANED METERDAILY MAINTENANCEMeter ID: [id number]: 5301 RANDY PERKINSU GLUCOMETER GLUCOSE- LAB USE [id number] 11:22:00* Test Item Value Reference Range Interpretation Comments GLUCOMETER (test code = GMG) 188 mg/dL 70-100 H CLEANED METERDAILY MAINTENANCEMeter ID: [id number]: 5301 RANDY BANSAL [address]--GKXN PATH LEVEL 1 (GROSS ONLY)2016-12-16 08:31:00 RUN DATE: 12/16/16 [facility] LAB*Kayley mejía* PAGE 1 RUN TIME: 830 Specimen Inqu iry PATIENT: AMOR COMBS ACC T: [id number] LOC: [facility] U: [id number] AGE/SX: 46/M ROOM: [facility] RE12/12/16REG DR: Aaron Campos MD : 1970 BED: A DIS: 12/14/16 STATUS: DIS Florina TLOC: SP EC : 17:IS216 RECD: 12/13/16-1300 STATUS: ETHANRoger ONELIA NUM: [id number] MATTHEW: 12/13/16- SUBM DR: Vaughn Ambrose MD ENTERED: 12/13/16-1339 SP TYPE: INPATIENT OT DR: ORDERED: [id number](2020) CODES: FOREIGN BODY. PROCEDURES: 64843(2020) (0 12/13/16-1339) TISSUES: FOREIGN BODY. - HEMOSPLIT CATHETER CLIN ICAL HISTORY Pre-op Diagnosis: Renal failure, non-functioning hemosplit ca theter.Post-op Diagnosis: Not stated. DIAGNOSIS Specimen designat ed "hemosplit catheter ID only", removal of: - Catheter identified (gross onl y) CPT 06956 GROSS DESCRIPTION The case is received in one part, labeled with the patient's name "Amor Combs" andaccession #[id number] accompanied by a requisition slip labeled with the patient's name andthe same accession number. The specimen is received fresh, labeled "hemosplit catheter ID only" and consi sts of adouble-lumen catheter measuring 40 cm in length. [facility] identification[facility]. (ASW) MICROSCOPIC DESCRIPTION No sections. -- Signed (signature on file) Rhonda Vick MD 12/16/16 083 1 END OF REPORT BASIC METABOLIC [id number] 07:11:00* Test Item Value Reference Range Interpretation Comments GLUCOSE (test code = 06D) 117 mg/dL 75-100 H SODIUM (test code = 01A) 138 mmol/L 136-145 POTASSIUM (test code = 01B) 4.8 mmol/L 3.6-5.1 CHLORIDE (test code = 04A) 104 mmol/L 98-107 CO2 (test code = 02A) 18 mmol/L 22-32 L ANION GAP (test code = ANG) 20.8 mmol/L BUN (test code = 05D) 80 mg/dL 7-18 H CREATININE (test code = 03E) 11.2 mg/dL 0.7-1.3 H BUN/CREA R (test code = BCR) 7 12-20 L CALCIUM (test code = 09D) 7.3 mg/dL 8.3-9.5 L GLUCOMETER GLUCOSE- LAB USE [id number] 05:40:00* Test Item Value Reference Range Interpretation Comments GLUCOMETER (test code = GMG) 131 mg/dL 70-100 H CLEANED METERMeter ID: [id number]: 2417 avocarrot GLUCOMETER GLUCOSE- LAB USE [id number] 20:31:00* Test Item Value Reference Range Interpretation Comments GLUCOMETER (test code = GMG) 96 mg/dL 70-100 CLEANED METERMeter ID: [id number]: 2417 CHELITrempstar TacticalLASHAWN GLUCOMETER GLUCOSE- LAB USE [id number] 16:16:00* Test Item Value Reference Range Interpretation Comments GLUCOMETER (test code = GMG) 100 mg/dL 70-100 Meter ID: [id number]: 4912 MARGARITO VARELA BASIC METABOLIC [id number] 13:58:00* Test Item Value Reference Range Interpretation Comments GLUCOSE (test code = 06D) 149 mg/dL 75-100 H SODIUM (test code = 01A) 136 mmol/L 136-145 POTASSIUM (test code = 01B) 4.5 mmol/L 3.6-5.1 CHLORIDE (test code = 04A) 104 mmol/L 98-107 CO2 (test code = 02A) 20 mmol/L 22-32 L ANION GAP (test code = ANG) 16.5 mmol/L BUN (test code = 05D) 76 mg/dL 7-18 H CREATININE (test code = 03E) 11.1 mg/dL 0.7-1.3 H BUN/CREA R (test code = BCR) 7 12-20 L CALCIUM (test code = 09D) 7.1 mg/dL 8.3-9.5 L GLUCOMETER GLUCOSE- LAB USE [id number] 11:56:00* Test Item Value Reference Range Interpretation Comments GLUCOMETER (test code = GMG) 194 mg/dL 70-100 H Meter ID: [id number]: 4912 MARGARITO VARELA Glucose blood [id number] 08:10:00* Test Item Value Reference Range Interpretation Comments Glucose blood fingerstick (test code = CRX0410) 141 mg/dL 65-120 [place] [id number] 07:40:00>100,000 CFU/ML.^>100,000 CFU/ML.^LUrine culture 2016-12-15 07:40:00* Test Item Value Reference Range Interpretation Comments Urine culture (test code = 630-4) MIXED STANISLAV. Urine culture (test code = 630-42) Urine culture (test code = 630-43) 2+ GRAM NEGATIVE RODS. Urine culture (test code = 630-44) PROTEUS MIRABILIS Urine culture (test code = 630-4) Proteus mirabilis Trimethoprim/sulfamethoxazole susceptibi lity test by minimum inhibitory concentration (test code = 516-5) R Tetracycline susceptibility test by mini mum inhibitory concentration (test code = 496-0) R Nitrofurantoin susceptibility test by mi nimum inhibitory concentration (test code = 363-2) R Amoxicillin/clavulanate susceptibility t est by minimum inhibitory concentration (test code = 20-8) S Gentamycin susceptibility test by minimu m inhibitory concentration (test code = 267-5) S Ampicillin susceptibility test by minimu m inhibitory concentration (test code = 28-1) S Cefazolin susceptibility test by minimum inhibitory concentration (test code = 76-0) S Cephalothin susceptibility test by minim um inhibitory concentration (test code = 161-0) S Cefoxitin susceptibility test by minimum inhibitory concentration (test code = 116-4) S Cefotaxime susceptibility test by minimu m inhibitory concentration (test code = 108-1) S Cefuroxime susceptibility test by minimu m inhibitory concentration (test code = 22281-2) S Cefotetan susceptibility test by minimum inhibitory concentration (test code = 112-3) S Levofloxacin susceptibility test by mini mum inhibitory concentration (test code = 20926-2) I Ceftriaxone susceptibility test by minim um inhibitory concentration (test code = 141-2) S Ampicillin/sulbactam susceptibility test by minimum inhibitory concentration (test code = 32-3) S Aztreonam susceptibility test by minimum inhibitory concentration (test code = 44-8) S Ceftazidime susceptibility test by minim um inhibitory concentration (test code = 133-9) S Ticarcillin/clavulanate susceptibility t est by minimum inhibitory concentration (test code = 504-1) S Tobramycin susceptibility test by minimu m inhibitory concentration (test code = 508-2) S Piperacillin/tazobactam susceptibility t est by minimum inhibitory concentration (test code = 412-7) S Cefepime susceptibility test by minimum inhibitory concentration (test code = 6644-9) S Ciprofloxacin susceptibility test by min imum inhibitory concentration (test code = 185-9) R Meropenem susc BECKY (test code = 6652-2) S Amikacin susceptibility test by minimum inhibitory concentration (test code = 12-5) S U/S [id number] 07:36:26NON-TUNNELED CENTRAL VENOUS CATHETER PLACEMENT USING ULTRASOUND ANDFLUOROSCOPIC GUIDANCE. LOCATION CODE: B2.CLINICAL HISTORY: End-stage renal disease with recent removal ofmalfunctioning right chest wall dialysis catheter at outside hospital.FLUOROSCOPY TIME: 0.38 minutes with a total of 575 frames.TECHNIQUE: The risks, benefits and alternatives were discussed and informedconsent was obtained. Prior to beginning the procedure, [place] Protocol wasused to confirm the patient's identity [...] BLOOD LOSS: less than 30 milliliters.DISCHARGED TO: I npatient unit.CONDITION: Stable.FINDINGS:Ultrasound images demonstrate a patent left external jugular vein. The leftinternal jugular vein is occluded.Final fluo roscopic image demonstrates the catheter with its tip in the distalSVC.IMPRESSIO N: Successful non-tunneled Trialysis catheter placement via the left externaljug ular vein. The left internal jugular vein is occluded.PLAN:The catheter is read y for immediate use. After treatment is completed, [facility] standard [facility] protocol.XR NON TUNNELED [id number] 07:36:26 NON-TUNNELED CENTRAL VENOUS CATHETER PLACEMENT USING ULTRASOUND ANDFLUOROSCOPIC GUIDANCE. LOCATION CODE: B2.CLINICAL HISTORY: End-stage renal disease with rece nt removal ofmalfunctioning right chest wall dialysis catheter at outside hospit al.FLUOROSCOPY TIME: 0.38 minutes with a total of 575 frames.TECHNIQUE: The risk s, benefits and alternatives were discussed and informedconsent was obtained. P rior to beginning the procedure, [place] Protocol wasused to confirm the patie nt's identity and planned procedure. Fluoroscopy timehas been recorded in the [facility]. Maximum sterile barriersincluding cap, mask, hand hygi catherine, sterile gloves, sterile gown, large steriledrape and cutaneous antisepsis w ere used. SITE: The skin over the left external jugular vein was sterilely pre pped,draped and infiltrated with lidocaine.Prior to the procedure, the target ve ssel was evaluated by ultrasound. An imageof the patent vessel was recorded at d ictated to PACS. After sterile prep, thisvessel was accessed using realtime ultr asound guidance. A guidewire andcatheter were then passed centrally using fluor oscopic guidance.After dilating the tract, a Trialysis catheter was inserted ove r the guidewire. The catheter was flushed and secured in place. A sterile dress ing wasapplied. ESTIMATED BLOOD LOSS: less than 30 milliliters.DISCHARGED TO: I npatient unit.CONDITION: Stable.FINDINGS:Ultrasound images demonstrate a patent left external jugular vein. The leftinternal jugular vein is occluded.Final fluo roscopic image demonstrates the catheter with its tip in the distalSVC.IMPRESSIO N: Successful non-tunneled Trialysis catheter placement via the left externaljug ular vein. The left internal jugular vein is occluded.PLAN:The catheter is read y for immediate use. After treatment is completed, [facility]can be performed at [facility] using standard [facility] protocol.GLUCOMETER GLUCOSE- LAB USE ONLY 2016-12-15 05:51:00* Test Item Value Reference Range Interpretation Comments GLUCOMETER (test code = GMG) 198 mg/dL 70-100 H CLEANED METERMeter ID: [id number]: 3934 [facility] Glucose blood [id number] 01:18:00* Test Item Value Reference Range Interpretation Comments Glucose blood fingerstick (test code = GYO8137) 95 mg/dL 65-120 HEPATITIS B SURFACE [id number] 21:27:00* Test Item Value Reference Range Interpretation Comments HBSAB (test code = HBSAB) REACTIVE REACTIVE GLUCOMETER GLUCOSE- LAB USE [id number] 20:46:00* Test Item Value Reference Range Interpretation Comments GLUCOMETER (test code = GMG) 113 mg/dL 70-100 H CLEANED METERMeter ID: [id number]: 2417 CHELI HARDIN HEPATITIS B SURFACE [id number] 19:53:00* Test Item Value Reference Range Interpretation Comments HBSAG (test code = HBSAG) NON-REACTIVE NON-REACTIVE GLUCOMETER GLUCOSE- LAB USE [id number] 15:55:00* Test Item Value Reference Range Interpretation Comments GLUCOMETER (test code = GMG) 113 mg/dL 70-100 H Meter ID: [id number]: 5226 EDA HERNANDEZ GLUCOMETER GLUCOSE- LAB USE [id number] 11:26:00* Test Item Value Reference Range Interpretation Comments GLUCOMETER (test code = GMG) 154 mg/dL 70-100 H Meter ID: [id number]: 5226 EDA HERNANDEZ CBC WITH MANUAL [id number] 10:10:00* Test Item Value Reference Range Interpretation Comments WBC (test code = WBC) 13.4 10\\S\\3/uL 4.5-11.0 H RBC (test code = RBC) 3.18 10\\S\\6/uL 4.20-5.60 L HGB (test code = HBG) 9.4 g/dL 14.0-18.0 L HCT (test code = HCT) 28.6 % 35.0-46.0 L MCV (test code = MCV) 89.9 fL 80.0-94.0 MCH (test code = MCH) 29.6 pg 27.0-31.0 MCHC (test code = MCHC) 32.9 g/dL 32.0-36.0 RDW (test code = RDW) 14.9 % 11.5-14.5 H PLT (test code = PLT) 166 10\\S\\3/uL 130-400 MPV (test code = MPV) 11.1 fL 9.4-12.4 NEUTROP # (test code = NE#) 11.2 10\\S\\3/uL 2.0-8.0 H LYMPH # (test code = LY#) 1.0 10\\S\\3/uL 1.2-4.0 L MONOCYTE # (test code = MO#) 1.1 10\\S\\3/uL 0.0-1.1 EOSINOPH # (test code = EO#) 0.1 10\\S\\3/uL 0.0-0.7 BASOPHIL # (test code = BA#) 0.0 10\\S\\3/uL 0.0-0.3 IG # (test code = IG#) 0.05 10\\S\\3/uL 0.00-0.06 NRBC # (test code = NRBC#) 0.00 10\\S\\3/uL 0.00-0.01 NEUTROPH % (test code = NE%) 83.9 % 35.0-73.0 H LYMPH % (test code = LY%) 7.3 % 20.0-55.0 L MONO % (test code = MO%) 7.9 % 2.5-10.0 EOSINOPH % (test code = EO%) 0.4 % 0.0-5.0 BASOPHIL % (test code = BA%) 0.1 % 0.0-2.0 IG % (test code = IG%) 0.4 % 0.0-0.8 NRBC% (test code = NRBC%) 0.0 % 0.0-0.2 MAN DIFF (test code = HMDIFF) MANUAL DIFFERENTIAL SEG (test code = SEG) 87 % 42-75 H BAND (test code = BAND) 0 % 0-8 LYMPH (test code = LYMPH) 8 % 20-51 L MONO (test code = MONO) 3 % 3-11 EOS (test code = EOS) 2 % <=10 BASO (test code = BASO) 0 % 0-2 RBC MORPH (test code = RBCMORN) ABNORMAL NORMAL A PLT EST (test code = PLTEST) ADEQUATE ADEQUATE PLT MORPH (test code = PLTMOR) NORMAL (1.5-3 um) NORMAL ANISO (test code = ANISO) 1+ NONE A HYPOCHROM (test code = HYPOC) 1+ NONE A COMPREHENSIVE METABOLIC [id number] 10:04:00* Test Item Value Reference Range Interpretation Comments GLUCOSE (test code = 06D) 180 mg/dL 75-100 H SODIUM (test code = 01A) 136 mmol/L 136-145 POTASSIUM (test code = 01B) 4.9 mmol/L 3.6-5.1 CHLORIDE (test code = 04A) 105 mmol/L 98-107 CO2 (test code = 02A) 19 mmol/L 22-32 L ANION GAP (test code = ANG) 16.9 mmol/L BUN (test code = 05D) 78 mg/dL 7-18 H CREATININE (test code = 03E) 11.6 mg/dL 0.7-1.3 H BUN/CREA R (test code = BCR) 7 12-20 L CALCIUM (test code = 09D) 7.4 mg/dL 8.3-9.5 L BILI TOTAL (test code = 11A) 0.6 mg/dL 0.2-1.0 PROTEIN (test code = 07D) 7.8 g/dL 6.4-8.2 ALBUMIN (test code = 08D) 2.8 g/dL 3.5-4.8 L GLOBULIN (test code = GLB) 5.0 g/dL 1.5-3.8 H ALB/GLOB (test code = AGRR) 0.6 1.0-2.6 L ALK PHOS (test code = 35A) 120 IU/L 42-121 AST (test code = 30A) 19 IU/L <=42 ALT (test code = 31A) 19 IU/L <=78 PRO TIME AND [id number] 09:55:00* Test Item Value Reference Range Interpretation Comments PT (test code = TT) 14.2 s 9.8-13.6 H INR (test code = INR) 1.3 INRH (test code = INRH) SUGGESTED THERAPEU TIC RANGE FOR INR: 2.5 - 3.5 For Patients with Prosthetic Valves or Patients with recurrent Thromboembolic Events 2.0 - 3.0 For Most Other Applications PTT (test code = PTT) 33.3 s 20.2-38.0 PTTH (test code = PTTH) To monitor the effectiv eness of heparin, we offer the Anti-Xa (Heparin Assay). It can be used for either unfractinated or LMW Heparin. Order Code is ANTI-XA GLUCOMETER GLUCOSE- LAB USE [id number] 05:45:00* Test Item Value Reference Range Interpretation Comments GLUCOMETER (test code = GMG) 166 mg/dL 70-100 H Meter ID: [id number]: 4333 JASS[address] LONG Glucose blood iejefcxebbr9287-33-84 01:49:00* Test Item Value Reference Range Interpretation Comments Glucose blood fingerstick (test code = UDE6128) 199 mg/dL 65-120 Glucose blood ufpbftncvxd5165-34-00 01:30:00* Test Item Value Reference Range Interpretation Comments Glucose blood fingerstick (test code = FGC1532) 124 mg/dL 65-120 Glucose blood ecumknewlqy1959-21-78 20:29:00* Test Item Value Reference Range Interpretation Comments Glucose blood fingerstick (test code = MWC5174) 213 mg/dL 65-120 Glucose blood flqvkptfdqc7429-23-22 12:46:00* Test Item Value Reference Range Interpretation Comments Glucose blood fingerstick (test code = DYY6650) 154 mg/dL 65-120 Complete blood count (CBC) with automated white blood cell (WBC) differential 2016-12-13 07:35:00* Test Item Value Reference Range Interpretation Comments White blood cell count (test code = BQX0462) 14.6 4.3-10.9 H Blood erythrocytes count (number/volume) (test code = 32905- 1) 3.50 M/ul 4.33-5.43 L Hemoglobin measurement (test code = IQE4821) 10.0 g/dL 13.6-17.9 L Blood hematocrit (volume fraction) (test code = 88317-3) 31.8 % 39.6-49.0 L MCV (test code = MCV) 90.8 fL 80-100 MCH (test code = 46035-1) 28.7 pg 27.0-35.0 MCHC (test code = MCHC) 31.6 g/dL 32.0-36.0 L Platelets (test code = PLT) 156 152-406 Red Cell Distribution Width (test code = RDW) 16.0 % 12.1-15. 2 H Blood platelet mean volume (test code = 28170-9) 9.4 fL 7.6-1 1.3 Primary Language Nauruan Primary Language EnglishComplete blood count, platelets with manual gfkakpfgxucs3186-66-36 07:35:00* Test Item Value Reference Range Interpretation Comments Segmented Neutrophils (test code = SEG) 88 % 40-80 H Band Neutrophils (test code = BANDS) 1 % 0-1 Lymphocyte count (test code = 59288-3) 9 % 15-42 L Monocytes (test code = MN) 2 % 0-10 Blood morphology interpretation narrative (test code = 54013 -5) NOT SEEN NOT SEEN Primary Language [place] Primary Language EnglishGlucose blood fingerstick 2016-12-13 07:24:00* Test Item Value Reference Range Interpretation Comments Glucose blood fingerstick (test code = HMO5741) 191 mg/dL 65-120 Basic Metabolic [id number] 05:57:00* Test Item Value Reference Range Interpretation Comments Sodium level (test code = IWP1598) 137 meq/L 135-145 4.7 Chloride measurement (test code = MOL7835) 106 meq/L 101-111 Bicarbonate (test code = CO2) 17 meq/L 21-31 L Glucose measurement (test code = ISW9923) 177 mg/dL 65-120 H ADA Clinical Practice Recommendation: <100 mg/dl = Normal Fasting Glucose BUN Bld-mCnc (test code = 6299-2) 75 mg/dL 6-20 H Creatinine measurement (test code = VCS4098) 10.83 mg/dL 0.61-1.24 HH Repeated, Pt history, Broadcast at 0557 by [place] The creatinine method used has been calibrated to be traceable to Isotope dilution Mass Spectrometry (IDMS). For more information: [email or web address].[email or web address].gov Estimated glomerular filtration rate (GFR) determinati on (test code = 73370-0) 5 mL =/>90 L FOR CHRONIC KIDNEY D ISEASE: GFR STAGE DESCRIPTION =/>90 STAGE 1 NORMAL--OR-- MINIMAL KIDNEY DAMAGE WITH NORMAL GFR 60-89 STAGE 2 MILD DECREASE IN GFR 30-59 STAGE 3 MODERATE DECREASE IN GFR 15-29 STAGE 4 SEVERE DECREASE IN GFR <15 STAGE 5 KIDNEY FAILURE The Glomerular Filtration Rate (GFR) has been calculated using the IDMS-Traceable MDRD Study Equation. Calcium Level (test code = CA) 7.2 mg/dL 8.5-10.5 L Primary Language Nauruan Primary Language EnglishJojo Q1824-22-03 22:50:00* Test Item Value Reference Range Interpretation Comments Troponin I (test code = TROP) 0.06 ng/mL <0.03 H Primary Language Nauruan Physician Instructions Edit Troponin Times according to first ED TroponinBasic Metabolic Mymum6568-72-10 21:33:00 * Test Item Value Reference Range Interpretation Comments Sodium level (test code = ZAO5606) 139 meq/L 135-145 5.9Repeated & Called to JAN LUCIO RN on 12/12/16 at 2133 by ODALIS Was there 100% Readback? Y K AND CREA Chloride measurement (test code = KTF4404) 110 meq/L 101-111 Bicarbonate (test code = CO2) 15 meq/L 21-31 L Glucose measurement (test code = VMW6373) 96 mg/dL 65-120 ADA Clinical Practice Recommendation: <100 mg/dl = Normal Fasting Glucose BUN Bld-mCnc (test code = 6299-2) 76 mg/dL 6-20 H Creatinine measurement (test code = BMM5799) 10.58 mg/dL 0.61-1.24 HH The creatinine method used has been calibrated to be traceable to Isotope dilution Mass Spectrometry (IDMS). For more information: www.nkdep.nih.gov Estimated glomerular filtration rate (GFR) determinati on (test code = 81315-0) 5 mL =/>90 L FOR CHRONIC KIDNEY D ISEASE: GFR STAGE DESCRIPTION =/>90 STAGE 1 NORMAL--OR-- MINIMAL KIDNEY DAMAGE WITH NORMAL GFR 60-89 STAGE 2 MILD DECREASE IN GFR 30-59 STAGE 3 MODERATE DECREASE IN GFR 15-29 STAGE 4 SEVERE DECREASE IN GFR <15 STAGE 5 KIDNEY FAILURE The Glomerular Filtration Rate (GFR) has been calculated using the IDMS-Traceable MDRD Study Equation. Calcium Level (test code = CA) 7.5 mg/dL 8.5-10.5 L Primary Language Nauruan Primary Language EnglishGlucose blood fingerstick 2016-12-12 21:08:00* Test Item Value Reference Range Interpretation Comments Glucose blood fingerstick (test code = EYT7296) 102 mg/dL 65-120 Sircsoxjij4346-90-19 19:39:00* Test Item Value Reference Range Interpretation Comments Urine color (test code = 5778-6) YELLOW Urine appearance determination (test code = 5767-9) CLEAR Urine specific gravity measurement (test code = 2965-2) 1.015 1.005-1.030 Urine glucose detection (test code = 2349-9) Negative NEG Urine bilirubin detection (test code = 1977-8) Negative NEG Urine Ketones (test code = UKET) NEGATIVE NEG Urine blood detection (test code = 93434-3) TRACE NEG AA Urine pH (test code = 2756-5) 6.5 5.0-7.0 Urinalysis with microscopy (test code = 46532-2) 3+ NEG AA Urine urobilinogen detection (test code = 32674-4) 0.2 0.2 -1.0 Urine nitrate measurement (test code = 72428-2) NEGATIVE NEG Urine Leukocyte Esterase (test code = UESTR) NEGATIVE NEG Primary Language Nauruan HOW IS URINE COLLECTED? Clean Catch UrineMicroscopic examination of rdpzy3822-70-07 19:39:00* Test Item Value Reference Range Interpretation Comments Urine WBC (test code = UWBC) 5-10 <5 AA Urine sediment erythrocyte count by micr oscopy (number/high power field) (test code = 80285-9) 5 NONE SEEN AA Bacteria detection in urine sediment by light microsco py (test code = 47558-9) <20 NONE SEEN Sqamous Epithelial (test code = SQEP) 10-20 NONE SEEN AA Urinalysis with reflex to culture (test code = 77787-2) REFLEXED Primary Language Nauruan HOW IS URINE COLLECTED? Clean Catch UrineTroponin I 2016-12-12 19:15:00* Test Item Value Reference Range Interpretation Comments Troponin I (test code = TROP) 0.06 ng/mL <0.03 H Primary Language Nauruan Physician Instructions Edit Troponin Times according to first ED TroponinGlucose blood wlujloluhme6643-60-84 18:31:00* Test Item Value Reference Range Interpretation Comments Glucose blood fingerstick (test code = ORZ2312) 92 mg/dL 65-120 Brain natriuretic peptide (BNP) xvqobnnvdim7017-88-27 11:52:00* Test Item Value Reference Range Interpretation Comments Brain natriuretic peptide (BNP) measurement (test code = 309 34-4) 187 pg/mL <=100 H CLOTTED Specimen, recollect request called to EUNICE on 12/12/16 at 1014 by [employer] Print label to LERProthrombin time (PT) with international normalized ratio (INR)2016-12-12 11:36:00* Test Item Value Reference Range Interpretation Comments PT Prothrombin Time (test code = PROTIME) 13.0 s 9.5-12.5 H Prothrombin time (PT) with international normalized ratio (INR) (test code = 06232-9) 1.15 Monitor pts usin g INR value (not prothrombin time) INR Coumadin Therapy: Low Range (prophylaxis) 2.0-3.0 High Range (high risk of clot formation) 2.5-3.5 Test Ordered to Rule Out VTE/DVT? N Specimen recollect requested, called to KALA MONTENEGRO on 12/12/16 at 1014 by [employer] Reason:SHORT DRAW Print label to LER Test Or dered to Rule Out VTE/DVT? N Specimen recollect requested, called to EUNICE on 12/12/16 at 1014 by [employer] Reason:SHORT DRAW Print label to LERPTT, Activated Partial Xokhwf6767-04-40 11:36:00* Test Item Value Reference Range Interpretation Comments PTT, Activated Partial Thromb (test code = PTT) 36.7 s 24.3-3 6.9 Test Ordered to Rule Out VTE/DVT? N Specimen recollect requested, called to KALA MONTENEGRO on 12/12/16 at 1014 by [employer] Reason:SHORT DRAW Print label to LER Test Or dered to Rule Out VTE/DVT? N Specimen recollect requested, called to EUNICE on 12/12/16 at 1014 by [employer] Reason:SHORT DRAW Print label to LERGlucose blood whtazmybonm8332-37-55 11:26:00* Test Item Value Reference Range Interpretation Comments Glucose blood fingerstick (test code = ILO3858) 98 mg/dL 65-120 Complete blood count (CBC) with automated white blood cell (WBC) differential 2016-12-12 11:25:00* Test Item Value Reference Range Interpretation Comments White blood cell count (test code = YAA6675) 13.6 4.3-10.9 H Blood erythrocytes count (number/volume) (test code = 12380- 1) 3.68 M/ul 4.33-5.43 L Hemoglobin measurement (test code = KDG9080) 10.6 g/dL 13.6-17.9 L Blood hematocrit (volume fraction) (test code = 73410-5) 33.6 % 39.6-49.0 L MCV (test code = MCV) 91.4 fL 80-100 MCH (test code = 75320-8) 28.8 pg 27.0-35.0 MCHC (test code = MCHC) 31.5 g/dL 32.0-36.0 L Platelets (test code = PLT) 151 152-406 L Red Cell Distribution Width (test code = RDW) 16.5 % 12.1-15. 2 H Blood platelet mean volume (test code = 70131-1) 9.4 fL 7.6-1 1.3 Neutrophils % (test code = MELONY%) 80.5 % 41.7-73.7 H Lymphocytes/leuk NFr Bld (test code = 69732-0) 9.4 % 15.3-44 .8 L Monocyte percentage (test code = 5905-5) 9.6 % 3.3-12.3 Eosinophil % (test code = 713-8) 0.3 % 0-4.4 Basophil % (test code = 82614-1) 0.2 % 0-1.3 Absolute neutrophil count (test code = 751-8) 10.9 2.3-7.0 H Absolute lymphocyte count (test code = 92622-9) 1.3 0.8-3. 6 Absolute monocyte count (test code = 742-7) 1.3 0.2-0.8 H Absolute Eosinophils (test code = EOA) 0.0 0-0.4 Absolute Basophils (test code = BASA) 0.0 0-0.1 CLOTTED Specimen, recollect request called to EUNICE on 12/12/16 at 1014 by [employer] Print label to [facility] CLOTTED Specimen, recollect request called to EUNICE ramirez 12/12/16 at 1014 by [employer] [facility] Metabolic Bxcqq7207-91-43 10:41:00* Test Item Value Reference Range Interpretation Comments Sodium level (test code = XXM2768) 136 meq/L 135-145 5.2 Chloride measurement (test code = PJH5517) 105 meq/L 101-111 Bicarbonate (test code = CO2) 20 meq/L 21-31 L Glucose measurement (test code = SVW6525) 88 mg/dL 65-120 ADA Clinical Practice Recommendation: <100 mg/dl = Normal Fasting Glucose BUN Bld-mCnc (test code = 6299-2) 68 mg/dL 6-20 H Creatinine measurement (test code = EIL8467) 10.24 mg/dL 0.61-1.24 HH Repeated & Called to NAZARIO GRANADOSP on 12/12/16 at 1039 by [facility] Was there 100% Readback? Y The creatinine method used has been calibrated to be traceable to Isotope dilution Mass Spectrometry (IDMS). For more information: www.nkdep.nih.gov Estimated glomerular filtration rate (GFR) determinati on (test code = 11755-3) 5 mL =/>90 L FOR CHRONIC KIDNEY D ISEASE: GFR STAGE DESCRIPTION =/>90 STAGE 1 NORMAL--OR-- MINIMAL KIDNEY DAMAGE WITH NORMAL GFR 60-89 STAGE 2 MILD DECREASE IN GFR 30-59 STAGE 3 MODERATE DECREASE IN GFR 15-29 STAGE 4 SEVERE DECREASE IN GFR <15 STAGE 5 KIDNEY FAILURE The Glomerular Filtration Rate (GFR) has been calculated using the IDMS-Traceable MDRD Study Equation. Calcium Level (test code = CA) 7.0 mg/dL 8.5-10.5 L Liver (Hepatic) Yqqyxvgd8706-11-40 10:41:00* Test Item Value Reference Range Interpretation Comments Aspartate aminotransferase (AST) measurement (test code = IM O0002) 20 [iU]/L 10-42 ALT/SGPT (test code = SGPT) 19 [iU]/L 10-60 Alkaline Phosphatase (test code = ALK) 121 [iU]/L 42-121 Bilirubin total (test code = TMG0025) 0.5 mg/dL 0.3-1.2 Bilirubin direct (test code = 1968-7) 0.1 mg/dL 0-0.2 Serum total protein measurement (test code = 2885-2) 7.3 g/dL 6 .0-8.3 Albumin measurement (test code = OEQ6373) 3.5 g/dL 3.2-5.5 Globulin (test code = GLOB) 3.8 g/dL 2.3-3.5 H Albumin/Globulin Ratio (test code = A/G) 0.9 1.1-1.8 L Creatine Wlupjxoqnxtqd9639-38-32 10:41:00* Test Item Value Reference Range Interpretation Comments Creatine Phosphokinase (test code = CPK) 273 [iU]/L 22-269 H CKMB Creatine Kinase XK7675-68-90 10:41:00* Test Item Value Reference Range Interpretation Comments CKMB Creatine Kinase MB (test code = CKMB) 3.0 ng/mL 0.3-4.0 Magnesium mpuvjtyrysq9736-59-81 10:41:00* Test Item Value Reference Range Interpretation Comments Magnesium measurement (test code = 90407-0) 1.7 mg/dL 1.8-2.5 L Troponin (Emerg Dept Use Only)2016-12-12 10:26:00* Test Item Value Reference Range Interpretation Comments Troponin (Emerg Dept Use Only) (test code = TROPED) 0.06 ng/mL <0 .03 H Comment Bed:8 Test Ordered to Rule Out VTE/DVT? NAerobic bacterial blood culture 2016-12-06 11:22:00Comment Bed:5 Only Aerobic Pediatric Blood Culture Bottle ReceivedNo growth in 5 days.^No growth in 5 days.^LBlood anaerobic culture 2016-12-06 11:22:00Comment Bed:5 Only Aerobic Pediatric Blood Culture Bottle ReceivedNot Done^Not Done^L^NDSerum hepatitis B virus surface antigen detection 2016-12-04 23:25:00* Test Item Value Reference Range Interpretation Comments Serum hepatitis B virus surface antigen detection (agustina t code = 5195-3) Nonreactive Nonreactive Confirmatory hepatitis B virus surface antigen assay ( test code = 44757-4) REPORT Not required accordi ng to the current package insert. Primary Language EnglishHepatitis B Core Ab, Ayikj5472-01-23 23:25:00* Test Item Value Reference Range Interpretation Comments Hepatitis B Core Total Ab (test code = HEPBCOR1) Nonreactive Nonre active Hepatitis B virus core IgM antibody assay (test code = 12295-1) Not indicated Primary Language EnglishHepatitis B Surface Oeotdsed1098-23-72 23:25:00* Test Item Value Reference Range Interpretation Comments Hepatitis B Surface Antibody (test code = HEPBAB) Reactive Nonr eactive AA This test is not indicated for determination of immunity post-vaccination. To determine immune status, please order Hepatitis B Surface Antibody, Quantitative. Effective March 21, 2014 this test is being performed using the [employer] Chemiluminesence method. Primary Language EnglishQuantitative hepatitis B virus surface antibody assay 2016-12-04 23:25:00* Test Item Value Reference Range Interpretation Comments Quantitative hepatitis B virus surface antibody assay (test code = 55002-9) 21 [iU]/L >=10 PATIENT HAS IMMUNITY TO HEPATITIS B VIRUS. For more information on this test, go to: [email or web address] Primary Language EnglishGlucose blood qrgiigyhkcj7828-41-45 11:56:00* Test Item Value Reference Range Interpretation Comments Glucose blood fingerstick (test code = GMM1731) 172 mg/dL 65-120 Glucose blood jcseaolekuy8904-51-55 07:51:00* Test Item Value Reference Range Interpretation Comments Glucose blood fingerstick (test code = RQS2395) 102 mg/dL 65-120 Glucose blood yxhmhffknqn0271-47-93 21:06:00* Test Item Value Reference Range Interpretation Comments Glucose blood fingerstick (test code = VVL5978) 127 mg/dL 65-120 Glucose blood bwzpzwgowey0533-90-38 16:31:00* Test Item Value Reference Range Interpretation Comments Glucose blood fingerstick (test code = XRD2666) 161 mg/dL 65-120 Glucose blood tsxoxgjdihs5016-56-20 11:33:00* Test Item Value Reference Range Interpretation Comments Glucose blood fingerstick (test code = ARM2607) 149 mg/dL 65-120 US GUIDANCE FOR VASCULAR ACCES [place] [address] Patient Name: AMOR COMBS MR #: [id number] : 1970 Age/Sex: 47/M Req #: [id number] Adm Physician: Ordered by: MAHENDRA PORTILLO MD Report #: [id number] Location: [facility] Room/Bed: Procedure: [id number] US/US GUIDANCE FOR VASCU LAR ACCES Exam Date: 01/16/18 Exam Time: 1237 REPORT STATUS: Signed Date and Time: 01/16/2018 Procedure: 1. Thoracic ve nogram 2. 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 Blood pressure was monitored at 5 minute intervals. Additional Medications: Lidocaine 1% for local anest hesia Fluoroscopy time: 4.6 minutes Dose-area Product: 4989 cGycm2. Co ntrast used: 40 cc Omnipaque 300 Estimated blood loss: Less than 10 cc Speci mens: None Implants: 7 Romanian, 20 cm triple-lumen central venous catheter DISCUSSION: Informed consent for the procedure was obtained from the pa tiekendra and documented in the medical record. The patient was placed in the supine position on the angiographic table. 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 A patent right external jugula r vein was identified and the right lower cervical region was then prepped and draped in the standard sterile fashion. 1% lidocaine was infiltrated into the skin and subcutaneous tissues for local anesthesia. Then under continuou s sonographic guidance, a 21-gauge micropuncture needle was used to access the right external jugular vein. A permanent sonographic image was stored in the medical record. A 0.0 1 8-in. wire was then advanced centrally to the level of the clavicular head, at which point resistance to further advancement was enc ountered. The needle was removed and a 5 Romanian micropuncture sheath was advan argelia over the wire. The wire was removed. Thoracic venography was performed. Se e findings below. The micropuncture sheath was then removed and hemostasis was achieved with manual compression. Attention was then [facility] which was prepped and draped in the standard sterile fashion. Sonogr aphic evaluation confirmed partial compressibility of the right common femoral vein. 1% lidocaine was infiltrated into the skin and subcutaneous tissues for local anesthesia. Then under continuous sonographic guidance, a 21-gauge micr opuncture needle was used to access the right common femoral vein. A permanent sonographic image was stored in the medical record. A 0.0 1 8-in. wire was ad vanced centrally under fluoroscopic guidance. The needle was exchanged for a 5 Romanian micropuncture sheath and the wire upsized to a 0.0 3 5-in. Glidewire a dvantage which was advanced centrally into the inferior vena cava. The micropu ncture sheath was removed and the tract was dilated. Then a 7 Romanian, 20 cm tr iple-lumen central venous catheter was advanced over the wire to full depth. T he catheter tip was positioned in the peripheral aspect of the right common il iac vein. Each lumen was tested and showed adequate bidirectional flow. The ca theter was then flushed with sterile saline, secured to the skin with monofila ment nylon suture, and covered by a sterile dressing. The patient tolerated th e procedure well without immediate complication. Findings: 1. 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 2. Chronically occluded left internal jugular vein, as assessed by sonography. 3. Thoracic venography confirms chronic occlusion of the right and left b rachiocephalic veins, as well as the superior vena cava, with retrograde flow into a hypertrophic azygos venous system as well as throughout multiple parave rtebral and mediastinal collaterals. 4. Partially occluded right common fem oral vein. 5. Short segment stenosis of the right external iliac vein is llamas spected based on difficulty in guidewire traversal of this segment. 6. Ab ove findings are related to placement/exchange/removal of multiple prior large caliber hemodialysis catheters. IMPRESSION: 1. Successfu l thoracic venography. 2. Successful placement of a 7 Romanian, 20 cm trip le-lumen central venous catheter by a right common femoral approach. Signed by: Dr. Mahendra Portillo M.D. on 01/19/2018 7:35 AM Dictated By: Jaron PORTILLO MD 13 Tr anscribed By: PRIYANKA on 01/19/181313 COPY TO: MAHENDRA PORTILLO MD SPECIAL PROCEDURE IN [facility] [place] [address] Patient Name: AMOR COMBS MR #: [id number] : 1970 Age/Sex: 47/M Req #: [id number] Adm Physician: Ordered by: MAHENDRA GARCÍA MD Report #: [id number] Location: [facility] Room/Bed: Procedure: [id number] IR/SPECIAL PROCEDURE IN [facility] Exam Date: Exam Time: REPORT STATUS: Signed Date and Time: 01/16/2018 Procedure: 1. Thoracic venogram 2. 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 Blood pressure was monitored at 5 minute int ervals. Additional Medications: Lidocaine 1% for local anesthesia Fluoros copy time: 4.6 minutes Dose-area Product: 4989 cGycm2. Contrast used: 40 cc Omnipaque 300 Estimated blood loss: Less than 10 cc Specimens: None Im plants: 7 Romanian, 20 cm triple-lumen central venous catheter DISCUSSION: Informed consent for the procedure was obtained from the patient and docum ented in the medical record. The patient was placed in the supine positio n on the angiographic table. Preliminary sonographic evaluation of the right a nd left cervical regions confirm chronic occlusion of the right internal and l eft internal jugular veins. A patent right external jugular vein was iden tified and the right lower cervical region was then prepped and draped in the standard sterile fashion. 1% lidocaine was infiltrated into the skin and subcu taneous tissues for local anesthesia. Then under continuous sonographic g uidance, a 21-gauge micropuncture needle was used to access the right external jugular vein. A permanent sonographic image was stored in the medical record. A 0.0 1 8-in. wire was then advanced centrally to the level of the clavicular head, at which point resistance to further advancement was encountered. The n eedle was removed and a 5 Romanian micropuncture sheath was advanced over the wi re. The wire was removed. Thoracic venography was performed. See findings belo w. The micropuncture sheath was then removed and hemostasis was achieved wi th manual compression. Attention was then turned to the right groin which was prepped and draped in the standard sterile fashion. Sonographic evaluatio n confirmed partial compressibility of the right common femoral vein. 1% lidoc shruti was infiltrated into the skin and subcutaneous tissues for local anesthes ia. Then under continuous sonographic guidance, a 21-gauge micropuncture needl e was used to access the right common femoral vein. A permanent sonographic im age was stored in the medical record. A 0.0 1 8-in. wire was advanced centrall y under fluoroscopic guidance. The needle was exchanged for a 5 Romanian micropu ncture sheath and the wire upsized to a 0.0 3 5-in. Glidewire advantage which was advanced centrally into the inferior vena cava. The micropuncture sheath w as removed and the tract was dilated. Then a 7 Romanian, 20 cm triple-lumen cent ral venous catheter was advanced over the wire to full depth. The catheter tip was positioned in the peripheral aspect of the right common iliac vein. Each lumen was tested and showed adequate bidirectional flow. The catheter was then flushed with sterile saline, secured to the skin with monofilament nylon llamas ture, and covered by a sterile dressing. The patient tolerated the procedure w ell without immediate complication. Findings: 1. Chronically occlud ed right internal jugular vein as assessed by sonography. 2. Chronically occluded left internal jugular vein, as assessed by sonography. 3. Thoraci c venography confirms chronic occlusion of the right and left brachiocephalic veins, as well as the superior vena cava, with retrograde flow into a hypertro phic azygos venous system as well as throughout multiple paravertebral and med iastinal collaterals. 4. Partially occluded right common femoral vein. 5. Short segment stenosis of the right external iliac vein is suspected based on difficulty in guidewire traversal of this segment. 6. Above findings ar e related to placement/exchange/removal of multiple prior large caliber hemodi alysis catheters. IMPRESSION: 1. Successful thoracic veno graphy. 2. Successful placement of a 7 Romanian, 20 cm triple-lumen centra l venous catheter by a right common femoral approach. Signed by: Jaron Portillo M.D. on 01/19/2018 7:35 AM Dictated By: MAHENDRA PORTILLO MD 1314 Transcribed By: Stanley WALTON on 01/19/18 1314 COPY TO: MAHENDRA GARCÍA MD CHEST SINGLE (PORTABLE) [place] [address] Patient Name: AMOR COMBS MR #: [id number] : 1970 Age/Sex: 47/M Req #: [id number] Adm Physician: KONRAD HUGHES MD Ordered by: TRISTIN WESTON MD Report #: [id number] Location: [facility] Room/Bed: [facility] Procedure: [id number] DX/CHES T SINGLE (PORTABLE) Exam Date: 06/20/17 Exam Time: 1 510 REPORT STATUS: Signed PROCEDURE: CHEST SINGLE (PORTABLE) CO MPARISON: Chest x-ray 02/23 INDICATIONS: CHEST PAIN FINDINGS: The cardiomediastinal silhouette is normal. Median sternotomy wires are int act and stable. No hilar lymphadenopathy. The pulmonary vascular markings are normal. The lungs are free of infiltrates. The costophrenic angles are sharp . The osseous structures are intact. A bone island or calcified granuloma ove r the left second rib is stable. CONCLUSION: No active diseas e. Stable chest. Dictated by: Jennifer Buckley M.D. on 06/20/2017 at 1 5:47 Electronically approved by: Jennifer Buckley M.D. on 06/20/2017 at 15:47 Dictated By: JENNIFER BUCKLEY MD 1547 Transcribed By: CLAYTON on 06/20/17 154 7 COPY TO: TRISTIN WESTON MD
--- OUTSIDE RECORDS SUMMARY | 2020-04-15 16:03 | XMS REPORT | Summary of Care ---
Author Author [facility] Organization [facility] Address Unknown Phone Unavailable Care Team Providers Care Cattle Brander Name Role Phone PCP Unavailable Reason for Visit * Reason Comments Post-op Follow-up Encounter Details Care Team Description Date Type Department Demetrio Chicas NP [address] [facility] [address] [place] [address] Post-op Follow-up 08/26/2019 Office Visit [facility] Vascular Surgery [address] [place] [address] [place] [phone] Allergies Comments Active Allergy Reactions Severity Noted Date Hydromorphone 12/25/2018 Morphine Itching, 05/19/2019 Shortness Of Breath documented as of this encounter (statuses as of 09/03/2019) Medications End Date Status Medication Sig Dispensed Refills Start Date Active aspirin EC 81 MG TBEC Take 81 mg by 0 mouth. Active atorvastatin (LIPITOR) 10 Take 10 mg by 0 MG tablet mouth. Active Calcium Acetate, Phos Take 1,334 mg 0 Binder, 667 MG CAPS by mouth. Active carvedilol (COREG) 12.5 Take 12.5 mg 0 MG tablet by mouth. Active lactulose (CHRONULAC) 10 Take 20 g by 0 GM/15ML solution mouth. Active Sevelamer Carbonate 800 Take 2,400 mg 0 MG TABS by mouth. Active zolpidem (AMBIEN) 5 MG Take 5 mg by 0 tablet mouth. documented as of this encounter (statuses as of 09/03/2019) Active Problems Problem Noted Date PAD (peripheral artery disease) (HCCode) 09/03/2019 ESRD (end stage renal disease) on dialysis (HCCode) 05/25/2019 Essential hypertension 05/25/2019 Hx of right BKA (HCCode) 05/25/2019 Blindness 05/25/2019 documented as of this encounter (statuses as of 09/03/2019) Social History Date Tobacco Use Types Packs/Day Years Used Current Every Day Smoker Smokeless Tobacco: Never Used Sex Assigned at Date Recorded Male 05/10/2019 9:45 AM CDT Industry Job Start Date Occupation Not on file Not on file Not on file Travel End Travel History Travel Start No recent travel history available. documented as of this encounter Last Filed Vital Signs Reading Time Taken Comments Vital Sign 189/91 08/26/2019 2:17 PM CDT Blood Pressure 75 08/26/2019 2:17 PM CDT Pulse - - Temperature - - Respiratory Rate - - Oxygen Saturation - - Inhaled Oxygen Concentration - - Weight - - Height - - Body Mass Index documented in this encounter Patient Instructions * Patient Instructions* Karin Bales CMA - 08/26/2019 2:42 PM CDT Thank you for choosing [facility]. You may receive a survey in the mail. Please provide comments to let us know how we can improve our patient care. Instructions for your care: Patient will Follow up with procedure. Given referral for cardiac Clearance with Dr Roderick Finnegan [facility] [address] [facility] [address] [place] [address] Demetrio Chicas. Moni Nurse Practitioner Division of Vascular Surgery and Endovascular Therapy If you have any questions, please feel free to call us at: documented in this encounter Progress Notes * Demetrio Chicas NP - 08/26/2019 2:15 PM CDT [facility] [address] [facility] [address], [place]. [address] Office: [phone] DATE OF VISIT: 08/26/19 PATIENT NAME: Amor Barger : 1970; AGE: 49 y.o.; Sex:M PHONE NUMBER: ; (Work); ; SS#: [id number] PHYSICIAN: Demetrio Chicas NP PRIMARY CARE / REFERRING PHYSICIAN: Juno Frazier* / No primary care mary walden on file. / No primary physician on file. / REASON FOR EVALUATION / CHIEF COMPLAINT: Preparation of LLE AVG HISTORY OF PRESENT ILLNESS: Amor Barger is a 48 y.o. male patient with sign ificant history of cognitive incapacity sp stroke 2013, CAD Sp CABG 2014 , HTN, HLP, Bilateral retinal detachment, DM on insulin, Chronic depression, sp Bilater al BKA , wheel chair dependant and is been in senior living since 3 years. The pa imelda was referred to [facility] Vascular Surgery for placement of hemodialysis access. The patient recently underwent a Venogram, which demonstrated occlusion of the superior vena cava. Therefore, it was determined the patient would be scheduled for a left femoral AV loop graft. The patient returns to clinic today for bilate ral lower extremity vein mapping. The duplex demonstrated an incidental finding of a greater than 70% stenosis of the LLE SFA. The patient denies any BKA stump discomfort. The patient presents to discuss recent venogram and future plans for hemodialysis access. PAST SURGICAL HISTORY: The patient's has a past surgical history that includes hx amputation and hx tunneled dialysis catheter. PAST MEDICAL HISTORY: The patient has a past medical history of Chronic kidney disease, Hypertension, and Type 2 diabetes mellitus without complication (HCCode ). FAMILY HISTORY: The patient's family history is not on file. CURRENT MEDICATIONS: Outpatient Medications Prior to Visit Medication Sig Dispense Refill aspirin EC Take 81 mg by mouth. atorvastatin Take 10 mg by mouth. Calcium Acetate (Phos Binder) Take 1,334 mg by mouth. carvedilol Take 12.5 mg by mouth. lactulose Take 20 g by mouth. Sevelamer Carbonate Take 2,400 mg by mouth. zolpidem Take 5 mg by mouth. No facility-administered medications prior to visit. Allergies Allergen Reactions Hydromorphone Morphine Itching and Shortness Of Breath SOCIAL HISTORY: reports that he has been smoking. He has never used smokeless tobacco. FAMILY HISTORY: family history is not on file. REVIEW OF SYSTEMS: General: negative for - night sweats, sleep disturbance, weight gain or weight l oss Psychological: negative for - anxiety, memory difficulties, mood swings or sleep disturbances Respiratory: no cough, shortness of breath, wheezing, dyspnea, sputum production , or hemoptysis. Cardiovascular: no chest pain, orthopnea, heart murmur, or dyspnea on exertion Gastrointestinal: no abdominal pain, change in bowel habits, jaundice, constipat ion, or black or bloody stools Genito-Urinary: no dysuria, trouble voiding, or hematuria Musculoskeletal: negative for - joint stiffness, joint swelling or bone pain Neurological: negative for - behavioral changes, headaches, impaired coordinatio n, loss of balance, tingling sensation, dizziness, seizure, memory loss or weakn ess Dermatological: negative for - mole changes, nail changes, skin lesion changes, or skin discoloration. Hematological and Lymphatic: negative for - bleeding problems, blood clots, brui sing, fatigue, swollen lymph nodes or history of anemia. Endocrine: negative for thyroid disease, heat or cold intolerance, polyuria, or polydipsia Psychiatric: negative for depression, sleep disturbance, suicidal ideation, anxi ety disorder, or history of hallucinations VITAL SIGNS: BP (!) 189/91 | Pulse 75 PHYSICAL EXAM: Constitutional: Well nourished, no signs of distress HENT: Non icteric sclerae, oropharynx clear. Normocephalic and atraumatic. Cran ial nerves II-XI are grossly intact. Pupils are equally reactive to light. Ext raocular motor intact. Lymphadenopathy: He has no cervical, supraclavicular or axillary adenopathy, Cardiovascular: Normal rate, regular rhythm and normal heart sounds. No murmurs , rubs or gallops Pulmonary/Chest: Breath sounds normal. No respiratory distress. No adventitious sounds. Abdominal: Soft. No abdominal distension or tenderness. No masses palpated and n o hepatomegaly. No organomegaly. No abdominal pulsatile mass noted. Musculoskeletal: Normal range of motion. No evidence of arthritis. Extremities: No edema, cyanosis or clubbing. Bilateral BKA. L CFV TDC. Neurological: He is alert and oriented. No muscle weakness and normal gait. VASCULAR: Palpable femoral pulses were present bilaterally. Diagnostic Evaluation: ASSESSMENT & PLAN: End stage renal disease needing hemodialysis access & PAD: The patient will need to undergo a left femoral AV loop graft for hemodialysis. However, vein mapping demonstrated a >70% stenosis of the left SFA, which will require a left lower leg angiogram procedures with endovascular interventions. I've discussed with the patient regarding the benefits and risks of the procedure. The patient is aware of the benefits of the planned procedure which is to improve his lower leg arterial circulation. The patient is also aware of the potential risks of the procedure, which include contrast-induced nephropathy, vessel perforation, arterial dissection, contrast-induced allergic reaction, bleeding, and wound infection. The patient has accepted these benefits and risks of the procedure. The patient is scheduled to undergo LLE angiogram with possible intervention by Dr. Frazier with General Anesthesia. The planned procedure is scheduled for [address] [facility] label printer. Following that, the patient will also undergo Left femoral AV loop graft with ar tegraft With Dr. Frazier. The planned procedure is scheduled for 10/13/[address] [facility] Kevin Chicas NP-C Vascular Surgery documented in this encounter Plan of Treatment Care Team Description Date Type Specialty Juno Frazier MD [address] [place] [address] [phone] 10/14/2019 Appointment Vascular Surgery 10/28/2019 Ancillary Vascular Surgery Procedure Demetrio Chicas NP [address] [place] [address] [phone] 10/28/2019 Office Visit Vascular Surgery Health Maintenance Due Date Last Done Comments MEDICARE AWV 1970 TETANUS SHOT (ADULT) 1985 HIV SCREENING 1988 FLU VACCINE > 6 MONTHS 06/10/2019 documented as of this encounter Results Not on filedocumented in this encounter Visit Diagnoses Diagnosis PAD (peripheral artery disease) (HCCode ) - Primary Unspecified disorders of arteries and a rterioles ESRD (end stage renal disease) on dialy sis (HCCode) End stage renal disease documented in this encounter Insurance Type Payer Benefit Subscriber ID Effective Phone Address Plan / Dates Group Medicare MEDICARE MEDICARE xxxxxxxxxx 2007- [address] Present [id number] [place] [address] Medicaid MEDICAID TMHP-MEDIC xxxxxxxxx Effective [address] - for all 2005 [place] [address] Medicaid [employer] - xxxxxxxxx 2018-[address] [address] [place] [address] documented as of this encounter"
[2020-04-15 16:54] LABS: BASOPHILS % 0.2 % (0.0-1.0); EOSINOPHILS % 0.5 % (0.0-6.0); HEMATOCRIT 26.5 % (38.2-49.6); HEMOGLOBIN 7.9 g/dL (14.0-18.0); LYMPHOCYTES # (AUTO) 0.3 (1.0-3.2); LYMPHOCYTES % 7.6 % (18.0-39.1); MEAN CORPUSCULAR HEMOGLOBIN 27.3 pg (28-32); MEAN CORPUSCULAR HGB CONC 29.8 g/dL (31-35); MEAN CORPUSCULAR VOLUME 91.7 fL (81-99); MONOCYTES # (AUTO) 0.8 (0.2-0.8); NEUTROPHILS % 71.8 % (38.7-80.0); PLATELET COUNT 70 x10e3/uL (140-360); RED BLOOD COUNT 2.89 x10e6/uL (4.3-5.7); RED CELL DISTRIBUTION WIDTH 18.4 % (11.7-14.4)
[2020-04-15 17:09] LABS: INR 0.92; PARTIAL THROMBOPLASTIN TIME 27.5 seconds (23.8-35.5); PROTHROMBIN TIME 12.9 seconds (11.9-14.5)
[2020-04-15] MEDS: AZITHROMYCIN 500MG/NS 250 ML 250 ML IV SCH (17:16)
[2020-04-15] MEDS: CEFTRIAXONE SOD 1 GM/NS 50 ML 50 ML IV SCH (17:16)
--- NOTE | 2020-04-15 17:16 | Emergency Department Note ---
History of Present Illnes History of Present Illness Chief Complaint: COVID PUI History of Present Illness This is a 49 year old male PATIENT IN FROM [facility] FOR COVID +, INCREASING SHORTNESS OF BREATH, AND NEED FOR DIALYSIS. PER EMS, PATIENT WAS SENT TO DIALYSIS CENTER BUT WAS NOT DIALYSED BECAUSE HE IS COVID POSITIVE. PATIENT PLACED ON 5 L/MIN NASAL CANNULA. 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 Any updates have been documented here. Past Medical History Recent Fever: No Clinical Suspicion of Infectio: Yes New/Unexplained Change in Ment: No Past Medical History: Hypertension, Diabetes, COPD, PA, CAD, ESRD, Hemodyalisis, Anxiety, Depression, Hyperlipedemia, DVT/PE, Chronic Kidney Disease, Chronic Back Pain Other Medical History: CABG BLIND CHRONIC PAIN Chronic hemodialysis. Peripheral neuropathy. Peripheral vascular disease. Bilateral [id number] amputations Marked degenerative disease of the lumbosacral spine with spinal stenosis Diabetic retinopathy with blindness. Chronic back pain as above. Old CVA with trace right weakness, bipolar disorder. Past Surgical History: CABG Other Surgery: BILATERAL BKA Social History Smoking Cessation: Never Smoker Counseling Performed: No Alcohol Use: None Any Illegal Drug Use: No TB Exposure/Symptoms: No Physically hurt or threatened: No Other Last Tetanus: UNKNOWN Any Pre-Existing Lines (PICC,: Yes (left LE hd access) Is patient up to date on immun: Yes Last Flu: utd Last Pneumovax: utd Review of Systems Review of Systems Constitutional: no symptoms EENTM: no symptoms Cardiovascular: no symptoms Respiratory: dyspnea Gastrointestinal: no symptoms Genitourinary: no symptoms Musculoskeletal: no symptoms Neurological: no symptoms Psychological: no symptoms Endocrine: no symptoms Hematological/Lymphatic: no symptoms Review of other systems All other systems reviewed and negative. Physical Exam Related Data Allergies: Coded Allergies: hydromorphone (Verified Allergy, Unknown, 03/02/16) morphine (Verified Allergy, Unknown, 03/02/16) Triage Vital Signs Vital Signs Date Time Temp Pulse Resp B/P (MAP) Pulse Ox O2 Delivery O2 Flow Rate FiO2 04/15/20 16:11 04/15/20 17:02 98.7 58 21 Physical Exam CONSTITUTIONAL Constitutional: obese; diaphoretic, distressed HENT HENT: normocephalic, atraumatic, oropharynx clear/moist, nose normal HENT L/R: left ext ear normal, right ext ear normal EYES Eyes: conjunctivae normal; left eye discharge, right eye discharge NECK Neck: ROM normal PULMONARY Pulmonary: other (DECREASED BS'S THROUGHOUT) CARDIOVASCULAR Cardiovascular: regular rhythm, heart sounds normal, capillary refill normal, normal rate GASTROINTESTINAL Abdominal: soft, nontender, bowel sounds normal GENITOURINARY Genitourinary: exam deferred SKIN Skin: warm, dry MUSCULOSKELETAL Musculoskeletal: ROM normal, other (BILAT BKA'S) NEUROLOGICAL Neurological: alert, oriented x 3, no gross motor or sensory deficits PSYCHOLOGICAL Psychological: mood/affect normal, judgement normal Results Laboratory Result Diagram: 04/15/20 1630 Laboratory Laboratory Tests Test 04/15/20 16:30 White Blood Count 4.22 x10e3/uL (4.8-10.8) Red Blood Count 2.89 x10e6/uL (4.3-5.7) Hemoglobin 7.9 g/dL (14.0-18.0) Hematocrit 26.5 % (38.2-49.6) Mean Corpuscular Volume 91.7 fL (81-99) Mean Corpuscular Hemoglobin 27.3 pg (28-32) Mean Corpuscular Hemoglobin Concent 29.8 g/dL (31-35) Red Cell Distribution Width 18.4 % (11.7-14.4) Platelet Count 70 x10e3/uL (140-360) Neutrophils (%) (Auto) 71.8 % (38.7-80.0) Lymphocytes (%) (Auto) 7.6 % (18.0-39.1) Monocytes (%) (Auto) 18.0 % (4.4-11.3) Eosinophils (%) (Auto) 0.5 % (0.0-6.0) Basophils (%) (Auto) 0.2 % (0.0-1.0) Neutrophils # (Auto) 3.0 (2.1-6.9) Lymphocytes # (Auto) 0.3 (1.0-3.2) Monocytes # (Auto) 0.8 (0.2-0.8) Eosinophils # (Auto) 0.0 (0.0-0.4) Basophils # (Auto) 0.0 (0.0-0.1) Absolute Immature Granulocyte (auto 0.08 x10e3/uL (0-0.1) Prothrombin Time 12.9 seconds (11.9-14.5) Prothromb Time International Ratio 0.92 Activated Partial Thromboplast Time 27.5 seconds (23.8-35.5) Lab results reviewed: Yes Imaging Imaging results reviewed: Yes Impressions EXAMINATION: CHEST SINGLE (PORTABLE) INDICATION: SOB, HYPOXIA, POSITIVE COVID AT [place], ESRD DUE FOR HD COMPARISON: None FINDINGS: TUBES and LINES: None. LUNGS: Low lung volumes. Bilateral perihilar and interstitial opacities. Patchy lower lung zone opacities. Central vascular congestion. PLEURA: Possible small bilateral pleural effusions. No pneumothorax. HEART AND MEDIASTINUM: Mild cardiomegaly. Prominent right main pulmonary artery, which may represent pulmonary arterial hypertension. BONES AND SOFT TISSUES: No acute osseous abnormality. Status post median sternotomy. UPPER ABDOMEN: No free air under the diaphragm. IMPRESSION: Bilateral interstitial and patchy opacities, compatible with pulmonary edema and/or multifocal pneumonia. Mild cardiomegaly. Signed by: Dr. Gigi Maza MD on 04/15/2020 5:53 PM Diagnostics Tests Diagnostic test(s) reviewed: Yes Procedures 12 Lead ECG Interpretation Milk Deliverer: Interpreted by ED physician Date: Apr 15, 2020 Time: 16:37 Rhythm: sinus bradycardia Rate: bradycardia (58) QRS axis: normal Conduction: 1st degree T wave depression: II, III, aVF, V6 T waves flattening: V3, V4, V5 Clinical Impression: abnormal ECG (INFEROLATERAL TWI'S, 1ST DEGREE AVB, LOW VOLTAGE) Critical Care Time Subsequent provider I assumed direction of critical care for this patient from another provider of my specialty. Assessment & Plan Assessment & Plan Final Impression: (1) Volume overload (2) ESRD (end stage renal disease) on dialysis (3) Hypoxia (4) COVID-19 (5) Hyperkalemia Assessment & Plan ADMIT TO COVID UNIT, NEEDS HD. I SPOKE WITH DR KAUR, SPOKE WITH DR GOFF FOR ADMISSION, DR Zenon FALLON, DR CARR Depart Disposition: ADMITTED Last Vital Signs Date Time Temp Pulse Resp B/P (MAP) Pulse Ox O2 Delivery O2 Flow Rate FiO2 04/15/20 17:02 98.7 58 21 168/61 Home Meds Reported Medications Quetiapine Fumarate (SEROQUEL) 50 Mg Tablet, 50 MG PO HS 03/02/16 Methocarbamol (ROBAXIN) 500 Mg Tablet, 750 MG PO BID 03/02/16 Sevelamer Hcl (RENVELA) 800 Mg Tab, 1600 MG PO TIDWM, TAB 03/02/16 Omeprazole (OMEPRAZOLE) 40 Mg Capsule.dr, 40 MG PO DAILY 03/02/16 Folic Acid/Cyanocob/Pyridoxine (NEPHRO-HARRISON RX TABLET) 1 Each Tab, 1 TAB PO MIAH Y 03/02/16 Loratadine (LORATADINE) 10 Mg Tablet, 10 MG PO DAILY, #30 TAB 03/02/16 Lisinopril (LISINOPRIL) 40 Mg Tablet, 40 MG PO DAILY 03/02/16 Insulin Glargine (LANTUS 3ML PEN) 100 Units/1 Ml Inj, 40 UNITS SQ HS 03/02/16 Insulin Glargine (LANTUS 3ML PEN) 100 Units/1 Ml Inj, 20 UNITS SQ DAILY 03/02/16 Lactulose (LACTULOSE) 20 Gm/30 Ml Solution, 30 ML PO BID PRN for CONSTIPATION, EACH 03/02/16 Hydralazine Hcl (HYDRALAZINE HCL) 100 Mg Tablet, 100 MG PO TID 03/02/16 Insulin Human Lispro (HUMALOG) 100 Units/Ml Ml 03/02/16 Gabapentin (GABAPENTIN) 300 Mg Capsule, 300 MG PO TID, #60 CAP 03/02/16 Doxazosin Mesylate (DOXAZOSIN MESYLATE) 8 Mg Tablet, 8 MG PO HS 03/02/16 Clonidine Hcl (CLONIDINE HCL) 0.3 Mg Tablet, 0.3 MG PO DAILY, #30 TAB 03/02/16 Bisacodyl (BISCOLAX) 10 Mg Supp.rect, 10 SUPP RC DAILY PRN for CONSTIPATION, SUPP.RECT 4/23/16 Diphenhydramine Hcl (BENADRYL) 25 Mg Capsule, 25 MG PO PRN PRN for ITCHING 03/02/16 Docusate Sodium (COLACE) 100 Mg Cap, 100 MG PO BID PRN for CONSTIPATION, #30 CAP 03/02/16 Clonidine (CLONIDINE) 1 Each Patch.tdwk, 1 PATCH TD UD WEEKLY 03/02/16 Carvedilol (COREG) 25 Mg Tab, 25 MG PO BID 03/02/16 Atorvastatin Calcium (ATORVASTATIN CALCIUM) 80 Mg Tablet, 80 MG PO 2100, TAB 03/02/16 Aspirin (ASPIRIN) 325 Mg Tablet, 325 MG PO DAILY, TAB 03/02/16 Amlodipine Besylate (AMLODIPINE BESYLATE) 10 Mg Tablet, 10 MG PO DAILY, #30 TAB 03/02/16 Medications in the ED Ceftriaxone Sodium 50 ml @ 100 mls/hr Q24H IV ; Start 04/15/20 at 16:30; Stop 04/22/20 at 16:29 Azithromycin 250 ml @ 166.667 mls/hr Q24H IV ; Start 04/15/20 at 16:15; Stop 04/22/20 at 16:14 ERIK MORAN MD Apr 15, 2020 17:16
[2020-04-15 17:20] LABS: ALBUMIN 3.4 g/dL (3.5-5.0); ALBUMIN/GLOBULIN RATIO 0.9 (0.8-2.0); ANION GAP 19.3 mmol/L (8-16); CALCIUM 9.2 mg/dL (8.4-10.2); CREATININE, SERUM 11.06 mg/dL (0.72-1.25); MAGNESIUM 2.5 MG/DL (1.3-2.1); POTASSIUM 5.3 mmol/L (3.5-5.1)
--- NOTE | 2020-04-15 17:56 | Diagnostic Imaging Report ---
EXAMINATION: CHEST SINGLE (PORTABLE) INDICATION: SOB, HYPOXIA, POSITIVE COVID AT [place], ESRD DUE FOR HD COMPARISON: None FINDINGS: TUBES and LINES: None. LUNGS: Low lung volumes. Bilateral perihilar and interstitial opacities. Patchy lower lung zone opacities. Central vascular congestion. PLEURA: Possible small bilateral pleural effusions. No pneumothorax. HEART AND MEDIASTINUM: Mild cardiomegaly. Prominent right main pulmonary artery, which may represent pulmonary arterial hypertension. BONES AND SOFT TISSUES: No acute osseous abnormality. Status post median sternotomy. UPPER ABDOMEN: No free air under the diaphragm. IMPRESSION: Bilateral interstitial and patchy opacities, compatible with pulmonary edema and/or multifocal pneumonia. Mild cardiomegaly. Signed by: Dr. Gigi Maza MD on 04/15/2020 5:53 PM
[2020-04-15] MEDS ORDERED: ONDANSETRON HCL INJ 2MG/ML 2ML 2 MG/ML VIAL IV PRN (18:00)
[2020-04-15 18:14] LABS: BAND NEUTROPHILS % (MANUAL) 1 %; EOSINOPHILS % (MANUAL) 1 % (0-7); LYMPHOCYTES % (MANUAL) 8 % (19-48); MONOCYTES % (MANUAL) 13 % (3.4-9.0); NEUTROPHILS % (MANUAL) 77 % (40-74); PLATELET ESTIMATE SLIGHTLY DECREASED; PLATELET MORPHOLOGY COMMENT NORMAL; RBC MORPHOLOGY COMMENT NORMAL
[2020-04-15] MEDS ORDERED: LACTULOSE SYRUP 20 GM/30 ML UDC PO PRN (18:15)
[2020-04-15] MEDS ORDERED: QUETIAPINE FUMARATE 25 MG TAB PO PRN (18:15)
--- OUTSIDE RECORDS SUMMARY | 2020-04-15 18:19 | XMS REPORT | Clinical Summary ---
Author Author CHERYL [facility] Organization [facility] Address Unknown Phone Unavailable Care Team Providers Care Ethanol Quality Leader Name Role Phone Comfort Rivas MD PCP [...] Inhaled Oxygen 21% Concentration 10/13/2019 2:11 PM [employer] Weight 141.5 kg (312 lb) 06/15/2019 12:40 PM CDT Height 152.4 cm (5') 10/13/2019 2:11 PM [employer] Body Mass Index 60.93 Plan of Treatment [...] ms QTC Calculatio n(Bazett) 447 ms P [place] 32 degrees R [place] -45 degrees T [place] 110 degrees Sinus rhythm with 1st degree [...] Hemoglobin 8.5 (L) 13.7 - 17.5 GM/DL [facility] Hematocrit 27.2 (L) 40.1 - 51.0 % [facility] Specimen Blood Performing Organization Address [facility] Ph one Number [facility] [address] [place], [place] [address] [facility] * Potassium (07/06/2019 8:05 AM CDT) Only the most recent of 2 results within the time period is included. Potassium 5.6 (H) 3.5 - 5.1 meq/L [facility] Specimen Blood Performing Organization Address City/[facility]/Zipcode Ph one Number [facility] [address] [place], [place] [address] [facility] * RHYTHM STRIP [...] MD Report Verified Date/Time: 09:02:19 Reading Location: [facility] Reading Room Procedure Note Interface, [...] Report Verified Date/Time: 06/18/2019 09:02:19 Reading Location: [facility] Reading Room Performing Organization Address City/State/Zipcode Ph one Number [facility] * POC-Glucose meter (06/18/2019 7:22 AM CDT) Only the most recent of 9 results within the time period is included. POC-Glucose Meter 106Comment: TESTED AT [facility] 70 - 110 mg/dL [facility] [address] [facility] [id number] [facility] Specimen Blood Performing Organization Address City/State/Zipcode Ph one Number [facility] [address] [place] [address] [facility] * HEMODIALYSIS INPATIENT (06/17/2019 [...] included. WBC 4.9 3.5 - 10.5 K/L [facility] RBC 2.56 (L) 4.63 - 6.08 M/L [facility] Hemoglobin 7.9 (L) 13.7 - 17.5 GM/DL [facility] Hematocrit 25.2 (L) 40.1 - 51.0 % [facility] MCV 98.4 (H) 79.0 - 92.2 fL [facility] MCH 30.9 25.7 - 32.2 pg [facility] MCHC 31.3 (L) 32.3 - 36.5 GM/DL [facility] RDW 17.7 (H) 11.6 - 14.4 % [facility] Platelets 130 (L) 150 - 450 K/CU MM [facility] MPV 11.3 9.4 - 12.4 fL [facility] nRBC 0 0 - 0 /100 WBC [facility] % Neutros 70 % [facility] % Lymphs 16 % [facility] % Monos 11 % [facility] % Eos 2 % [facility] % Baso 0 % [facility] # Neutros 3.39 1.78 - 5.38 K/L [facility] # Lymphs 0.77 (L) 1.32 - 3.57 K/L [facility] # Monos 0.55 0.30 - 0.82 K/L [facility] # Eos 0.10 0.04 - 0.54 K/L [facility] # Baso 0.01 0.01 - 0.08 K/L [facility] Immature 1 0 - 1 % [facility] Granulocytes-Relative [facility] Specimen Blood Performing Organization Address City/State/Zipcode Ph one Number [facility] [address] [place], [place] [address] [facility] * Phosphorus (06/17/2019 4:02 AM CDT) Only the most recent of 3 results within the time period is included. Phosphorus 4.9 (H) 2.3 - 4.7 mg/dL [facility] Specimen Blood Performing Organization Address [facility] one Number [address] [address] [facility] * Magnesium (06/17/2019 4:02 AM CDT) Only the most recent of 3 results within the time period is included. Magnesium 2.4 1.6 - 2.6 mg/dL [facility] Specimen Blood Performing Organization Address [facility] one Number [place] [address] [facility] * Basic Metabolic Panel (06/17/2019 4:02 AM CDT) Only the most recent of 4 results within the time period is included. Sodium 138 136 - 145 meq/L [facility] Potassium 4.3 3.5 - 5.1 meq/L [facility] Chloride 100 98 - 107 meq/L [facility] CO2 26 22 - 29 meq/L [facility] BUN 35 (H) 7 - 21 mg/dL [facility] Creatinine 7.24 (H) 0.57 - 1.25 mg/dL [facility] Glucose 98 70 - 105 mg/dL [facility] Calcium 9.2 8.4 - 10.2 mg/dL [facility] EGFR 8Comment: ESTIMATED GFR IS NOT mL/min/1.73 sq m [facility] ACCURATE CREATININE [facility] CLEARANCE IN PREDICTING GLOMERULAR FILTRATION RATE. ESTIMATED GFR IS NOT APPLICABLE FOR DIALYSIS PATIENTS. Specimen Blood Performing Organization Address City/[facility] one Number [place] [address] [facility] * ECG 12 lead (06/16/2019 5:03 AM CDT) Only the most recent of 4 results within the time period is included. Specimen Narrative Performed At Ventricular Rate 59 BPM GE MUSE Atrial Rate 59 BPM P-R Interval 208 ms QRS Duration 132 ms Q-T Interval 490 ms QTC Calculation(Bazett) 485 ms P [place] 44 degrees R [place] -40 degrees T [place] 153 degrees Sinus bradycardia Left axis deviation [...] 490 ms QTC Calculation(Bazett) 485 ms P [place] 44 degrees R [place] -40 degrees T [place] 153 degrees Sinus bradycardia Left axis deviation [...] I 0.05 (H) 0.00 - 0.03 ng/mL [facility] Specimen Blood Narrative Performed At Troponin I (TnI) levels must be interpreted in the co ntext of the presenting [facility] symptoms and the clinical findings. Elevated TnI leve ls indicate myocardial [facility] damage, but are not specific for ischem ic heart disease. Elevated TnI levels are seen in patients with other cardiac con ditions (including myocarditis and congestive heart failure), and slight T nI elevations occur in patients with other conditions, including sepsis, la al failure, acidosis, acute neurological disease, and persistent tachyarrhythmia . Performing Organization Address City/State/Zipcode Ph one Number [place] [phone] [place], [place] [address] [facility] * HEMODIALYSIS INPATIENT (06/15/2019 6:57 PM CDT) [...] 1:50 PM CDT) HBsAg Screen Nonreactive Nonreactive [facility] Specimen Blood Narrative Performed At For chronic HD patients, draw HBsAg with each admissi on then every 30 days. [facility] Performing Organization Address City/State/Zipcode Ph one Number [place] [phone] [place], [place] [address] [facility] after 04/15/2019 Insurance Payer Benefit Subscriber ID Type Phone Address Plan / Group MEDICARE MEDICARE A xxxxxxxxxxx Medicare B MEDICAID - MEDICAID MGD MEDICAID xxxxxxxxx Medica id [employer] Non-Contra cted Advance Directives For more information, please contact: [facility] [address] [place] [address] Date Inactivated Comments Code Status Date Activated 07/06/2019 5:15 PM Full Code 07/06/2019 7:47 AM This code status was determined by: Patient 06/18/2019 12:21 PM Full Code 06/15/2019 12:02 PM This code status was determined by: Patient 06/15/2019 12:02 PM Full Code 06/15/2019 7:36 AM This code status was determined by: Patient
--- OUTSIDE RECORDS SUMMARY | 2020-04-15 18:19 | XMS REPORT | Clinical Summary ---
Author Author [facility] Organization [facility] Address Unknown Phone Unavailable Care Team Providers Care Clinical Data Analyst Name Role Phone Asked, No Pcp PCP [...] Essential hypertension 12/25/2018 Coronary artery disease involving [place] coronary art teofilo 12/25/2018 ESRD (end stage [...] ot Implanted Type Area Manufactur er 12/10/2019 [id number] / / [id number] Catheter Dialysis Gl[employer]path Central Right: Groin BA RD [id number] Symmetric Tip - Venous PERIPHERAL [id number] Catheters VASCULAR Implanted: Qty: 1 on 12/26/2018 by Tierra Méndez MD at [facility] Results Not on fileafter 04/15/2019 Insurance Type Payer Benefit Subscriber ID Effective Phone Address Plan / Dates Group Medicare MEDICARE MEDICARE xxxxxxxxxxx 2007- [place], PART A AND Present [place] B Medicaid MEDICAID MEDICAID xxxxxxxxx 2018-P resent Advance Directives For more information, please contact: [phone] Patient Data Entry Associate Explanation Type Date Recorded Advance Directives, 12/25/2018 1:09 PM Living Will and Medical Power of Dental Director Date Inactivated Comments Code Status Date Activated 01/01/2019 12:23 AM Full Code 12/25/2018 11:24 PM Code Status decision reached by: Patient
--- OUTSIDE RECORDS SUMMARY | 2020-04-15 18:20 | XMS REPORT | Continuity of Care Document ---
Author Author [facility] t Organization [facility] Address [address] [place] [address] Phone Unavailable Care Team Providers Care Ordering Machine Operator Name Role Phone Asked, Pcp No PCP Unavailable Swetha MORAN Attphys Unavailable Robert CLINTON, Aron Pokl Attphys Juan Francisco TEXTILE FINISHER, Marva Atkinson Attphys Karin MONTGMOERY, Marcelina Fraire Attphys [phone] MARCELINA FRAZIERUEL Attphys Unavailable Betty MONTGOMERY, Jose Alejandro Strauss Attphys Manuela PORTILLO Attphys Unavailable KONRAD HUGHES Attphys Unavailable Celena Campos Attphys Unavailable DR JM CASTRO Attphys Unavailable Stanley Proctor Attphys Unavailable JOSÉ RAMOS Admphys Unavailable MARCELINA FRAZIER JUNO Admphys Unavailable KONRAD HUGHES Admphys Unavailable DivinskyCelena Admphys Unavailable DR JM CASTRO Admphys Unavailable Hitesh, Stanley Wilman Admphys Unavailable Payers Payer Name Policy Type Policy Number Effective Date Expiration Date [facility] house MEDICAREMEDICARE A BxxxxxxxxxxxMedicare xxxxxxxxxxx [facility] MEDICAID - MEDICAID [place] [id number] Medicaid Non-Contracted xxxxxxxxx [facility] Problems Condition Name Condition Details Condition Category Status Onset Date Resolution Date Last Treatment Date Treating Clinician Comments Source Bilateral subclavian vein occlusion Bilateral subclavian vein oc clusion Disease Active 2019-07-06 00:00:00 [facility] Morbid obesity with BMI of 50.0-59.9, adult Morbid obe sity with BMI of 50.0- 59.9, adult Disease Active 2019-06-16 00:00:00 [facility] Acute pulmonary edema Acute pulmonary edema Disease Active 201 07-18-07 00:00:00 [facility] Acute respiratory failure with hypoxemia Acute respira tory failure with hypoxemia Disease Active 2019-06-16 00:00:00 [facility] Hyperkalemia Hyperkalemia Disease Active 2019-06-16 00:00:00 [facility] ESRD (end stage renal disease) on dialysis ESRD (end s tage renal disease) on dialysis Disease Active 2019-06-15 00:00:00 [facility] Hypertensive emergency Hypertensive emergency Disease Active 2019-06-15 00:00:00 [facility] Vascular occlusion Vascular occlusion Disease Active 2018-12-25 00:00:0 0 Jay Natarajan Essential hypertension Essential hypertension Disease Active 2018-12-25 00:00:00 Jay borden Coronary artery disease involving [place] coronary nelson ry Coronary artery disease involving [place] coronary artery Disease Active 2018-12-25 00:00:00 Jay [...] Propensity to adverse reactions Active 28-06-05 00:00:00 [facility] Morphine Propensity to adverse reactions Active 2019-06-10 00:00:00 [facility] Hydromorphone Propensity to adverse reactions to drug Active 2018-12-25 00:00:00 Jay cantor morphine DA Active [place] 2018-12-17 00:00:00 [facility] hydromorphone DA Active [place] 2018-12-17 00:00:00 [facility] morphine DA Active [place] 2018-09-23 00:00:00 [facility] hydromorphone DA Active U 2018-09-23 00:00:00 [facility] morphine DA Active [place] 2018-08-13 00:00:00 [facility] hydromorphone DA Active U 2018-08-13 00:00:00 [facility] morphine DA Active [place] 2018-08-12 00:00:00 [facility] hydromorphone DA Active U 2018-08-12 00:00:00 [facility] hydromorphone DA Active U 2018-01-21 00:00:00 [facility] morphine DA Active [place] 2018-01-01 00:00:00 [facility] hydromorphone DA Active [place] 2017-10-13 00:00:00 [facility] Family History Family Member Diagnosis Comments Start Date Stop Date Source Natural brother No Known Problems Gerard Natarajan Natural sister No Known Problems Su ston Hindu Social History Social Habit Start Date Stop Date Quantity Comments Source History of tobacco use Cigarette Smoker [facility] History SDOH Alcohol Std Drinks [facility] History SDOH Alcohol Binge [facility] Sex Assigned At [facility] Cigarettes smoked current (pack per day) - Reported 00:00:00 2019-10-13 00:00:00 [facility] History SDOH Alcohol Frequency 2019-06-14 00:00:00 2019-06-14 00:00:0 0 1 [facility] Alcohol intake 2018-12-29 00:00:00 2018-12-29 00:00:00 Current non-drinker of alcohol (finding) [facility] Smoking Status Start Date Stop Date Source Current every day smoker 2019-10-13 00:00:00 [facility] Medications Ordered Medication Name Filled Medication Name Start Date Stop Da te Current Medication? Ordering Clinician Indication Dosage Frequency Signature (SIG) Comments Components Source linaGLIPtin (TRADJENTA) 5 mg Tab 2019-10-13 14:20:09 2019-10 16:16:00 No 2.5mg QD Take 2.5 mg by mouth daily. [facility] insulin aspart U-100 (NOVOLOG) 100 unit/mL injection 2019-10-13 14:05:34 2019-10-13 00:00:00 No Injec t subcutaneously 3 (three) times daily before meals. [facility] carvedilol (COREG) 6.25 MG tablet 2019-06-17 12:14:03 2018 00:00:00 No 6.25mg Take 6.25 mg by mouth 2 (two ) times daily with breakfast and dinner. [facility] carvedilol (COREG) 6.25 MG tablet 2019-06-17 00:00:00 Yes 12.5mg Take 2 tablets (12.5 mg total) by mouth 2 (two) times daily with breakfast and dinner. [facility] polyethylene glycol (GLYCOLAX) 17 gram packet 2019-06-14 09:39:1 4 Yes 17g QD Take 17 g by mouth daily. [facility] lactulose (CHRONULAC) 10 gram/15 mL (15 mL) solution 2 09:39:14 Yes constipation 20g Q.[id number] Take 20 g by mouth 3 (three) times daily. [facility] cloNIDine HCl (CATAPRES) 0.1 MG tablet 2019-06-14 09:39:14 Yes hypertension .1mg Q.5D Take 0.1 mg by mouth 2 (two) times daily. [facility] HYDROcodone-acetaminophen (NORCO 10-325) 10-325 mg per table t 2019-06-14 09:39:14 Yes 1{tbl} Take 1 tab let by mouth every 6 (six) hours as needed for Pain. [facility] multivitamin per tablet 2019-06-14 09:39:13 Yes 1{tbl} QD Take 1 tablet by mouth daily. [facility] calcium acetate (PHOSLO) 667 mg capsule 2019-06-14 09:39:13 Yes 1334mg Take 1,334 mg by mouth 3 (three) times daily with meals. [facility] sevelamer (RENVELA) 800 mg tablet 2019-06-14 09:39:13 Yes 2400mg Take 2,400 mg by mouth 3 (three) times daily with meals. [facility] glucagon,human recombinant (GLUCAGON EMERGENCY KIT, HUMAN, I [place]) 2019-06-14 09:39:13 Yes Inject as directed. [facility] atorvastatin (LIPITOR) 10 MG tablet 2019-06-14 09:39:13 Yes 10mg QD Take 10 mg by mouth daily. [facility] docusate sodium (COLACE) 100 MG capsule 2019-06-14 09:39:13 Yes 100mg Q.5D Take 100 mg by mouth 2 (two) times daily. [facility] VALPROIC ACID ORAL 2019-06-14 09:39:12 Yes 500mg Take 500 mg by mouth every 8 (eight) hours. [facility] [place] zolpidem (AMBIEN) 5 MG tablet 2019-06-14 09:39:12 Yes 5mg Take 5 mg by mouth every night as needed for Insomnia. [facility] NIFEdipine (ADALAT CC) 90 MG 24 hr tablet 2019-06-14 09:39:12 Yes 90mg QD Take 90 mg by mouth daily. [facility] folic acid/vit B complex and C (NEPHRO-HARRISON ORAL) 2019-06-14 09:39:12 Yes 1{tbl} QD Take 1 tablet by mouth daily. [facility] ascorbic acid, vitamin C, (VITAMIN C) 500 MG tablet 06-14 09:39:12 Yes 500mg QD Take 500 mg by mouth daily. [facility] traZODone (DESYREL) 100 MG tablet 2019-06-14 09:39:11 Yes 100mg QD Take 100 mg by mouth nightly. [facility] QUEtiapine (SEROQUEL) 50 MG tablet 2019-06-14 09:39:11 Yes 50mg Q.5D Take 50 mg by mouth 2 (two) times daily. [facility] LORazepam (ATIVAN) 0.5 MG tablet 2019-06-14 09:39:11 Yes .5mg Take 0.5 mg by mouth every 6 (six) hours as needed for Anxiety (give 30 minutes before dialysis). [facility] LORazepam (ATIVAN) 1 MG tablet 2019-06-14 09:39:11 Yes 1mg Q.5D Take 1 mg by mouth 2 (two) times daily. [facility] traZODone (DESYREL) 100 MG tablet 2018-12-31 20:23:25 [...] mg tablet 2018-12-31 20:23:25 Ye s 2400mg Q.[id number] Take 2,400 mg by mouth 3 (three) times a day with meal s. Jay Natarajan calcium carbonate (TUMS) 200 mg calcium (500 mg) chewable ta blet 2018-12-31 20:23:25 Yes 2{tbl} Q.[id number] 3D Chew 2 tablets 3 (three) times [...] 667 mg capsule 2018-12-31 20:23:25 Yes 1334mg Q.[id number] Take 1,334 mg by mouth 3 (three) [...] Body weight Measured 2019-10-13 14:11:00 141.522 kg [facility] BMI 2019-10-13 14:11:00 60.93 kg/m2 [facility] Systolic blood pressure 2019-07-06 14:00:00 150 mm[Hg] [facility] Diastolic blood pressure 2019-07-06 14:00:00 70 mm[Hg] [facility] Heart rate 2019-07-06 14:00:00 67 /min [facility] Respiratory rate 2019-07-06 14:00:00 18 /min [facility] Oxygen saturation in Arterial blood by Pulse oximetry 07-06 13:15:00 97 /[facility] Body temperature 2019-07-06 07:58:00 36.56 Miladis [facility] Body height 2019-06-15 12:40:00 152.4 cm [facility] Procedures Procedure Date / Time Performed Performing Clinician Sour e CARDIAC CATH REPORT - SCAN 2019-07-07 12:41:03 Provider, Default Scanning [facility] VENOGRAM 2019-07-06 11:07:00 Juno Frazier [facility] HEMOGLOBIN AND HEMATOCRIT 2019-07-06 08:12:00 Zuri Gallegos [facility] POTASSIUM 2019-07-06 08:05:00 Michelle Keys [facility] RHYTHM STRIP - SCAN 2019-06-28 14:50:16 Provider, Default Scanni [facility] RHYTHM STRIP - SCAN 2019-06-22 09:11:45 Provider, Default Scanni [facility] XR CHEST 1 VIEW PORTABLE/BEDSIDE 2019-06-18 07:45:00 Trace Aleman [facility] POCT-GLUCOSE METER 2019-06-18 07:22:00 [facility] POCT-GLUCOSE METER 2019-06-17 21:50:00 Rica Hernández pamela [facility] HEMODIALYSIS INPATIENT 2019-06-17 21:40:22 Tom De Santiago [facility] POCT-GLUCOSE METER 2019-06-17 12:11:00 Rica Hernández pamela [facility] POCT-GLUCOSE METER 2019-06-17 07:46:00 Rica Hernández pamela [facility] XR CHEST 1 VIEW PORTABLE/BEDSIDE 2019-06-17 05:33:00 Trace Aleman [facility] BASIC METABOLIC PANEL (7) 2019-06-17 04:02:00 Hope Aleman [facility] MAGNESIUM 2019-06-17 04:02:00 [facility] PHOSPHORUS 2019-06-17 04:02:00 [facility] CBC W/PLT COUNT & AUTO DIFFERENTIAL 2019-06-17 04:02:00 Ash [facility] POCT-GLUCOSE METER 2019-06-16 22:02:00 Betty [facility] POCT-GLUCOSE METER 2019-06-16 18:10:00 Betty [facility] HEMOGLOBIN AND HEMATOCRIT 2019-06-16 16:08:00 Alist[address] [facility] HEMODIALYSIS INPATIENT 2019-06-16 14:49:11 Tom De Santiago [facility] POCT-GLUCOSE METER 2019-06-16 11:35:00 Frazier, [facility] POTASSIUM 2019-06-16 08:19:00 Valdemar Moyer [facility] POCT-GLUCOSE METER 2019-06-16 07:50:00 Frazier, [facility] ECG 12-LEAD 2019-06-16 05:03:13 Unknown, Hl7 Doctor [facility] ECG 12-LEAD 2019-06-16 05:02:53 [place] [facility] XR CHEST 1 VIEW PORTABLE/BEDSIDE 2019-06-16 04:14:00 Ash [facility] TROPONIN I 2019-06-16 03:30:00 Ash [facility] BASIC METABOLIC PANEL (7) 2019-06-16 03:30:00 Hope Aleman [facility] MAGNESIUM 2019-06-16 03:30:00 Ash [facility] PHOSPHORUS 2019-06-16 03:30:00 Ash [facility] CBC W/PLT COUNT & AUTO DIFFERENTIAL 2019-06-16 03:30:00 Ash [facility] POCT-GLUCOSE METER 2019-06-15 21:57:00 Juno Frazier [facility] HEMODIALYSIS INPATIENT 2019-06-15 18:57:10 Tom De Santiago [facility] BASIC METABOLIC PANEL (7) 2019-06-15 17:33:[address] Hope Ale[address] [facility] MAGNESIUM 2019-06-15 17:33:00 Ash [facility] PHOSPHORUS 2019-06-15 17:33:00 Ash [facility] TROPONIN I 2019-06-15 13:50:00 Ash [facility] HEPATITIS B SURFACE ANTIGEN 2019-06-15 13:50:00 Tom De Santiago Be rt [facility] ECG 12-LEAD 2019-06-15 12:17:51 Unknown, Hl7 [facility] XR CHEST 1 VIEW PORTABLE/BEDSIDE 2019-06-15 11:27:00 Manas Gill [facility] BASIC METABOLIC PANEL (7) 2019-06-15 10:10:00 Juno Frazier [facility] CBC W/PLT COUNT & AUTO DIFFERENTIAL 2019-06-14 10:23:00 Juno Marvinerico [facility] ECG 12-LEAD 2019-06-14 09:24:18 [facility] Planned Activity Planned Date Details Comments Source Future Scheduled Test 2020-06-10 00:00:00 INFLUENZA VACCINE [code = INFLUENZA VACCINE] [facility] Future Scheduled Test 1980 00:00:00 DIABETIC FOOT EXAM [code = DIABETIC FOOT EXAM] [facility] Future Scheduled Test 1980 00:00:00 URINE MICROALBUMIN [code = URINE MICROALBUMIN] [facility] Future Scheduled Test 1970 00:00:00 DIABETIC RETINAL E YE EXAM [code = DIABETIC RETINAL EYE EXAM] [facility] Encounters Start Date/Time End Date/Time Encounter Type Admission Type Attendi [facility] Care Department Encounter ID Source 2019-08-26 12:47:51 2019-08-26 15:34:53 Office Visit Demetrio Harper ams [facility] [id number] Results Test Description Test Time Test Comments Results Result Comments Source CHEST SINGLE (PORTABLE) 2020-04-15 17:48:00 [facility] [address] [address] Patient Name: AMOR COMBS MR #: [id number] : 1970 Age/Sex: 49/M Req #: [id number] Adm Physician: Ordered by: ERIK MORAN MD Report #: [id number] Location: ER Room/Bed: Procedure: [id number] DX/CHEST SINGLE (PORTABLE) Exam Date: 04/15/20 Exam Time: 1700 REPORT STATUS: Signed EXAMINATION: CHEST SINGLE (PORTABLE) INDICATION: SOB, HYPOXIA, POSITIVE COVID AT AR, ESRD DUE FOR HD COMPARISON: None FINDINGS: TUBES and LINES: None. LUNGS: Low lung volumes. Bilateral perihilar and interstitial opacities. Patchy lower lung zone opacities. Central vascular congestion. PLEURA: Possible small bilateral pleural effusions. No pneumothorax. HEART AND MEDIASTINUM: Mild cardiomegaly. Prominent right main pulmonary artery, which may represent pulmonary arterial hypertension. BONES AND SOFT TISSUES: No acute osseous abnormality. Status post median sternotomy. UPPER ABDOMEN: No free air under the diaphragm. IMPRESSION: Bilateral interstitial and patchy opacities, compatible with pulmonary edema and/or multifocal pneumonia. Mild cardiomegaly. Signed by: Dr. Daniel Mcclellan MD on 04/15/2020 5:53 PM Dictated By: DANIEL MCCLELLAN MD 52 Transcribed By: PRIYANKA on 04/15/201752 COPY TO: ERIK MORAN MD GLUBED 2019-12-29 16:51:00 Test Item GLUBED (test code = GLUBED) 166 mg/dL 74-106 H Performed by certified hydrocrane operator at [facility] COMPREHENSIVE METABOLIC [id number] 06:21:00* Test Item Value Reference Range Interpretation [...] reference range due to change in reagent. [id number] 06:20:00* Test Item Value Reference Range Interpretation Comments GLUBED (test code = GLUBED) 136 mg/dL 74-106 H Performed by certified hydrocrane operator at [facility] COMPREHENSIVE METABOLIC [id number] 06:10:00* Test Item Value Reference Range Interpretation [...] code = ALKP) IUnit/L 45-117 CBC W/AUTO [id number] 06:08:00* Test Item Value Reference Range Interpretation [...] DIFF REQUIRED (test code = MDIFF) NO [id number] 22:36:00* Test Item Value Reference Range Interpretation Comments GLUBED (test code = GLUBED) 101 mg/dL 74-106 N Performed by certified hydrocrane operator at [facility] EXTREM NON VASC [id number] 21:31:00 Name: AMOR COMBS [facility] : 1970 Age/S: 49 / M [address] [facility] Unit #: [id number] Loc: [place] [address] Phys: Beronica Colón NP Acct: [id number] Dis Date: Status: ADM IN PHONE #: [phone] Exam Date: 12/28/2019 185 FAX #: [phone] Reason: left upper arm swelling r/o abscess EXAMS: CPT CODE: [id number] EXTREM NON VASC COMP 80250 HISTORY: Left upper and abscess. COMPARISON: CT scan from previous day. Location: . Survey of the left upper arm at [...] 12/28/2019 (2133) Probe: PAGE 1 Signed Report [id number] 18:04:00* Test Item Value Reference Range Interpretation Comments GLUBED (test code = GLUBED) 156 mg/dL 74-106 H Performed by certified hydrocrane operator at [facility] [id number] 13:50:00* Test Item Value Reference Range Interpretation Comments GLUBED (test code = GLUBED) 139 mg/dL 74-106 H Performed by certified hydrocrane operator at [facility] BASIC METABOLIC [id number] 10:27:00* Test Item Value Reference Range Interpretation [...] CA) 8.4 mg/dL 8.5-10.1 L CBC W/AUTO [id number] 10:02:00* Test Item Value Reference Range Interpretation [...] DIFF REQUIRED (test code = MDIFF) NO [id number] 08:45:00* Test Item Value Reference Range Interpretation Comments GLUBED (test code = GLUBED) 107 mg/dL 74-106 H Performed by certified hydrocrane operator at [facility] [id number] 21:32:00* Test Item Value Reference Range Interpretation Comments GLUBED (test code = GLUBED) 89 mg/dL 74-106 N Performed by certified hydrocrane operator at [facility] - CT UP EXTREM W/O CONT [id number] 21:19:00 Name: AMOR COMBS [facility] : 1970 Age/S: 49 / M [address] [facility] Unit #: [id number] Loc: [place] [address] Phys: Beronica Colón TEXTILE FINISHER Acct: [id number] Dis Date: Status: ADM IN PHONE #: [phone] Exam Date: 12/27/2019 2100 FAX #: [phone] Reason: edema and pain to r/o abscess EXAMS: CPT CODE: [id number] [place]TREM W/[place] [address] HISTORY: Edema and pain. Evaluate for abscess. [...] AC joints suggestive of advanced osteoarthritis. at 2119 Reported and signed by: Boyd Fregoso M.D. CC: Luther Vasquez MD; Beronica Colón NP Technologist:Consuelo Evans cia RT(R); ANDREA Umaña CTDI: DLP: Trnscb Date/Time: 12/27/2019 (2118 ) [email or web address] Orig Print D/T: S: 12/27/2019 (2121) PAG E 1 Signed Report B-TYPE NATRIURETIC [id number] 13:13:00* Test Item Value Reference Range Interpretation Comments B-TYPE NATRIURETIC PEPTIDE (test code = BNP) 2512.91 pgram/mL 0-100 H BASIC METABOLIC [id number] 12:50:00* Test Item Value Reference Range Interpretation Comments SODIUM (test code = NA) 132 mmol/L 136-145 L POTASSIUM (test code = K) 8.3 mmol/L 3.5-5.1 HH Results called to HUBER EM by [email or web address] 12/27/19 1208Critical results verified and read back by Nurse? Y LUIS ALBERTO RECOLLECTED, k WAS STILL HIGHRESULT WAS RAN A TOTAL OF FOUR TIMES CHLORIDE (test code = CL) 99.0 mmol/L 98-107 N CARBON DIOXIDE (test code = CO2) 20.0 mmol/L 21-32 L Previously reported result: 20.0 mmol/LEdited by: [email or web address] on 12/27/19:22470912/27/19 1245: CO2 previously reported as: 20.0 L [...] code = CA) 9.0 mg/dL 8.5-10.1 N [id number] 12:50:00* Test Item Value Reference Range Interpretation Comments TROPONIN-I (test code = TROPI) 0.037 ng/mL 0-0.045 N AG HEPAT B [id number] 12:18:00* Test Item Value Reference Range Interpretation Comments AG HEPAT B SURF (test code = HBSAG) Nonreactive Index Nonreactive BASIC METABOLIC [id number] 12:08:00* Test Item Value Reference Range Interpretation [...] CALCIUM (test code = CA) mg/dL 8.5-10.1 [id number] 12:08:00* Test Item Value Reference Range Interpretation Comments TROPONIN-I (test code = TROPI) ng/mL 0-0.045 BASIC METABOLIC [id number] 12:08:00* Test Item Value Reference Range Interpretation Comments SODIUM (test code = NA) 132 mmol/L 136-145 L POTASSIUM (test code = K) 8.3 mmol/L 3.5-5.1 Re sults called to by V.LAB.[facility] 12/27/19 1208Critical results verified and read [...] code = CA) 9.0 mg/dL 8.5-10.1 N [id number] 12:08:00* Test Item Value Reference Range Interpretation Comments TROPONIN-I (test code = TROPI) 0.037 ng/mL 0-0.045 N CBC W/O [id number] 11:50:00* Test Item Value Reference Range Interpretation [...] MPV) 11.0 fL 6.7-11.0 N ARTERIAL BLOOD [id number] 10:03:00* Test Item Value Reference Range Interpretation [...] and read back by 10:12/27/2019; by RICHIE ABAbel O2 SATURATION (test code = SATA) 63.1 [...] vol 18.0-22.0 LL - XR CHEST 1 [id number] 09:05:00 FAX: Dnan Davies [phone] [place]: St: REG Name: AMOR LOPES [facility] : [birth year] Age/S: 49/M [address] [facility] Unit #: [id number] Loc: [place] [address] Phys: Dann Dahl MD Acct: [id number] Dis Date: Status: REG ER PHONE #: [phone] Exam Date: 12/27/2019 0854 FAX #: [phone] Reason: Shortness of Breath EXAMS: CPT CODE: [id number] XR CHEST 1 V 90056 REASON FOR EXAM: Shortness of Breath Exam Order Date: 12/27/2019 8:35 AM Ordering M.DAnjali: Dann Dahl MD PROCEDURE: - XR CHEST [...] which may exacerbate the find ings. Location: [facility] at 0905 Reported and signed by: Torrey Coulter MD CC: Dann Dahl MD echnologist: RT ROSA ISELA(R) Trnscrd Date /Time/By: 12/27/2019 (904) : By: [email or web address] Orig Print D/T: S: 020 (908) PAGE 1 Signed Report POC [id number] 11:09:43* Test Item Value Reference Range Interpretation Comments Glucose POC (test code = Glucose POC) 137 mg/dL 70-115 H If you consider your patient critically ill, the Gabe-Accu Check Infrom II meter should not be used for Glucose determination. Draw a venous Glucose and send to the main Lab for analysis. POC [id number] 07:49:41* Test Item Value Reference Range Interpretation Comments Glucose POC (test code = Glucose POC) 155 mg/dL 70-115 H If you consider your patient critically ill, the Gabe-Accu Check Infrom II meter should not be used for Glucose determination. Draw a venous Glucose and send to the main Lab for analysis. Magnesium [id number] 07:15:45* Test Item Value Reference Range Interpretation Comments Magnesium Level (test code = Magnesium Level) 2.3 mg/dL 1.7-2.5 Phosphorus [id number] 07:15:45* Test Item Value Reference Range Interpretation Comments Phosphorus Level (test code = Phosphorus Level) 6.80 mg/dL 2.70-4 .50 H Comprehensive Metabolic [id number] 07:15:44* Test Item Value Reference Range Interpretation [...] A/G Ratio) 1.3 ratio N Comprehensive Metabolic [id number] 07:15:44* Test Item Value Reference Range Interpretation [...] is not provided, and the patient is -Trinid[place], multiply by 1.212. If sex is not [...] is not provided, and the patient is -Trinidadian, multiply by 1.212. If sex is not [...] the National [employer] Foundation, http://nkdep.nih.gov Comprehensive Metabolic [id number] 07:15:44* Test Item Value Reference Range Interpretation [...] is not provided, and the patient is -Trinid[place], multiply by 1.212. If sex is not [...] is not provided, and the patient is -Trinidadian, multiply by 1.212. If sex is not [...] by the National [employer] Foundation, http://nkdep.nih.gov POC [id number] 20:30:07* Test Item Value Reference Range Interpretation Comments Glucose POC (test code = Glucose POC) 119 mg/dL 70-115 H If you consider your patient critically ill, the Agbe-Accu Check Infrom II meter should not be used for Glucose determination. Draw a venous Glucose and send to the main Lab for analysis. POC [id number] 16:12:08* Test Item Value Reference Range Interpretation Comments Glucose POC (test code = Glucose POC) 115 mg/dL 70-115 If you consider your patient critically ill, the Gabe-Accu Check Infrom II meter should not be used for Glucose determination. Draw a venous Glucose and send to the main Lab for analysis. IR Venous [id number] 16:00:23Patient: AMOR COMBS Date/Time12/06/2019 15:20 CSTReason for ExamESRDReportPROCEDURE: Fluoroscopic guided conversion of a temporary hemodialysis catheter to a tunneled hemodialysis catheterINDICATION: End-stage renal diseaseOPERATOR: Landon Mejia M.D.SEDATION: Under physician supervision, intravenous Versed and fentanyl were administered for moderate sedation. Pulse oximetry, heart rate, and blood pressure were continuously monitored by a dedicated IR trained nurse. The physician spent 30 minutes of continuous lgav-pq-ihtb sedation time with the patient.FLUOROSCOPY TIME: 1.9 [...] was removed over the wire. A 15 Beninese peel-away sheath was placed. Next, the skin [...] FSigned (Electronic Signature): 12/06/2019 4:00 pmIR CVC [id number] 14:07:54Patient: AMOR COMSB Date/Time12/04/2019 10:32 CSTReason for ExamR femoral TDC malfunctionReportTEMPORARY DIALYSIS CATHETER PLACEMENT UNDER ULTRASOUND & FLUORO GUIDANCECLINICAL INDICATION: Right femoral tunneled dialysis catheter malfunction, end-stage renal disease, need for emergent hemodialysis.PHYSICIANS: Dr. Varela: Left common femoral veinCONTRAST: NoneCOMPLICATIONS: NoneFLUOROSCOPY TIME: 0.2 minutes; DAP: 8 Gy- hm2PJWAZTIFD:Informed written consent was obtained after explaining the [...] The needle was exchanged for a 4 Beninese coaxial dilator. The inner dilator and the [...] FSi gned (Electronic Signature): 12/06/2019 2:07 pmPOC [id number] 11:43:39* Test Item Value Reference Range Interpretation Comments Glucose POC (test code = Glucose POC) 129 mg/dL 70-115 H Notify RN or MDIf you consider your patient critically ill, the Gabe-Accu Check Infrom II meter should not be used for Glucose determination. Draw a venous Glucose and send to the main Lab for analysis. POC [id number] 19:59:05* Test Item Value Reference Range Interpretation Comments Glucose POC (test code = Glucose POC) 147 mg/dL 70-115 H If you consider your patient critically ill, the Gabe-Accu Check Infrom II meter should not be used for Glucose determination. Draw a venous Glucose and send to the main Lab for analysis. POC [id number] 16:12:04* Test Item Value Reference Range Interpretation Comments Glucose POC (test code = Glucose POC) 140 mg/dL 70-115 H If you consider your patient critically ill, the Gabe-Accu Check Infrom II meter should not be used for Glucose determination. Draw a venous Glucose and send to the main Lab for analysis. POC [id number] 11:28:06* Test Item Value Reference Range Interpretation Comments Glucose POC (test code = Glucose POC) 127 mg/dL 70-115 H If you consider your patient critically ill, the Gabe-Accu Check Infrom II meter should not be used for Glucose determination. Draw a venous Glucose and send to the main Lab for analysis. Basic Metabolic [id number] 05:57:30* Test Item Value Reference Range Interpretation [...] Calcium Level) 8.8 mg/dL 8.3-10.5 Basic Metabolic [id number] 05:57:30* Test Item Value Reference Range Interpretation [...] is not provided, and the patient is -Trinidadian, multiply by 1.212. If sex is not [...] the National Kidney Foundation, http://nkdep.nih.gov Basic Metabolic [id number] 05:57:30* Test Item Value Reference Range Interpretation [...] is not provided, and the patient is -Trinidadian, multiply by 1.212. If sex is not [...] is not provided, and the patient is -Trinidadian, multiply by 1.212. If sex is not [...] by the National Kidney Foundation, http://nkdep.nih.gov POC [id number] 19:54:05* Test Item Value Reference Range Interpretation Comments Glucose POC (test code = Glucose POC) 151 mg/dL 70-115 H If you consider your patient critically ill, the Gabe-Accu Check Infrom II meter should not be used for Glucose determination. Draw a venous Glucose and send to the main Lab for analysis. POC [id number] 16:43:08* Test Item Value Reference Range Interpretation Comments Glucose POC (test code = Glucose POC) 130 mg/dL 70-115 H If you consider your patient critically ill, the Gabe-Accu Check Infrom II meter should not be used for Glucose determination. Draw a venous Glucose and send to the main Lab for analysis. Hemoglobin [id number] 12:08:58* Test Item Value Reference Range Interpretation Comments Hemoglobin A1c (test code = Hemoglobin A1c) <4.2 % 4.8-5.9 L Non Diabetic 4.8- 5.9%Diabetic <7.0% Troponin [id number] 11:36:34* Test Item Value Reference Range Interpretation Comments Troponin-T (test code = Troponin-T) 114.800 ng/L 0.000-22.000 Critical results called to Madison Chinchilla at 12/04/2019 11:35:42 BRICK LAYER by shy. Read back and verified? yesThe [...] diagnosis of chronic myocardial injury. Comprehensive Metabolic [id number] 11:18:16* Test Item Value Reference Range Interpretation Comments Sodium Level (test code = Sodium Level) 134.0 mmol/L 135.0-145.0 L Potassium Level (test code = Potassium Level) 6.7 mmol/L 3.5-5.1 Critical results called to Isis Cabral at 12/04/2019 11:17:41 BRICK LAYER by shy. Read back and verified? yes [...] A/G Ratio) 1.4 ratio N Comprehensive Metabolic [id number] 11:18:16* Test Item Value Reference Range Interpretation Comments Sodium Level (test code = Sodium Level) 134.0 mmol/L 135.0-145.0 L Potassium Level (test code = Potassium Level) 6.7 mmol/L 3.5-5.1 Critical results called to Isis Cabral at 12/04/2019 11:17:41 BRICK LAYER by shy. Read back and verified? yes [...] is not provided, and the patient is -Trinidadian, multiply by 1.212. If sex is not [...] the National Kidney Foundation, http://nkdep.nih.gov Comprehensive Metabolic [id number] 11:18:16* Test Item Value Reference Range Interpretation Comments Sodium Level (test code = Sodium Level) 134.0 mmol/L 135.0-145.0 L Potassium Level (test code = Potassium Level) 6.7 mmol/L 3.5-5.1 Critical results called to Isis Cabral at 12/04/2019 11:17:41 BRICK LAYER by shy. Read back and verified? yes [...] is not provided, and the patient is -Trinid[place], multiply by 1.212. If sex is not [...] is not provided, and the patient is -Trinidadian, multiply by 1.212. If sex is not [...] by the National Kidney Foundation, http://nkdep.nih.gov IG [id number] 11:02:11* Test Item Value Reference Range Interpretation Comments IG (test code = IG) 1.0 % 0.0-5.0 IG Abs (test code = IG Abs) 0 x10 N Complete Blood Count with Hfrwriomwrip9516-03-46 11:02:10* Test Item Value Reference Range Interpretation [...] code = IPF) 0 % N Automated Nomycqpbmajb7158-20-94 11:02:10* Test Item Value Reference Range Interpretation Comments Neutro Auto (test code = Neutro Auto) 81.7 % 36.0-70.0 H Lymph Auto (test code = Lymph Auto) 7.6 % 12.0-44.0 L Mingo Auto (test code = Mingo Auto) 8.0 % 0.0-11.0 Eos, Auto (test code = Eos, Auto) 1.5 % 0.0-7.0 Basophil Auto (test code = Basophil Auto) 0.2 % 0.0-2.0 Neutro Absolute (test code = Neutro Absolute) 6.8 x10 1.6-7.4 Lymph Absolute (test code = Lymph Absolute) .63 x10 .50-4.60 Mingo Absolute (test code = Mingo Absolute) .66 x10 .00-1.20 Eos Absolute (test code = Eos Absolute) 0.12 x10 0.00-0.74 Baso Absolute (test code = Baso Absolute) 0.02 x10 0.00-0.21 Basic Metabolic [id number] 05:54:00* Test Item Value Reference Range Interpretation [...] Calcium Level) 9.0 mg/dL 8.3-10.5 Basic Metabolic Eayxc0414-20-10 05:54:00* Test Item Value Reference Range Interpretation [...] is not provided, and the patient is -Trinidadian, multiply by 1.212. If sex is not [...] is not provided, and the patient is -Trinidadian, multiply by 1.212. If sex is not [...] the National Kidney Foundation, http://nkdep.nih.gov Basic Metabolic [id number] 05:54:00* Test Item Value Reference Range Interpretation [...] is not provided, and the patient is -Trinidadian, multiply by 1.212. If sex is not [...] is not provided, and the patient is -Trinidadian, multiply by 1.212. If sex is not [...] the National Kidney Foundation, http://nkdep.nih.gov Basic Metabolic [id number] 02:15:23* Test Item Value Reference Range Interpretation Comments Sodium Level (test code = Sodium Level) 133.0 mmol/L 135.0-145.0 L Potassium Level (test code = Potassium Level) 7.6 mmol/L 3.5-5.1 Verified by repeat analysis.Critical results called to manuela yap at 12/04/2019 02:15:17 BRICK LAYER by og. Read back and verified? yes [...] Calcium Level) 9.3 mg/dL 8.3-10.5 Basic Metabolic [id number] 02:15:23* Test Item Value Reference Range Interpretation Comments Sodium Level (test code = Sodium Level) 133.0 mmol/L 135.0-145.0 L Potassium Level (test code = Potassium Level) 7.6 mmol/L 3.5-5.1 Verified by repeat analysis.Critical results called to manuela yap at 12/04/2019 02:15:17 BRICK LAYER by og. Read back and verified? yes [...] is not provided, and the patient is -Trinidadian, multiply by 1.212. If sex is not [...] is not provided, and the patient is -Trinidadian, multiply by 1.212. If sex is not [...] the National Kidney Foundation, http://nkdep.nih.gov Basic Metabolic Edzym6498-00-30 02:15:23* Test Item Value Reference Range Interpretation Comments Sodium Level (test code = Sodium Level) 133.0 mmol/L 135.0-145.0 L Potassium Level (test code = Potassium Level) 7.6 mmol/L 3.5-5.1 Verified by repeat analysis.Critical results called to manuela yap at 12/04/2019 02:15:17 BRICK LAYER by og. Read back and verified? yes [...] is not provided, and the patient is -Trinidadian, multiply by 1.212. If sex is not [...] is not provided, and the patient is -Trinidadian, multiply by 1.212. If sex is not [...] by the National Kidney Foundation, http://nkdep.nih.gov Troponin [id number] 02:13:24* Test Item Value Reference Range Interpretation Comments Troponin-T (test code = Troponin-T) 117.700 ng/L 0.000-22.000 Critical results called to manuela yap at 12/04/2019 02:13:19 BRICK LAYER by og. Read back and verified? yesThe [...] a diagnosis of chronic myocardial injury. POC [id number] 23:28:28* Test Item Value Reference Range Interpretation Comments Glucose POC (test code = Glucose POC) 100 mg/dL 70-115 If you consider your patient critically ill, the Gabe-Accu Check Infrom II meter should not be used for Glucose determination. Draw a venous Glucose and send to the main Lab for analysis. POC [id number] 22:15:20* Test Item Value Reference Range Interpretation [...] Liter Flow) 3.0 N Hepatitis B Surface Ygflrir1643-52-05 20:27:00* Test Item Value Reference Range Interpretation Comments Hep Bs Ag (test code = Hep Bs Ag) Nonreactive Non Reactive [id number] 18:15:05* Test Item Value Reference Range Interpretation [...] Decreased Normal A Complete Blood Count with [id number] 18:15:05* Test Item Value Reference Range Interpretation [...] = IPF) 3 % N Comprehensive Metabolic [id number] 18:10:40* Test Item Value Reference Range Interpretation Comments Sodium Level (test code = Sodium Level) 132.0 mmol/L 135.0-145.0 L Potassium Level (test code = Potassium Level) 7.2 mmol/L 3.5-5.1 Critical results called to Gisselle Wright at 12/03/2019 18:10:11 BRICK LAYER by shy. Read back and verified? yesdialysis [...] A/G Ratio) 1.3 ratio N Comprehensive Metabolic [id number] 18:10:40* Test Item Value Reference Range Interpretation Comments Sodium Level (test code = Sodium Level) 132.0 mmol/L 135.0-145.0 L Potassium Level (test code = Potassium Level) 7.2 mmol/L 3.5-5.1 Critical results called to Gisselle Wright at 12/03/2019 18:10:11 BRICK LAYER by shy. Read back and verified? yesdialysis [...] is not provided, and the patient is -Trinidadian, multiply by 1.212. If sex is not [...] the National Kidney Foundation, http://nkdep.nih.gov Comprehensive Metabolic [id number] 18:10:40* Test Item Value Reference Range Interpretation Comments Sodium Level (test code = Sodium Level) 132.0 mmol/L 135.0-145.0 L Potassium Level (test code = Potassium Level) 7.2 mmol/L 3.5-5.1 Critical results called to Gisselle Wright at 12/03/2019 18:10:11 BRICK LAYER by shy. Read back and verified? yesdialysis [...] is not provided, and the patient is -Trinidadian, multiply by 1.212. If sex is not [...] is not provided, and the patient is -Trinidadian, multiply by 1.212. If sex is not [...] by the National Kidney Foundation, http://nkdep.nih.gov Troponin [id number] 18:03:10* Test Item Value Reference Range Interpretation Comments Troponin-T (test code = Troponin-T) 109.000 ng/L 0.000-22.000 Critical results called to Gisselle Wright at 12/03/2019 18:02:59 BRICK LAYER by shy. Read back and verified? yesThe [...] a diagnosis of chronic myocardial injury. IG [id number] 17:41:50* Test Item Value Reference Range Interpretation Comments IG (test code = IG) 1.4 % 0.0-5.0 IG Abs (test code = IG Abs) 0 x10 N Automated Pfwwatafnoob3892-69-07 17:41:49* Test Item Value Reference Range Interpretation Comments Neutro Auto (test code = Neutro Auto) 74.3 % 36.0-70.0 H Lymph Auto (test code = Lymph Auto) 12.1 % 12.0-44.0 Mingo Auto (test code = Mingo Auto) 8.5 % 0.0-11.0 Eos, Auto (test code = Eos, Auto) 3.3 % 0.0-7.0 Basophil Auto (test code = Basophil Auto) 0.4 % 0.0-2.0 Neutro Absolute (test code = Neutro Absolute) 5.3 x10 1.6-7.4 Lymph Absolute (test code = Lymph Absolute) .87 x10 .50-4.60 Mingo Absolute (test code = Mingo Absolute) .61 x10 .00-1.20 Eos Absolute (test code = Eos Absolute) 0.24 x10 0.00-0.74 Baso Absolute (test code = Baso Absolute) 0.03 x10 0.00-0.21 XR Chest 1 View [id number] 17:38:28Patient: AMOR COMBS Date/Time12/03/2019 16:59 CSTReason for ExamShortness of breathReportEXAM: Chest x-ray, 1 viewDictation location: [id number]: Shortness of breathCOMPARISON: Chest x-ray on 09/14/2019 [...] Signature): 12/03/2019 5:38 pmXR Abdomen KUB 1 [id number] 17:33:43Patient: PRASAD COMBSOBAL Date/Time12/03/2019 16:59 CSTReason for ExamR femoral edgar cath location;Line placementReportEXAM: KUBDictation location: [id number]: Line placement, right femoral Edgar catheter locationCOMPARISON: NoneDISCUSSION:Frontal images of the abdomen are submitted; this does not include a significant portion of the mid abdomen. A right common femoral venous catheter is in place, with tip over the right external iliac vein. No gross evidence of intra-abdominal free air or bowel obstruction is seen. No acute bony abnormalities are identified in the zpioi-kx-xvet. Atherosclerotic arterial calcifications are noted.IMPRESSION: The right common femoral venous catheter tip overlies the right external iliac vein. Final Dictated by: MD Leger Brian PDictated DT/TM: 12/03/2019 5:32 pmSigned by: MD Leger Brian PSigned (Electronic Signature): 12/03/2019 5:33 pmIR Venous Access 2019-09-21 10:38:07Patient: LAURYN AMOR Date/Time09/14/2019 17:00 CSTReason for Examneeds dialysisReportPROCEDURE: Fluoroscopic guided exchange of a tunneled hemodialysis catheterINDICATION: Nonfunctional hemodialysis catheterOPERATOR: Landon Mejia M.D.SEDATION: Under physician supervision, intravenous Versed and fentanyl were administered for moderate sedation. Pulse oximetry, heart rate, and blood pressure were continuously monitored by a dedicated IR trained nurse. The physician spent 20 minutes of continuous wmpp-tn-itsg sedation time with the patient.FLUOROSCOPY TIME: 0.7 [...] FSi gned (Electronic Signature): 09/21/2019 10:38 amBlood [id number] 15:01:02No growth at 5 days.Blood Rcwgjuk8096-35-59 15:01:02No growth at 5 days. Blood Sezreio2287-79-02 15:01:02No growth at 5 days.POC [id number] 11:07:42* Test Item Value Reference Range Interpretation Comments Glucose POC (test code = Glucose POC) 129 mg/dL 70-115 H If you consider your patient critically ill, the Gabe-Accu Check Infrom II meter should not be used for Glucose determination. Draw a venous Glucose and send to the main Lab for analysis. POC [id number] 09:51:45* Test Item Value Reference Range Interpretation Comments Glucose POC (test code = Glucose POC) 121 mg/dL 70-115 H If you consider your patient critically ill, the Gabe-Accu Check Infrom II meter should not be used for Glucose determination. Draw a venous Glucose and send to the main Lab for analysis. Complete Blood Count without [id number] 06:22:59* Test Item Value Reference Range Interpretation [...] code = IPF) 0 % N POC Ciprgvp2720-44-15 19:33:12* Test Item Value Reference Range Interpretation Comments Glucose POC (test code = Glucose POC) 128 mg/dL 70-115 H Notify RN or MDIf you consider your patient critically ill, the Gabe-Accu Check Infrom II meter should not be used for Glucose determination. Draw a venous Glucose and send to the main Lab for analysis. POC Ashzqxr6884-68-03 15:53:40* Test Item Value Reference Range Interpretation Comments Glucose POC (test code = Glucose POC) 115 mg/dL 70-115 If you consider your patient critically ill, the Gabe-Accu Check Infrom II meter should not be used for Glucose determination. Draw a venous Glucose and send to the main Lab for analysis. POC [id number] 11:56:40* Test Item Value Reference Range Interpretation Comments Glucose POC (test code = Glucose POC) 106 mg/dL 70-115 If you consider your patient critically ill, the Gabe-Accu Check Infrom II meter should not be used for Glucose determination. Draw a venous Glucose and send to the main Lab for analysis. Urine [id number] 08:55:57* Test Item Value Reference Range Interpretation [...] cfu/mL Lactose fermenting Gram Negative Bacilli Hemoglobin [id number] 06:38:38* Test Item Value Reference Range Interpretation Comments Hemoglobin A1c (test code = Hemoglobin A1c) 5.0 % 4.8-5.9 Non Diabetic 4.8- 5.9%Diabetic <7.0% POC [id number] 06:31:11* Test Item Value Reference Range Interpretation Comments Glucose POC (test code = Glucose POC) 108 mg/dL 70-115 If you consider your patient critically ill, the Gabe-Accu Check Infrom II meter should not be used for Glucose determination. Draw a venous Glucose and send to the main Lab for analysis. Basic Metabolic [id number] 04:49:01* Test Item Value Reference Range Interpretation [...] 10.10 mg/dL 0.70-1 .20 H [facility] checkon dialysisper [facility] BUN/Creat Ratio (test code = BUN/Creat Ratio) 4 N Glucose Level (test code = Glucose Level) 85 mg/dL 70-115 Calcium Level (test code = Calcium Level) 8.6 mg/dL 8.3-10.5 Magnesium [id number] 04:49:01* Test Item Value Reference Range Interpretation Comments Magnesium Level (test code = Magnesium Level) 2.3 mg/dL 1.7-2.5 Basic Metabolic [id number] 04:49:01* Test Item Value Reference Range Interpretation [...] 10.10 mg/dL 0.70-1 .20 H delta checkon dialysisper [facility] BUN/Creat Ratio (test code = BUN/Creat Ratio) [...] is not provided, and the patient is -Trinid[place], multiply by 1.212. If sex is not [...] the National Kidney Foundation, http://nkdep.nih.gov Basic Metabolic Kkylt2457-90-85 04:49:01* Test Item Value Reference Range Interpretation [...] 10.10 mg/dL 0.70-1 .20 [facility] BUN/Creat Ratio (test code = [...] is not provided, and the patient is -Trinid[place], multiply by 1.212. If sex is not [...] is not provided, and the patient is -Trinid[place], multiply by 1.212. If sex is not [...] by the National Kidney Foundation, http://nkdep.nih.gov POC [id number] 04:25:46* Test Item Value Reference Range Interpretation Comments Glucose POC (test code = Glucose POC) 82 mg/dL 70-115 If you consider your patient critically ill, the Gabe-Accu Check Infrom II meter should not be used for Glucose determination. Draw a venous Glucose and send to the main Lab for analysis. Complete Blood Count without [id number] 03:50:30* Test Item Value Reference Range Interpretation [...] code = IPF) 0 % N POC [id number] 20:15:12* Test Item Value Reference Range Interpretation Comments Glucose POC (test code = Glucose POC) 200 mg/dL 70-115 H If you consider your patient critically ill, the Gabe-Accu Check Infrom II meter should not be used for Glucose determination. Draw a venous Glucose and send to the main Lab for analysis. POC [id number] 16:37:10* Test Item Value Reference Range Interpretation Comments Glucose POC (test code = Glucose POC) 131 mg/dL 70-115 H If you consider your patient critically ill, the Gabe-Accu Check Infrom II meter should not be used for Glucose determination. Draw a venous Glucose and send to the main Lab for analysis. Urinalysis Kwhibfvifnq1795-68-71 14:59:53* Test Item Value Reference Range Interpretation [...] Epi) 1-4 A Urinalysis with Microscopic if ksfiyikvi7856-94-14 14:23:54* Test Item Value Reference Range Interpretation [...] by rule [id number]_IND Complete Blood Count with [id number] 14:03:40* Test Item Value Reference Range Interpretation Comments WBC (test code = WBC) 6.5 x10 4.4-10.5 RBC (test code = RBC) 2.81 x10 4.10-5.70 L Hgb (test code = Hgb) 8.3 g/dL 13.4-17.4 L Result s called to and read back by: miki whiteside at 09/15/2019 14:03:25 CSTtransfusionfs Hct (test code [...] code = IPF) 0 % N Automated Fsyunlbsqsmm4391-25-73 14:03:40* Test Item Value Reference Range Interpretation Comments Neutro Auto (test code = Neutro Auto) 76.8 % 36.0-70.0 H Lymph Auto (test code = Lymph Auto) 9.2 % 12.0-44.0 L Mingo Auto (test code = Mingo Auto) 8.8 % 0.0-11.0 Eos, Auto (test code = Eos, Auto) 2.6 % 0.0-7.0 Basophil Auto (test code = Basophil Auto) 0.3 % 0.0-2.0 Neutro Absolute (test code = Neutro Absolute) 5.0 x10 1.6-7.4 Lymph Absolute (test code = Lymph Absolute) .60 x10 .50-4.60 Mingo Absolute (test code = Mingo Absolute) .57 x10 .00-1.20 Eos Absolute (test code = Eos Absolute) 0.17 x10 0.00-0.74 Baso Absolute (test code = Baso Absolute) 0.02 x10 0.00-0.21 IG [id number] 14:03:40* Test Item Value Reference Range Interpretation Comments IG (test code = IG) 2.3 % 0.0-5.0 IG Abs (test code = IG Abs) 0 x10 N POC [id number] 11:47:15* Test Item Value Reference Range Interpretation Comments Glucose POC (test code = Glucose POC) 174 mg/dL 70-115 H If you consider your patient critically ill, the Gabe-Accu Check Infrom II meter should not be used for Glucose determination. Draw a venous Glucose and send to the main Lab for analysis. [id number] 09:03:45* Test Item Value Reference Range Interpretation Comments Methodology (test code = Methodology) Test-Tube(TT) Anti-A (test code = Anti-A) 0 Anti-B (test code = Anti-B) 0 Anti-AB (test code = Anti-AB) NT Anti-D (test code = Anti-D) 4+ ABORh Retype (test code = ABORh Retype) O POS Red Blood Cells [id number] 08:02:35* Test Item Value Reference Range Interpretation Comments # of Units (test code = # of Units) 2 N RBC Trn Reason (test code = RBC Trn Reason) Hgb <7, symptomatic N RBC Product Ready (test code = RBC Product Ready) RBC Ready 09/15/2019 8:02 ALFONSYANotified RN Carolynn / 2 RBC ready [id number] 07:58:18* Test Item Value Reference Range Interpretation Comments Methodology (test code = Methodology) Test-Tube(TT) Anti-A (test code = Anti-A) 0 Anti-B (test code = Anti-B) 0 Anti-AB (test code = Anti-AB) NT Anti-D (test code = Anti-D) 4+ ABORh Retype (test code = ABORh Retype) O POS [id number] 07:30:38* Test Item Value Reference Range Interpretation Comments Previous History (test code = Previous History) No Prev History BBID (test code = BBID) [id number] Methodology (test code = Methodology) Test-Tube(TT) Anti-A (test code = Anti-A) 0 Anti-B (test code = Anti-B) 0 Anti-D (test code = Anti-D) 4+ DCon (test code = DCon) NT A1 (test code = A1) 4+ B cells (test code = B cells) 4+ ABORh (test code = ABORh) O POS 3C ABSC [id number] 07:30:38* Test Item Value Reference Range Interpretation [...] Antibody Screen (3C)) Negative AB SC POC [id number] 07:29:09* Test Item Value Reference Range Interpretation Comments Glucose POC (test code = Glucose POC) 107 mg/dL 70-115 If you consider your patient critically ill, the Gabe-Accu Check Infrom II meter should not be used for Glucose determination. Draw a venous Glucose and send to the main Lab for analysis. [id number] 06:03:05* Test Item Value Reference Range Interpretation Comments RBC Morph (test code = RBC Morph) As Indicated Normal A Anisocyte (test code = Anisocyte) 1+ None Rouleaux (test code = Rouleaux) 1+ None Seen A Plt Estimation (test code = Plt Estimation) Normal Normal Complete Blood Count with Hpjpldidgkbl8333-70-88 06:01:03* Test Item Value Reference Range Interpretation Comments WBC (test code = WBC) 5.5 x10 4.4-10.5 RBC (test code = RBC) 2.30 x10 4.10-5.70 L Hgb (test code = Hgb) 6.6 g/dL 13.4-17.4 Critic al results called to Hillary Mccabe RN at 09/15/2019 06:00:37 BRICK LAYER by DD. Read back and verified? Yes [...] code = IPF) 0 % N Automated Xnuqhjkyknjb3053-20-07 06:01:03* Test Item Value Reference Range Interpretation Comments Neutro Auto (test code = Neutro Auto) 72.5 % 36.0-70.0 H Lymph Auto (test code = Lymph Auto) 13.0 % 12.0-44.0 Mingo Auto (test code = Mingo Auto) 9.1 % 0.0-11.0 Eos, Auto (test code = Eos, Auto) 2.7 % 0.0-7.0 Basophil Auto (test code = Basophil Auto) 0.5 % 0.0-2.0 Neutro Absolute (test code = Neutro Absolute) 4.0 x10 1.6-7.4 Lymph Absolute (test code = Lymph Absolute) .71 x10 .50-4.60 Mingo Absolute (test code = Mingo Absolute) .50 x10 .00-1.20 Eos Absolute (test code = Eos Absolute) 0.15 x10 0.00-0.74 Baso Absolute (test code = Baso Absolute) 0.03 x10 0.00-0.21 IG [id number] 06:01:03* Test Item Value Reference Range Interpretation Comments IG (test code = IG) 2.2 % 0.0-5.0 IG Abs (test code = IG Abs) 0 x10 N Basic Metabolic Axzpe2040-27-26 05:23:32* Test Item Value Reference Range Interpretation [...] is not provided, and the patient is -Trinidadian, multiply by 1.212. If sex is not [...] the National Kidney Foundation, http://nkdep.nih.gov Basic Metabolic Psehx0478-25-09 05:23:32* Test Item Value Reference Range Interpretation [...] is not provided, and the patient is -Trinidadian, multiply by 1.212. If sex is not [...] by the National Kidney Foundation, http://nkdep.nih.gov Magnesium Lahwg0134-13-20 05:23:32* Test Item Value Reference Range Interpretation Comments Magnesium Level (test code = Magnesium Level) 2.5 mg/dL 1.7-2.5 Basic Metabolic Fviwt9823-65-23 05:23:32* Test Item Value Reference Range Interpretation [...] is not provided, and the patient is -Trinidadian, multiply by 1.212. If sex is not [...] is not provided, and the patient is -Trinidadian, multiply by 1.212. If sex is not [...] by the National Kidney Foundation, http://nkdep.nih.gov Phosphorus Kfjzm7638-61-19 05:23:32* Test Item Value Reference Range Interpretation Comments Phosphorus Level (test code = Phosphorus Level) 7.40 mg/dL 2.70-4 .50 H Basic Metabolic Jrnmr1772-11-46 21:51:31* Test Item Value Reference Range Interpretation [...] = Calcium Level) 8.8 mg/dL 8.3-10.5 Magnesium Ndmzp3297-47-93 21:51:31* Test Item Value Reference Range Interpretation Comments Magnesium Level (test code = Magnesium Level) 2.3 mg/dL 1.7-2.5 Basic Metabolic Pdwhi6534-68-52 21:51:31* Test Item Value Reference Range Interpretation [...] is not provided, and the patient is -Trinidadian, multiply by 1.212. If sex is not [...] by the National Kidney Foundation, http://nkdep.nih.gov Phosphorus Mnwrj3599-39-52 21:51:31* Test Item Value Reference Range Interpretation Comments Phosphorus Level (test code = Phosphorus Level) 5.60 mg/dL 2.70-4 .50 H Basic Metabolic Kxlif1474-87-18 21:51:31* Test Item Value Reference Range Interpretation [...] is not provided, and the patient is -Trinidadian, multiply by 1.212. If sex is not [...] is not provided, and the patient is -Trinidadian, multiply by 1.212. If sex is not [...] Kidney Foundation, http://nkdep.nih.gov Complete Blood Count with Hlyjxchrbsle8419-97-59 21:09:11* Test Item Value Reference Range Interpretation [...] code = IPF) 0 % N Automated Whkiuqqtthaf1438-81-23 21:09:11* Test Item Value Reference Range Interpretation Comments Neutro Auto (test code = Neutro Auto) 81.7 % 36.0-70.0 H Lymph Auto (test code = Lymph Auto) 7.0 % 12.0-44.0 L Mingo Auto (test code = Mingo Auto) 5.7 % 0.0-11.0 Eos, Auto (test code = Eos, Auto) 1.7 % 0.0-7.0 Basophil Auto (test code = Basophil Auto) 0.3 % 0.0-2.0 Neutro Absolute (test code = Neutro Absolute) 7.2 x10 1.6-7.4 Lymph Absolute (test code = Lymph Absolute) .62 x10 .50-4.60 Mingo Absolute (test code = Mingo Absolute) .51 x10 .00-1.20 Eos Absolute (test code = Eos Absolute) 0.15 x10 0.00-0.74 Baso Absolute (test code = Baso Absolute) 0.03 x10 0.00-0.21 IG Wlwgn4086-26-95 21:09:11* Test Item Value Reference Range Interpretation Comments IG (test code = IG) 3.6 % 0.0-5.0 IG Abs (test code = IG Abs) 0 x10 N Hepatitis B Surface Smkkufd9492-39-85 20:03:02* Test Item Value Reference Range Interpretation Comments Hep Bs Ag (test code = Hep Bs Ag) Nonreactive Non Reactive Blood Gwwmwwt7738-23-48 18:02:32No growth at 5 days.Pro B Natriuretic Peptide 2019-09-14 15:58:91235173:2 inst dilutionComprehensive Metabolic Xinof3684-23-36 15:39:59* Test Item Value Reference Range Interpretation Comments Sodium Level (test code = Sodium Level) 135.0 mmol/L 135.0-145.0 Potassium Level (test code = Potassium Level) 7.0 mmol/L 3.5-5.1 Critical results called to Dr. Barreto at 09/14/2019 15:39:51 BRICK LAYER by shy. Read back and verified? yes [...] is not provided, and the patient is -Trinidadian, multiply by 1.212. If sex is not [...] by the National Kidney Foundation, http://nkdep.nih.gov Creatine Lsugrb1880-62-01 15:39:59* Test Item Value Reference Range Interpretation Comments CK (test code = CK) 123 U/L 39-308 Comprehensive Metabolic Nvezo8742-29-77 15:39:59* Test Item Value Reference Range Interpretation Comments Sodium Level (test code = Sodium Level) 135.0 mmol/L 135.0-145.0 Potassium Level (test code = Potassium Level) 7.0 mmol/L 3.5-5.1 Critical results called to Dr. Barreto at 09/14/2019 15:39:51 BRICK LAYER by shy. Read back and verified? yes [...] is not provided, and the patient is -Trinidadian, multiply by 1.212. If sex is not [...] is not provided, and the patient is -Trinidadian, multiply by 1.212. If sex is not [...] by the National Kidney Foundation, http://nkdep.nih.gov Troponin [id number] 15:39:59* Test Item Value Reference Range Interpretation Comments Troponin-T (test code = Troponin-T) 157.800 ng/L 0.000-22.000 Critical results called to Dr. Barreto at 09/14/2019 15:39:51 BRICK LAYER by shy. Read back and verified? yesThe [...] diagnosis of chronic myocardial injury. Comprehensive Metabolic Csnaj3797-26-69 15:39:59* Test Item Value Reference Range Interpretation Comments Sodium Level (test code = Sodium Level) 135.0 mmol/L 135.0-145.0 Potassium Level (test code = Potassium Level) 7.0 mmol/L 3.5-5.1 Critical results called to Dr. Barreto at 09/14/2019 15:39:51 BRICK LAYER by shy. Read back and verified? yes [...] is not provided, and the patient is -Trinidadian, multiply by 1.212. If sex is not [...] is not provided, and the patient is -Trinidadian, multiply by 1.212. If sex is not [...] the National Kidney Foundation, http://nkdep.nih.gov Partial Thromboplastin Ikys9383-56-87 14:49:13* Test Item Value Reference Range Interpretation Comments Partial Thromboplastin Time (test code = Partial Throm boplastin Time) 42.60 seconds 24.39-37.25 H Prothrombin Time and ETG4943-26-89 14:49:05* Test Item Value Reference Range Interpretation Comments Prothrombin Time (test code = Prothrombin Time) 13.4 seconds 9.8-13 .4 INR (test code = INR) 1.2 ratio 0.6-1.2 IG Ezbat9925-38-15 14:37:50* Test Item Value Reference Range Interpretation Comments IG (test code = IG) 4.3 % 0.0-5.0 IG Abs (test code = IG Abs) 0 x10 N Complete Blood Count with Zcsenmsdtkfv8298-64-22 14:37:49* Test Item Value Reference Range Interpretation [...] code = IPF) 0 % N Automated Axnmqierrpca2572-39-65 14:37:49* Test Item Value Reference Range Interpretation Comments Neutro Auto (test code = Neutro Auto) 67.7 % 36.0-70.0 Lymph Auto (test code = Lymph Auto) 15.8 % 12.0-44.0 Mingo Auto (test code = Mingo Auto) 8.7 % 0.0-11.0 Eos, Auto (test code = Eos, Auto) 2.9 % 0.0-7.0 Basophil Auto (test code = Basophil Auto) 0.6 % 0.0-2.0 Neutro Absolute (test code = Neutro Absolute) 4.4 x10 1.6-7.4 Lymph Absolute (test code = Lymph Absolute) 1.03 x10 .50-4.60 Mingo Absolute (test code = Mingo Absolute) .57 x10 .00-1.20 Eos Absolute (test code = Eos Absolute) 0.19 x10 0.00-0.74 Baso Absolute (test code = Baso Absolute) 0.04 x10 0.00-0.21 XR Chest 1 View Laiywth5974-86-86 14:28:27Patient: AMOR COMBS Date/Time09/14/2019 14:01 CSTReason for ExamCHF (Congestive Heart Failure), vpmmfGcpfmoI01QAPT: XR Chest 1 View FrontalHISTORY: CHF (Congestive Heart Failure), knownCOMPARISON: 05/04/2018FINDINGS:Median sternotomy wires are again noted.Confluent bilateral airspace opacities. No pleural effusion or pneumothorax. Mild enlargement of the cardiac silhouette. No acute osseous abnormalities.IMPRESSION:Moderate congestive heart failure with bilateral pulmonary edema. Final Dictated by: MD Juma, Chelsea DT/TM: 09/14/2019 2:23 pmSigned by: MD Juma, Dayana (Electronic Signature): 09/14/2019 2:28 pmHemoglobin and dighuzlrog2209-53-07 08:31:00* Test Item Value Reference Range Interpretation Comments Hemoglobin (test code = 786-4) 8.5 13.7- 17.5 GM/DL L Hematocrit (test code = 4544-3) 27.2 % 40.1-51 L Lab Interpretation (test code = 90300-9) [facility]normal [facility] AND XNWRAJRPCD6700-25-97 08:31:00* Test Item Value Reference Range Interpretation Comments HEMOGLOBIN (BEAKER) (test code = 410) 8.5 GM/DL 13.7-17.5 L HEMATOCRIT (BEAKER) (test code = 411) 27.2 % 40.1-51.0 L Gmnlvhmhe1248-93-18 08:27:00* Test Item Value Reference Range Interpretation Comments Potassium (test code = 2823-3) 5.6 meq/L 3.5-5.1 H Lab Interpretation (test code = 76682-5) Abnormal [facility]2019-08-27 08:27:00* Test Item Value Reference Range Interpretation Comments POTASSIUM (BEAKER) (test code = 379) 5.6 meq/L 3.5-5.1 H ECG 12 cbni1742-59-81 11:41:42Interface, External Ris In - 06/27/2019 11:41 AM CDTVentricular Rate 59 BPMAtrial Rate 59 BPMP-R Interval 208 msQRS Duration 132 msQ-T Interval 490 msQTC Calculation(Bazett) 485 msP Dakota 44 degreesR [place] -40 degreesT [place] 153 degreesSinus bradycardiaLeft axis deviationNon-specific intra- ventricular conduction blockPoor R wave progression Cannot rule out Anterior infarct (cited on or before 15-JUN-2019)T wave abnormality, consider lateral ischemiaProlonged QTAbnormal ECGWhen compared with ECG of 16-JUN-2019 05:02,No significant changesConfirmed by Dillan GUDINO, ROBERTO ([id number]) on 06/27/2019 11:41:40 [facility], NON [id number] 09:02:00 Reason for exam:->pulm edemaShould this be [...] Rodgers Verified Date/Time: 06/18/2019 09:02:19 Reading Location: [facility] Radiology Reading Room chest 1 view portable / vwfjgfs8182-91-74 09:02:00Interface, External Ris In - 06/18/2019 9:04 [...] Hollingsworth Verified Date/Time: 06/18/2019 09:02:19 Reading Location: [facility] Radiology Reading Room [facility]ucose bxjrr2212-94-51 07:43:00* Test Item Value Reference Range Interpretation Comments POC-Glucose Meter (test code = 1538) 106 mg/dL 70-110 TESTED AT [facility] [address] [facility] [address] Lab Interpretation (test code = 61993-0) Normal [facility]UCOSE [id number] 07:43:00* Test Item Value Reference Range Interpretation Comments POC-GLUCOSE METER (BEAKER) (test code = 1538) 106 mg/dL 70-110 TESTED AT [place] [id number] [facility] [address] POCT-GLUCOSE [id number] 21:55:00* Test Item Value Reference Range Interpretation Comments POC-GLUCOSE METER (BEAKER) (test code = 1538) 193 mg/dL 70-110 H TESTED AT [address] [address] HEMODIALYSIS [id number] 21:40:22Mary Morelos RN 06/17/2019 9:41 PM Completed [...] Results Component Value Date HEPBSAG Nonreactive 06/15/2019 [facility]SE [id number] 12:15:00* Test Item Value Reference Range Interpretation Comments POC-GLUCOSE METER (BEAKER) (test code = 1538) 168 mg/dL 70-110 H TESTED AT [address] [address] RAD, CHEST, 1 VIEW, NON [id number] 11:55:00Reason for exam:->pulm edemaShould this be performed [...] of small pleural effusions. Signed: Bebe Hollingsworthi fied Date/Time: 06/17/2019 11:55:09 Reading Location: [facility] Room -GLUCOSE [id number] 07:52:00* Test Item Value Reference Range Interpretation Comments POC-GLUCOSE METER (BEAKER) (test code = 1538) 99 mg/dL 70-110 TESTED AT [facility] [address] [facility] [address] Basic Metabolic Kbxpa3215-79-27 06:17:00* Test Item Value Reference Range Interpretation [...] 98 mg/dL 70-105 Calcium (test code = 70884-5) 9.2 mg/dL 8.4-10.2 EGFR (test code = 37327-7) 8 mL/min/1.73 sq m ESTIMATED GFR IS NOT ACCURATE CREATININE CLEARANCE IN PREDICTING GLOMERULAR FILTRATION RATE. ESTIMATED GFR IS NOT APPLICABLE FOR DIALYSIS PATIENTS. Lab Interpretation (test code = 86329-4) Abnormal [facility]OL[facility] [id number] 06:17:00* Test Item Value Reference Range Interpretation [...] GFR IS NOT APPLICABLE FOR DIALYSIS PATIENTS. Tlkkpsorj5443-05-15 06:07:00* Test Item Value Reference Range Interpretation Comments Magnesium (test code = 91678-1) 2.4 mg/dL 1.6-2.6 Lab Interpretation (test code = 63260-3) Normal [facility]2019-08-08 06:07:00* Test Item Value Reference Range Interpretation Comments Phosphorus (test code = 2777-1) 4.9 mg/dL 2.3-4.7 H Lab Interpretation (test code = 95828-7) Abnormal [facility]OS[facility]2019-08-08 06:07:00* Test Item Value Reference Range Interpretation Comments PHOSPHORUS (BEAKER) (test code = 604) 4.9 mg/dL 2.3-4.7 H [id number] 06:07:00* Test Item Value Reference Range Interpretation Comments MAGNESIUM (BEAKER) (test code = 627) 2.4 mg/dL 1.6-2.6 CBC with platelet count + automated [id number] 04:36:00* Test Item Value Reference Range Interpretation [...] K/CU MM L MPV (test code = 88825-7) 11.3 fL 9.4-12.4 nRBC (test code = [...] % 0-1 Lab Interpretation (test code = 25626-9) Abnormal [facility] W/PLT COUNT & AUTO [id number] 04:36:00* Test Item Value Reference Range Interpretation [...] code = 2801) 1 % 0-1 POCT-GLUCOSE [id number] 22:04:00* Test Item Value Reference Range Interpretation Comments POC-GLUCOSE METER (BEAKER) (test code = 1538) 210 mg/dL 70-110 H TESTED AT [place] [id number] [facility] [address] POCT-GLUCOSE [id number] 18:37:00* Test Item Value Reference Range Interpretation Comments POC-GLUCOSE METER (BEAKER) (test code = 1538) 161 mg/dL 70-110 H TESTED AT [facility] [address] [facility] [address] HEMOGLOBIN AND [id number] 16:15:00* Test Item Value Reference Range Interpretation Comments HEMOGLOBIN (BEAKER) (test code = 410) 8.0 GM/DL 13.7-17.5 L HEMATOCRIT (BEAKER) (test code = 411) 24.9 % 40.1-51.0 L POCT-GLUCOSE [id number] 12:14:00* Test Item Value Reference Range Interpretation Comments POC-GLUCOSE METER (BEAKER) (test code = 1538) 207 mg/dL 70-110 H TESTED AT [address] [address] [id number] 09:03:00* Test Item Value Reference Range Interpretation Comments POTASSIUM (BEAKER) (test code = 379) 6.7 meq/L 3.5-5.1 HH Specimen slightly hemolyzed POCT-GLUCOSE [id number] 07:59:00* Test Item Value Reference Range Interpretation Comments POC-GLUCOSE METER (BEAKER) (test code = 1538) 138 mg/dL 70-110 H TESTED AT [address] [address] RAD, CHEST, 1 VIEW, NON [id number] 07:17:00Reason for exam:->pulm edemaShould this be performed [...] IMPRESSION:No significant interval change. Signed: Bebe Hollingsworth MDReport Verified Date/Time: 06/16/2019 07:17:05 Reading Location: [facility] Radiology Reading Room Troponin [id number] 04:17:00* Test Item Value Reference Range Interpretation Comments Troponin I (test code = 74871-6) 0.05 ng/mL 0-0.03 H ELVIS (test code [...] persistent tachyarrhythmia. Lab Interpretation (test code = 80190-7) Abnormal [facility]TROPONIN [id number] 04:17:00* Test Item Value Reference Range Interpretation [...] neurological disease, and per sistent tachyarrhythmia.BASIC METABOLIC [id number] 04:13:00* Test Item Value Reference Range Interpretation [...] GFR IS NOT APPLICABLE FOR DIALYSIS PATIENTS. [id number] 04:10:00* Test Item Value Reference Range Interpretation Comments PHOSPHORUS (BEAKER) (test code = 604) 5.1 mg/dL 2.3-4.7 H [id number] 04:10:00* Test Item Value Reference Range Interpretation Comments MAGNESIUM (BEAKER) (test code = 627) 2.6 mg/dL 1.6-2.6 CBC W/PLT COUNT & AUTO [id number] 04:01:00* Test Item Value Reference Range Interpretation [...] = 2801) 2 % 0-1 H POCT-GLUCOSE [id number] 21:59:00* Test Item Value Reference Range Interpretation Comments POC-GLUCOSE METER (BEAKER) (test code = 1538) 217 mg/dL 70-110 H TESTED AT [facility] [address] [facility] [address] HEMODIALYSIS [id number] 18:57:10Mary Garcia RN 06/15/2019 6:58 PMCompleted 4 [...] Ag Latest Ref Range: Nonreactive Nonreactive [facility] METABOLIC [id number] 18:35:00* Test Item Value Reference Range Interpretation [...] GFR IS NOT APPLICABLE FOR DIALYSIS PATIENTS. [id number] 18:18:00* Test Item Value Reference Range Interpretation Comments PHOSPHORUS (BEAKER) (test code = 604) 2.3 mg/dL 2.3-4.7 [id number] 18:18:00* Test Item Value Reference Range Interpretation Comments MAGNESIUM (BEAKER) (test code = 627) 2.2 mg/dL 1.6-2.6 Hepatitis B surface skufxgb9499-16-93 14:37:00* Test Item Value Reference Range Interpretation Comments HBsAg Screen (test code = 5195-3) Nonreactive Nonreactive ELVIS (test code = ELVIS) For chronic HD patients, oscar w HBsAg with each admission then every 30 days. Lab Interpretation (test code = 57497-8) Normal [facility]HEPATITIS B SURFACE [id number] 14:37:00* Test Item Value Reference Range Interpretation Comments HEPATITIS B SURFACE ANTIGEN (2) (BEAKER) (test code = 2585) Nonreactive Nonreactive For chronic HD patients, draw HBsAg with each admission then every 30 days. TROPONIN [id number] 14:26:00* Test Item Value Reference Range Interpretation [...] per sistent tachyarrhythmia.RAD, CHEST, 1 VIEW, NON [id number] 13:56:00Reason for exam:->sobShould this be performed at [...] MDReport Verified Date/Time: 06/15/2019 13:56:44 Reading Location: [facility] Reading Room C METABOLIC [id number] 11:04:00* Test Item Value Reference Range Interpretation [...] DIALYSIS PATIENTS. CBC W/PLT COUNT & AUTO [id number] 10:31:00* Test Item Value Reference Range Interpretation [...] code = 2801) 3 % 0-1 H [id number] 22:52:00* Test Item Value Reference Range Interpretation Comments GLUBED (test code = GLUBED) 110 mg/dL 74-106 H Performed by certified hydrocrane operator at [facility] [id number] 19:54:00* Test Item Value Reference Range Interpretation Comments POTASSIUM (test code = K) 4.6 mmol/L 3.5-5.1 N HARDSTICK V.ALTAGRACIA.DB2 05/27/19 [id number] 17:54:00* Test Item Value Reference Range Interpretation Comments GLUBED (test code = GLUBED) 96 mg/dL 74-106 N Performed by certified hydrocrane operator at [facility] AG HEPAT B [id number] 12:30:00* Test Item Value Reference Range Interpretation Comments AG HEPAT B SURF (test code = HBSAG) Nonreactive Index Nonreactive BASIC METABOLIC [id number] 10:31:00* Test Item Value Reference Range Interpretation Comments SODIUM (test code = NA) 138 mmol/L 136-145 N POTASSIUM (test code = K) 6.6 mmol/L 3.5-5.1 [facility] [place]ton called to GRACIELA GUSMANHVJ3044yd V.LAB.OA 05/27/19 1031Critical results verified and read [...] code = CA) 8.6 mg/dL 8.5-10.1 N [id number] 10:28:00* Test Item Value Reference Range Interpretation Comments TROPONIN-I (test code = TROPI) 0.020 ng/mL 0-0.045 N COMMENTS TO SECURITIES COMPLIANCE EXAMINER: COLLECT 3 HOURS AFTER PREVIOUS SAMPLEBASIC METABOLIC [id number] 10:23:00* Test Item Value Reference Range Interpretation [...] CA) 8.6 mg/dL 8.5-10.1 N CBC W/AUTO [id number] 10:07:00* Test Item Value Reference Range Interpretation [...] DIFF REQUIRED (test code = MDIFF) NO [id number] 08:52:00* Test Item Value Reference Range Interpretation Comments TROPONIN-I (test code = TROPI) 0.023 ng/mL 0-0.045 N COMMENTS TO SECURITIES COMPLIANCE EXAMINER: COLLECT 3 HOURS AFTER PREVIOUS [id number] 07:31:00* Test Item Value Reference Range Interpretation Comments GLUBED (test code = GLUBED) 82 mg/dL 74-106 N Performed by certified hydrocrane operator at [facility] B-TYPE NATRIURETIC [id number] 00:13:00* Test Item Value Reference Range Interpretation Comments B-TYPE NATRIURETIC PEPTIDE (test code = BNP) 2196.98 pgram/mL 0-100 H BASIC METABOLIC [id number] 00:09:00* Test Item Value Reference Range Interpretation [...] code = CA) 9.3 mg/dL 8.5-10.1 N [id number] 00:09:00* Test Item Value Reference Range Interpretation Comments CKMB (test code = CKMBT) 1.9 ng/mL 0-6.0 N [id number] 00:09:00* Test Item Value Reference Range Interpretation Comments TROPONIN-I (test code = TROPI) 0.016 ng/mL 0-0.045 N CBC W/AUTO [id number] 23:59:00* Test Item Value Reference Range Interpretation [...] = MDIFF) NO, ONLY SCAN NEEDED DIFFERENTIAL [id number] 23:59:00* Test Item Value Reference Range Interpretation Comments STAIN ACCEPTABILITY (test code = STN ACCEPTABLE) STAIN ACCEPTABLE ANISOCYTOSIS (test code = ANISO) 1+ MICROCYTOSIS (test code = MICR) 1+ PLATELET ESTIMATE (test code = PLTEST) DECREASED PLATELET MORPHOLOGY (test code = PLTMORPH) NORMAL BASIC METABOLIC [id number] 23:50:00* Test Item Value Reference Range Interpretation [...] CALCIUM (test code = CA) mg/dL 8.5-10.1 [id number] 23:50:00* Test Item Value Reference Range Interpretation Comments CKMB (test code = CKMBT) ng/mL 0-6.0 [id number] 23:50:00* Test Item Value Reference Range Interpretation Comments TROPONIN-I (test code = TROPI) ng/mL 0-0.045 CBC W/AUTO [id number] 23:37:00* Test Item Value Reference Range Interpretation [...] = MDIFF) NO, ONLY SCAN NEEDED DIFFERENTIAL [id number] 23:37:00* Test Item Value Reference Range Interpretation Comments STAIN ACCEPTABILITY (test code = STN ACCEPTABLE) CABOT RINGS (test code = CAB) MORPHOLOGY COMMENT (test code = MOC) PLATELET ESTIMATE (test code = PLTEST) PLATELET MORPHOLOGY (test code = PLTMORPH) CBC W/AUTO [id number] 23:37:00* Test Item Value Reference Range Interpretation [...] = MDIFF) NO, ONLY SCAN NEEDED DIFFERENTIAL [id number] 23:37:00* Test Item Value Reference Range Interpretation Comments STAIN ACCEPTABILITY (test code = STN ACCEPTABLE) CABOT RINGS (test code = CAB) MORPHOLOGY COMMENT (test code = MOC) PLATELET ESTIMATE (test code = PLTEST) PLATELET MORPHOLOGY (test code = PLTMORPH) CBC W/AUTO [id number] 23:37:00* Test Item Value Reference Range Interpretation [...] = MDIFF) NO, ONLY SCAN NEEDED DIFFERENTIAL [id number] 23:37:00* Test Item Value Reference Range Interpretation Comments STAIN ACCEPTABILITY (test code = STN ACCEPTABLE) MORPHOLOGY COMMENT (test code = MOC) PLATELET ESTIMATE (test code = PLTEST) PLATELET MORPHOLOGY (test code = PLTMORPH) CBC W/AUTO [id number] 23:37:00* Test Item Value Reference Range Interpretation [...] = MDIFF) NO, ONLY SCAN NEEDED DIFFERENTIAL [id number] 23:37:00* Test Item Value Reference Range Interpretation Comments STAIN ACCEPTABILITY (test code = STN ACCEPTABLE) CABOT RINGS (test code = CAB) MORPHOLOGY COMMENT (test code = MOC) PLATELET ESTIMATE (test code = PLTEST) PLATELET MORPHOLOGY (test code = PLTMORPH) - XR CHEST 1 [id number] 23:03:00 FAX: Marlys Moran [phone] [place]: [address] St: REG Name: AMOR LOPES [facility] : [birth year] Age/S: 48/M [address] [facility] Unit #: [id number] Loc: [place] [address] Phys: Marlys Malik MD Acct: [id number] Dis Date: Status: REG ER PHONE #: [phone] Exam Date: 05/26/20193 FAX #: [phone] Reason: sob EXAMS: CPT CODE: [id number] XR CHEST 1 V 87948 REASON FOR EXAM: sob Exam Order Date: 05/26/2019 10:02 PM Ordering M.DAnjali: Marlys Malik MD PROCEDURE: - XR CHEST [...] CC: Marlys Malik MD Technologist: STEPHEN BRAUN; RT Blaire(R Trnscrd Date/Time/By: 05/26/2019 (0900) : By: [email or web address] Orig Print D/T: S: 05/26/2019 (3667) PAGE 1 Signed Report CBC W/O DIFF [...] = MPV) 10.4 fL 6.7-11.0 N PROTHROMBIN [id number] 23:22:00* Test Item Value Reference Range Interpretation [...] (2.5-3.5) IS PATIENT ON ANTICOAGULANTS? NTHROMBOPLASTIN TIME [id number] 23:22:00* Test Item Value Reference Range Interpretation Comments THROMBOPLASTIN TIME PARTIAL (test code = PTT) 40.9 seconds 25.0-36. 5 H IS PATIENT ON ANTICOAGULANTS? NBASIC METABOLIC [id number] 23:09:00* Test Item Value Reference Range Interpretation [...] CA) 8.9 mg/dL 8.5-10.1 N BASIC METABOLIC [id number] 23:05:00* Test Item Value Reference Range Interpretation [...] CALCIUM (test code = CA) mg/dL 8.5-10.1 [id number] 07:27:00* Test Item Value Reference Range Interpretation Comments GLUBED (test code = GLUBED) 177 mg/dL 74-106 H Performed by certified hydrocrane operator at [facility] [id number] 07:26:00* Test Item Value Reference Range Interpretation Comments GLUBED (test code = GLUBED) 148 mg/dL 74-106 H Performed by certified hydrocrane operator at [facility] - XR KNEE 1 OR 2 V [id number] 12:05:00 FAX: Jason Leos MD [phone] [place]: O St: REG FAX: Arun Comfort Rivas Cosme Clay [phone] Name: AMOR COMBS [facility] : 1970 Age/S: 48/M [address] [facility] Unit #: [id number] Loc: [place] [address] Phys: Jason Gabriel MD Acct: [id number] Dis Date: Status: REG RCR PHONE #: [phone] Exam Date: 12/22/2018 1133 FAX #: [phone] Reason: FX EXAMS: CPT CODE: [id number] XR KNEE 1 OR 2 [place] [address] HISTORY: Fracture. COMPARISON: December 14, 2018. AP [...] TALON JENKINS RT (R) Trnscrd Date/Time/By: 12/22/2018 (1205) : By: Fredis [email or web address] Orig Print D/T: S: 12/23/2018 (1023) GINA GREER 1 Signed Report GLUBED 2018-12-20 21:03:00* Test Item Value Reference Range Interpretation Comments GLUBED (test code = GLUBED) 172 mg/dL 74-106 H Performed by certified hydrocrane operator at [facility] [id number] 16:59:00* Test Item Value Reference Range Interpretation Comments GLUBED (test code = GLUBED) 120 mg/dL 74-106 H Performed by certified hydrocrane operator at [facility] [id number] 12:08:00* Test Item Value Reference Range Interpretation Comments GLUBED (test code = GLUBED) 156 mg/dL 74-106 H Performed by certified hydrocrane operator at [facility] [id number] 08:20:00* Test Item Value Reference Range Interpretation Comments GLUBED (test code = GLUBED) 118 mg/dL 74-106 H Performed by certified hydrocrane operator at [facility] [id number] 11:59:00* Test Item Value Reference Range Interpretation Comments GLUBED (test code = GLUBED) 139 mg/dL 74-106 H Performed by certified hydrocrane operator at [facility] [id number] 08:33:00* Test Item Value Reference Range Interpretation Comments GLUBED (test code = GLUBED) 115 mg/dL 74-106 H Performed by certified hydrocrane operator at [facility] BASIC METABOLIC [id number] 05:58:00* Test Item Value Reference Range Interpretation [...] code = FESAT) 17.18 % 13-45 N [id number] 05:58:00* Test Item Value Reference Range Interpretation Comments FERRITIN (test code = SHOLA) 846 ng/mL 8-388 H BASIC METABOLIC [id number] 05:29:00* Test Item Value Reference Range Interpretation [...] SATURATION (test code = FESAT) % 13-45 [id number] 05:29:00* Test Item Value Reference Range Interpretation Comments FERRITIN (test code = SHOLA) ng/mL 8-388 CBC W/AUTO [id number] 05:05:00* Test Item Value Reference Range Interpretation [...] code = NRBC#) 0.04 K/mm3 0.0-0.1 N [id number] 12:43:00* Test Item Value Reference Range Interpretation Comments GLUBED (test code = GLUBED) 119 mg/dL 74-106 H Performed by certified hydrocrane operator at [facility] BASIC METABOLIC [id number] 11:01:00* Test Item Value Reference Range Interpretation [...] CA) 8.3 mg/dL 8.5-10.1 L BASIC METABOLIC [id number] 10:28:00* Test Item Value Reference Range Interpretation [...] code = CA) mg/dL 8.5-10.1 CBC W/AUTO [id number] 09:47:00* Test Item Value Reference Range Interpretation [...] code = NRBC#) 0.04 K/mm3 0.0-0.1 N [id number] 07:45:00* Test Item Value Reference Range Interpretation Comments GLUBED (test code = GLUBED) 120 mg/dL 74-106 H Performed by certified hydrocrane operator at [facility] B-TYPE NATRIURETIC [id number] 22:58:00* Test Item Value Reference Range Interpretation Comments B-TYPE NATRIURETIC PEPTIDE (test code = BNP) 218.73 pgram/mL 0-100 H BASIC METABOLIC [id number] 22:42:00* Test Item Value Reference Range Interpretation [...] code = CA) 8.4 mg/dL 8.5-10.1 L [id number] 22:42:00* Test Item Value Reference Range Interpretation Comments TROPONIN-I (test code = TROPI) 0.030 ng/mL 0-0.045 N BASIC METABOLIC [id number] 22:29:00* Test Item Value Reference Range Interpretation [...] CALCIUM (test code = CA) mg/dL 8.5-10.1 [id number] 22:29:00* Test Item Value Reference Range Interpretation Comments TROPONIN-I (test code = TROPI) ng/mL 0-0.045 CBC W/O [id number] 22:18:00* Test Item Value Reference Range Interpretation Comments WHITE BLOOD CELL (test code = WBC) 6.1 K/mm3 4.5-12.5 N RED BLOOD CELL (test code = RBC) 1.82 mill/mm3 4.0-5.8 L HEMOGLOBIN (test code = HGB) 5.6 gram/dL 13.0-17.5 L HEMATOCRIT (test code = HCT) 18.1 % 42.0-52.0 Results called to [id number] by SHANTAL 12/17/18 2218Critical results verified and [...] fL 6.7-11.0 N - XR CHEST 1 [id number] 21:13:00 FAX: Arnulfo Richardson [place]: B St: REG Name: AMOR LOPES [facility] : [birth year] Age/S: 48/M [address] [facility] Unit #: [id number] Loc: [place] [address] Phys: Arnulfo Richardson MD Acct: [id number] Dis Date: Status: REG ER PHONE #: [phone] Exam Date: 12/17/20182104 FAX #: [phone] Reason: shortness of breath EXAMS: CPT CODE: [id number] XR CHEST 1 V 33560 REASON FOR EXAM: shortness of breath EXAM [...] M.D. CC: Arnulfo Richardson MD Techno logist: RT MARY(R) Trnscrd Date/Time /By: 12/17/2018 (2112) : By: Angelica.VTL Orig Print D/T: S: 12/17/2018 ( 2115) PAGE 1 Signed Report AG HEPAT B [id number] 08:45:00* Test Item Value Reference Range Interpretation Comments AG HEPAT B SURF (test code = HBSAG) Nonreactive Index Nonreactive CBC W/AUTO [id number] 08:40:00* Test Item Value Reference Range Interpretation [...] (test code = MDIFF) NO BASIC METABOLIC [id number] 05:01:00* Test Item Value Reference Range Interpretation Comments SODIUM (test code = NA) 133 mmol/L 136-145 L POTASSIUM (test code = K) 6.5 mmol/L 3.5-5.1 Re sults called to [id number] by [facility] 12/15/18 0411Critical results verified and read back by Nurse? Y CHLORIDE (test code = CL) 98.0 mmol/L 98-107 N CARBON DIOXIDE (test code = CO2) 22.0 mmol/L 21-32 N Previously reported result: 22.0 mmol/LEdited by: [facility] on 12/15/18:997855 0501: CO2 previously reported as: 22.0 mmol/L [...] CA) 8.8 mg/dL 8.5-10.1 N BASIC METABOLIC [id number] 04:14:00* Test Item Value Reference Range Interpretation Comments SODIUM (test code = NA) 133 mmol/L 136-145 L POTASSIUM (test code = K) 6.5 mmol/L 3.5-5.1 Re sults called to [id number] by [employer] 12/15/18 0411Critical results verified [...] code = CA) mg/dL 8.5-10.1 BASIC METABOLIC [id number] 04:14:00* Test Item Value Reference Range Interpretation Comments SODIUM (test code = NA) 133 mmol/L 136-145 L POTASSIUM (test code = K) 6.5 mmol/L 3.5-5.1 Re sults called to [id number] by [facility] 12/15/18 0411Critical results verified [...] CA) 8.8 mg/dL 8.5-10.1 N CHEMISTRY 8 [id number] 23:19:00* Test Item Value Reference Range Interpretation [...] GFRBED) 6 >6 0 LL CHEMISTRY 8 [id number] 23:19:00* Test Item Value Reference Range Interpretation [...] 0 LL - XR KNEE 3 V [id number] 18:09:00 FAX: Marlys Moran [phone] [place]: B St: REG Name: AMOR LOPES [facility] : [birth year] Age/S: 48/M [address] [facility] Unit #: [id number] Loc: [place] [address] Phys: Marlys Malik MD Acct: [id number] Dis Date: Status: REG ER PHONE #: [phone] Exam Date: 12/14/2018 1755 FAX #: [phone] Reason: fall, swelling to stump EXAMS: CPT CODE: [id number] XR KNEE 3 V [place] 06605 REASON FOR EXAM: fall, swelling to stump [...] RT(R) Trnscrd Date/Time/By: 12/14/2018 (180) : By: Angelica.VTL Orig Print D/T: S: 12/14/2018 (181) PAGE 1 Signed Report - XR HAND 3 + V [id number] 18:08:00 FAX: Marlys Moran [phone] [place]: St: REG Name: AMOR LOPES [facility] : [birth year] Age/S: 48/M [address] Unit #: [id number] Loc: [place] [address] Phys: Marlys Malik MD Acct: [id number] Dis Date: Status: REG ER PHONE #: [phone] Exam Date: 12/14/2018 0414 FAX #: [phone] Reason: fall, swelling to thumb EXAMS: CPT CODE: [id number] XR HAND 3 + V RT 34749 REASON FOR EXAM: fall, swelling to thumb EXAM ORDER DATE: 12/14/2018 5:08 PM Ordering Dillan: Marlys Malik MD PROCEDURE: - XR HAND [...] (Elec tronic Signature): 05/07/2018 12:30 pmIR CVC [id number] 17:19:05Patient: AMOR COMBS Date/Time05/06/2018 12:30 CDTReason for [...] patient's daughter. Prior to beginning the procedure, [place] Protocol was used to confi rm the patient's identity and planned procedure. Prior to the procedure, the gi tral veins were evaluated by ultrasound, an image recorded and saved in PACS.Max imum sterile barriers including cap, mask, hand hygiene, [...] Signature): 05/06/2018 5:19 pmXR Chest 1 View [id number] 14:25:02Patient: AMOR COMBS Date/Time05/04/2018 14:05 CDTReason for [...] Signature): 05/04/2018 1:44 pmXR Chest 1 View [id number] 19:13:17Patient: AMOR COMBS Date/Time04/29/2018 18:51 CDTReason for ExamCHF (Congestive Heart Failure), knownReportXR Chest 1 View FrontalLOCATION: [id number]: None.INDICATION: CHF (Congestive Heart Failure), knownDISCUSSION:A single [...] RT 2017-10-15 09:04:00 FAX: Berkley Ortega MD [phone] [place]: St: [facility] FAX: Markus Brothers [phone] FAX: Jazmin Ortiz [phone] Name: AMOR COMBS [facility] : 1970 Age/S: 47/M [address] [facility] Unit #: [id number] Loc: [place] [address] 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 COMPARISON: None available. [...] MD; Jazmin Ballesteros NP Technologist: Roderick Olvera Trnscrd Date/Time/By: 04/2017 (903) : By: [email or web address] Orig Print D/T: S: 10/15/2017 (906) PAGE 1 Signed Report - XR L-SPINE 2/3 [id number] 09:03:00 FAX: Berkley Ortega MD [phone] [place]: St: [facility] FAX: [employer]us [employer] [phone] FAX: Jazmin Ortiz --------- Name: AMOR COMBS [facility] : 1970 Age/S: 47/M [address] [facility] it #: [id number] Loc: [facility] [place] [address] Phys: Jazmin Ortiz NP Acct: [id number] Dis Date: Status: [facility] PH ONE #: [phone] Exam Date: 10/15/2017 0840 FAX #: [phone] Reason: pain post fall EXAMS: CPT CODE: [id number] XR L-SPINE 2/3 VIEWS 98386 HISTORY: Pain after fall. COMPARISON: None available. [...] MD; Jazmin Ortiz NP Technologist: [facility] Date/Time/By: 10/15/2017 (902) : By: [email or web address] Orig Print D/T: S: 10/15/2017 (905) PAGE 1 Signed Report - XR SACRUM/COCCYX 2 + [id number] 09:03:00 FAX: Berkley Ortega MD [phone] [place]: St: [facility] FAX: Markus Brothers [phone] FAX: Jazmin Ortiz [phone] Name: AMOR COMBS [facility] : 1970 Age/S: 47/M [address] [facility] Unit #: [id number] Loc: [place] [address] Phys: Jazmin Ortiz NP Acct: [id number] Dis Date: Status: [facility] PH ONE #: [phone] Exam Date: 10/15/2017839 FAX #: [phone] Reason: pain post fall EXAMS: CPT CODE: [id number] XR SACRUM/COCCYX 2 + V 60405 HISTORY: Pain after fall. COMPARISON: None available. [...] Calix MD; Jazmin Ortiz NP Technologist: Roderick Allenwvrd Date/Time/By: 10/15/2017 (902) : By: [email or web address] Orig Print D/T: S: 10/15/2017 (06) PAGE 1 Signed Report - XR CHEST 1 [id number] 23:05:00 FAX: Chad Bowling NP [phone] [place]: St: ABBIE Name: PRASAD LOPESOBAL [facility] : [birth year] Age/S: 47/M [address] [facility] Unit #: [id number] Loc: [place] [address] Phys: Chad Romero NP Acct: [id number] Dis Date: Status: UNK PHONE #: [phone] Exam Date: 10/13/20172242 FAX #: [phone] Reason: CHEST PAIN EXAMS: CPT CODE: [id number] XR CHEST 1 V 03427 AP VIEWS OF THE CHEST LOCATION: C3 [...] Chad Romero NP Technologist: St adri Brunson Trnscrd Date/Time/By: 10/13 (7727) : By: HernestoL Orig Print D/T: S: 10/13/2017 (8348) PAGE 1 Signed Report NON TUNNELED [id number] 10:09:0421 total fluoroscopic images are submitted for interpretation.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 HEPATITIS B CORE IgM [id number] 12:53:00* Test Item Value Reference Range Interpretation Comments HEPATITIS B CORE ANTIBODY (IGM) (test code = 79976608) NON-R EACTIVE NON-REACTIVE TEST PERFORMED AT:[facility] [place] [id number] GONZALEZ M.D. HEPATITIS C [id number] 14:19:00* Test Item Value Reference Range Interpretation Comments HCAB (test code = HCAB) REACTIVE NON-REACTIVE A HEPATITIS B SURFACE [id number] 13:47:00* Test Item Value Reference Range Interpretation Comments HBSAG (test code = HBSAG) NON-REACTIVE NON-REACTIVE HEPATITIS B SURFACE [id number] 13:37:00* Test Item Value Reference Range Interpretation Comments HBSAB (test code = HBSAB) REACTIVE REACTIVE GLUCOMETER GLUCOSE- LAB USE [id number] 13:06:00* Test Item Value Reference Range Interpretation Comments GLUCOMETER (test code = GMG) 195 mg/dL 70-100 H Meter ID: [id number]: 4912 MARGARITO VARELA GLUCOMETER GLUCOSE- LAB USE [id number] 05:27:00* Test Item Value Reference Range Interpretation Comments GLUCOMETER (test code = GMG) 109 mg/dL 70-100 H DAILY MAINTENANCECLEANED METERMeter ID: [id number]: 5366 MICHELLE MARES GLUCOMETER GLUCOSE- LAB USE [id number] 20:13:00* Test Item Value Reference Range Interpretation Comments GLUCOMETER (test code = GMG) 116 mg/dL 70-100 H DAILY MAINTENANCECLEANED METERMeter ID: [id number]: 5366 MICHELLE MARES GLUCOMETER GLUCOSE- LAB USE [id number] 15:41:00* Test Item Value Reference Range Interpretation Comments GLUCOMETER (test code = GMG) 171 mg/dL 70-100 H DAILY MAINTENANCECLEANED METERMeter ID: [id number]: 5193 KULDIP IBARREZ GLUCOMETER GLUCOSE- LAB USE [id number] 11:42:00* Test Item Value Reference Range Interpretation Comments GLUCOMETER (test code = GMG) 202 mg/dL 70-100 H DAILY MAINTENANCECLEANED METERMeter ID: [id number]: 5193 KULDIP IBARREZ GLUCOMETER GLUCOSE- LAB USE [id number] 06:08:00* Test Item Value Reference Range Interpretation Comments GLUCOMETER (test code = GMG) 108 mg/dL 70-100 H DAILY MAINTENANCECLEANED METERMeter ID: [id number]: 4736 SCOTT EVERETTE GLUCOMETER GLUCOSE- LAB USE [id number] 19:49:00* Test Item Value Reference Range Interpretation Comments GLUCOMETER (test code = GMG) 177 mg/dL 70-100 H DAILY MAINTENANCECLEANED METERMeter ID: [id number]: 5366 MICHELLE MARES GLUCOMETER GLUCOSE- LAB USE [id number] 15:48:00* Test Item Value Reference Range Interpretation Comments GLUCOMETER (test code = GMG) 179 mg/dL 70-100 H DAILY MAINTENANCECLEANED METERMeter ID: [id number]: 5193 KULDIP IBARREZ GLUCOMETER GLUCOSE- LAB USE [id number] 11:53:00* Test Item Value Reference Range Interpretation Comments GLUCOMETER (test code = GMG) 143 mg/dL 70-100 H DAILY MAINTENANCECLEANED METERMeter ID: [id number]: 5193 KULDIP IBARREZ GLUCOMETER GLUCOSE- LAB USE [id number] 05:41:00* Test Item Value Reference Range Interpretation Comments GLUCOMETER (test code = GMG) 119 mg/dL 70-100 H Meter ID: [id number]: 4736 SCOTT GAVIRIA GLUCOMETER GLUCOSE- LAB USE [id number] 21:02:00* Test Item Value Reference Range Interpretation Comments GLUCOMETER (test code = GMG) 122 mg/dL 70-100 H Meter ID: [id number]: 4736 SCOTT GAVIRIA GLUCOMETER GLUCOSE- LAB USE [id number] 15:37:00* Test Item Value Reference Range Interpretation Comments GLUCOMETER (test code = GMG) 178 mg/dL 70-100 H DAILY MAINTENANCECLEANED METERMeter ID: [id number]: 5586 ARMANDO CHUKW GLUCOMETER GLUCOSE- LAB USE [id number] 11:55:00* Test Item Value Reference Range Interpretation Comments GLUCOMETER (test code = GMG) 174 mg/dL 70-100 H DAILY MAINTENANCECLEANED METERMeter ID: [id number]: 5586 ARMANDO CHUKW GLUCOMETER GLUCOSE- LAB USE [id number] 06:23:00* Test Item Value Reference Range Interpretation Comments GLUCOMETER (test code = GMG) 143 mg/dL 70-100 H CLEANED METERMeter ID: [id number]: 2417 CHELI HARDIN [facility] METABOLIC [id number] 04:07:00* Test Item Value Reference Range Interpretation [...] = RBCMOR) NORMAL GLUCOMETER GLUCOSE- LAB USE [id number] 20:28:00* Test Item Value Reference Range Interpretation Comments GLUCOMETER (test code = GMG) 137 mg/dL 70-100 H CLEANED METERMeter ID: [id number]: 2417 CHELI LASHAWN GLUCOMETER GLUCOSE- LAB USE [id number] 15:34:00* Test Item Value Reference Range Interpretation Comments GLUCOMETER (test code = GMG) 131 mg/dL 70-100 H Meter ID: [id number]: 5226 EDA HERNANDEZ GLUCOMETER GLUCOSE- LAB USE [id number] 11:35:00* Test Item Value Reference Range Interpretation Comments GLUCOMETER (test code = GMG) 165 mg/dL 70-100 H Meter ID: [id number]: 5226 EDA HERNANDEZ GLUCOMETER GLUCOSE- LAB USE [id number] 05:56:00* Test Item Value Reference Range Interpretation Comments GLUCOMETER (test code = GMG) 145 mg/dL 70-100 H Meter ID: [id number]: 4333 JASSON LONG GLUCOMETER GLUCOSE- LAB USE [id number] 20:11:00* Test Item Value Reference Range Interpretation Comments GLUCOMETER (test code = GMG) 173 mg/dL 70-100 H Meter ID: [id number]: 4333 JASSON LONG XR C-ARM>1HR W [id number] 15:57:33FluoroscopyLocation Code: E3NPPFATPN HISTORY: For AV fistulaComments: Fluoroscopy was provided during AV fistula creation. Approximatelyfluoroscopy time was 3 minutes 32 seconds.IMPRESSION: Fluoroscopy services provided. Please see operative report for fulldetails. GLUCOMETER GLUCOSE- LAB USE [id number] 15:50:00* Test Item Value Reference Range Interpretation Comments GLUCOMETER (test code = GMG) 116 mg/dL 70-100 H Meter ID: [id number]: 5226 EDA HERNANDEZ GLUCOMETER GLUCOSE- LAB USE [id number] 09:42:00* Test Item Value Reference Range Interpretation Comments GLUCOMETER (test code = GMG) 137 mg/dL 70-100 H Meter ID: [id number]: 5331 SANIA ASHOFU GLUCOMETER GLUCOSE- LAB USE [id number] 09:42:00* Test Item Value Reference Range Interpretation Comments GLUCOMETER (test code = GMG) 99 mg/dL 70-100 Meter ID: [id number]: 5331 SANIA ASHOFU GLUCOMETER GLUCOSE- LAB USE [id number] 09:42:00* Test Item Value Reference Range Interpretation Comments GLUCOMETER (test code = GMG) 122 mg/dL 70-100 H CLEANED METERDAILY MAINTENANCEMeter ID: [id number]: 5301 RANDY BANSAL CBC WITH MANUAL [id number] 06:09:00* Test Item Value Reference Range Interpretation [...] PLTMOR) NORMAL (1.5-3 um) NORMAL BASIC METABOLIC [id number] 05:52:00* Test Item Value Reference Range Interpretation [...] 7.6 mg/dL 8.3-9.5 L PRO TIME AND [id number] 05:48:00* Test Item Value Reference Range Interpretation [...] Code is ANTI-XA U/S VENOUS FLOW DOPPLER [facility] [id number] 19:23:27Venous Doppler ultrasound bilateral upper extremitiesIndication: Deep [...] and left brachial vein.GLUCOMETER GLUCOSE- LAB USE [id number] 13:09:00* Test Item Value Reference Range Interpretation Comments GLUCOMETER (test code = GMG) 240 mg/dL 70-100 H Meter ID: [id number]: 5686 JAN GASTELUM GLUCOMETER GLUCOSE- LAB USE [id number] 13:08:00* Test Item Value Reference Range Interpretation Comments GLUCOMETER (test code = GMG) 90 mg/dL 70-100 Meter ID: [id number]: 5686 JAN GASTELUM GLUCOMETER GLUCOSE- LAB USE [id number] 13:02:00* Test Item Value Reference Range Interpretation Comments GLUCOMETER (test code = GMG) 184 mg/dL 70-100 H CLEANED METERDAILY MAINTENANCEMeter ID: [id number]: 5301 RANDY JORDANUKWU [id number] 10:59:00* Test Item Value Reference Range Interpretation Comments MAGNESIUM (test code = 48A) 1.9 mg/dL 1.8-2.4 PHOSPHORUS (P04)2016-12-17 10:59:00* Test Item Value Reference Range Interpretation Comments PHOSPHORUS (test code = 43D) 8.1 mg/dL 2.7-4.6 H BASIC METABOLIC [id number] 10:59:00* Test Item Value Reference Range Interpretation [...] mg/dL 8.3-9.5 L GLUCOMETER GLUCOSE- LAB USE [id number] 15:17:00* Test Item Value Reference Range Interpretation Comments GLUCOMETER (test code = GMG) 101 mg/dL 70-100 H CLEANED METERDAILY MAINTENANCEMeter ID: [id number]: 5301 RANDY EVULUKWU GLUCOMETER GLUCOSE- LAB USE [id number] 11:22:00* Test Item Value Reference Range Interpretation Comments GLUCOMETER (test code = GMG) 188 mg/dL 70-100 H CLEANED METERDAILY MAINTENANCEMeter ID: [id number]: 5301 RANDY EVULUKWU [address]--[place] PATH LEVEL 1 (GROSS ONLY)2016-12-16 08:31:00 RUN DATE: 12/16/16 [facility] LAB*Kayley mejía* PAGE 1 RUN TIME: 830 Specimen Inqu iry PATIENT: AMOR COMBS ACC T: [id number] LOC: [facility] U: [id number] AGE/SX: 46/M ROOM: [facility] RE12/12/16REG DR: Aaron Campos MD : 1970 BED: A DIS: 12/14/16 STATUS: DIS Florina TLOC: SP EC : [id number] RECD: 12/13/16-1299 STATUS: DEJA MASTERS NUM: [id number] MATTHEW: 12/13/16- [facility] DR: Vaughn Ambrose MD ENTERED: 12/13/16 SP TYPE: INPATIENT OT DR: ORDERED: [id number](2020) CODES: FOREIGN BODY. PROCEDURES: 73925(2020) (0 12/13/16-1339) TISSUES: FOREIGN BODY. - HEMOSPLIT CATHETER CLIN ICAL HISTORY Pre-op Diagnosis: Renal failure, non-functioning hemosplit ca theter.Post-op Diagnosis: Not stated. DIAGNOSIS Specimen designat ed "hemosplit catheter ID only", removal of: - Catheter identified (gross onl y) CPT 72661 GROSS DESCRIPTION The case is received in one part, labeled with the patient's name "Amor Combs" andaccession #[id number] accompanied by a requisition slip labeled with the patient's name andthe same accession number. The specimen is received fresh, labeled "hemosplit catheter ID only" and consi sts of adouble-lumen catheter measuring 40 cm in length. [facility] identification[facility]. (ASW) MICROSCOPIC DESCRIPTION No sections. -- Signed (signature on file) Rhonda Vick MD 12/16/16 083 1 END OF REPORT BASIC METABOLIC [id number] 07:11:00* Test Item Value Reference Range Interpretation [...] mg/dL 8.3-9.5 L GLUCOMETER GLUCOSE- LAB USE [id number] 05:40:00* Test Item Value Reference Range Interpretation Comments GLUCOMETER (test code = GMG) 131 mg/dL 70-100 H CLEANED METERMeter ID: [id number]: 2417 CHELI [employer] GLUCOMETER GLUCOSE- LAB USE NKFT2539-16-31 20:31:00* Test Item Value Reference Range Interpretation Comments GLUCOMETER (test code = GMG) 96 mg/dL 70-100 CLEANED METERMeter ID: [id number]: 2417 CHELI [employer] GLUCOMETER GLUCOSE- LAB USE GAHJ8131-14-32 16:16:00* Test Item Value Reference Range Interpretation Comments GLUCOMETER (test code = GMG) 100 mg/dL 70-100 Meter ID: [id number]: 4912 MARGARITO VARELA BASIC METABOLIC FKRHM7991-07-17 13:58:00* Test Item Value Reference Range Interpretation [...] mg/dL 8.3-9.5 L GLUCOMETER GLUCOSE- LAB USE ZKTB3288-60-22 11:56:00* Test Item Value Reference Range Interpretation Comments GLUCOMETER (test code = GMG) 194 mg/dL 70-100 H Meter ID: [id number]: 4912 MARGARITO VARELA Glucose blood ykdhzpyibrw6988-38-15 08:10:00* Test Item Value Reference Range Interpretation Comments Glucose blood fingerstick (test code = KTW8703) 141 mg/dL 65-120 Dalton pjpys2125-38-28 07:40:00>100,000 CFU/ML.^>100,000 CFU/ML.^LUrine culture 2016-12-15 07:40:00* Test [...] minimu m inhibitory concentration (test code = 35022-7) S Cefotetan susceptibility test by minimum inhibitory concentration (test code = 112-3) S Levofloxacin susceptibility test by mini mum inhibitory concentration (test code = 18984-7) I Ceftriaxone susceptibility test by minim um [...] concentration (test code = 12-5) S U/S XNKRNZUK6599-69-70 07:36:26NON-TUNNELED CENTRAL VENOUS CATHETER PLACEMENT USING ULTRASOUND ANDFLUOROSCOPIC GUIDANCE. LOCATION CODE: B2.CLINICAL HISTORY: End-stage renal disease with recent removal ofmalfunctioning right chest wall dialysis catheter at outside hospital.FLUOROSCOPY TIME: 0.38 minutes with a total of 575 frames.TECHNIQUE: The risks, benefits and alternatives were discussed and informedconsent was obtained. Prior to beginning the procedure, [place] Protocol wasused to confirm the patient's identity [...] treatment is completed, [facility].XR NON TUNNELED HUS7131-50-05 07:36:26 NON-TUNNELED CENTRAL VENOUS CATHETER PLACEMENT USING ULTRASOUND ANDFLUOROSCOPIC GUIDANCE. LOCATION CODE: B2.CLINICAL HISTORY: End-stage renal disease with rece nt removal ofmalfunctioning right chest wall dialysis catheter at outside hospit al.FLUOROSCOPY TIME: 0.38 minutes with a total of 575 frames.TECHNIQUE: The risk s, benefits and alternatives were discussed and informedconsent was obtained. P rior to beginning the procedure, [place] Protocol wasused to confirm the patie nt's identity and planned procedure. Fluoroscopy timehas been recorded in the [facility] record. Maximum sterile barriersincluding cap, mask, [...] treatment is completed, [facility].GLUCOMETER GLUCOSE- LAB USE ONLY 2016-12-15 05:51:00* Test Item Value Reference Range Interpretation Comments GLUCOMETER (test code = GMG) 198 mg/dL 70-100 H CLEANED METERMeter ID: [id number]: 2417 CHELI [facility] Glucose blood hacebyelmxi9617-33-45 01:18:00* Test Item Value Reference Range Interpretation Comments Glucose blood fingerstick (test code = YQO2728) 95 mg/dL 65-120 HEPATITIS B SURFACE ZLEZAGOB0081-78-83 21:27:00* Test Item Value Reference Range Interpretation Comments HBSAB (test code = HBSAB) REACTIVE REACTIVE GLUCOMETER GLUCOSE- LAB USE LDEO7464-35-61 20:46:00* Test Item Value Reference Range Interpretation Comments GLUCOMETER (test code = GMG) 113 mg/dL 70-100 H CLEANED METERMeter ID: [id number]: 2417 CHELI HARDIN HEPATITIS B SURFACE MGBFZPZ6140-11-56 19:53:00* Test Item Value Reference Range Interpretation Comments HBSAG (test code = HBSAG) NON-REACTIVE NON-REACTIVE GLUCOMETER GLUCOSE- LAB USE IOIN2448-82-51 15:55:00* Test Item Value Reference Range Interpretation Comments GLUCOMETER (test code = GMG) 113 mg/dL 70-100 H Meter ID: [id number]: 5226 EDA HERNANDEZ GLUCOMETER GLUCOSE- LAB USE WRBV0509-90-42 11:26:00* Test Item Value Reference Range Interpretation Comments GLUCOMETER (test code = GMG) 154 mg/dL 70-100 H Meter ID: [id number]: 5226 EDA HERNANDEZ CBC WITH MANUAL EJXZ4826-00-38 10:10:00* Test Item Value Reference Range Interpretation [...] = HYPOC) 1+ NONE A COMPREHENSIVE METABOLIC QLG8937-06-17 10:04:00* Test Item Value Reference Range Interpretation [...] 31A) 19 IU/L <=78 PRO TIME AND MJR5929-42-77 09:55:00* Test Item Value Reference Range Interpretation [...] Code is ANTI-XA GLUCOMETER GLUCOSE- LAB USE BRFD4232-53-70 05:45:00* Test Item Value Reference Range Interpretation Comments GLUCOMETER (test code = GMG) 166 mg/dL 70-100 H Meter ID: [id number]: 4333 JASSON LONG Glucose blood fzudwvxdowt7341-21-12 01:49:00* Test Item Value Reference Range Interpretation Comments Glucose blood fingerstick (test code = CQN2622) 199 mg/dL 65-120 Glucose blood voelpudowux1304-39-28 01:30:00* Test Item Value Reference Range Interpretation Comments Glucose blood fingerstick (test code = VWO9808) 124 mg/dL 65-120 Glucose blood kpqmdvalelp8332-75-00 20:29:00* Test Item Value Reference Range Interpretation Comments Glucose blood fingerstick (test code = ZWQ1678) 213 mg/dL 65-120 Glucose blood gxfqptvdpkn4918-15-17 12:46:00* Test Item Value Reference Range Interpretation Comments Glucose blood fingerstick (test code = NNK0352) 154 mg/dL 65-120 Complete blood count (CBC) with automated white blood cell (WBC) differential 2016-12-13 07:35:00* Test Item Value Reference Range Interpretation Comments White blood cell count (test code = IVA1991) 14.6 4.3-10.9 H Blood erythrocytes count (number/volume) (test code = 22848- 1) 3.50 M/ul 4.33-5.43 L Hemoglobin measurement (test code = LFD0004) 10.0 g/dL 13.6-17.9 L Blood hematocrit (volume fraction) (test code = 42929-0) 31.8 % 39.6-49.0 L MCV (test code = MCV) 90.8 fL 80-100 MCH (test code = 23891-7) 28.7 pg 27.0-35.0 MCHC (test code = MCHC) 31.6 g/dL 32.0-36.0 L Platelets (test code = PLT) 156 152-406 Red Cell Distribution Width (test code = RDW) 16.0 % 12.1-15. 2 H Blood platelet mean volume (test code = 02276-7) 9.4 fL 7.6-1 1.3 Primary Language Ivorian Primary Language EnglishComplete blood count, platelets with manual elogkadkxtqu0809-25-77 07:35:00* Test Item Value Reference Range Interpretation Comments Segmented Neutrophils (test code = SEG) 88 % 40-80 H Band Neutrophils (test code = BANDS) 1 % 0-1 Lymphocyte count (test code = 02852-1) 9 % 15-42 L Monocytes (test code = MN) 2 % 0-10 Blood morphology interpretation narrative (test code = 65346 -5) NOT SEEN NOT SEEN Primary Language Ivorian Primary Language EnglishGlucose blood fingerstick 2016-12-13 07:24:00* Test Item Value Reference Range Interpretation Comments Glucose blood fingerstick (test code = HHU0620) 191 mg/dL 65-120 Basic Metabolic Dsnqh9599-22-14 05:57:00* Test Item Value Reference Range Interpretation Comments Sodium level (test code = WPS9845) 137 meq/L 135-145 4.7 Chloride measurement (test code = BLY8449) 106 meq/L 101-111 Bicarbonate (test code = CO2) 17 meq/L 21-31 L Glucose measurement (test code = VQA5159) 177 mg/dL 65-120 H ADA Clinical Practice Recommendation: <100 mg/dl = Normal Fasting Glucose BUN Bld-mCnc (test code = 6299-2) 75 mg/dL 6-20 H Creatinine measurement (test code = JMU0353) 10.83 mg/dL 0.61-1.24 HH Repeated, Pt history, Broadcast at 0557 by JED The creatinine method used has been calibrated to be traceable to Isotope dilution Mass Spectrometry (IDMS). For more information: www.nkdep.nih.gov Estimated glomerular filtration rate (GFR) determinati on (test code = 41215-0) 5 mL =/>90 L FOR CHRONIC KIDNEY [...] CA) 7.2 mg/dL 8.5-10.5 L Primary Language Ivorian Primary Language EnglishJojo J3861-35-75 22:50:00* Test Item Value Reference Range Interpretation Comments Troponin I (test code = TROP) 0.06 ng/mL <0.03 H Primary Language Ivorian Physician Instructions Edit Troponin Times according to first ED TroponinBasic Metabolic Luths6844-08-91 21:33:00 * Test Item Value Reference Range Interpretation Comments Sodium level (test code = TYN1976) 139 meq/L 135-145 5.9Repeated & Called to JAN LUCIO RN on 12/12/16 at 2133 by ODALIS Was there 100% Readback? Y K AND CREA Chloride measurement (test code = GMO5413) 110 meq/L 101-111 Bicarbonate (test code = CO2) 15 meq/L 21-31 L Glucose measurement (test code = FFX9574) 96 mg/dL 65-120 ADA Clinical Practice Recommendation: <100 mg/dl = Normal Fasting Glucose BUN Bld-mCnc (test code = 6299-2) 76 mg/dL 6-20 H Creatinine measurement (test code = RDU1275) 10.58 mg/dL 0.61-1.24 HH The creatinine method used has been calibrated to be traceable to Isotope dilution Mass Spectrometry (IDMS). For more information: www.nkdep.nih.gov Estimated glomerular filtration rate (GFR) determinati on (test code = 53596-8) 5 mL =/>90 L FOR CHRONIC KIDNEY [...] CA) 7.5 mg/dL 8.5-10.5 L Primary Language Ivorian Primary Language EnglishGlucose blood fingerstick 2016-12-12 21:08:00* Test Item Value Reference Range Interpretation Comments Glucose blood fingerstick (test code = HVC9426) 102 mg/dL 65-120 Zpaumummus9553-97-85 19:39:00* Test Item Value Reference Range Interpretation [...] NEG Urine blood detection (test code = 56496-7) TRACE NEG AA Urine pH (test code = 2756-5) 6.5 5.0-7.0 Urinalysis with microscopy (test code = 57470-4) 3+ NEG AA Urine urobilinogen detection (test code = 58802-9) 0.2 0.2 -1.0 Urine nitrate measurement (test code = 04339-2) NEGATIVE NEG Urine Leukocyte Esterase (test code = UESTR) NEGATIVE NEG Primary Language Ivorian HOW IS URINE COLLECTED? Clean Catch UrineMicroscopic examination of wvacb2584-01-99 19:39:00* Test Item Value Reference Range Interpretation Comments Urine WBC (test code = UWBC) 5-10 <5 AA Urine sediment erythrocyte count by micr oscopy (number/high power field) (test code = 18131-1) 5 NONE SEEN AA Bacteria detection in urine sediment by light microsco py (test code = 21138-7) <20 NONE SEEN Sqamous Epithelial (test code = SQEP) 10-20 NONE SEEN AA Urinalysis with reflex to culture (test code = 71688-7) REFLEXED Primary Language Ivorian HOW IS URINE COLLECTED? Clean Catch UrineTroponin I 2016-12-12 19:15:00* Test Item Value Reference Range Interpretation Comments Troponin I (test code = TROP) 0.06 ng/mL <0.03 H Primary Language Ivorian Physician Instructions Edit Troponin Times according to first ED TroponinGlucose blood slzyztstpzl9268-45-96 18:31:00* Test Item Value Reference Range Interpretation Comments Glucose blood fingerstick (test code = MNM3921) 92 mg/dL 65-120 Brain natriuretic peptide (BNP) rbhznpzxddg8461-37-99 11:52:00* Test Item Value Reference Range Interpretation Comments Brain natriuretic peptide (BNP) measurement (test code = 309 34-4) 187 pg/mL <=100 H CLOTTED Specimen, recollect request called to EUNICE on 12/12/16 at 1014 by [employer] Print label to LERProthrombin time (PT) with international normalized ratio (INR)2016-12-12 11:36:00* Test Item Value Reference Range Interpretation Comments PT Prothrombin Time (test code = PROTIME) 13.0 s 9.5-12.5 H Prothrombin time (PT) with international normalized ratio (INR) (test code = 83678-7) 1.15 Monitor pts usin g INR value (not prothrombin time) INR Coumadin Therapy: Low Range (prophylaxis) 2.0-3.0 High Range (high risk of clot formation) 2.5-3.5 Test Ordered to Rule Out VTE/DVT? N Specimen recollect requested, called to KALA MONTENEGRO on 12/12/16 at 1014 by [employer] Reason:SHORT DRAW Print label to LER Test Or dered to Rule Out VTE/DVT? N Specimen recollect requested, called to EUNICE on 12/12/16 at 1014 by [employer] Reason:SHORT DRAW Print label to LERPTT, Activated Partial Mjyrce0789-12-14 11:36:00* Test Item Value Reference Range Interpretation Comments PTT, Activated Partial Thromb (test code = PTT) 36.7 s 24.3-3 6.9 Test Ordered to Rule Out VTE/DVT? N Specimen recollect requested, called to KALA MONTENEGRO on 12/12/16 at 1014 by [employer] Reason:SHORT DRAW Print label to LER Test Or dered to Rule Out VTE/DVT? N Specimen recollect requested, called to EUNICE on 12/12/16 at 1014 by [employer] Reason:SHORT DRAW Print label to LERGlucose blood ytlwkjwgkat8886-15-17 11:26:00* Test Item Value Reference Range Interpretation Comments Glucose blood fingerstick (test code = DVJ0808) 98 mg/dL 65-120 Complete blood count (CBC) with automated white blood cell (WBC) differential 2016-12-12 11:25:00* Test Item Value Reference Range Interpretation Comments White blood cell count (test code = FBG7435) 13.6 4.3-10.9 H Blood erythrocytes count (number/volume) (test code = 99477- 1) 3.68 M/ul 4.33-5.43 L Hemoglobin measurement (test code = GWG8714) 10.6 g/dL 13.6-17.9 L Blood hematocrit (volume fraction) (test code = 15169-1) 33.6 % 39.6-49.0 L MCV (test code = MCV) 91.4 fL 80-100 MCH (test code = 74195-2) 28.8 pg 27.0-35.0 MCHC (test code = MCHC) 31.5 g/dL 32.0-36.0 L Platelets (test code = PLT) 151 152-406 L Red Cell Distribution Width (test code = RDW) 16.5 % 12.1-15. 2 H Blood platelet mean volume (test code = 99751-0) 9.4 fL 7.6-1 1.3 Neutrophils % (test code = MELONY%) 80.5 % 41.7-73.7 H Lymphocytes/leuk NFr Bld (test code = 08832-8) 9.4 % 15.3-44 .8 L Monocyte percentage (test code = 5905-5) 9.6 % 3.3-12.3 Eosinophil % (test code = 713-8) 0.3 % 0-4.4 Basophil % (test code = 82132-7) 0.2 % 0-1.3 Absolute neutrophil count (test code = 751-8) 10.9 2.3-7.0 H Absolute lymphocyte count (test code = 88396-1) 1.3 0.8-3. 6 Absolute monocyte count (test code = 742-7) 1.3 0.2-0.8 H Absolute Eosinophils (test code = EOA) 0.0 0-0.4 Absolute Basophils (test code = BASA) 0.0 0-0.1 CLOTTED Specimen, recollect request called to EUNICE on 12/12/16 at 1014 by PAL MERMA Print label to LER CLOTTED Specimen, recollect request called to EUNICE ramirez 12/12/16 at 1014 by PALMERMA Print label to [facility]Basi Metabolic Hcdih8423-02-22 10:41:00* Test Item Value Reference Range Interpretation Comments Sodium level (test code = ROC9443) 136 meq/L 135-145 5.2 Chloride measurement (test code = QZP0888) 105 meq/L 101-111 Bicarbonate (test code = CO2) 20 meq/L 21-31 L Glucose measurement (test code = HGR5279) 88 mg/dL 65-120 ADA Clinical Practice Recommendation: <100 mg/dl = Normal Fasting Glucose BUN Bld-mCnc (test code = 6299-2) 68 mg/dL 6-20 H Creatinine measurement (test code = RLT6298) 10.24 mg/dL 0.61-1.24 HH Repeated & Called to NAZARIO [employer] COORDINATOR on 12/12/16 at 1039 by [employer] Was there 100% Readback? Y The creatinine method used has been calibrated to be traceable to Isotope dilution Mass Spectrometry (IDMS). For more information: www.nkdep.nih.gov Estimated glomerular filtration rate (GFR) determinati on (test code = 91571-5) 5 mL =/>90 L FOR CHRONIC KIDNEY [...] CA) 7.0 mg/dL 8.5-10.5 L Liver (Hepatic) Zvmkdhqn2410-32-35 10:41:00* Test Item Value Reference Range Interpretation Comments Aspartate aminotransferase (AST) measurement (test code = IM O0002) 20 [iU]/L 10-42 ALT/SGPT (test code = SGPT) 19 [iU]/L 10-60 Alkaline Phosphatase (test code = ALK) 121 [iU]/L 42-121 Bilirubin total (test code = EGG5879) 0.5 mg/dL 0.3-1.2 Bilirubin direct (test code = 1968-7) 0.1 mg/dL 0-0.2 Serum total protein measurement (test code = 2885-2) 7.3 g/dL 6 .0-8.3 Albumin measurement (test code = BYM4061) 3.5 g/dL 3.2-5.5 Globulin (test code = GLOB) 3.8 g/dL 2.3-3.5 H Albumin/Globulin Ratio (test code = A/G) 0.9 1.1-1.8 L Creatine Itnfvmgxnsmzu8257-74-73 10:41:00* Test Item Value Reference Range Interpretation Comments Creatine Phosphokinase (test code = CPK) 273 [iU]/L 22-269 H CKMB Creatine Kinase UO7471-75-66 10:41:00* Test Item Value Reference Range Interpretation Comments CKMB Creatine Kinase MB (test code = CKMB) 3.0 ng/mL 0.3-4.0 Magnesium mngliakowqc7842-51-08 10:41:00* Test Item Value Reference Range Interpretation Comments Magnesium measurement (test code = 72135-7) 1.7 mg/dL 1.8-2.5 L Troponin (Emerg Dept [...] surface antigen assay ( test code = 22690-5) REPORT Not required accordi ng to the current package insert. Primary Language EnglishHepatitis B Core Ab, Hclqm3313-92-92 23:25:00* Test Item Value Reference Range Interpretation Comments Hepatitis B Core Total Ab (test code = HEPBCOR1) Nonreactive Nonre active Hepatitis B virus core IgM antibody assay (test code = 00793-2) Not indicated Primary Language EnglishHepatitis B Surface Snjjbnry1551-09-22 23:25:00* Test Item Value Reference Range Interpretation Comments Hepatitis B Surface Antibody (test code = HEPBAB) Reactive Nonr eactive AA This test is not indicated for determination of immunity post-vaccination. To determine immune status, please order Hepatitis B Surface Antibody, Quantitative. Effective March 21, 2014 this test is being performed using the [employer] Chemil[employer] method. Primary Language EnglishQuantitative hepatitis B virus surface antibody assay 2016-12-04 23:25:00* Test Item Value Reference Range Interpretation Comments Quantitative hepatitis B virus surface antibody assay (test code = 24618-2) 21 [iU]/L >=10 PATIENT HAS IMMUNITY TO HEPATITIS B VIRUS. For more information on this test, go to: http://education.[employer]/faq/PWQ840 Primary Language EnglishGlucose blood dkfyekwpitl8039-32-16 11:56:00* Test Item Value Reference Range Interpretation Comments Glucose blood fingerstick (test code = KWM5453) 172 mg/dL 65-120 Glucose blood acarvhvynal6244-68-58 07:51:00* Test Item Value Reference Range Interpretation Comments Glucose blood fingerstick (test code = DDF3297) 102 mg/dL 65-120 Glucose blood tmooohporsz2191-92-24 21:06:00* Test Item Value Reference Range Interpretation Comments Glucose blood fingerstick (test code = ZOA4744) 127 mg/dL 65-120 Glucose blood lzkuvuvwkhj6695-92-63 16:31:00* Test Item Value Reference Range Interpretation Comments Glucose blood fingerstick (test code = WKS2060) 161 mg/dL 65-120 Glucose blood zcklrsuaaov3722-60-08 11:33:00* Test Item Value Reference Range Interpretation Comments Glucose blood fingerstick (test code = MFP3082) 149 mg/dL 65-120 US GUIDANCE FOR VASCULAR ACCES [place] [address] Patient Name: AMOR COMBS MR #: [id number] : 1970 Age/Sex: 47/M Req #: [id number] Adm Physician: Ordered by: MAHENDRA PORTILLO MD Report #: [id number] 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 Thoracic ve nogram 2. 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 Portillo Pre-operative diagnosis: Appendicitis, sepsis, poor [...] 10 cc Speci mens: None Implants: 7 Beninese, 20 cm triple-lumen central venous catheter DISCUSSION: Informed consent for the procedure was obtained from the pa imelda and documented in the medical record. The [...] The needle was removed and a 5 Beninese micropuncture sheath was advan argelia over the wire. The wire was removed. Thoracic venography was performed. Se e findings below. The micropuncture sheath was then removed and hemostasis was achieved with manual compression. Attention was then turned to the [facility] groin which was prepped and draped in [...] The needle was exchanged for a 5 Beninese micropuncture sheath and the wire upsized to a 0.0 3 5-in. Glidewire a dvantage which was advanced centrally into the inferior vena cava. The micropu ncture sheath was removed and the tract was dilated. Then a 7 Beninese, 20 cm tr iple-lumen central venous catheter [...] venography. 2. Successful placement of a 7 Beninese, 20 cm trip le-lumen central venous catheter by a right common femoral approach. Signed by: Dr. Mahendra Portillo M.D. 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 Thoracic venogram 2. 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 Portillo Pre-operative diagnosis: Appendicitis, sepsis, poor [...] 10 cc Specimens: None Im plants: 7 Beninese, 20 cm triple-lumen central venous catheter DISCUSSION: [...] n eedle was removed and a 5 Beninese micropuncture sheath was advanced over the wi [...] The needle was exchanged for a 5 Beninese micropu ncture sheath and the wire upsized to a 0.0 3 5-in. Glidewire advantage which was advanced centrally into the inferior vena cava. The micropuncture sheath w as removed and the tract was dilated. Then a 7 Beninese, 20 cm triple-lumen cent ral venous catheter [...] graphy. 2. Successful placement of a 7 Beninese, 20 cm triple-lumen centra l venous catheter by a right common femoral approach. Signed by: Jaron Portillo M.D. on 01/19/2018 7:35 AM Dictated By: MAHENDRA PORTILLO MD 131 Transcribed By: Stanley WALTON on 01/19/18 131 COPY TO: MAHENDRA GARCÍA MD CHEST SINGLE (PORTABLE) [place] [address] Patient Name: AMOR COMBS MR #: [id number] : 1970 Age/Sex: 47/M Req #: [id number] Adm Physician: KONRAD HUGHES MD Ordered by: TRISTIN WESTON MD Report #: [id number] Location: MED/SURG Room/Bed: [facility] Procedure: [id number] DX/CHES T SINGLE (PORTABLE) Exam Date: 06/20/17 [...]
--- NOTE | 2020-04-15 19:42 | NUR ---
FAMILY WOULD LIKE TO PROVIDE CONTACT INFORMATION; CASSANDRA LAURYN (DAUGHTER,POA) , AND LUDWIG LAURYN (SON) ; DAUGHTER TO FAX OVER POA PAPERWORK, WOULD LIKE UPDATES ON PT STATUS AND POC.
[2020-04-15] MEDS: CLONIDINE HCL 0.2 MG/24 HR 1 EA PATCH TD SCH (19:45)
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
[2020-04-15] MEDS: HYDRALAZINE HCL 100 MG TABLET PO SCH (21:00)
[2020-04-15] MEDS: INSULIN GLARGINE 100 UNITS/ML VIAL SQ SCH (21:00)
[2020-04-15 22:00] VITALS: BP 126/104
--- NOTE | 2020-04-15 22:00 | NUR ---
Received from ER to room 183. 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 No IV site. Admission history, Initial admission assessment done. Unsure of Vaccines.
[2020-04-15 22:20] VITALS: BP 176/104
[2020-04-15] MEDS ORDERED: SODIUM CHLORIDE 0.9% 1000ML 1,000 ML ONE (22:38)
[2020-04-15 22:45] VITALS: BP 126/104
[2020-04-16] VITALS (8 sets, daily range): BP systolic 127–182; BP diastolic 58–132
[2020-04-16] MEDS: HYDRALAZINE HCL 100 MG TABLET PO SCH ×4 (01:25→21:00)
[2020-04-16 02:04] LABS: CREATINE KINASE MB 2.3 ng/mL (0-5.0)
--- NOTE | 2020-04-16 03:41 | NUR ---
Came from ER with no IV. Attempts x 3 nurses with multiple attempts without success.
--- NOTE | 2020-04-16 04:47 | NUR ---
Sponge bath given.
--- NOTE | 2020-04-16 05:24 | NUR ---
Unable to get blood draw.
[2020-04-16] MEDS: CLONIDINE HCL 0.2 MG/24 HR 1 EA PATCH TD SCH (06:15)
[2020-04-16] MEDS ORDERED: DOCUSATE SODIUM 100 MG CAP PO PRN (09:00)
[2020-04-16] MEDS: SEVELAMER CARBONATE 800 MG TAB PO SCH ×3 (09:23→18:12)
[2020-04-16] MEDS: LORATADINE 10 MG TAB PO SCH (09:23)
[2020-04-16] MEDS: ASPIRIN 325 MG TAB PO SCH (09:23)
[2020-04-16] MEDS: CARVEDILOL 12.5 MG TAB PO SCH ×2 (09:23→18:12)
[2020-04-16] MEDS: GABAPENTIN 300 MG CAP PO SCH ×2 (09:23→18:12)
[2020-04-16] MEDS: PANTOPRAZOLE SOD 40 MG TABEC PO SCH (09:23)
[2020-04-16] MEDS: FOLIC ACID/CYANOCOB/PYRIDOXINE TAB PO SCH (09:24)
[2020-04-16] MEDS: AMLODIPINE BESYLATE 10 MG TAB PO SCH (09:24)
--- NOTE | 2020-04-16 10:12 | Progress Note ---
DATE: SUBJECTIVE: The patient feels better. He had dialysis yesterday. He is not complaining of dyspnea or cough. PHYSICAL EXAMINATION: VITAL SIGNS: The patient is afebrile. The blood pressure is 127/96 and pulse is 76. He is 98% saturated on nasal cannula. HEENT: Shows no facial swelling or erythema. CARDIAC: Reveals regular rate and rhythm with normal S1 and S2. LUNGS: Auscultation of lungs reveals decreased breath sounds at the bases. There is no wheezing. ABDOMEN: Soft and nontender. There is no rebound or guarding. The patient has bilateral wqoju-jkh-ayyc amputations. LABORATORY DATA: The white blood cell count is 4.22 and the hemoglobin is 7.9. The platelet count is 70. BUN to creatinine ratio is 52 to 11. Other electrolytes are significant for potassium of 5.3. RADIOGRAPHIC DATA: Chest x-ray shows bilateral interstitial infiltrates. IMPRESSION: 1. Viral pneumonia and COVID-19 infection. 2. End-stage renal disease. 3. Hypertension. 4. Diabetes. 5. Status post bilateral raaed-dit-jsan amputations. PLAN: 1. Continue Zithromax. 2. Dialysis as needed. 3. Continue to control blood pressures. 4. Tylenol as needed. 5. Oxygen. Javier Thomas MD [facility]/MANISH /[id number]
--- NOTE | 2020-04-16 15:07 | NUR ---
[id number] LATE ENTERY CONSULT SEEN AND EXAMINED ON 04/15/2020 DISCUSSED WITH er
--- NOTE | 2020-04-16 15:09 | NUR ---
progress note seen and examined doing better no SOB NO IV ACCESS [id number]
--- NOTE | 2020-04-16 15:11 | NUR ---
1. End-stage renal disease. 2. Peripheral vascular disease. 3. Hypertension. 4. Anemia. 5. Chronic back pain. 6. Diabetes. 7. Diabetic retinopathy.
--- NOTE | 2020-04-16 15:54 | Progress Note ---
DATE: SUBJECTIVE: The patient is doing better today. His shortness of breath has improved. There is no cough at present time. PHYSICAL EXAMINATION: GENERAL: He is currently alert and oriented, does not seem to be in acute distress. VITAL SIGNS: Stable, currently afebrile. HEENT: He is not icteric. NECK: Supple. CHEST: Clear. HEART: S1, S2. No S3, S4, or murmur. ABDOMEN: Soft. Bowel sounds present. No tenderness. EXTREMITIES: No edema. IMPRESSION: 1. Acute shortness of breath. I think it is pulmonary fluid overload, status post dialysis totally resolved. 2. COVID-19. Concerned about superimposed pneumonia. He needs IV access. We will change to Levaquin 250 mg after each hemodialysis for 3 doses total. The patient will be discharged when dialysis is arranged. Keep droplet isolation. MD JEANNA Cuello/MANISH /[id number]
[2020-04-16] MEDS: AZITHROMYCIN 500MG/NS 250 ML 250 ML IV SCH (16:15)
[2020-04-16] MEDS: CEFTRIAXONE SOD 1 GM/NS 50 ML 50 ML IV SCH (16:30)
[2020-04-16] MEDS ORDERED: LEVOFLOXACIN 250 MG TAB PO SCH (17:30)
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
--- NOTE | 2020-04-16 20:05 | Consultation ---
DATE OF CONSULTATION: Initial Nephrology Consultation Report REASON FOR CONSULTATION: ESRD, provide dialysis support. HISTORY OF PRESENT ILLNESS: Mr. Barger is a 49-year-old male. He presented to the hospital because when he went to the dialysis unit yesterday and they referred him to the emergency room because of a positive COVID test. The patient had been coughing for the past few days or so. When he presented, the patient was short of breath and first he was on 2 L nasal cannula oxygen, but when he arrived in the ER, he needed 4 L of nasal cannula oxygen. PAST MEDICAL HISTORY: 1. Chronic kidney disease, stage 5. 2. End-stage renal disease. 3. Hypertension. 4. Anemia. 5. Diabetes. 6. Status post bilateral vxlmp-bjn-upew amputations. 7. Peripheral vascular disease. The patient has been on dialysis for 4 years. PAST SURGICAL HISTORY: He has had amputation of both legs bilaterally. He has a diverting colostomy. ALLERGIES: DILAUDID AND MORPHINE. REVIEW OF SYSTEMS: As per HPI. There is some cough and congestion. PHYSICAL EXAMINATION: VITAL SIGNS: Stable. GENERAL: The patient is a morbidly obese. HEENT: No increased JVD. CARDIOVASCULAR: Regular rate and rhythm. LUNGS: Decreased breath sounds bilaterally. EXTREMITIES: Bilateral amputations of the legs. LABORATORY: Sodium 135, potassium 5.3, chloride 93, bicarbonate 25, BUN and creatinine are 52 and 11 respectively, calcium 9.2, glucose 93. IMPRESSIONS AND PLAN: 1. Chronic kidney disease, stage 5. 2. Positive for COVID test. 3. Atherosclerotic peripheral vascular disease. 4. Bilateral amputation of the legs. 5. Borderline hyperkalemia. 6. Pulmonary congestion. 7. Fluid overload. 8. Diabetes. 9. Hypertension. PLAN: 1. The patient had a chest x-ray, that showed pulmonary edema and/or multifocal pneumonia of the patient. The patient was dialyzed yesterday for fluid congestion, we dialyzed him for 2 hours, they pulled off 3 L yesterday with dialysis. 2. The patient is being COVID unit, he is isolated. His other blood medicines will be reinstated, we are going to dialyze him again tomorrow as well. Overall, the patient has multiple comorbidities. I will follow the patient with you. Thank you for this consultation. Ather MD ADRIENNE Villasenor/MANISH /[id number]
[2020-04-16] MEDS: INSULIN GLARGINE 100 UNITS/ML VIAL SQ SCH (21:00)
[2020-04-16] MEDS: DOXAZOSIN MESYLATE 2 MG TAB PO SCH (21:00)
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
[2020-04-16 23:04] LABS: BASOPHILS % 0.3 % (0.0-1.0); EOSINOPHILS % 0.3 % (0.0-6.0); HEMATOCRIT 28.2 % (38.2-49.6); HEMOGLOBIN 8.4 g/dL (14.0-18.0); LYMPHOCYTES # (AUTO) 0.4 (1.0-3.2); LYMPHOCYTES % 12.4 % (18.0-39.1); MEAN CORPUSCULAR HEMOGLOBIN 26.6 pg (28-32); MEAN CORPUSCULAR HGB CONC 29.8 g/dL (31-35); MEAN CORPUSCULAR VOLUME 89.2 fL (81-99); MONOCYTES # (AUTO) 0.7 (0.2-0.8); MONOCYTES % 19.4 % (4.4-11.3); NEUTROPHILS # (AUTO) 2.3 (2.1-6.9); NEUTROPHILS % 65.6 % (38.7-80.0); PLATELET COUNT 76 x10e3/uL (140-360); RED BLOOD COUNT 3.16 x10e6/uL (4.3-5.7); RED CELL DISTRIBUTION WIDTH 18.3 % (11.7-14.4)
[2020-04-16] MEDS: ATORVASTATIN 40 MG TAB PO SCH (23:15)
[2020-04-16 23:35] LABS: ALBUMIN 3.5 g/dL (3.5-5.0); ALBUMIN/GLOBULIN RATIO 0.8 (0.8-2.0); ANION GAP 22.6 mmol/L (8-16); CHOL/HDL RATIO 3.3 (3.9-4.7); CREATININE, SERUM 11.36 mg/dL (0.72-1.25); POTASSIUM 5.6 mmol/L (3.5-5.1)
[2020-04-16 23:41] LABS: CREATINE KINASE MB 2.1 ng/mL (0-5.0)
[2020-04-17] VITALS (8 sets, daily range): BP systolic 124–161; BP diastolic 57–96
[2020-04-17] MEDS: PANTOPRAZOLE SOD 40 MG TABEC PO SCH (08:30)
[2020-04-17] MEDS: LORATADINE 10 MG TAB PO SCH (08:32)
[2020-04-17] MEDS: SEVELAMER CARBONATE 800 MG TAB PO SCH ×4 (08:32→17:53)
[2020-04-17] MEDS: CARVEDILOL 12.5 MG TAB PO SCH ×3 (08:32→17:50)
[2020-04-17] MEDS: ASPIRIN 325 MG TAB PO SCH (08:32)
[2020-04-17] MEDS: HYDRALAZINE HCL 100 MG TABLET PO SCH ×4 (08:32→21:00)
[2020-04-17] MEDS: FOLIC ACID/CYANOCOB/PYRIDOXINE TAB PO SCH (08:33)
[2020-04-17] MEDS: GABAPENTIN 300 MG CAP PO SCH ×3 (08:33→17:53)
[2020-04-17] MEDS: AMLODIPINE BESYLATE 10 MG TAB PO SCH (08:33)
--- NOTE | 2020-04-17 08:37 | Progress Note ---
DATE: SUBJECTIVE: The patient has some mild nausea. He is not complaining of dyspnea or cough. He is awaiting dialysis today. PHYSICAL EXAMINATION: VITAL SIGNS: The blood pressure is 140/76 and saturation is 96%. The pulse is 55. HEENT: Shows no facial swelling or erythema. CARDIAC: Reveals regular rate and rhythm with normal S1, S2. LUNGS: Auscultation of lungs reveals clear breath sounds bilaterally. There is no wheezing. ABDOMEN: Soft and nontender. There is no rebound or guarding. EXTREMITIES: Shows no leg edema or calf tenderness. LABORATORY DATA: White blood cell count is 3.55 and hemoglobin is 8.4. The platelet count is 76. Potassium is 5.6 and the carbon dioxide is 21. The sodium is 134. Other electrolytes are within normal limits. IMPRESSION: 1. Viral pneumonia and COVID-19 infection. 2. End-stage renal disease. 3. Anemia from chronic blood loss. 4. Hypertension. 5. Diabetes. 6. Thrombocytopenia. PLAN: 1. Continue Zithromax. 2. The patient is scheduled for dialysis again today. 3. Continue to monitor electrolytes and blood counts. Javier Thomas MD [facility]/RUDIL /[id number]
[2020-04-17] MEDS ORDERED: SODIUM CHLORIDE 0.9% 1000ML 2,000 ML IV PRN (08:45)
[2020-04-17] MEDS ORDERED: SODIUM CHLORIDE 0.9% 250ML 500 ML IV PRN (08:45)
[2020-04-17] MEDS ORDERED: HEPARIN SOD (PORCINE) 1000 UNIT/ML SDV IV PRN (08:45)
[2020-04-17] MEDS ORDERED: ALBUMIN 25% 12.5GM 0.25 GM/ML BTL IV PRN (08:45)
[2020-04-17] MEDS ORDERED: MANNITOL 25% 12.5GM/50 ML VIAL IV PRN (08:45)
--- NOTE | 2020-04-17 12:07 | NUR ---
CALLED [phone] TO SEE IF FACILITY IS ACCEPTING COVID POSITIVE PATIENTS. OR IF THEY ARE AFFILIATED, THE ADMISSION PERSON COULD NOT TELL ME IF THEY WERE ACCEPTING, AND WAS TOLD [facility] [place] THE LICENSED PROSTHETIST NOR THE DON IS AVAILABLE TO TAKE CALLS AT THIS TIME. LET NUMBER TO CALL BACK.
--- NOTE | 2020-04-17 13:19 | NUR ---
SPOKE WITH GE THE [employer] DRIVER HE STATES THEY ARE TAKING PATIENT BACK SPOKE WITH HIM ABOUT THE RESPONSE WE GOT FROM BAD CREDIT COLLECTOR ABOUT THE DIALYSIS ON [address], HE GAVE FAX NUMBER AND STATES WILL CALL BACK WITH MOT AFTER HE GETS CONFIRMATION ON DIALYSIS CHAIR
--- NOTE | 2020-04-17 13:21 | NUR ---
FAXED CLINICALS AND COMPLETED RTF TO [facility] TO COMPLETE RTF
--- NOTE | 2020-04-17 14:00 | NUR ---
[id number] await hd arrangement cont supportive care
--- NOTE | 2020-04-17 14:25 | Progress Note ---
DATE: SUBJECTIVE: Mr. Barger is currently lying in bed comfortably. Improving. No shortness of breath. Waiting for dialysis. PHYSICAL EXAMINATION: GENERAL: He is currently alert and oriented. VITAL SIGNS: Stable, afebrile. HEENT: He is not icteric. NECK: Supple. CHEST: Clear. HEART: S1 and S2. No S3, S4, or murmur. ABDOMEN: Soft. IMPRESSION: 1. COVID-19, pneumonia on admission. 2. End-stage renal disease, anemia of chronic disease, hypertension, diabetes mellitus, thrombocytopenia. The patient is clinically doing better. This is day #2 of hospitalization. Continue with azithromycin. We will follow. MD JEANNA Cuello/MANISH /[id number]
--- NOTE | 2020-04-17 16:35 | NUR ---
SNF FACILITY DISCHARGE INFORMATION PATIENT HAS BEEN ACCEPTED TO: NAME: PATTY NUÑEZ ADDRESS:[id number] ACCEPTING LICENSED TAX CONSULTANT: GE CEVALLOS MD: KIM ROOM: UNIT 1 GET WHEN CALL REPORT NURSE CALL REPORT TO: [phone] IMM SIGNED AND OBTAINED (if applicable): THE FOLLOWING DOCUMENTS MUST ACCOMPANY PATIENT FOR TRANSFER: COPIED CHART: PACKET WILL BE GOING TO [facility], AND SAT AT 9AM CONFIRMED WITH KARLA SCANLON.
--- NOTE | 2020-04-17 17:20 | NUR ---
Report given to RAN Hatch of [facility]. Called transport [facility]. 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 Patient is currently on hemodialysis.
[2020-04-17] MEDS: INSULIN GLARGINE 100 UNITS/ML VIAL SQ SCH (21:00)
[2020-04-17] MEDS: ATORVASTATIN 40 MG TAB PO SCH (21:00)
[2020-04-17] MEDS: DOXAZOSIN MESYLATE 2 MG TAB PO SCH (21:00)
--- NOTE | 2020-04-18 04:37 | Discharge Summary ---
PRIMARY CARE PHYSICIAN: Comfort Rivas MD FINAL DISCHARGE DIAGNOSES: 1. Acute respiratory distress due to fluid overload and viral pneumonia with coronavirus disease 2019. 2. Fluid overload due to missed dialysis. 3. Anemia of chronic diseases. 4. Hypertension. 5. High cholesterol. 6. End-stage renal disease, on dialysis Friday, Friday, Friday. 7. Diabetes. 8. History of peripheral vascular disease with bilateral bhjdd-ezf-jhxk amputations. 9. Thrombocytopenia. 10. Vision impairment. CONSULTANTS: 1. Dr. Clements with Nephrology. 2. Dr. Alva with Infectious Disease. 3. Dr. Thomas, director of industrial relations. PROCEDURES: An emergent dialysis was done x2. HISTORY: Per HPI. HOSPITAL COURSE: This is a 49-year-old male, who presented to the ER with complaints of shortness of breath. A chest x-ray showed bilateral interstitial and patchy opacities compatible with pulmonary edema and/or multifocal pneumonia. He was started on IV antibiotics per Infectious Disease. COVID-19 was positive in the ER. He had missed dialysis x2, so the pulmonary edema may have been due to missed dialysis. Emergent dialysis was done per Nephrology. Today, he is feeling much better, he denies any shortness of breath, chest pain, fever, chills, nausea, or vomiting. Cleared from all consultants for discharge back to facility with COVID HD chair setup. PHYSICAL EXAMINATION: VITAL SIGNS: Temperature 98.4, pulse is 91, respirations 20, blood pressure 154/73, pulse ox is 92% on room air. GENERAL: In no acute distress. LUNGS: Decreased breath sounds. CARDIOVASCULAR: Regular rate and rhythm. GI: Soft and nontender. NEUROLOGIC: Alert, awake, and oriented x3. MUSCULOSKELETAL: Moves all extremities. Bilateral apftm-sbt-lwak amputations. SKIN: Dry. CONDITION AT DISCHARGE: Improved and stable. DISCHARGE MEDICATIONS: Please see medication reconciliation list. FOLLOWUP: Follow up with PCP and Nephrology in 1 to 2 weeks. Follow up with ID in two weeks for repeat COVID-19 test. TIME SPENT: Total discharge time is 33 minutes. Dictated by ADRIÁN Chaney Luther Vasquez MD MY/MODL /[id number] cc: Comfort Rivas MD MTDD
== END 2020-04-17 21:45 | DRG 177 ==
LOC: ER 15:59 → ERHOLD 17:55 → IMCU 22:00
PROVIDERS: ADMIT Internal Medicine; ATTEND Internal Medicine
PROC: 8E0ZXY6 Isolation (ICD-10-PCS; principal; 2020-04-15)
PROC: 5A1D70Z Performance of Urinary Filtration, Intermittent, Less than 6 Hours Per Day (ICD-10-PCS; 2020-04-15)
PROC: 5A1D70Z Performance of Urinary Filtration, Intermittent, Less than 6 Hours Per Day (ICD-10-PCS; 2020-04-17)
DX: U07.1 COVID-19 (principal); N18.6 End stage renal disease; J12.89 Other viral pneumonia; D62 Acute posthemorrhagic anemia; I12.0 Hypertensive chronic kidney disease with stage 5 chronic kidney disease or end stage renal disease; I69.351 Hemiplegia and hemiparesis following cerebral infarction affecting right dominant side; E11.22 Type 2 diabetes mellitus with diabetic chronic kidney disease; Z99.2 Dependence on renal dialysis; J44.9 Chronic obstructive pulmonary disease, unspecified; I25.2 Old myocardial infarction; F41.9 Anxiety disorder, unspecified; Z95.1 Presence of aortocoronary bypass graft; H54.7 Unspecified visual loss; G89.29 Other chronic pain; E11.42 Type 2 diabetes mellitus with diabetic polyneuropathy; E11.51 Type 2 diabetes mellitus with diabetic peripheral angiopathy without gangrene; Z89.512 Acquired absence of left leg below knee; Z89.511 Acquired absence of right leg below knee; M47.817 Spondylosis without myelopathy or radiculopathy, lumbosacral region; E11.319 Type 2 diabetes mellitus with unspecified diabetic retinopathy without macular edema; E87.70 Fluid overload, unspecified; E87.5 Hyperkalemia; R09.02 Hypoxemia; D63.1 Anemia in chronic kidney disease; R06.03 Acute respiratory distress; E78.00 Pure hypercholesterolemia, unspecified; D69.6 Thrombocytopenia, unspecified; Z93.3 Colostomy status; Z79.4 Long term (current) use of insulin
CPT/HCPCS: 36415; 71045; 80053; 80061; 82550; 82553; 82948; 83735; 84484; 85025; 85610; 85730; 87040; 87635; 93005; 99285; J0456; J0696; J1644; J2405; J7030

== ENCOUNTER → 2020-12-15 | Outpatient (CLI) | payer MEDICARE | LOC: US 08:18 | PROVIDERS: ATTEND Internal Medicine Gastroenterology | DX: B19.21 Unspecified viral hepatitis C with hepatic coma (principal); R11.2 Nausea with vomiting, unspecified; K59.09 Other constipation | CPT/HCPCS: 76700 ==